=== PATIENT | male | born 1935 | race Caucasian/White ===

== ENCOUNTER 2018-08-26 14:43 | Emergency (ER) | payer MEDICARE, OTHER, SELFPAY ==
[2018-08-26 14:50] VITALS: BP 142/63; PULSE 60; RESP 17; TEMP 36.9; O2SAT 95
--- NOTE | 2018-08-26 15:33 | ED.SKABFB ---
HPI - Skin/Abscess/Foreign Bdy <Rosario Maher PA-C - Last Filed: 08/26/18 22:43> General Chief complaint: Skin/Abscess/Foreign Body Stated complaint: bleeding through bandages Time Seen by Provider: 08/26/18 15:12 Source: patient Mode of arrival: ambulatory Limitations: no limitations History of Present Illness HPI narrative: This 83-year-old male comes in today due to bleeding wound on his heel. He states that he had been debriding a callus with a neutral he got from the pharmacy yesterday and caused a cut. He states that he bandaged this that was fine, but accidentally put some pressure on it when he got up around 1 o'clock this morning and would not stop bleeding. Medics came out and bandaged it for him. It was fine until he tried to walk and shoes cause pressure, bleeding again and difficult to get it to stop so he came in here. He notes that he always bleeds and bruises easily due to being on Plavix. He denies any other complaints or new symptoms today. Related Data Home Medications Medication Instructions Recorded Confirmed gabapentin [Neurontin] 600 mg PO TID #0 03/27/12 08/26/18 clopidogrel [Plavix] 75 mg PO QDAY #0 12/02/16 08/26/18 atorvastatin 80 mg PO HS #0 11/25/17 08/26/18 fluticasone [Flonase Allergy 2 spray INTRANASAL QDAY #0 11/25/17 Relief] lansoprazole [Prevacid] 30 mg PO BIDAC #0 11/25/17 08/26/18 latanoprost 1 drp OPHTHALMIC (EYE) BEDTIME 08/26/18 08/26/18 morphine 1 tab PO 5XD 08/26/18 08/26/18 nortriptyline 25 mg PO BEDTIME 08/26/18 08/26/18 polyethylene glycol 3350 1 dose PO BID 08/26/18 08/26/18 Previous Rx's Medication Instructions Recorded atenolol 25 mg PO QDAY #30 tab 11/26/17 losartan 50 mg PO QDAY #30 tab 11/26/17 Allergies Allergy/AdvReac Type Severity Reaction Status Date / Time cephalexin Allergy Severe RASH Unverified 02/25/18 12:19 ciprofloxacin Allergy Severe RASH Unverified 02/25/18 12:19 Review of Systems <Rosario Maher PA-C - Last Filed: 08/26/18 22:43> Review of Systems All systems reviewed & are unremarkable except as noted in HPI and below Exam <SURYA Hicks Last Filed: 08/26/18 22:43> Narrative Exam Narrative: GENERAL APPEARANCE: Patient sitting comfortably, in no distress. LUNGS: Clear to auscultation bilaterally. HEART: Rate and rhythm regular without murmur, normal S1 and S2, no S3 or S4. DERMATOLOGIC: The on the left lateral heel there is a 1 cm long superficial laceration with no gap, not actively bleeding. Nontender MUSCULOSKELETAL: Full range of motion of the left foot and ankle without tenderness NEUROVASCULAR: Left foot sensation is grossly intact, warm and pink Initial Vital Signs Initial Vital Signs: Vital Signs Temperature 98.5 F 08/26/18 14:50 Pulse Rate 60 08/26/18 14:50 Respiratory Rate 17 08/26/18 14:50 Blood Pressure 142/63 H 08/26/18 14:50 Pulse Oximetry 95 08/26/18 14:50 <Jaxon Sweeney DO - Last Filed: 08/27/18 15:44> Initial Vital Signs Initial Vital Signs: Vital Signs Temperature 98.5 F 08/26/18 14:50 Pulse Rate 60 08/26/18 14:50 Respiratory Rate 17 08/26/18 14:50 Blood Pressure 142/63 H 08/26/18 14:50 Pulse Oximetry 95 08/26/18 14:50 Course <SURYA Hicks Last Filed: 08/26/18 22:43> Vital Signs - 8 hr 08/26/18 14:50 08/26/18 16:32 Temperature 98.5 F 98.2 F Pulse Rate 60 55 L Respiratory Rate 17 16 Blood Pressure 142/63 H 137/50 L Pulse Oximetry 95 98 <Jaxon Sweeney DO - Last Filed: 08/27/18 15:44> Vital Signs - 8 hr 08/26/18 14:50 08/26/18 16:32 Temperature 98.5 F 98.2 F Pulse Rate 60 55 L Respiratory Rate 17 16 Blood Pressure 142/63 H 137/50 L Pulse Oximetry 95 98 Discharge Plan Departure Patient Disposition: Home Clinical Impression: Open wound of left heel Discharge Date/Time: 08/26/18 16:33 Interventions: ED Discharge Assessment Last Done: 08/26/18 16:32 Instructions: DI for Laceration Repair Steri-Strips Activity Restrictions/Additional Instructions: We have put a dressing on this today to help the wound stay closed and keep pressure off of it. Please keep the dressing on, or changes with the supplies we have given you after you shower. Please try to wear no shoes, or shoes that do not put pressure on the wound. Please follow up right away or see your PCP if any worsening or signs of infection. Prescriptions: No Action gabapentin [Neurontin] 600 MG tablet 600 mg PO TID Qty: 0 RF: 0 clopidogrel [Plavix] 75 MG tablet 75 mg PO QDAY Qty: 0 RF: 0 lansoprazole [Prevacid] 30 MG capsule,delayed release(DR/EC) 30 mg PO BIDAC Qty: 0 RF: 0 atorvastatin 80 MG tablet 80 mg PO HS Qty: 0 RF: 0 fluticasone [Flonase Allergy Relief] 9.9 ML spray,suspension 2 spray Intranasal QDAY Qty: 0 RF: 0 losartan 50 MG tablet 50 mg PO QDAY Qty: 30 RF: 0 atenolol 25 MG tablet 25 mg PO QDAY Qty: 30 RF: 0 latanoprost 0.005 % drops 1 drp ophthalmic (eye) BEDTIME RF: 0 nortriptyline 25 mg capsule 25 mg PO BEDTIME RF: 0 morphine 15 mg tablet extended release 1 tab PO 5XD RF: 0 polyethylene glycol 3350 17 gram/dose powder 1 dose PO BID RF: 0 Referrals: Kane Molina MD [Primary Care Provider] - <Jaxon Sweeney DO - Last Filed: 08/27/18 15:44> Cosign ED Attending Mekaature Attestation: I was available for consultation for this patients ED stay.
[2018-08-26 16:32] VITALS: BP 137/50; PULSE 55; RESP 16; TEMP 36.8; O2SAT 98
== END 2018-08-26 16:33 | disposition home or self-care (01) ==
PROVIDERS: Emergency Provider Internal Medicine; Family Provider Internal Medicine; PCP Internal Medicine
DX: S91.302A Unspecified open wound, left foot, initial encounter (principal); W26.8XXA Contact with other sharp object(s), not elsewhere classified, initial encounter
CPT/HCPCS: 99282

== ENCOUNTER 2019-12-24 14:17 | Emergency (ER) | payer MEDICARE, OTHER, SELFPAY ==
[2019-12-24 14:56] VITALS: BP 136/56; PULSE 77; RESP 18; TEMP 36.9; O2SAT 98; BMI 20.2
--- NOTE | 2019-12-24 17:59 | DI.RAD.S_ITS ---
PROCEDURE: XR HIP W PEL IF DONE RT 2V INDICATIONS: R hip pain TECHNIQUE: AP pelvis with lateral view(s) of the right hip(s). COMPARISON: None. FINDINGS: Bones: No fractures or dislocations. Pelvic ring appears intact. No suspicious bony lesions. There is moderate superior joint space narrowing seen of both hips, with associated remodeling changes with subchondral sclerosis and osteophyte formation. Age-appropriate lower lumbar spine degenerative changes are noted. Soft tissues: The visualized bowel gas pattern is normal. No suspicious soft tissue calcifications. 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 Dictated by: Dawson Flores M.D. on 12/24/2019 at 18:34 Approved by: Dawson Flores M.D. on 12/24/2019 at 18:35
--- NOTE | 2019-12-24 18:20 | ED_ITS ---
HPI - Back Pain/Injury <Eneida JaimesPIPPA - Last Filed: 12/24/19 21:24> General Chief Complaint: Back Pain/Injury Stated Complaint: pain management Time Seen by Provider: 12/24/19 16:59 Source: patient History of Present Illness HPI Narrative: 84yo male with a history of chronic pain, presents to the emergency department complaining of worsening right hip pain since Friday. He denies any trauma to the area, fevers, chills, rashes, nausea, vomiting, diarrhea, or other concerns. He states the pain is intermittent and is a burning and sharp stabbing that starts in his hip and radiates down to his knee. She states the pain is usually worse in the morning or when he gets out of bed. Patient states this is common of the pain he has been experiencing in the past but usually has pain medication gets for the pain The pain is worse when he walks on it during an exacerbation. Patient states that he takes morphine tablets approximately 5 times a day for chronic back pain and AK. He states he fears that his pain medication is not working as well. Related Data Home Medications Medication Instructions Recorded Confirmed gabapentin [Neurontin] 600 mg PO TID #0 03/27/12 12/24/19 clopidogrel [Plavix] 75 mg PO DAILY #0 12/02/16 12/24/19 atorvastatin 80 mg PO BEDTIME #0 11/25/17 12/24/19 fluticasone propionate [Flonase 2 spray INTRANASAL DAILY #0 11/25/17 12/24/19 Allergy Relief] lansoprazole [Prevacid] 30 mg PO BIDAC #0 11/25/17 12/24/19 latanoprost 1 drp OPHTHALMIC (EYE) BEDTIME 08/26/18 12/24/19 morphine 1 tab PO 5XD 08/26/18 12/24/19 nortriptyline 25 mg PO BEDTIME 08/26/18 12/24/19 polyethylene glycol 3350 1 dose PO BID 08/26/18 12/24/19 calcium carbonate [Calcium 500] 500 mg DAILY 09/08/19 12/24/19 cranberry 400 mg DAILY 09/08/19 12/24/19 cyanocobalamin (vitamin B-12) 1,000 mcg PO BID 09/08/19 12/24/19 [Vitamin B-12] ferrous sulfate 325 mg PO DAILY 09/08/19 12/24/19 er-vaz-nqmob acid-lutein [Centrum 1 tab PO DAILY 09/08/19 12/24/19 Silver] olopatadine [Pataday] 0.2 % OPHTHALMIC (EYE) DAILY 09/08/19 12/24/19 vit C,D-Ph-pniby-lutein-zeaxan 1 tab DAILY 09/08/19 12/24/19 [PreserVision AREDS-2] amlodipine 10 mg PO DAILY 11/03/19 12/24/19 isosorbide mononitrate 60 mg PO DAILY 11/03/19 12/24/19 metoprolol succinate 25 mg PO DAILY 11/03/19 12/24/19 ICaps AREDS 1 cap PO DAILY 12/24/19 12/24/19 Ventricor 1 dose PO DIRECTED 12/24/19 12/24/19 Vitapulse 1 dose PO DIRECTED 12/24/19 12/24/19 aspirin 81 mg PO DAILY 12/24/19 12/24/19 atenolol 25 mg PO DAILY 12/24/19 12/24/19 kthmwzsxfl-vqabyup-fxtpybmm 2 cap PO Q4H PRN 12/24/19 12/24/19 [Fiorinal] coenzyme Q10 [Co Q-10] 300 mg PO DAILY 12/24/19 12/24/19 flaxseed oil 1 dose PO DIRECTED 12/24/19 12/24/19 furosemide 10 mg PO DAILY 12/24/19 12/24/19 losartan 50 mg PO DAILY 12/24/19 12/24/19 nitroglycerin 0.4 mg SUBLINGUAL PRN PRN 12/24/19 12/24/19 resveratrol 1 cap PO DIRECTED 12/24/19 12/24/19 Allergies Allergy/AdvReac Type Severity Reaction Status Date / Time cephalexin Allergy Severe RASH Verified 05/11/19 18:58 ciprofloxacin Allergy Severe RASH Verified 05/11/19 18:58 Review of Systems <PIPPA Burger - Last Filed: 12/24/19 21:24> Review of Systems Narrative: REVIEW OF SYSTEMS: GENERAL: Denies fever or chills. HENT: No head trauma. EYES: No double vision or vision loss. CARDIOVASCULAR: No chest pain or syncope. RESPIRATORY: No shortness of breath or cough. GASTROINTESTINAL: No nausea, vomiting, diarrhea, or constipation. GENITOURINARY: No flank pain or dysuria. MUSCULOSKELETAL: Complains of right hip pain, see HPI. INTEGUMENTARY: No rash, lesions, or pruritus. NEURO: No numbness, tingling. PSYCH: No behavior or mood changes. Patient History <PIPPA Burger - Last Filed: 12/24/19 21:24> Medical History HTN (hypertension) (Acute) Social History Smoking Status: Never smoker Smoking Status: Never smoker alcohol intake frequency: holidays/special occasions only Substance Use Type: does not use Exam <PIPPA Burger - Last Filed: 12/24/19 21:24> Initial Vital Signs Initial Vital Signs: Vital Signs Temperature 98.4 F 12/24/19 14:56 Pulse Rate 77 12/24/19 14:56 Respiratory Rate 18 12/24/19 14:56 Blood Pressure 136/56 L 12/24/19 14:56 Pulse Oximetry 98 12/24/19 14:56 PHYSICAL EXAMINATION: GENERAL: Skinny appearing but well groomed, alert, and cooperative. Answers questions promptly and appropriately. Vital signs noted. HENT: Normocephalic, atraumatic. EYES: Symmetrical, sclera white, no periorbital swelling. CARDIOVASCULAR: S1 and S2 sounds normal. Regular rate and rhythm, no murmurs, clicks, or bruits. RESPIRATORY: Normal respiratory rate, trachea midline, airway patent. No stridor, nasal flaring or accessory muscle use. Lungs are clear in all wagner. MUSCULOSKELETAL: Slight tenderness to right sciatic region, decreased flexion of hip due to pain. No deformities. Normal gait and coordination. Equal tone and mass bilaterally. Notable spinal deformities but patient states this is normal. EXTREMITIES: CMS intact. Pedal pulses 2+ intact. SKIN: Warm, dry, soft, appropriate color for ethnicity. No lesions, rashes, or wounds. NEURO: Alert and Oriented X 3. No sensory deficits. PSYCH: Appropriate affect and mood. <Francisca Conklin DO - Last Filed: 12/24/19 21:30> Initial Vital Signs Initial Vital Signs: Vital Signs Temperature 98.4 F 12/24/19 14:56 Pulse Rate 77 12/24/19 14:56 Respiratory Rate 18 12/24/19 14:56 Blood Pressure 136/56 L 12/24/19 14:56 Pulse Oximetry 98 12/24/19 14:56 Course <PIPPA Burger - Last Filed: 12/24/19 21:24> Orders Ordered: ED Orders 12/24/19 17:59 XR hip w pel if done RT 2V Stat Discontinued Medications Oxycodone/Acetaminophen (Percocet 5/325) 1 tab PO NOW ONE Stop: 12/24/19 19:51 Last Admin: 12/24/19 19:55 Dose: 1 tab Documented by: MIMI Vital Signs Vital signs: Vital Signs - 8 hr 12/24/19 14:56 12/24/19 20:05 Temperature 98.4 F Pulse Rate 77 57 L Respiratory Rate 18 Blood Pressure 136/56 L 132/60 Pulse Oximetry 98 99 <Francisca Conklin DO - Last Filed: 12/24/19 21:30> Orders Ordered: ED Orders 12/24/19 17:59 XR hip w pel if done RT 2V Stat Discontinued Medications Oxycodone/Acetaminophen (Percocet 5/325) 1 tab PO NOW ONE Stop: 12/24/19 19:51 Last Admin: 12/24/19 19:55 Dose: 1 tab Documented by: MIMI Vital Signs Vital signs: Vital Signs - 8 hr 12/24/19 14:56 12/24/19 20:05 Temperature 98.4 F Pulse Rate 77 57 L Respiratory Rate 18 Blood Pressure 136/56 L 132/60 Pulse Oximetry 98 99 MDM - Back Pain/Injury <PIPPA Burger - Last Filed: 12/24/19 21:24> Medical Records Attestation: I reviewed the patient's medical records. Lab Data Attestation: I reviewed the patient's lab results. Imaging Data Extremity x-ray #1: Radiologist's Impression: [address] [place] [id number] XRay Report Signed Patient: Graeme Forte [facility]#: [id number] : 5Acct:[id number] Age/Sex: 84 / MDate of Service: 12/24/19 Loc: ED Accession Number: [id number] Procedure: XR hip w pel if done RT 2V Ordering Provider: Eneida Jaimes PROCEDURE: XR HIP W PEL IF DONE RT 2V INDICATIONS: R hip pain TECHNIQUE: AP pelvis with lateral view(s) of the right hip(s). COMPARISON: None. FINDINGS: Bones: No fractures or dislocations. Pelvic ring appears intact. No suspicious bony lesions. There is moderate superior joint space narrowing seen of both hips, with associated remodeling changes with subchondral sclerosis and osteophyte formation. Age-appropriate lower lumbar spine degenerative changes are noted. Soft tissues: The visualized bowel gas pattern is normal. No suspicious soft tissue calcifications. 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 ECG Data Interpretation: MDM Narrative Medical decision making narrative: 84-year-old male with a history of AK and arthritis on chronic pain medication, presents emergency department for worsening right hip pain without trauma. Differential inadequate pain control, arthritis, sciatica, and less likely fracture due to negative x-ray. Patient was encouraged to follow up with his primary care provider in 1-2 weeks for further evaluation. He was given strict ED return precautions. Patient agreed with plan of care verbalized understanding. He was able to ambulate without significant difficulty using his cane. No concern for sepsis due to lack of erythema or other this systemic symptoms such as tachycardia or fever. Patient agreed with plan of care verbalized understanding. Discharge Plan Departure Patient Disposition: Home Clinical Impression: Hip pain Qualifiers: Laterality: right Qualified Code(s): M25.551 - Pain in right hip Discharge Date/Time: 12/24/19 20:08 Instructions: DI for Hip Pain Activity Restrictions/Additional Instructions: Thank you for entrusting me with your care today. As discussed, your x-rays negative for fractures. Please follow up with your primary care provider in the next 1-2 weeks for further evaluation if you have continued pain. I suggest taking 1-2 pills of Tylenol every 6 hours with your morphine that you currently take to help with pain. Do not exceed 3 g of Tylenol a day. Return to the emergency department for any new or worsening symptoms such as chest pain, shortness of breath, dizziness, worsening pain, or other concerns. Prescriptions: No Action gabapentin [Neurontin] 600 MG tablet 600 mg PO TID Qty: 0 RF: 0 clopidogrel [Plavix] 75 MG tablet 75 mg PO DAILY Qty: 0 RF: 0 lansoprazole [Prevacid] 30 MG capsule,delayed release(DR/EC) 30 mg PO BIDAC Qty: 0 RF: 0 atorvastatin 80 MG tablet 80 mg PO BEDTIME Qty: 0 RF: 0 fluticasone propionate [Flonase Allergy Relief] 9.9 ML spray,suspension 2 spray Intranasal DAILY Qty: 0 RF: 0 nitroglycerin 0.4 mg tablet, sublingual 0.4 mg sublingual PRN PRN (Reason: Chest Pain) RF: 0 furosemide 20 mg tablet 10 mg PO DAILY RF: 0 losartan 50 MG tablet 50 mg PO DAILY RF: 0 atenolol 25 mg tablet 25 mg PO DAILY RF: 0 aspirin 81 mg Tablet,Delayed Release (Dr/Ec) 81 mg PO DAILY RF: 0 wllvzdipnq-fsgirhg-sykgtcsl [Fiorinal] 50-325-40 mg Capsule 2 cap PO Q4H PRN (Reason: pain) RF: 0 Co Q-10 300 mg Capsule 300 mg PO DAILY RF: 0 ICaps AREDS 1 cap PO DAILY RF: 0 flaxseed oil 1 dose PO DIRECTED RF: 0 Ventricor 1 dose PO DIRECTED RF: 0 resveratrol 1 cap PO DIRECTED RF: 0 Vitapulse 1 dose PO DIRECTED RF: 0 latanoprost 0.005 % drops 1 drp ophthalmic (eye) BEDTIME RF: 0 nortriptyline 25 mg capsule 25 mg PO BEDTIME RF: 0 morphine 15 mg tablet extended release 1 tab PO 5XD RF: 0 polyethylene glycol 3350 17 gram/dose powder 1 dose PO BID RF: 0 cyanocobalamin (vitamin B-12) [Vitamin B-12] 1,000 mcg Tablet Extended Release 1,000 mcg PO BID RF: 0 ferrous sulfate 325 mg (65 mg iron) Tablet 325 mg PO DAILY RF: 0 cranberry 400 mg Capsule 400 mg DAILY RF: 0 olopatadine [Pataday] 0.2 % Drops 0.2 % OPHTHALMIC (EYE) DAILY RF: 0 Centrum Silver 400-250 mcg Tablet,Chewable 1 tab PO DAILY RF: 0 PreserVision AREDS-2 430-510-40-1 wd-klrc-ay-mg Capsule 1 tab DAILY RF: 0 calcium carbonate [Calcium 500] 500 mg calcium (1,250 mg) Tablet 500 mg DAILY RF: 0 isosorbide mononitrate 60 mg Tablet Extended Release 24 Hr 60 mg PO DAILY RF: 0 amlodipine 10 mg Tablet 10 mg PO DAILY RF: 0 metoprolol succinate 25 mg Tablet Extended Release 24 Hr 25 mg PO DAILY RF: 0 Referrals: Kane Molina MD [Primary Care Provider] -
[2019-12-24] MEDS: OXYCODONE/ACETAMINOPHEN 5/325 TABLET 1 TAB PO (19:55)
[2019-12-24 20:05] VITALS: BP 132/60; PULSE 57; O2SAT 99
== END 2019-12-24 20:08 | disposition home or self-care (01) ==
PROVIDERS: Emergency Provider Nurse Practitioner; Family Provider Internal Medicine; PCP Internal Medicine
DX: M25.551 Pain in right hip (principal); I10 Essential (primary) hypertension
CPT/HCPCS: 73502; 99283

== ENCOUNTER → 2020-06-29 15:18 | Outpatient (CLI) | payer MEDICARE, OTHER, SELFPAY ==
--- NOTE | 2020-06-29 15:28 | DI.US.S_ITS ---
PROCEDURE: US RENAL COMPLETE INDICATIONS: INSUFFICIENCY TECHNIQUE: Real-time scanning was performed of the kidneys and bladder, with image documentation. COMPARISON: None. FINDINGS: Kidneys: Kidneys are normal in size. Right kidney measures 9.6 cm long; left kidney measures 10.0 cm long. Right renal cortical thickness is 1.6 cm; left renal cortical thickness is 1.7 cm. Renal cortical echotexture is normal. No hydronephrosis or nephrolithiasis. No suspicious solid mass lesions. Bladder: Pre-void bladder volume is 342 mL. Post-void residual is unable to be assessed as the patient was unable to void. Pre-void images demonstrate no intraluminal masses or stones. On pre-void images, bilateral ureteral jets are noted with color Doppler interrogation. (Of note, ureteral jets may not be detectable in up to 25% of cases due to insufficient differences in specific gravity between ureteral and bladder urine). Bladder wall trabeculations. Miscellaneous: No free pelvic fluid. IMPRESSION: 1. Normal appearance of the kidneys and no hydronephrosis is seen. 2. Patient was unable to void and bladder wall trabeculations are present which could be associated with chronic partial bladder outlet obstruction. Recommend clinical correlation and follow-up. Dictated by: Brock WOO Interpreted: Clau Caruso MD on 06/29/2020 at 16:24 Approved by: Clau Caruso MD, PhD on 06/29/2020 at 17:22
== END ==
PROVIDERS: Family Provider Internal Medicine; PCP Internal Medicine; Referring Provider Student in an Organized Health Care Education/Training Program; Visit Provider Student in an Organized Health Care Education/Training Program
DX: N28.9 Disorder of kidney and ureter, unspecified (principal); N32.89 Other specified disorders of bladder
CPT/HCPCS: 76770

== ENCOUNTER 2020-07-27 02:48 | Emergency (ER) | payer MEDICARE, OTHER, SELFPAY ==
[2020-07-27] VITALS (9 sets, daily range): BP systolic 137–140; BP diastolic 57–63; PULSE 68–112; RESP 12–18; TEMP 37–37.2; O2SAT 87–100
--- NOTE | 2020-07-27 03:06 | ED.FALL ---
HPI - Fall General Chief Complaint: Fall Stated Complaint: GLF Time Seen by Provider: 07/27/20 03:06 History of Present Illness HPI Narrative: 85-year-old gentleman with a history of recently discontinued losartan with a change to doxazosin, chronic pain syndrome, cardiac disease, hypertension, with intermittent vertigo was walking across the kitchen became vertiginous and fell, hitting his head. He does take Plavix. He states that he stumbled forward and hit the top of his head on the edge of the counter as he fell down. He complains of no other new pain -specifically node neck pain hip low back upper extremity or knee pain. He has no abrasions on I any other portion of his body. He did not lose consciousness. He was able to get himself up off the floor but called medics when he realized he was bleeding so profusely from the top of his head. Related Data Home Medications Medication Instructions Recorded Confirmed gabapentin [Neurontin] 600 mg PO TID #0 03/27/12 12/24/19 clopidogrel [Plavix] 75 mg PO DAILY #0 12/02/16 12/24/19 atorvastatin 80 mg PO BEDTIME #0 11/25/17 12/24/19 fluticasone propionate [Flonase 2 spray INTRANASAL DAILY #0 11/25/17 12/24/19 Allergy Relief] lansoprazole [Prevacid] 30 mg PO BIDAC #0 11/25/17 12/24/19 latanoprost 1 drp OPHTHALMIC (EYE) BEDTIME 08/26/18 12/24/19 morphine 1 tab PO 5XD 08/26/18 12/24/19 nortriptyline 25 mg PO BEDTIME 08/26/18 12/24/19 polyethylene glycol 3350 1 dose PO BID 08/26/18 12/24/19 calcium carbonate [Calcium 500] 500 mg DAILY 09/08/19 12/24/19 cranberry 400 mg DAILY 09/08/19 12/24/19 cyanocobalamin (vitamin B-12) 1,000 mcg PO BID 09/08/19 12/24/19 [Vitamin B-12] ferrous sulfate 325 mg PO DAILY 09/08/19 12/24/19 bi-qov-stxtd acid-lutein [Centrum 1 tab PO DAILY 09/08/19 12/24/19 Silver] olopatadine [Pataday] 0.2 % OPHTHALMIC (EYE) DAILY 09/08/19 12/24/19 vit C,L-Qe-mtecg-lutein-zeaxan 1 tab DAILY 09/08/19 12/24/19 [PreserVision AREDS-2] amlodipine 10 mg PO DAILY 11/03/19 12/24/19 isosorbide mononitrate 60 mg PO DAILY 11/03/19 12/24/19 metoprolol succinate 25 mg PO DAILY 11/03/19 12/24/19 ICaps AREDS 1 cap PO DAILY 12/24/19 12/24/19 Ventricor 1 dose PO DIRECTED 12/24/19 12/24/19 Vitapulse 1 dose PO DIRECTED 12/24/19 12/24/19 aspirin 81 mg PO DAILY 12/24/19 12/24/19 atenolol 25 mg PO DAILY 12/24/19 12/24/19 pzlrbnkxnq-xqxilqp-dklfvbpt 2 cap PO Q4H PRN 12/24/19 12/24/19 [Fiorinal] coenzyme Q10 [Co Q-10] 300 mg PO DAILY 12/24/19 12/24/19 flaxseed oil 1 dose PO DIRECTED 12/24/19 12/24/19 furosemide 10 mg PO DAILY 12/24/19 12/24/19 losartan 50 mg PO DAILY 12/24/19 12/24/19 nitroglycerin 0.4 mg SUBLINGUAL PRN PRN 12/24/19 12/24/19 resveratrol 1 cap PO DIRECTED 12/24/19 12/24/19 Allergies Allergy/AdvReac Type Severity Reaction Status Date / Time cephalexin Allergy Severe RASH Verified 05/11/19 18:58 ciprofloxacin Allergy Severe RASH Verified 05/11/19 18:58 Review of Systems Review of Systems Narrative: Pertinent positive and negative findings as per HPI Remainder of review of systems is otherwise unremarkable for Constitutional: Fevers, chills, weakness ENT: No sore throat, neck pain, ear pain CV: Chest pain, palpitations, dyspnea on exertion Respiratory: Cough, wheeze, dyspnea GI: Nausea, vomiting, diarrhea, change in bowel habits, black or bloody stools : Dysuria, hematuria, flank pain Skin: Rashes, nonhealing lesions Patient History Medical History (Updated 07/27/20 @ 04:31 by Luz Maria Nichols MD) Anemia (Acute) Angina pectoris (Acute) HTN (hypertension) (Acute) Hyperlipidemia (Acute) Social History Smoking Status: Never smoker Smoking Status: Never smoker alcohol intake frequency: holidays/special occasions only Substance Use Type: does not use Exam Narrative Exam Narrative: General: Healthy appearing, in no acute distress. Able to give a complete and coherent history. Well-nourished well-developed HEENT: Hard of hearing, Moist mucous membranes, normal sclera with reactive pupils, 4 cm super it official flap like skin tear to the very top of his head. Neck: No point tenderness midline spine nor trapezius muscle spasm Respiratory: Lungs are clear to auscultation, no wheezing no rales no rhonchi. Cardiac: Regular rate and rhythm no murmurs no bruits Abdomen: Soft nontender good bowel tones, no flank pain Skin: Warm and dry, pale, no rashes Spine: Kyphosis and scoliosis Neurologic: Grossly neurologically intact with no obvious asymmetries or abnormalities Extremities: No new trauma, well perfused, Psych: Cooperative, appropriate insight and affect Initial Vital Signs Initial Vital Signs: Vital Signs Pulse Rate 112 H 07/27/20 03:02 Pulse Oximetry 100 07/27/20 03:02 Procedures Laceration Repair Flap laceration to the top of his head: Site: scalp Size (cm): 4 Description: flap Depth: simple, single layer Local Anesthetic: other anesthetic (Topical probably cane/lidocaine) Pre-repair: wound explored Skin layer closed with: steri-strips Scores ABCD2 Citation: Lancet. 2006Dec 13;369(7913):743-92. Validation and refinement of scores to predict very early stroke risk after transient ischaemic attack. [place] SC1, Zeeshan PM, Janay MN, Byron MF, Bobbi JS, Citlaly AL, Richard S. Course Orders Ordered: ED Orders 07/27/20 EKG-12 Lead Stat 07/27/20 03:14 CT head/brain wo con Stat Discontinued Medications Lidocaine/Prilocaine (Lidocaine-Prilocaine Cream) 5 gm TOP NOW ONE Stop: 07/27/20 03:14 Last Admin: 09/10/20 03:19 Dose: 5 gm Documented by: MARI Morphine Sulfate (Morphine Ir) 15 mg PO NOW ONE Stop: 07/27/20 03:47 Last Admin: 07/27/20 04:08 Dose: Not Given Documented by: MARI Morphine Sulfate (Ms Contin) 15 mg PO BID ONE Stop: 07/27/20 03:51 Last Admin: 07/27/20 04:07 Dose: Not Given Documented by: MARI Vital Signs Vital signs: Vital Signs - 8 hr 07/27/20 03:02 07/27/20 03:03 07/27/20 03:33 Temperature 98.6 F Pulse Rate 112 H 101 H 81 Respiratory Rate 18 Blood Pressure 137/57 L Pulse Oximetry 100 100 87 L 07/27/20 04:00 07/27/20 04:07 Temperature Pulse Rate 74 77 Respiratory Rate 16 15 Blood Pressure 140/63 Pulse Oximetry 100 99 MDM - Fall Medical Records Attestation: I reviewed the patient's medical records. Lab Data Attestation: I reviewed the patient's lab results. Imaging Data CT scan - head: Radiologist's Impression: No acute findings Barbara Hawkins MD ECG Data Attestation: I personally reviewed and interpreted this ECG as follows: Interpretation: Sinus arrhythmia at a rate of 97 Left axis deviation and right bundle branch block No acute ischemic changes, no priors for comparison MDM Narrative Medical decision making narrative: 85-year-old gentleman with a description of a intense vertiginous feeling fci across his kitchen, he stumbled fell forward script the top of his head probably along the refrigerator door suffering a flap like laceration. No loss of consciousness. No intracranial hemorrhage. No evidence of infection, stroke or acute coronary syndrome to contribute to his fall. Steri-Strips are used to reapproximate skin edges and patient is safe for home discharge. Discharge Plan Departure Patient Disposition: Home Clinical Impression: Fall Qualifiers: Encounter type: initial encounter Qualified Code(s): W19.XXXA - Unspecified fall, initial encounter Laceration of scalp Qualifiers: Encounter type: initial encounter Qualified Code(s): S01.01XA - Laceration without foreign body of scalp, initial encounter Instructions: DI for Laceration Repair of the Scalp Activity Restrictions/Additional Instructions: Thank you for coming in today You did not do any additional injury with your fall. There is no bleeding on the inside of your brain. I found no evidence of infection or life-threatening cardiac abnormalities that that might have contributed to a fall You do have a flap like laceration to the top of your scalp. We reapproximated the edges using Steri-Strips. Please try to not disturb these tape strips for at least 3-4 days. It is okay to gently pat them if you do get your hair wet but try not to pull them off. The wound should heal nicely. Please take care with falls, they can have very serious consequences. Prescriptions: No Action gabapentin [Neurontin] 600 MG tablet 600 mg PO TID Qty: 0 RF: 0 clopidogrel [Plavix] 75 MG tablet 75 mg PO DAILY Qty: 0 RF: 0 lansoprazole [Prevacid] 30 MG capsule,delayed release(DR/EC) 30 mg PO BIDAC Qty: 0 RF: 0 atorvastatin 80 MG tablet 80 mg PO BEDTIME Qty: 0 RF: 0 fluticasone propionate [Flonase Allergy Relief] 9.9 ML spray,suspension 2 spray Intranasal DAILY Qty: 0 RF: 0 nitroglycerin 0.4 mg tablet, sublingual 0.4 mg sublingual PRN PRN (Reason: Chest Pain) RF: 0 furosemide 20 mg tablet 10 mg PO DAILY RF: 0 losartan 50 MG tablet 50 mg PO DAILY RF: 0 atenolol 25 mg tablet 25 mg PO DAILY RF: 0 aspirin 81 mg Tablet,Delayed Release (Dr/Ec) 81 mg PO DAILY RF: 0 deqkgojqrf-mcjcfcc-ifxlmoey [Fiorinal] 50-325-40 mg Capsule 2 cap PO Q4H PRN (Reason: pain) RF: 0 Co Q-10 300 mg Capsule 300 mg PO DAILY RF: 0 ICaps AREDS 1 cap PO DAILY RF: 0 flaxseed oil 1 dose PO DIRECTED RF: 0 Ventricor 1 dose PO DIRECTED RF: 0 resveratrol 1 cap PO DIRECTED RF: 0 Vitapulse 1 dose PO DIRECTED RF: 0 latanoprost 0.005 % drops 1 drp ophthalmic (eye) BEDTIME RF: 0 nortriptyline 25 mg capsule 25 mg PO BEDTIME RF: 0 morphine 15 mg tablet extended release 1 tab PO 5XD RF: 0 polyethylene glycol 3350 17 gram/dose powder 1 dose PO BID RF: 0 cyanocobalamin (vitamin B-12) [Vitamin B-12] 1,000 mcg Tablet Extended Release 1,000 mcg PO BID RF: 0 ferrous sulfate 325 mg (65 mg iron) Tablet 325 mg PO DAILY RF: 0 cranberry 400 mg Capsule 400 mg DAILY RF: 0 olopatadine [Pataday] 0.2 % Drops 0.2 % OPHTHALMIC (EYE) DAILY RF: 0 Centrum Silver 400-250 mcg Tablet,Chewable 1 tab PO DAILY RF: 0 PreserVision AREDS-2 266-529-36-1 oo-mvvn-jy-mg Capsule 1 tab DAILY RF: 0 calcium carbonate [Calcium 500] 500 mg calcium (1,250 mg) Tablet 500 mg DAILY RF: 0 isosorbide mononitrate 60 mg Tablet Extended Release 24 Hr 60 mg PO DAILY RF: 0 amlodipine 10 mg Tablet 10 mg PO DAILY RF: 0 metoprolol succinate 25 mg Tablet Extended Release 24 Hr 25 mg PO DAILY RF: 0 Referrals: Kane Molina MD [Primary Care Provider] -
--- NOTE | 2020-07-27 03:14 | DI.CT.S_ITS ---
PROCEDURE: CT HEAD/BRAIN WO CON INDICATIONS: fall, on plavix, hit head TECHNIQUE: Noncontrast 4.5 mm thick angled axial sections acquired from the foramen magnum to the vertex, with coronal and sagittal reformats. For radiation dose reduction, the following was used: automated exposure control, adjustment of mA and/or kV according to patient size. COMPARISON: None. FINDINGS: Image quality: Excellent. CSF spaces: Basal cisterns are patent. No extra-axial fluid collections. The ventricles are symmetric in size and shape. Brain: No intracranial bleeds or masses. There is cerebral volume loss for age, with resultant ventricular and sulcal prominence. There are periventricular and deep white matter chronic small vessel ischemic changes. There is intracranial internal carotid artery and vertebral artery atherosclerosis. Skull and face: Calvarium and visualized facial bones appear intact, without suspicious lesions. Small right frontal-parietal scalp contusion. Sinuses: Visualized sinuses and mastoids are clear. IMPRESSION: No acute intracranial disease process. Dictated by: Clau Caruso MD, PhD on 07/27/2020 at 7:27 Approved by: Clau Caruso MD, PhD on 07/27/2020 at 7:29
[2020-07-27] MEDS: LIDOCAINE/PRILOCAINE 5 GM TOP (03:19)
[2020-07-27] MEDS: MORPHINE ER 15 MG TABLET PO (04:04)
--- NOTE | 2020-07-27 04:21 | PC.NURSE ---
Pt given home dose of Morphine for chronic pain.
== END 2020-07-27 04:58 | disposition home or self-care (01) ==
PROVIDERS: Emergency Provider Emergency Medicine; Family Provider Internal Medicine; PCP Internal Medicine
DX: S01.01XA Laceration without foreign body of scalp, initial encounter (principal); W19.XXXA Unspecified fall, initial encounter; I10 Essential (primary) hypertension; R42 Dizziness and giddiness; Z79.01 Long term (current) use of anticoagulants; R07.9 Chest pain, unspecified
CPT/HCPCS: 70450; 93005; 99282; 99284

== ENCOUNTER 2020-08-09 15:55 | Inpatient (IN) | payer MEDICARE, OTHER, SELFPAY ==
[2020-08-09] VITALS (9 sets, daily range): BP systolic 107–135; BP diastolic 55–65; PULSE 71–100; RESP 14–23; TEMP 36.7–37.1; O2SAT 94–99; BMI 20.9
--- NOTE | 2020-08-09 16:20 | ED.RECABL ---
HPI - Recheck/Abnormal Lab/Rx General Chief Complaint: Recheck/Abnormal Lab/Rx Stated Complaint: weakness Time Seen by Provider: 08/09/20 16:20 Source: patient Mode of arrival: Wheelchair History of Present Illness HPI narrative: 85-year-old gentleman with a history of cardiac disease, chronic pain syndrome, hypertension, intermittent vertigo, postnasal drip with chronic cough presents with generalized weakness and states that he received a phone call from his primary care doctor Kane Molina with a report that his blood was at 35% and he needed to have a blood draw. Promptly came to the emergency department. States that he is at his usual state of general malaise and weakness and had he not received phone call he would not have sought medical treatment this evening. Contacting Dr. Molina's office indicates that there was a message left stating that his hematocrit was 21% with worsening renal function and recommended further ER evaluation and workup. He denies any fever, cough, palpitation. He is having no chest pain no abdominal pain. States that his chronic lower extremity edema is unchanged and it repeats that to the doxazosin that he recently started after stopping losartan for high blood pressure. He was seen recently in this emergency department after he stumbled and hit top of his head on a wall. That wound is healing nicely. Reports chronic proximal muscle weakness and pain that is unchanged Related Data Home Medications Medication Instructions Recorded Confirmed gabapentin [Neurontin] 600 mg PO TID #0 03/27/12 12/24/19 clopidogrel [Plavix] 75 mg PO DAILY #0 12/02/16 08/09/20 atorvastatin 80 mg PO BEDTIME #0 11/25/17 12/24/19 fluticasone propionate [Flonase 2 spray INTRANASAL DAILY #0 11/25/17 12/24/19 Allergy Relief] lansoprazole [Prevacid] 30 mg PO BIDAC #0 11/25/17 12/24/19 latanoprost 1 drp OPHTHALMIC (EYE) BEDTIME 08/26/18 12/24/19 morphine 1 tab PO 5XD 08/26/18 12/24/19 nortriptyline 25 mg PO BEDTIME 08/26/18 12/24/19 polyethylene glycol 3350 1 dose PO BID 08/26/18 12/24/19 calcium carbonate [Calcium 500] 500 mg DAILY 09/08/19 12/24/19 cranberry 400 mg DAILY 09/08/19 12/24/19 cyanocobalamin (vitamin B-12) 1,000 mcg PO BID 09/08/19 12/24/19 [Vitamin B-12] ferrous sulfate 325 mg PO DAILY 09/08/19 08/09/20 yu-vya-zzbqi acid-lutein [Centrum 1 tab PO DAILY 09/08/19 12/24/19 Silver] olopatadine [Pataday] 0.2 % OPHTHALMIC (EYE) DAILY 09/08/19 12/24/19 vit C,N-Ub-xqykb-lutein-zeaxan 1 tab DAILY 09/08/19 12/24/19 [PreserVision AREDS-2] amlodipine 10 mg PO DAILY 11/03/19 08/09/20 isosorbide mononitrate 60 mg PO DAILY 11/03/19 08/09/20 metoprolol succinate 25 mg PO DAILY 11/03/19 08/09/20 ICaps AREDS 1 cap PO DAILY 12/24/19 12/24/19 Ventricor 1 dose PO DIRECTED 12/24/19 12/24/19 Vitapulse 1 dose PO DIRECTED 12/24/19 12/24/19 eeyssfwikf-wewneqg-anhklenu 2 cap PO Q4H PRN 12/24/19 12/24/19 [Fiorinal] coenzyme Q10 [Co Q-10] 300 mg PO DAILY 12/24/19 12/24/19 flaxseed oil 1 dose PO DIRECTED 12/24/19 12/24/19 furosemide 10 mg PO DAILY 12/24/19 12/24/19 nitroglycerin 0.4 mg SUBLINGUAL PRN PRN 12/24/19 12/24/19 resveratrol 1 cap PO DIRECTED 12/24/19 12/24/19 doxazosin 1 mg PO DAILY 08/09/20 08/09/20 Allergies Allergy/AdvReac Type Severity Reaction Status Date / Time cephalexin Allergy Severe RASH Verified 08/09/20 16:12 ciprofloxacin Allergy Severe RASH Verified 08/09/20 16:12 Review of Systems Review of Systems Narrative: Remainder of review of systems including constitutional, ENT, cardiovascular, respiratory, GI, , musculoskeletal, skin, neurologic and psychiatric systems reviewed and are unremarkable except as noted in HPI. Patient History Medical History Anemia (Acute) Angina pectoris (Acute) HTN (hypertension) (Acute) Hyperlipidemia (Acute) Social History Smoking Status: Never smoker Smoking Status: Never smoker alcohol intake frequency: holidays/special occasions only Substance Use Type: does not use Exam Narrative Exam Narrative: General: Cachectic and slightly pale but in no acute distress. Able to give a complete and coherent history. HEENT: Moist mucous membranes, normal sclera with reactive pupils, Neck: No JVD, supple Respiratory: Lungs are clear to auscultation, no wheezing no rales no rhonchi. Full and symmetrical air movement Cardiac: irregular rate and rhythm no murmurs no bruits Abdomen: Soft nontender good bowel tones, no flank pain Skin: pale, Warm and dry, no rashes Neurologic: Grossly neurologically intact with no obvious asymmetries or abnormalities, globally weak Extremities: No trauma, well perfused. Scalp wound is healing nicely Psych: Cooperative, appropriate insight and affect : Guiac neg brown stool. stage 1 ulcer over sacrum Initial Vital Signs Initial Vital Signs: Vital Signs Pulse Rate 100 H 08/09/20 16:03 Pulse Oximetry 98 08/09/20 16:03 Course Orders Ordered: ED Orders 08/09/20 16:25 Complete Blood Count AUTO DIFF Stat Comprehensive Metabolic Panel Stat Partial Thromboplastin Time Stat Prothrombin Time INR Stat Type and Screen Stat 08/09/20 16:33 EKG-12 Lead Stat Vital Signs Vital signs: Vital Signs - 8 hr 08/09/20 16:03 08/09/20 16:05 08/09/20 16:10 Temperature 98.7 F Pulse Rate 100 H 98 H 98 H Respiratory Rate 18 20 Blood Pressure 135/65 135/65 Pulse Oximetry 98 98 99 08/09/20 16:30 08/09/20 17:00 08/09/20 17:30 Temperature Pulse Rate 93 H 85 84 Respiratory Rate 23 17 15 Blood Pressure 134/60 112/55 L 120/60 Pulse Oximetry 96 95 95 MDM - Recheck/Abnormal Lab/Rx Medical Records Attestation: I reviewed the patient's medical records. Lab Data Attestation: I reviewed the patient's lab results. Result diagrams: 08/09/20 16:25 08/09/20 16:25 Labs: Lab Results 08/09/20 08/09/20 08/09/20 Range/Units 16:25 16:25 16:25 WBC 10.1 (4.5-11.0) X10^3/uL RBC 2.19 L (4.5-5.9) X10^6/uL Hgb 7.1 L (13.5-17.5) g/dL Hct 20.9 L* (41-53) % MCV 95.7 (80-100) fL MCH 32.3 (26-34) PG MCHC 33.8 (30-36) % RDW 13.4 (11.6-14.8) % Plt Count 330 (150-400) X10^3/uL Neut % (Auto) 88.3 H (50-75) % Lymph % (Auto) 4.2 L (25-40) % [place] % (Auto) 6.4 (3-14) % Eos % (Auto) 0.7 L (2-4) % Baso % (Auto) 0.4 (0-2) % Neut # (Auto) 8900 H (7933-3613) /uL Lymph # (Auto) 400 L (1571-5446) /uL [place] # (Auto) 600 (0-900) /uL Eos # (Auto) 100 (0-450) /uL Baso # (Auto) 0 (0-100) /uL PT 13.3 H (10.1-12.7) SECONDS INR 1.2 (0.9-1.3) APTT 29 (26.4-36.2) SECONDS Sodium 132 L (137-145) mmol/L Potassium 5.5 H (3.4-5.1) mmol/L Chloride 100 (98-107) mmol/L Carbon Dioxide 24 (22-32) mmol/L BUN 58 H (9-20) mg/dL Creatinine 2.68 H (0.66-1.25) mg/dL Estimated GFR 22.8 L (>60) mL/min BUN/Creatinine Ratio 21.6 (6-22) Glucose 193 H (80-110) mg/dL Calcium 8.2 L (8.4-10.2) mg/dL Total Bilirubin 0.7 (0.2-1.3) mg/dL AST 211 H (17-59) IU/L ALT 161 H (<50) IU/L Alkaline Phosphatase 106 (38-126) U/L Total Protein 6.4 (6.3-8.2) g/dL Albumin 3.0 L (3.5-5.0) g/dL Globulin 3.4 (1.7-4.1) g/dL Albumin/Globulin Ratio 0.9 L (1.0-2.8) ECG Data Attestation: I personally reviewed and interpreted this ECG as follows: Interpretation: Sinus rhythm at a rate of 83 PVCs and PACs with a right bundle branch block No ischemic changes MDM Narrative Medical decision making narrative: 85-year-old gentleman with increasing global weakness was sent in by his primary care physician after noting significant anemia with a hematocrit of 21 yesterday with routine blood work. On arrival today is alert appropriate complaining of his chronic pain and weakness the weakness getting worse and an H&H of 7.1 and 20.9 with no obvious source. He is guaiac negative today does not describe any obvious bleeding sites resources. He is currently on Plavix because of his cardiac disease. Will admit him for workup of his acute anemia and transfusion given his severity of weakness as well as known cardiac disease. He has been having increasing lower extremity edema and that may well be secondary to low oncotic pressure overall. Also been noted to have worsening renal failure with a creatinine of 2.68 potassium 5.5. ALT and AST are slightly elevated to 11 and 161. Of note he does have a developing sacral decubitus that is been present for a number of weeks per the patient. Has not had any treatment for this it is not significantly infected at this time. 545pm care is reviewed with Dr. Johansen hospitalist, patient will be admitted for further workup and consideration of transfusion. Discharge Plan Departure Patient Disposition: Admitted As Inpatient Clinical Impression: Weakness, Acute renal insufficiency Anemia Qualifiers: Anemia type: unspecified type Qualified Code(s): D64.9 - Anemia, unspecified Decubitus skin ulcer Qualifiers: Pressure injury location: buttock Pressure injury stage: stage 1 Laterality: unspecified laterality Qualified Code(s): L89.301 - Pressure ulcer of unspecified buttock, stage 1 Referrals: Kane Molina MD [Primary Care Provider] -
[2020-08-09 16:44] LABS: INR 1.2 (0.9-1.3); Prothrombin Time 13.3 SECONDS (10.1-12.7)
[2020-08-09 16:47] LABS: Add Manual Diff / Slide Review NO; Basophils Absolute Auto 0 /uL (0-100); Basophils Percent Auto 0.4 % (0-2); Eosinophils Absolute Auto 100 /uL (0-450); Eosinophils Percent Auto 0.7 % (2-4); Hemoglobin 7.1 g/dL (13.5-17.5); Lymphocytes Absolute Auto 400 /uL (1100-4500); Lymphocytes Percent Auto 4.2 % (25-40); Mean Corpuscular HGB Conc 33.8 % (30-36); Mean Corpuscular Hemoglobin 32.3 PG (26-34); Mean Corpuscular Volume 95.7 fL (80-100); Monocytes Absolute Auto 600 /uL (0-900); Monocytes Percent Auto 6.4 % (3-14); Neutrophils Absolute Auto 8900 /uL (1500-7000); Neutrophils Percent Auto 88.3 % (50-75); PTT Partial Thromboplastin Tim 29 SECONDS (26.4-36.2); Platelet Count 330 X10^3/uL (150-400); Red Blood Cell Count 2.19 X10^6/uL (4.5-5.9); Red Cell Distribution Width 13.4 % (11.6-14.8); White Blood Cell Count 10.1 X10^3/uL (4.5-11.0)
[2020-08-09 16:48] LABS: Hematocrit 20.9 % (41-53)
[2020-08-09 16:52] LABS: Alanine Aminotransferase 161 IU/L (<50); Albumin Globulin Ratio 0.9 (1.0-2.8); Alkaline Phosphatase 106 U/L (38-126); Aspartate Aminotransferase 211 IU/L (17-59); BUN Creatinine Ratio 21.6 (6-22); Bilirubin Total 0.7 mg/dL (0.2-1.3); Blood Urea Nitrogen 58 mg/dL (9-20); Calcium 8.2 mg/dL (8.4-10.2); Carbon Dioxide 24 mmol/L (22-32); Chloride 100 mmol/L (98-107); Estimated Glomerular Filt Rate 22.8 mL/min (>60); Globulin 3.4 g/dL (1.7-4.1); Glucose 193 mg/dL (80-110); HEMOLYSIS < 15 (0-50); Sodium 132 mmol/L (137-145); Total Protein 6.4 g/dL (6.3-8.2)
[2020-08-09 16:55] LABS: Potassium 5.5 mmol/L (3.4-5.1)
--- NOTE | 2020-08-09 18:46 | PC.NURSE ---
Pt does not have a medication list with him
[2020-08-09 18:55] LABS: HEMOLYSIS < 15 (0-50); Iron 47 ug/dL (49-181)
[2020-08-09 18:56] LABS: Lactate Dehydrogenase 1297 U/L (313-618)
[2020-08-09 19:06] LABS: Percent Iron Saturation 26 % (20-50); Total Iron Binding Capacity 181 ug/dL (261-462); Transferrin 116 mg/dL (206-381)
[2020-08-09 19:07] LABS: COVID19 -Nasal RAPID Negative (Negative)
[2020-08-09 19:12] LABS: C-Reactive Protein Quant 17.7 mg/dL (<1.0)
[2020-08-09 19:17] LABS: Erythrocyte Sedimentation Rate > 140 MM/HR (0-15)
[2020-08-09] MEDS: ACETAMINOPHEN 325 MG TABLET 650 MG PO (19:37)
[2020-08-09 20:05] LABS: Folate > 20.0 ng/mL (2.76-20.0); Vitamin B12 > 1000 pg/mL (239-931)
[2020-08-09 20:52] LABS: Appearance Urine UA CLEAR; Bilirubin Urine UA NEGATIVE (NEGATIVE); Color Urine UA YELLOW; Glucose Urine UA NEGATIVE (Negative); Ketones Urine UA NEGATIVE (NEGATIVE); Leukocyte Esterase Urine UA NEGATIVE (NEGATIVE); Nitrite Urine UA NEGATIVE (Negative); Occult Blood Urine UA 3+ (Negative); Protein Urine UA NEGATIVE (Negative); Urobilinogen Urine UA 0.2 E.U./dL (0.2)
[2020-08-09 20:59] LABS: Amorphous Sediment Urine 1+; Bacteria Urine Occasional (0-1); Culture Indicated Urine Cult Not Indicated; Granular Casts Urine 1-5/LPF; RBC Urine 1-5/HPF (0-5/HPF); Squamous Epithelial Cell Urine 0-1 /HPF (0-5/HPF); WBC Urine 1-5/HPF (0-5/HPF)
[2020-08-09 21:10] LABS: Creatinine Urine Random 66.2 mg/dL; Protein (Total) Urine Random 22 mg/dL (0-12); Protein Creatinine Ratio Urine 0.33 GRAM/24H
--- NOTE | 2020-08-09 21:43 | PC.NURSE ---
A&OX4. 93%RA. pt looks pale but denied dizziness. placed border foam on both of his pressure injury. q2turn. SCDs. oriented pt to the room. call light in reach.
[2020-08-09] MEDS: SODIUM CHLORIDE 0.45% 1,000 ML 100 ML IV (22:17)
[2020-08-09] MEDS: GABAPENTIN 600 MG TABLET PO (22:19)
[2020-08-09] MEDS: methylPREDNISolone 1,000 MG in SODIUM CHLORIDE 0.9% 250 ML 258 ML IV (22:40)
[2020-08-09] MEDS: NORTRIPTYLINE 10 MG CAPSULE 20 MG PO (23:01)
[2020-08-10] VITALS (16 sets, daily range): BP systolic 116–131; BP diastolic 56–71; PULSE 64–86; RESP 13–18; TEMP 36.2–36.7; O2SAT 92–100
--- NOTE | 2020-08-10 00:50 | PM.HP.1 ---
History of Present Illness History of Present Illness Date Patient Seen: 08/09/20 Time Patient Seen: 22:15 Chief complaint: weakness Narrative: Graeme Forte is an 85-year-old male with essential hypertension, hyperlipidemia, coronary artery disease, and longstanding anemia presents at the request of his PCP after having labs drawn. Yesterday he had seen his primary care physician marco Molina at [facility] for follow-up on a renal ultrasound. They ran labs on him and repeated labs today and he was referred to the emergency department due to having a hemoglobin of 7. Per the ED provider he had a negative guaiac with no real source of bleeding. The patient does state that he has had migraines about 1-2 per year used to take beta bottle but was discontinued due to his hypertension. He states that he gets short of breath when he goes back to bed this is been going on for 2 weeks he does endorse having stomach cramps and pain but has not seen any blood in the stool a states that is formed or soft and normal colored he also denies any blood in his urine. Patient was seen in the emergency department approximately a month ago where he sustained a fall and hit his head. He was sutured and discharged home. Today he is afebrile is slightly hypotensive at 107/57, heart rate 71, respiratory rate of 18 with an oxygen saturation 96% on room air he weighs 62.5 lb and has a BMI of 20.9. WBC is 10.1, RBC 2.19, hemoglobin 7.1, hematocrit 20.9, does have of mildly elevated neutrophil count of 8900, ESR is greater than 140, haptoglobin is pending, PT is 13.3, INR 1.2, sodium 132, potassium 5.5, chloride 100, bicarb is 24, creatinine 2.68 which is new, BUN 58, GFR is 22.8, glucose was 193, calcium 8.2, iron 47, TIBC 181, transferrin was 116, total bili is 0.7, AST 211, ALT 161, alk-phos 106, lactate dehydrogenase 1297, C-reactive protein 17.7, total protein 6.4, albumin 3.0, vitamin B12 was greater than 1000, folate greater than 20, urine was positive for blood, with a urine random total of 22 which is elevated, urine creatinine was 66.2, protein to creatinine ratio was 0.33, COVID-19 is negative. Patient History Medical History Anemia (Acute) Angina pectoris (Acute) HTN (hypertension) (Acute) Hyperlipidemia (Chronic) Surgical History H/O heart artery stent (Acute) Family & Social History Family History Father Kidney failure Mother Heart disease Social History: household members family Prior Living Arrangements House Safety & Behavioral: Feels Safe in Current Yes Environment Been Physically Hurt or No Threatened By a Person Suicidal Ideation Description None Suicide Plan Description No Plan Tobacco & Substance use: Smoking Status Never smoker alcohol intake current alcohol intake frequency holiday/special occasion Substance Use Type painkillers,prescription drug Meds Home Medications and Allergies Home Medications Medication Instructions Recorded Confirmed Type gabapentin [Neurontin] 600 mg PO TID #0 03/27/12 08/09/20 History clopidogrel [Plavix] 75 mg PO DAILY #0 12/02/16 08/09/20 History atorvastatin 80 mg PO BEDTIME #0 11/25/17 08/09/20 History lansoprazole [Prevacid] 30 mg PO BIDAC #0 11/25/17 08/09/20 History morphine 1 tab PO 5XD 08/26/18 08/09/20 History nortriptyline 25 mg PO BEDTIME 08/26/18 08/09/20 History polyethylene glycol 3350 1 dose PO DAILY 08/26/18 08/09/20 History cranberry 400 mg DAILY 09/08/19 08/09/20 History cyanocobalamin (vitamin B-12) 1,000 mcg PO BID 09/08/19 08/09/20 History [Vitamin B-12] ferrous sulfate 325 mg PO DAILY 09/08/19 08/09/20 History xk-lou-gwaot acid-lutein [Centrum 1 tab PO DAILY 09/08/19 08/09/20 History Silver] amlodipine 10 mg PO DAILY 11/03/19 08/09/20 History isosorbide mononitrate 60 mg PO DAILY 11/03/19 08/09/20 History metoprolol succinate 25 mg PO DAILY 11/03/19 08/09/20 History Ventricor 1 dose PO DIRECTED 12/24/19 08/09/20 History Vitapulse 1 dose PO BID 12/24/19 08/09/20 History coenzyme Q10 [Co Q-10] 300 mg PO DAILY 12/24/19 08/09/20 History flaxseed oil 1 dose PO DIRECTED 12/24/19 08/09/20 History nitroglycerin 0.4 mg SUBLINGUAL PRN PRN 12/24/19 08/09/20 History resveratrol 1 cap PO DIRECTED 12/24/19 12/24/19 History carboxymethylcellulose sodium 1 drp OPHTHALMIC (EYE) TID PRN 08/09/20 08/09/20 History [Artificial Tears (cmc)] doxazosin 1 mg PO DAILY 08/09/20 08/09/20 History Allergies Allergy/AdvReac Type Severity Reaction Status Date / Time cephalexin Allergy Severe RASH Verified 08/09/20 16:12 ciprofloxacin Allergy Severe RASH Verified 08/09/20 16:12 Review of Systems Review of Systems ROS: Yes All systems reviewed with the patient and are negative except as otherwise documented Exam Vital Signs (past 8 hours): - 08/09/20 17:00 08/09/20 17:30 08/09/20 18:00 Temperature Pulse Rate 85 84 87 Respiratory Rate 17 15 19 Blood Pressure 112/55 L 120/60 111/60 Pulse Oximetry 95 95 08/09/20 18:55 08/09/20 23:58 08/10/20 00:00 Temperature 98.0 F 98.6 F Pulse Rate 93 H 71 Respiratory Rate 14 18 Blood Pressure 117/55 L 107/57 L Pulse Oximetry 94 96 96 Oxygen Delivery Method Room Air Oxygen Flow Rate 0 Narrative Exam Narrative: Gen: Alert, oriented, cachectic appearing 85 y.o. male, appears fatigued HEENT: healing laceration on top of head, normocephalic, conjunctiva clear, scleral icteris, oral mucosa pink and moist Neck: supple, full ROM, no JVD, trachea is midline Resp: Lungs CTA, non-labored breathing CV: RRR, no murmur or rubs Abd: soft, non-tender, normoactive BTs Skin: Moderately jaundiced, no lesions or rashes Neuro: Alert and oriented X 4 w/no focal deficits. Speech clear and coherent. Extremities: moves all 4 extremities, is ambulatory, negative Stevie?s sign Psyche: normal mood and affect. Objective Labs Result Diagrams: 08/09/20 16:25 08/09/20 16:25 Labs: Laboratory Results - last 24 hr 08/09/20 08/09/20 08/09/20 16:25 16:25 16:25 WBC 10.1 RBC 2.19 L Hgb 7.1 L Hct 20.9 L* MCV 95.7 MCH 32.3 MCHC 33.8 RDW 13.4 Plt Count 330 Neut % (Auto) 88.3 H Lymph % (Auto) 4.2 L [place] % (Auto) 6.4 Eos % (Auto) 0.7 L Baso % (Auto) 0.4 Neut # (Auto) 8900 H Lymph # (Auto) 400 L [place] # (Auto) 600 Eos # (Auto) 100 Baso # (Auto) 0 ESR PT 13.3 H INR 1.2 APTT 29 Sodium 132 L Potassium 5.5 H Chloride 100 Carbon Dioxide 24 BUN 58 H Creatinine 2.68 H Estimated GFR 22.8 L BUN/Creatinine Ratio 21.6 Glucose 193 H Calcium 8.2 L Iron TIBC % Saturation Transferrin Total Bilirubin 0.7 AST 211 H ALT 161 H Alkaline Phosphatase 106 Lactate Dehydrogenase C-Reactive Protein Total Protein 6.4 Albumin 3.0 L Globulin 3.4 Albumin/Globulin Ratio 0.9 L Vitamin B12 Folate Urine Color Urine Appearance Urine pH Ur Specific [place] Urine Protein Urine Glucose (UA) Urine Ketones Urine Occult Blood Urine Nitrate Urine Bilirubin Urine Urobilinogen Ur Leukocyte Esterase Urine RBC Urine WBC Ur Squamous Epith Cells Amorphous Sediment Urine Bacteria Granular Casts Ur Culture Indicated? U Random Total Protein Urine Creatinine Protein/Creatinin Ratio COVID-19 PCR Blood Type Antibody Screen 08/09/20 08/09/20 08/09/20 16:25 16:25 16:25 WBC RBC Hgb Hct MCV MCH MCHC RDW Plt Count Neut % (Auto) Lymph % (Auto) [place] % (Auto) Eos % (Auto) Baso % (Auto) Neut # (Auto) Lymph # (Auto) [place] # (Auto) Eos # (Auto) Baso # (Auto) ESR > 140 H PT INR APTT Sodium Potassium Chloride Carbon Dioxide BUN Creatinine Estimated GFR BUN/Creatinine Ratio Glucose Calcium Iron TIBC % Saturation Transferrin Total Bilirubin AST ALT Alkaline Phosphatase Lactate Dehydrogenase C-Reactive Protein 17.7 H Total Protein Albumin Globulin Albumin/Globulin Ratio Vitamin B12 Folate Urine Color Urine Appearance Urine pH Ur Specific [place] Urine Protein Urine Glucose (UA) Urine Ketones Urine Occult Blood Urine Nitrate Urine Bilirubin Urine Urobilinogen Ur Leukocyte Esterase Urine RBC Urine WBC Ur Squamous Epith Cells Amorphous Sediment Urine Bacteria Granular Casts Ur Culture Indicated? U Random Total Protein Urine Creatinine Protein/Creatinin Ratio COVID-19 PCR Blood Type A Negative Antibody Screen Negative 08/09/20 08/09/20 08/09/20 16:25 16:25 16:25 WBC RBC Hgb Hct MCV MCH MCHC RDW Plt Count Neut % (Auto) Lymph % (Auto) [place] % (Auto) Eos % (Auto) Baso % (Auto) Neut # (Auto) Lymph # (Auto) [place] # (Auto) Eos # (Auto) Baso # (Auto) ESR PT INR APTT Sodium Potassium Chloride Carbon Dioxide BUN Creatinine Estimated GFR BUN/Creatinine Ratio Glucose Calcium Iron 47 L TIBC 181 L % Saturation 26 Transferrin 116 L Total Bilirubin AST ALT Alkaline Phosphatase Lactate Dehydrogenase 1297 H C-Reactive Protein Total Protein Albumin Globulin Albumin/Globulin Ratio Vitamin B12 > 1000 H Folate > 20.0 H Urine Color Urine Appearance Urine pH Ur Specific [place] Urine Protein Urine Glucose (UA) Urine Ketones Urine Occult Blood Urine Nitrate Urine Bilirubin Urine Urobilinogen Ur Leukocyte Esterase Urine RBC Urine WBC Ur Squamous Epith Cells Amorphous Sediment Urine Bacteria Granular Casts Ur Culture Indicated? U Random Total Protein Urine Creatinine Protein/Creatinin Ratio COVID-19 PCR Blood Type Antibody Screen 08/09/20 08/09/20 08/09/20 18:40 21:43 21:43 WBC RBC Hgb Hct MCV MCH MCHC RDW Plt Count Neut % (Auto) Lymph % (Auto) [place] % (Auto) Eos % (Auto) Baso % (Auto) Neut # (Auto) Lymph # (Auto) [place] # (Auto) Eos # (Auto) Baso # (Auto) ESR PT INR APTT Sodium Potassium Chloride Carbon Dioxide BUN Creatinine Estimated GFR BUN/Creatinine Ratio Glucose Calcium Iron TIBC % Saturation Transferrin Total Bilirubin AST ALT Alkaline Phosphatase Lactate Dehydrogenase C-Reactive Protein Total Protein Albumin Globulin Albumin/Globulin Ratio Vitamin B12 Folate Urine Color Yellow Urine Appearance Clear Urine pH 5.0 Ur Specific [place] 1.010 Urine Protein Negative Urine Glucose (UA) Negative Urine Ketones Negative Urine Occult Blood 3+ H Urine Nitrate Negative Urine Bilirubin Negative Urine Urobilinogen 0.2 Ur Leukocyte Esterase Negative Urine RBC 1-5/hpf Urine WBC 1-5/hpf Ur Squamous Epith Cells 0-1 /hpf Amorphous Sediment 1+ Urine Bacteria Occasional (0-1) Granular Casts 1-5/lpf Ur Culture Indicated? Cult not indicated U Random Total Protein 22 H Urine Creatinine 66.2 Protein/Creatinin Ratio 0.33 COVID-19 PCR Negative Blood Type Antibody Screen Assessment & Plan Assessment & Plan narrative: Graeme Forte is an 85 y.o. male who will be admitted for further workup of what appears to be an acute hemolytic anemia. Suspected acute hemolytic anemia, present on admission -have discussed the case with Dr. Martinez who will see the patient in the morning. He is recommended that the patient receive 1 g of IV methylprednisolone. -peripheral smears and pathologies are pending as well as haptoglobin -he does have blood in his urine which may indicative of this diagnosis Kidney injury, unknown if acute or chronic with a creatinine of 2.68 and an estimated GFR of 22.8 -the patient had a renal ultrasound recently which only indicated a possible obstructive process -the patient has a history of urinary retention Coronary artery disease, chronic -continue home dose of clopidogrel 75 mg p.o. daily -Continue home dose of isosorbide mononitrate 60 mg p.o. daily -Continue home dose of metoprolol succinate 25 mg p.o. daily Hypertension, chronic, present on admission -Continue home dose of amlodipine 10 mg p.o. daily Hyperlipidemia, chronic -Continue home dose of atorvastatin 80 mg p.o. at bedtime Chronic neck pain -continue home dose of gabapentin 600 mg p.o. t.i.d. Insomnia -patient normally takes nortriptyline 25 mg p.o. at bedtime, he will receive 20 mg at bedtime VTE prophylaxis: Wells risk score: 0 Bilateral SCDs Consults: Dr. Martinez, Oncology, consult and involvement is appreciated. Patient is admitted under inpatient status with expected length of stay greater than 2 midnights due to severity of presenting symptoms, risk of adverse event, and complexity of treatment plan. FEN: IV NS at 100 ml/hour, heart healthy diet, CMP and magnesium in the am. Dispo: Unknown at this time Code Status: Full code as discussed with patient Scores Wells' Criteria for PE Clinical signs and symptoms of DVT: No PE is #1 Dx or equally likely: No Heart rate > 100: No Immobilization at least 3 days or surg in previous 4 weeks: No History of PE or DVT: No Hemoptysis: No Malignancy w/Treatment within 6 months or palliative: No Wells' PE Score total: 0 Quality VTE Deep Vein Thrombosis/Pulmonary Embolism Present on Admission: No
[2020-08-10 05:58] LABS: Add Manual Diff / Slide Review NO; Basophils Absolute Auto 0 /uL (0-100); Basophils Percent Auto 0.1 % (0-2); Eosinophils Absolute Auto 0 /uL (0-450); Hematocrit 21.8 % (41-53); Hemoglobin 7.4 g/dL (13.5-17.5); Lymphocytes Absolute Auto 100 /uL (1100-4500); Lymphocytes Percent Auto 1.7 % (25-40); Mean Corpuscular HGB Conc 33.8 % (30-36); Mean Corpuscular Hemoglobin 32.8 PG (26-34); Mean Corpuscular Volume 96.9 fL (80-100); Monocytes Absolute Auto 100 /uL (0-900); Monocytes Percent Auto 0.8 % (3-14); Neutrophils Absolute Auto 6900 /uL (1500-7000); Neutrophils Percent Auto 97.4 % (50-75); Platelet Count 299 X10^3/uL (150-400); Red Blood Cell Count 2.25 X10^6/uL (4.5-5.9); Red Cell Distribution Width 13.3 % (11.6-14.8); White Blood Cell Count 7.1 X10^3/uL (4.5-11.0)
[2020-08-10 06:15] LABS: Alanine Aminotransferase 142 IU/L (<50); Albumin 2.8 g/dL (3.5-5.0); Albumin Globulin Ratio 0.9 (1.0-2.8); Alkaline Phosphatase 93 U/L (38-126); Aspartate Aminotransferase 147 IU/L (17-59); BUN Creatinine Ratio 22.4 (6-22); Bilirubin Total 0.5 mg/dL (0.2-1.3); Bilirubin Unconjugated 0.2 mg/dL (0.0-1.1); Blood Urea Nitrogen 55 mg/dL (9-20); Carbon Dioxide 23 mmol/L (22-32); Chloride 102 mmol/L (98-107); Estimated Glomerular Filt Rate 25.1 mL/min (>60); Glucose 307 mg/dL (80-110); HEMOLYSIS < 15 (0-50); Magnesium 2.4 mg/dL (1.6-2.3); Sodium 133 mmol/L (137-145); Total Protein 5.8 g/dL (6.3-8.2)
[2020-08-10 06:17] LABS: Potassium 5.6 mmol/L (3.4-5.1)
[2020-08-10] MEDS: PANTOPRAZOLE 40 MG TABLET PO (06:54)
[2020-08-10] MEDS: CLOPIDOGREL 75 MG TABLET PO (08:42)
[2020-08-10] MEDS: METOPROLOL ER 25 MG TABLET PO (08:42)
[2020-08-10] MEDS: GABAPENTIN 600 MG TABLET PO ×3 (08:42→21:21)
[2020-08-10] MEDS: FERROUS SULFATE 325 MG TABLET PO (08:42)
[2020-08-10] MEDS: ISOSORBIDE MONONITRATE ER 30 MG TABLET 60 MG PO (08:42)
[2020-08-10] MEDS: AMLODIPINE 5 MG TABLET 10 MG PO (08:42)
[2020-08-10] MEDS: polyethylene glycoL 3350 17 GM POWD.PACK PO (08:43)
[2020-08-10] MEDS: SODIUM CHLORIDE 0.9% 1,000 ML 75 ML IV ×2 (08:46→23:41)
[2020-08-10] MEDS: DOXAZOSIN 2 MG TABLET 1 MG PO ×2 (09:07→21:20)
--- NOTE | 2020-08-10 09:49 | P.PN_ITS ---
Subjective Subjective Date Patient Seen: 08/10/20 Interval history: Graeme Forte is an 85-year-old male with a past medical history significant for CAD status post stent x 2, hypertension, hyperlipidemia, GERD, chronic neck pain with opiate dependence and longstanding anemia who presented to ED at the request of his PCP for labs demonstrated worsening anemia and elevated creatinine with complaint generalized weakness and malaise . The patient is resting in bed comfortably. He continues to feel weak and fatigued. He endorses mild dyspnea of exertion but denies shortness of breath at rest. He states he has long standing history of anemia since he was a child but now concern for hemolytic process or underlying blood cell dyscrasia. He reports it has been difficult to maintain weight and believes he has lost 15lbs over last 6 months unintentionally. He recently fell and has a large repaired laceration on scalp and he believes the fall was precipitated by his vertigo but concerned it may have actually been due to symptomatic anemia. He has no other complaints and denies headache, lightheadedness, dizziness, cough, shortness of breath, chest pain, abdominal pain, nausea, vomiting, fever, chills, dysuria, diarrhea or constipation. He is voiding and eliminating without difficulty. He is up with moderate assistance. Exam Vital Signs (past 8 hours): - 08/10/20 09:07 08/10/20 11:36 08/10/20 14:00 Temperature 97.8 F Pulse Rate 86 Respiratory Rate 18 Blood Pressure 131/66 116/61 Pulse Oximetry 96 96 08/10/20 14:10 08/10/20 15:57 Temperature 98.1 F Pulse Rate 83 Respiratory Rate 16 Blood Pressure 117/66 Pulse Oximetry 100 100 Oxygen Delivery Method Room Air Oxygen Flow Rate 0 Narrative Exam Narrative: General: Elderly thin and frail appearing male lying in bed and in no acute distress, pale, appropriately interactive HEENT: Normocephalic, atraumatic. External ears without defect. Pupils equal, round, and reactive to light . Anicteric sclerae, moist conjunctivae, and no lid lag. Oropharynx free of erythema and cobble stoning with moist mucosa. Full body muscle wasting. Neck: Supple with full range of motion. No jugular venous distension.No lymphadenopathy or thyromegaly. Cardiovascular: Regular rate and rhythm without murmurs, rubs, or gallops appreciated. Pulmonary: Clear to auscultation bilaterally without crackles, wheezes, or rhonchi. Normal respiratory effort with no use of accessory muscles. Abdomen: Soft, scaphoid, bowel sounds present, nontender, nondistended. No hepatosplenomegaly or masses appreciated. Extremities: No clubbing, cyanosis, or edema. Skin: Normal temperature, turgor, and texture; no rash, ulcers, or subcutaneous nodules appreciated. Neurological: Cranial nerves grossly intact. Generalized weakness. Psychiatric: Normal mood and affect. Alert and oriented to person, place, and time. Objective Labs Result Diagrams: 08/13/20 05:15 08/13/20 05:15 Labs: Laboratory Results - last 24 hr 08/09/20 08/09/20 08/09/20 16:25 16:25 16:25 WBC 10.1 RBC 2.19 L Hgb 7.1 L Hct 20.9 L* MCV 95.7 MCH 32.3 MCHC 33.8 RDW 13.4 Plt Count 330 Neut % (Auto) 88.3 H Lymph % (Auto) 4.2 L [place] % (Auto) 6.4 Eos % (Auto) 0.7 L Baso % (Auto) 0.4 Neut # (Auto) 8900 H Lymph # (Auto) 400 L [place] # (Auto) 600 Eos # (Auto) 100 Baso # (Auto) 0 ESR APTT 29 Sodium 132 L Potassium 5.5 H Chloride 100 Carbon Dioxide 24 BUN 58 H Creatinine 2.68 H Estimated GFR 22.8 L BUN/Creatinine Ratio 21.6 Glucose 193 H Hemoglobin A1c Calcium 8.2 L Magnesium Iron TIBC % Saturation Transferrin Total Bilirubin 0.7 Conjugated Bilirubin Unconjugated Bilirubin AST 211 H ALT 161 H Alkaline Phosphatase 106 Lactate Dehydrogenase C-Reactive Protein Total Protein 6.4 Albumin 3.0 L Globulin 3.4 Albumin/Globulin Ratio 0.9 L Vitamin B12 Folate Urine Color Urine Appearance Urine pH Ur Specific [place] Urine Protein Urine Glucose (UA) Urine Ketones Urine Occult Blood Urine Nitrate Urine Bilirubin Urine Urobilinogen Ur Leukocyte Esterase Urine RBC Urine WBC Ur Squamous Epith Cells Amorphous Sediment Urine Bacteria Granular Casts Ur Culture Indicated? U Random Total Protein Urine Creatinine Protein/Creatinin Ratio COVID-19 PCR Blood Type Antibody Screen 08/09/20 08/09/20 08/09/20 16:25 16:25 16:25 WBC RBC Hgb Hct MCV MCH MCHC RDW Plt Count Neut % (Auto) Lymph % (Auto) [place] % (Auto) Eos % (Auto) Baso % (Auto) Neut # (Auto) Lymph # (Auto) [place] # (Auto) Eos # (Auto) Baso # (Auto) ESR > 140 H APTT Sodium Potassium Chloride Carbon Dioxide BUN Creatinine Estimated GFR BUN/Creatinine Ratio Glucose Hemoglobin A1c Calcium Magnesium Iron TIBC % Saturation Transferrin Total Bilirubin Conjugated Bilirubin Unconjugated Bilirubin AST ALT Alkaline Phosphatase Lactate Dehydrogenase C-Reactive Protein 17.7 H Total Protein Albumin Globulin Albumin/Globulin Ratio Vitamin B12 Folate Urine Color Urine Appearance Urine pH Ur Specific [place] Urine Protein Urine Glucose (UA) Urine Ketones Urine Occult Blood Urine Nitrate Urine Bilirubin Urine Urobilinogen Ur Leukocyte Esterase Urine RBC Urine WBC Ur Squamous Epith Cells Amorphous Sediment Urine Bacteria Granular Casts Ur Culture Indicated? U Random Total Protein Urine Creatinine Protein/Creatinin Ratio COVID-19 PCR Blood Type A Negative Antibody Screen Negative 08/09/20 08/09/20 08/09/20 16:25 16:25 16:25 WBC RBC Hgb Hct MCV MCH MCHC RDW Plt Count Neut % (Auto) Lymph % (Auto) [place] % (Auto) Eos % (Auto) Baso % (Auto) Neut # (Auto) Lymph # (Auto) [place] # (Auto) Eos # (Auto) Baso # (Auto) ESR APTT Sodium Potassium Chloride Carbon Dioxide BUN Creatinine Estimated GFR BUN/Creatinine Ratio Glucose Hemoglobin A1c Calcium Magnesium Iron 47 L TIBC 181 L % Saturation 26 Transferrin 116 L Total Bilirubin Conjugated Bilirubin Unconjugated Bilirubin AST ALT Alkaline Phosphatase Lactate Dehydrogenase 1297 H C-Reactive Protein Total Protein Albumin Globulin Albumin/Globulin Ratio Vitamin B12 > 1000 H Folate > 20.0 H Urine Color Urine Appearance Urine pH Ur Specific [place] Urine Protein Urine Glucose (UA) Urine Ketones Urine Occult Blood Urine Nitrate Urine Bilirubin Urine Urobilinogen Ur Leukocyte Esterase Urine RBC Urine WBC Ur Squamous Epith Cells Amorphous Sediment Urine Bacteria Granular Casts Ur Culture Indicated? U Random Total Protein Urine Creatinine Protein/Creatinin Ratio COVID-19 PCR Blood Type Antibody Screen 08/09/20 08/09/20 08/09/20 18:40 21:43 21:43 WBC RBC Hgb Hct MCV MCH MCHC RDW Plt Count Neut % (Auto) Lymph % (Auto) [place] % (Auto) Eos % (Auto) Baso % (Auto) Neut # (Auto) Lymph # (Auto) [place] # (Auto) Eos # (Auto) Baso # (Auto) ESR APTT Sodium Potassium Chloride Carbon Dioxide BUN Creatinine Estimated GFR BUN/Creatinine Ratio Glucose Hemoglobin A1c Calcium Magnesium Iron TIBC % Saturation Transferrin Total Bilirubin Conjugated Bilirubin Unconjugated Bilirubin AST ALT Alkaline Phosphatase Lactate Dehydrogenase C-Reactive Protein Total Protein Albumin Globulin Albumin/Globulin Ratio Vitamin B12 Folate Urine Color Yellow Urine Appearance Clear Urine pH 5.0 Ur Specific [place] 1.010 Urine Protein Negative Urine Glucose (UA) Negative Urine Ketones Negative Urine Occult Blood 3+ H Urine Nitrate Negative Urine Bilirubin Negative Urine Urobilinogen 0.2 Ur Leukocyte Esterase Negative Urine RBC 1-5/hpf Urine WBC 1-5/hpf Ur Squamous Epith Cells 0-1 /hpf Amorphous Sediment 1+ Urine Bacteria Occasional (0-1) Granular Casts 1-5/lpf Ur Culture Indicated? Cult not indicated U Random Total Protein 22 H Urine Creatinine 66.2 Protein/Creatinin Ratio 0.33 COVID-19 PCR Negative Blood Type Antibody Screen 08/10/20 08/10/20 08/10/20 05:34 05:34 05:34 WBC 7.1 RBC 2.25 L Hgb 7.4 L Hct 21.8 L MCV 96.9 MCH 32.8 MCHC 33.8 RDW 13.3 Plt Count 299 Neut % (Auto) 97.4 H Lymph % (Auto) 1.7 L [place] % (Auto) 0.8 L Eos % (Auto) 0.0 L Baso % (Auto) 0.1 Neut # (Auto) 6900 Lymph # (Auto) 100 L [place] # (Auto) 100 Eos # (Auto) 0 Baso # (Auto) 0 ESR APTT Sodium 133 L Potassium 5.6 H Chloride 102 Carbon Dioxide 23 BUN 55 H Creatinine 2.46 H Estimated GFR 25.1 L BUN/Creatinine Ratio 22.4 H Glucose 307 H D Hemoglobin A1c Calcium 8.0 L Magnesium 2.4 H Iron TIBC % Saturation Transferrin Total Bilirubin 0.5 Conjugated Bilirubin 0.0 Unconjugated Bilirubin 0.2 AST 147 H ALT 142 H Alkaline Phosphatase 93 Lactate Dehydrogenase C-Reactive Protein Total Protein 5.8 L Albumin 2.8 L Globulin 3.0 Albumin/Globulin Ratio 0.9 L Vitamin B12 Folate Urine Color Urine Appearance Urine pH Ur Specific [place] Urine Protein Urine Glucose (UA) Urine Ketones Urine Occult Blood Urine Nitrate Urine Bilirubin Urine Urobilinogen Ur Leukocyte Esterase Urine RBC Urine WBC Ur Squamous Epith Cells Amorphous Sediment Urine Bacteria Granular Casts Ur Culture Indicated? U Random Total Protein Urine Creatinine Protein/Creatinin Ratio COVID-19 PCR Blood Type Antibody Screen 08/10/20 08/10/20 05:34 12:25 WBC RBC Hgb Hct MCV MCH MCHC RDW Plt Count Neut % (Auto) Lymph % (Auto) [place] % (Auto) Eos % (Auto) Baso % (Auto) Neut # (Auto) Lymph # (Auto) [place] # (Auto) Eos # (Auto) Baso # (Auto) ESR APTT Sodium 129 L Potassium 5.3 H Chloride 99 Carbon Dioxide 20 L BUN 59 H Creatinine 2.41 H Estimated GFR 25.7 L BUN/Creatinine Ratio 24.5 H Glucose 537 H* D Hemoglobin A1c 5.8 Calcium 7.9 L Magnesium Iron TIBC % Saturation Transferrin Total Bilirubin Conjugated Bilirubin Unconjugated Bilirubin AST ALT Alkaline Phosphatase Lactate Dehydrogenase C-Reactive Protein Total Protein Albumin Globulin Albumin/Globulin Ratio Vitamin B12 Folate Urine Color Urine Appearance Urine pH Ur Specific [place] Urine Protein Urine Glucose (UA) Urine Ketones Urine Occult Blood Urine Nitrate Urine Bilirubin Urine Urobilinogen Ur Leukocyte Esterase Urine RBC Urine WBC Ur Squamous Epith Cells Amorphous Sediment Urine Bacteria Granular Casts Ur Culture Indicated? U Random Total Protein Urine Creatinine Protein/Creatinin Ratio COVID-19 PCR Blood Type Antibody Screen Assessment & Plan Assessment & Plan narrative: Graeme Forte is an 85-year-old male with a past medical history significant for CAD status post stent x 2, hypertension, hyperlipidemia, GERD, chronic neck pain with opiate dependence and longstanding anemia who presented to ED at the request of his PCP for labs demonstrated worsening anemia and elevated creatinine with complaint generalized weakness and malaise . 1. Acute on chronic anemia, unknown nature, present on admission, active -Initial hemoglobin 7.1 on admission. Last hemoglobin 11.4 on 10/13/2019, other cell lines are normal values. -Elevated LDH 1297, bilirubin normal, iron profile normal, B12 > 1000, ESR > 140, CRP 17.7. Haptoglobin and peripheral smear pending. -Patient also has MAURICIO as below. -Patient had previous normal bone marrow biopsy on 10/15/2019 -Case was discussed with Dr. Martinez of hematology who recommended starting high- dose steroids for acute hemolytic anemia. Continue Solu-Medrol 1 g IV daily x2 days then start prednisone 60 mg tomorrow. 2. Acute kidney injury on chronic kidney disease stage 3, present on admission. Active. -BUN 58, creatinine 2.68, EGFR 22.8 on 08/09/2020, last known creatinine 1.10 on 11/25/2017. Renal function improving with IV hydration and creatinine 2.41. -Patient has a history of urinary retention and is on doxazosin 1 mg daily at bedtime. -Avoid nephrotoxic agents. -Continue NS at 75 mL/hr. -Continue to monitor creatinine daily. 3. CAD, chronic, present on admission. Stable. -Continue home atorvastatin 80 mg daily at bedtime, clopidogrel 75 mg daily, isosorbide mononitrate 60 mg daily, and metoprolol succinate 25 mg daily. 4. Hypertension, chronic, present on admission. Stable. -Continue home amlodipine 10 mg daily, isosorbide mononitrate 60 mg daily, and metoprolol succinate 25 mg daily. 5. Hyperlipidemia, chronic, present on admission. Stable. -Continue home atorvastatin 80 mg daily at bedtime. 6. Chronic neck pain with opiate dependence, present on admission. Stable. -Continue home MS Contin 15 mg 5 times daily and gabapentin 600 mg 3 times daily. 7. Insomnia, chronic, present admission. Stable. -Continue home nortriptyline of which he normally takes 25 mg daily at bedtime but will receive 20 mg daily at bedtime due to formulary. 8. GERD, chronic, present on admission. Stable. -Continue equivalent of home lansoprazole 30 mg twice daily. Code status: Full code VTE prophylaxis: Chemical containdicated, Bilateral SCDs Disposition: Patient likely will discharge home with home health in the next 1- 2 days once blood counts have improved/stabilized. Quality VTE Deep Vein Thrombosis/Pulmonary Embolism Present on Admission: No
[2020-08-10 10:04] LABS: Hemoglobin A1C% w Est Avg Glu 5.8 % (4.0-6.0)
--- NOTE | 2020-08-10 11:00 | PT.IIE ---
Current Diagnoses Acquired hemolytic anemia, unspecified (08/09/20) Surgical History (Last Reviewed 08/10/20 @ 01:04 by PIPPA Espinal) H/O heart artery stent (Acute) Medical History (Last Reviewed 08/10/20 @ 01:04 by PIPPA Espinal) Anemia (Acute) Angina pectoris (Acute) HTN (hypertension) (Acute) Hyperlipidemia (Chronic) Physical Therapy Inpatient Evaluation/Re-Eval M1 PT/OT-IP Prior Functional Status Start: 08/10/20 11:42 Freq: NEEDED Status: Active Protocol: Document 08/10/20 11:00 AB (Rec: 08/10/20 12:02 [facility] [email or web address] Medical Review Prior Functional Status Medical History Reviewed Yes Communication able to make needs known Mobility and Gait pt stated that he is modified independent with all mobilities and ambulation using SPC; stated that he has not been feeling well for the last 4 days and his cousin/ housemate has been assisting him Social History Household Members family Living Arrangements House Number of Floors (Floors) One Floor Number of Stairs To Enter/Railing? no steps to enter Home Environment Standard Height Toilet,Walk in Shower Home Equipment Shower Seat without Backrest, Hand Held Shower Employment Status Retired M2 PT-IP Current Condition Start: 08/10/20 11:42 Freq: NEEDED Status: Active Protocol: Document 08/10/20 11:00 AB (Rec: 08/10/20 12:02 [facility] [email or web address] Physical Therapy Current Condition Current Condition Evaluation Date 08/10/20 Treatment Diagnosis anemia; difficulty in walking Onset Date 08/09/20 Precautions Other Precautions falls M3 PT-IP Subjective Start: 08/10/20 11:42 Freq: NEEDED Status: Active Protocol: Document 08/10/20 11:00 AB (Rec: 08/10/20 12:02 [facility] [email or web address] Subjective Physical Therapy Visit Type Type Initial Evaluation Visit Start Time 11:00 Visit Stop Time 11:27 Total Visit Minutes 27 Number of BRAKE OPERATOR Visits 0 Physical Therapy Visit Comments Patient Comments pt is agreeable to do PT M4 PT-IP Mobility and Gait Start: 08/10/20 11:42 Freq: NEEDED Status: Active Protocol: Document 08/10/20 11:00 AB (Rec: 08/10/20 12:02 [facility] [email or web address] PT-Bed Mobility Assessment Supine to Sit Supine to Sit Standby Assistance Scooting Scooting to Edge of Bed Standby Assistance PT-Transfer Assessment Sit to and From Stand Sit to and from Stand Minimal Assistance,Moderate Assistance,1 Person Assistance ,Use of Upper Extremities Equipment Transfer Assistive Device Gait Belt,Front Wheeled Walker Orthotic/Prosthetic Devices or Brace: No Transfers Transfer Destination Chair Transfer Technique Stand Step Pivot Transfer Ability Level of Assist Moderate Assistance,1 Person Assistance,Use of Upper Extremities Comments Mobility Comments pt completed supine to sit SBA . able to sit on EOB SBA. completed sit to stand mod A and took a few steps using FWW mod A and transfer to FWW. pt completed sit to stand from chair min to mod and cues for techniques and safety. pt with increase forward trunk flexion and bilateral knee flexion during standing. stated that he feels more steady standing up with trunk flexed due to c/o dizziness if he stands upright and that he has to look down on the floor when he walks. positioned pt on chair. call light and table placed within reach. Gait Assessment Gait Gait Assistance Required: Moderate Assistance,1 Person Assist Distance (Feet) 2 Able to Maintain Weight Bearing Status Yes During Gait Assistive Devices Assistive Device Gait Belt,Front Wheeled Walker Orthotic/Prosthetic Devices or Brace: No Gait Deviations General Gait Pattern Antalgic,Decreased Stride Length,Decreased Feet Clearance,Lateral Trunk Lean, Step-to Gait Factors Limiting Gait Function Factors Limiting Gait Function Decreased Activity Tolerance, Decreased Strength,Poor Balance,Poor Safety Awareness Comments Gait Comments able to take steps during transfers using FWW mod A and cues PT-Balance Assessment Sitting Balance and Reactions Static Sitting Balance Ability Good Dynamic Sitting Balance Ability Good Standing Balance and Reactions Static Standing Balance Ability Fair Dynamic Standing Balance Ability Poor Device Used FWW M5 PT-IP Objective Assessments Start: 08/10/20 11:42 Freq: NEEDED Status: Active Protocol: Document 08/10/20 11:00 AB (Rec: 08/10/20 12:02 AB [id number]) Orientation Orientation/Cognition Level of Alertness Alert Orientation Name Language Function Ability Hard of Hearing Safety Awareness Decreased Safety Awareness Gross Range of Motion Lower Extremity ROM Assessment Bilaterally Impaired Impairments B ankle DF decrease with R>L Strength Lower Extremity Strength Hip 4-/5 Knee 4-/5 Muscle Tone Muscle Tone WNL Yes M6 PT-IP Treatment Start: 08/10/20 11:42 Freq: NEEDED Status: Active Protocol: Document 08/10/20 11:00 AB (Rec: 08/10/20 12:02 AB [email or web address]) Physical Therapy Treatment Education Education Provided Safety M7 PT-IP Assessment and Plan Start: 08/10/20 11:42 Freq: NEEDED Status: Active Protocol: Document 08/10/20 11:00 AB (Rec: 08/10/20 12:02 AB [email or web address]) PT Summary Assessment and Plan Potential Rehabilitation Potential Good Status of Condition at Evaluation Evolving Summary Impairments Pain,ROM,Strength,Balance, Coordination,Sensation,Tone, Cognition,Bed Mobility, Transfers,Gait,Activity Tolerance Assessment Summary pt requiring mod A with mobility but with decrease activity tolerance. pt has anemia and with decrease Hgb and Hct affecting tolerance and mobility. Pt plans to go home with his cousin to assist him. will continue to assess progress and will conduct caregiver training when appropriate. pt will benefit from homehealth PT if pt goes home but at this time, may require SNF rehab. Goals Bed Mobility Goal Standby Assistance Transfer Goal Standby Assistance,Front Wheeled Walker Gait Goal Standby Assistance,Front Wheel Walker Gait Distance 100 Days to Meet Goals 5 Frequency of Treatment Frequency Of Treatment Once a Day Treatment Plan Physical Therapy Treatment Plan Bed Mobility Training,Transfer Training,Gait Training, Therapeutic Exercise,Balance Retraining,Post Op Education, Discharge Planning,Hot or Cold Pack,Neuromuscular Re-ed, Coordination Retraining,Manual Therapy Recommendations To Nursing Amount of Assist Needed 1 Person Assist Discharge Recommendations PT Discharge Recommendations Home with 09/06 Assist,Home Health,SNF Rehab Equipment Needed for Home Before FWW Discharge Transportation Needs at Discharge Private Vehicle,Wheelchair/ Cabulance
--- NOTE | 2020-08-10 11:28 | OT.IP.EVAL ---
Current Diagnoses Acquired hemolytic anemia, unspecified (08/09/20) Past Medical History (Last Reviewed 08/10/20 @ 01:04 by PIPPA Espinal) Anemia (Acute) Angina pectoris (Acute) HTN (hypertension) (Acute) Hyperlipidemia (Chronic) Surgical History (Last Reviewed 08/10/20 @ 01:04 by PIPPA Espinal) H/O heart artery stent (Acute) Occupational Therapy Inpatient Evaluation/Re-Eval M1 PT/OT-IP Prior Functional Status Start: 08/10/20 13:25 Freq: NEEDED Status: Active Protocol: Document 08/10/20 11:02 [facility] (Rec: 08/10/20 13:37 [id number] Medical Review Prior Functional Status Medical History Reviewed Yes Communication able to make needs known Mobility and Gait pt stated that he is modified independent with all mobilities and ambulation using SPC; stated that he has not been feeling well for the last 4 days and his cousin/ housemate has been assisting him Activities of Daily Living and IADL's Pt states prior to not feeling well able to do all ADl needs , now for the past 4 days his cousin has been having to assist for his socks and shoes . Pt states does his own bills and medication on his own. Social History Household Members other Living Arrangements House Number of Floors (Floors) One Floor Number of Stairs To Enter/Railing? no steps to enter Home Environment Standard Height Toilet,Walk in Shower Home Equipment Shower Seat without Backrest, Hand Held Shower Employment Status Retired M2 OT-IP Current Condition Start: 08/10/20 13:25 Freq: Status: Active Protocol: Document 08/10/20 11:02 [facility] (Rec: 08/10/20 13:37 [facility] [id number]) Occupational Therapy Current Condition Current Condition Evaluation Date 08/10/20 Treatment Diagnosis Anemia, decreased self-care Diagnosis Onset Date 08/09/20 M3 OT- IP Subjective and Pain Start: 08/10/20 13:25 Freq: Status: Active Protocol: Document 08/10/20 11:02 [facility] (Rec: 08/10/20 13:37 [facility] [id number]) OT- Subjective Occupational Therapy Visit Type Type Initial Evaluation Visit Start Time 11:02 Visit Stop Time 11:28 Occupational Therapy Visit Comments Patient Comments Pt willing to get up with OT/ PT for evals. Pt's blood levels low however okay per physician to work with the pt. Patient/Caregiver Goals To go home. M4 OT- IP ADL's Start: 08/10/20 13:25 Freq: Status: Active Protocol: Document 08/10/20 11:02 [facility] (Rec: 08/10/20 13:37 [facility] [id number]) OT [id number]-Ktumrkx Comments OT Self-Feeding Comments NOt at meal time. OT ADL-Grooming Comments OT Grooming Comments Not performed at this time. OT ADL-Dressing General Eval Lower Body Dressing Ability Maximum Assistance Comments OT Dressing Comments Pt needing MAX A to janina his socks and shoes, mainly due to fatigue and not able to reach forwards due to abdominal pain. To go over LB dressing equipment with pt tomorrow. OT ADL-Toileting Comments OT Toileting Comments Pt not having to use at this time. OT ADL-Bathing Comments OT Bathing Comments NOt performed. M5 OT- IP IADL's Start: 08/10/20 13:25 Freq: Status: Active Protocol: Document 08/10/20 11:02 [facility] (Rec: 08/10/20 13:37 [facility] [id number]) OT-Instrumental Activities of Daily Living Home Safety Awareness Awareness of Need for Assistance at Home Good Awareness Medication Management Medication Management Comments Pt states does his own medications. Money Management Money Management Comments Pt states pays his own bills. Bus Cleaner Bus Cleaner Caregiver Provides Assist Driving Driving Caregiver Provides Assist M6 OT- IP Functional Cognition Start: 08/10/20 13:25 Freq: Status: Active Protocol: Document 08/10/20 11:02 [facility] (Rec: 08/10/20 13:37 [facility] [id number]) Cognitive Factors Limiting Selfcare Function Cognitive Ability Level of Alertness Alert Patient Orientation Name,Place,Situation Attention Span Ability Capable of Focused Attention, Capable of Sustained Attention Ability to Follow Commands Able to Follow One Step Commands Safety Awareness Underestimates Need for Assistance Cognitive Comments Cognitive Assessment Comments Pt able to follow one step commands. Pt needing cues for safety for FWW use . Pt tends to pull on the handles on the FWW versus push up from the armrests on the recliner to stand. OT- Vision and Hearing OT- Vision Assessment Vision Assessment Comments Pt states his glasses are at home. Pt hard of hearing. M7 OT- IP Mobility and Balance Start: 08/10/20 13:25 Freq: Status: Active Protocol: Document 08/10/20 11:02 [facility] (Rec: 08/10/20 13:37 [facility] [id number]) OT- Bed Mobility Assessment Rolling Type of Rolling Roll to Right Supine to Sit Supine to Sit Assist Standby Assistance OT-Transfer Assessment Sit to and From Stand Sit to and from Stand Minimal Assistance,1 Person Assistance,2 Person Assistance Transfers Transfer Ability Moderate Assistance,1 Person Assistance Technique Transfer Destination Bed,Chair Devices Transfer Assistive Devices Gait Belt,Front Wheeled Walker Comments Mobility Comments SBA with HOB up as pt sleeps on 3 pillows at home. BRINDA x 2 to stand one person to assist to stand and other to stabilize FWW. Pt did much better after education to push up from surface sitting on. M8 OT- IP Objective Assessments Start: 08/10/20 13:25 Freq: Status: Active Protocol: Document 08/10/20 11:02 [facility] (Rec: 08/10/20 13:37 [facility] [id number]) OT Gross Range of Motion Upper Extremity Range of Motion ROM Impairments Grossly WFL OT Strength Upper Extremity Strength Assessment Within Functional Limits M9 OT- IP Assessment and Plan Start: 08/10/20 13:25 Freq: Status: Active Protocol: Document 08/10/20 11:02 [facility] (Rec: 08/10/20 13:37 [facility] [id number]) OT Summary Assessment and Plan Potential Rehabilitation Potential Good Analytic Complexity at Evaluation Low Summary OT Impairments Balance,Functional Mobility, Grooming,Dressing,Toileting, Bathing,Toilet Transfers, Shower Transfers,Activity Tolerance Progress Towards Goals Slow Progress due to Medical Issues,Slow Progress due to activity tolerance and pain Assessment: Pt low complexity and here due to anemia and now decreased activity tolerance and now needing one person to assist with ADL and mobility needs. Pt now safer to use FWW and would benefitting from getting a FWW prior to going home at this time. Pending caregiver training and progress pt would benefit form short skilled rehab versus home with assist for all waking hours and home health. Frequency Of Treatment Once a Day Treatment Plan OT Treatment Plan ADL Training,Functional Mobility,Patient/Family Education,Discharge Planning Discharge Recommendations OT Discharge Recommendations Home with Assistance,Home Health,SNF Rehab Home Equipment Needs FWW, BSC versus raised toilet seat.
[2020-08-10] MEDS: INSULIN ASPART 100 UNIT/ML INSULN PEN SUBCUT ×3 (12:15→21:21)
[2020-08-10] MEDS: INSULIN REGULAR 100 UNIT/ML 3 ML VIAL 10 UNIT IV (12:34)
--- NOTE | 2020-08-10 12:43 | CM.DANOTE ---
Addendum entered by Nicolette Savage LPN 08/10/20 13:05: Admission status: INPT: confirmed now by UR DEANA Elder Original Note: Discharge Planning/Care Management DCP: assessment: case received, EMR reviewed and met with pt before and then during Team Bedside Rounds. Introduced self and role. Pt is an 85 year old male who admitted last evening to care of hospitalist team after being called by his PCP: Kane Molina: [facility] clinic after clinic noted results from a lab test and then with direction from the clinic to go to ER. Payer: Medicare and [facility] Pt stated he had been in process of switching to a PCP in [place], hoping for Dr. Garcia/ED but then COVID hit so he has continued to seek care at the clinic. He was able to obtain a vp care management at a [facility]. Pt lives with a housemate: Stanley Goddard: a distant and much younger cousin who is now POA for pt. Stanley now does all the driving and sounds like his assist is prn based on need. He reports Stanley has worked in past for another person as a caregiver and when that person he moved in with pt. Dr. Cunha explained to pt that he would be here in hospital for IV steroids and would d/c on a taper that would likely be for months. She has consulted with Dr. Martinez/ oncology clinic and he will see pt as OUTPT in clinic. P: anticipate home when stable for same with Stanley's prn support but will be following as POC unfolds. PT Marilou will be seeing pt today. CM Discharge Assessment Start: 08/10/20 12:41 Freq: Status: Active Protocol: Document 08/10/20 12:41 ITV (Rec: 08/10/20 12:43 ITV [id number]) Discharge Planning Assessment Advance Directives? No History Provided By Patient,Medical Record Has Patient been admitted in last 30 No days? Prior Living Arrangements House Household Members other Comment Distant cousin: Stanley Rupesh: [phone] Type of transporation used prior to Relies on Others admit Is patient alert and oriented? Yes DME Already Rented / Owned Cane Review Status In Process
--- NOTE | 2020-08-10 13:17 | PC.NURSE ---
Pt sitting up in chair for lunch. Blood sugar check via POC with result of >500 x 2 checks. Pt is asymptomatic. He is eating lunch, no nausea, dizziness, diaphoresis. Dr. Cunha notified and 12units of Aspart given for Correction as well as 10 units via IV of Regular insulin. Lab contacted for STAT bmp. Blood glucose rechecked with glucometer with result of >500. Lab results are not yet back.
[2020-08-10 13:50] LABS: BUN Creatinine Ratio 24.5 (6-22); Blood Urea Nitrogen 59 mg/dL (9-20); Calcium 7.9 mg/dL (8.4-10.2); Carbon Dioxide 20 mmol/L (22-32); Chloride 99 mmol/L (98-107); Estimated Glomerular Filt Rate 25.7 mL/min (>60); HEMOLYSIS < 15 (0-50); Potassium 5.3 mmol/L (3.4-5.1); Sodium 129 mmol/L (137-145)
[2020-08-10 13:59] LABS: Glucose 537 mg/dL (80-110)
--- NOTE | 2020-08-10 16:24 | DIET.PN ---
Dietary Progress Note Assessment: 85y M c chronic anemia c chronic pain on morphine admitted from PCP office for hgb 7 referred to nutrition for malnutrition screening. Pt lives at home with house mate with whom he shares chores. Pt reports checking BGs three times per day c FBG 108-130, premeal 75-85, and postprandial always under 170. Pt reports increased weakness over past 2w having GLF secondary to vertigo recently for which he has large healing gash on scalp. Pt reports eating per usual and his body weight is WNL for him the past 2y. Pt reports being very hungry, ate large breakfast and lunch (100% POs). Usual Day: B: toast c coffee L: granola, nuts, banana D: classic dinner of meat, starch, veggie Per PT pt has decreased activity tolerance, decreased strength, poor balance, poor safety awareness Nutrition Focused Physical Exam showing global severe muscle and fat wasting c prominent bony landmarks throughout, two stage 2 pressure ulcers on sacrum, dry scabby skin on lower legs, and striking pallor c BMI 21.0 (severe for age. Pt taking many supplements includinmg calcium, cranberry, 1,000mcg PO B12 bid, 325mg ferrous sulfate, MVI, PreserVision AREDS, Vitapulse, CoQ10, flaxseed oil, and resveratrol. Pts nutrition related lab values are deranged. Pts post-prandial BG after lunch was 537 with BGs elevated during hospital stay (193, 307), pt is currently on steroids which will effect BGs, pts BGs being managed by insulin now and is on carb controlled diet. HT: 172.7cm WT: 62.5kg UBW: 64kg BMI: 21.0 Labs: RBC 2.25 L, hgb 7.4 L, hct 21.8 L (c no reported blood loss), Na 129 L, K+ 5.3 H, BUN 59 H, Cr 2.41 H, eGFR 25.7 L, BG 193-537 H, A1c 5.8, elevated LFTs, CRP 17.7 H, B12 >1000 H, folate >20 H, urine showing random protein of 22 H MNA: 10 @ risk jaymie Cantu: 20 Interventions: 1. Pt eating well in hospital, if POs <50% recc ONS [place] for each meal under this level. Diet Order: CCD EER: 50g PRO, 2g K+, 2g Na (per renal labs) Monitoring/Evaluations: watching pt carefully
[2020-08-10] MEDS: methylPREDNISolone 1,000 MG in SODIUM CHLORIDE 0.9% 250 ML 258 ML IV (21:20)
[2020-08-10] MEDS: NORTRIPTYLINE 10 MG CAPSULE 20 MG PO (21:20)
[2020-08-10] MEDS: ATORVASTATIN 20 MG TABLET 80 MG PO (21:21)
[2020-08-11] VITALS (15 sets, daily range): BP systolic 118–133; BP diastolic 61–86; PULSE 60–83; RESP 15–18; TEMP 36.1–36.7; O2SAT 92–100
--- NOTE | 2020-08-11 01:30 | OT.IP.TRT ---
Current Diagnoses Acquired hemolytic anemia, unspecified (08/09/20) Occupational Therapy Treatment Note M2 OT-IP Current Condition Start: 08/10/20 13:25 Freq: Status: Active Protocol: Document 08/10/20 11:02 [facility]3] (Rec: 08/10/20 13:37 [facility]3] [id number]) Occupational Therapy Current Condition Current Condition Evaluation Date 08/10/20 Treatment Diagnosis Anemia, decreased self-care Diagnosis Onset Date 08/09/20 M3 OT- IP Subjective and Pain Start: 08/10/20 13:25 Freq: Status: Active Protocol: Document 08/11/20 01:30 RM (Rec: 08/11/20 14:28 RM [id number]) OT- Subjective Occupational Therapy Visit Type Type Treatment Note Visit Start Time 01:30 Visit Stop Time 02:00 Total Visit Minutes 30 Notes Hgb 6.9, Hct 20.3 Cleared by MD and RN to participate with therapy. Seated: 134/63, HR 77 Toileting: HR 95, O2 99% on RA Seated post-amb: 145/75, HR 88 , O2 99% on RA Occupational Therapy Visit Comments Patient Comments I want to walk. OT Pain Assessment Pain Present Pain Present Denied Pain M4 OT- IP ADL's Start: 08/10/20 13:25 Freq: Status: Active Protocol: Document 08/11/20 01:30 RM (Rec: 08/11/20 14:28 RM [id number]) OT [id number]-Kdau-[id number] General Evaluation Self-Feeding Ability Independent OT ADL-Dressing General Eval Lower Body Dressing Ability Contact Guard Assistance Areas Needing Assistance Underpants/Brief Comments OT Dressing Comments Patient able to manage brief for toileting with CGA. OT ADL-Toileting General Evaluation Toileting Ability Contact Guard Assistance Areas Needing Assistance Manage Clothing Devices Toileting Assistive Devices Grab Bars Comments OT Toileting Comments Ambulating into the bathroom with CGA with FWW. Occasional cues for safe hand placement with transition to/from toilet . M5 OT- IP IADL's Start: 08/10/20 13:25 Freq: Status: Active Protocol: Document 08/10/20 11:02 [facility]3] (Rec: 08/10/20 13:37 [facility]3] [id number]) OT-Instrumental Activities of Daily Living Home Safety Awareness Awareness of Need for Assistance at Home Good Awareness Medication Management Medication Management Comments Pt states does his own medications. Money Management Money Management Comments Pt states pays his own bills. Boom Boss Boom Boss Caregiver Provides Assist Driving Driving Caregiver Provides Assist M6 OT- IP Functional Cognition Start: 08/10/20 13:25 Freq: Status: Active Protocol: Document 08/10/20 11:02 [facility]3] (Rec: 08/10/20 13:37 [facility]3] [id number]) Cognitive Factors Limiting Selfcare Function Cognitive Ability Level of Alertness Alert Patient Orientation Name,Place,Situation Attention Span Ability Capable of Focused Attention, Capable of Sustained Attention Ability to Follow Commands Able to Follow One Step Commands Safety Awareness Underestimates Need for Assistance Cognitive Comments Cognitive Assessment Comments Pt able to follow one step commands. Pt needing cues for safety for FWW use . Pt tends to pull on the handles on the FWW versus push up from the armrests on the recliner to stand. OT- Vision and Hearing OT- Vision Assessment Vision Assessment Comments Pt states his glasses are at home. Pt hard of hearing. M7 OT- IP Mobility and Balance Start: 08/10/20 13:25 Freq: Status: Active Protocol: Document 08/10/20 11:02 [facility]3] (Rec: 08/10/20 13:37 [facility]3] [id number]) OT- Bed Mobility Assessment Rolling Type of Rolling Roll to Right Supine to Sit Supine to Sit Assist Standby Assistance OT-Transfer Assessment Sit to and From Stand Sit to and from Stand Minimal Assistance,1 Person Assistance,2 Person Assistance Transfers Transfer Ability Moderate Assistance,1 Person Assistance Technique Transfer Destination Bed,Chair Devices Transfer Assistive Devices Gait Belt,Front Wheeled Walker Comments Mobility Comments SBA with HOB up as pt sleeps on 3 pillos at home. BRINDA x 2 to stand one person to assist to stand and other to stabilize FWW. Pt did much better after education to push up from surface sitting on. M8 OT- IP Objective Assessments Start: 08/10/20 13:25 Freq: Status: Active Protocol: Document 08/10/20 11:02 [facility]3] (Rec: 08/10/20 13:37 [facility]3] [id number]) OT Gross Range of Motion Upper Extremity Range of Motion ROM Impairments Grossly WFL OT Strength Upper Extremity Strength Assessment Within Functional Limits M9 OT- IP Assessment and Plan Start: 08/10/20 13:25 Freq: Status: Active Protocol: Document 08/11/20 01:30 RM (Rec: 08/11/20 14:28 RM [id number]) OT Summary Assessment and Plan Potential Rehabilitation Potential Good Summary OT Impairments Activity Tolerance Progress Towards Goals Slow Progress due to Medical Issues Assessment Summary Patient participating well and motivated to participate with activity. Limited activity to basic ADLs in his room Frequency of Treatment Frequency Of Treatment Once a Day Treatment Plan OT Treatment Plan ADL Training Other Treatment Recommendations and Next Recommend next treatment focus Treatment Focus on basic self-care as tolerated. Discharge Recommendations OT Discharge Recommendations Home with Assistance
[2020-08-11 03:36] LABS: Haptoglobin 294 mg/dL (38-329)
[2020-08-11 06:01] LABS: Alanine Aminotransferase 120 IU/L (<50); Albumin 2.6 g/dL (3.5-5.0); Albumin Globulin Ratio 0.9 (1.0-2.8); Alkaline Phosphatase 91 U/L (38-126); Aspartate Aminotransferase 86 IU/L (17-59); BUN Creatinine Ratio 28.9 (6-22); Bilirubin Total 0.4 mg/dL (0.2-1.3); Blood Urea Nitrogen 66 mg/dL (9-20); Calcium 7.8 mg/dL (8.4-10.2); Carbon Dioxide 22 mmol/L (22-32); Chloride 102 mmol/L (98-107); Estimated Glomerular Filt Rate 27.4 mL/min (>60); Glucose 304 mg/dL (80-110); HEMOLYSIS < 15 (0-50); Magnesium 2.4 mg/dL (1.6-2.3); Potassium 5.2 mmol/L (3.4-5.1); Sodium 130 mmol/L (137-145); Total Protein 5.6 g/dL (6.3-8.2)
[2020-08-11] MEDS: PANTOPRAZOLE 40 MG TABLET PO (06:26)
[2020-08-11 06:31] LABS: Red Blood Cell Count 2.04 X10^6/uL (4.5-5.9)
[2020-08-11 06:32] LABS: Add Manual Diff / Slide Review YES; Mean Corpuscular HGB Conc 34.2 % (30-36); Mean Corpuscular Volume 99.4 fL (80-100); Platelet Count 265 X10^3/uL (150-400); Red Cell Distribution Width 13.5 % (11.6-14.8)
[2020-08-11 06:35] LABS: Hemoglobin 6.9 g/dL (13.5-17.5)
[2020-08-11 06:36] LABS: Hematocrit 20.3 % (41-53)
[2020-08-11 06:41] LABS: Procalcitonin 0.17 ng/mL (<0.5)
[2020-08-11 06:57] LABS: Hypochromasia 1+; Neutrophils Absolute Manual 7920 /uL (3000-5900); Total Cells Counted 100
[2020-08-11] MEDS: INSULIN ASPART 100 UNIT/ML INSULN PEN SUBCUT ×4 (08:34→22:09)
[2020-08-11] MEDS: METOPROLOL ER 25 MG TABLET PO (08:38)
[2020-08-11] MEDS: polyethylene glycoL 3350 17 GM POWD.PACK PO (08:38)
[2020-08-11] MEDS: ISOSORBIDE MONONITRATE ER 30 MG TABLET 60 MG PO (08:39)
[2020-08-11] MEDS: GABAPENTIN 600 MG TABLET PO ×3 (08:39→22:04)
[2020-08-11] MEDS: FERROUS SULFATE 325 MG TABLET PO (08:39)
[2020-08-11] MEDS: predniSONE 20 MG TABLET 60 MG PO (08:39)
[2020-08-11] MEDS: CLOPIDOGREL 75 MG TABLET PO (08:40)
[2020-08-11] MEDS: AMLODIPINE 5 MG TABLET 10 MG PO (08:40)
--- NOTE | 2020-08-11 10:50 | P.PN_ITS ---
Subjective Subjective Date Patient Seen: 08/11/20 Interval history: Graeme Forte is an 85-year-old male with a past medical history significant for CAD status post stent x 2, hypertension, hyperlipidemia, GERD, chronic neck pain with opiate dependence and longstanding anemia who presented to ED at the request of his PCP for labs demonstrated worsening anemia and elevated creatinine with complaint generalized weakness and malaise . The patient is resting in bed comfortably. He continues to feel weak and fatigued. He endorses mild dyspnea of exertion but denies shortness of breath at rest. He has no other complaints and denies headache, lightheadedness, dizziness, cough, shortness of breath, chest pain, abdominal pain, nausea, vomiting, fever, chills, dysuria, diarrhea or constipation. He is voiding and eliminating without difficulty. He is up with moderate assistance. Exam Vital Signs (past 8 hours): - 08/11/20 10:00 08/11/20 10:40 08/11/20 11:11 Temperature 97.9 F Pulse Rate 80 83 Respiratory Rate 15 Blood Pressure 129/68 129/68 Pulse Oximetry 98 98 08/11/20 14:00 08/11/20 15:35 Temperature 98.0 F Pulse Rate 73 Respiratory Rate 18 Blood Pressure 127/62 Pulse Oximetry 98 96 Oxygen Delivery Method Room Air Oxygen Flow Rate 0 Narrative Exam Narrative: General: Elderly thin and frail appearing male lying in bed and in no acute d istress, pale, appropriately interactive HEENT: Normocephalic, traumatic. Large rerpaired scalp laceration. External ears without defect. Pupils equal, round, and reactive to light . Anicteric sclerae, moist conjunctivae, and no lid lag. Oropharynx free of erythema and cobble stoning with moist mucosa. Full body muscle wasting. Neck: Supple with full range of motion. No jugular venous distension.No lymphadenopathy or thyromegaly. Cardiovascular: Regular rate and rhythm without murmurs, rubs, or gallops appreciated. Pulmonary: Clear to auscultation bilaterally without crackles, wheezes, or r honchi. Normal respiratory effort with no use of accessory muscles. Abdomen: Soft, scaphoid, bowel sounds present, nontender, nondistended. No hepatosplenomegaly or masses appreciated. Extremities: No clubbing, cyanosis, or edema. Skin: Normal temperature, turgor, and texture; no rash, ulcers, or subcutaneous nodules appreciated. Neurological: Cranial nerves grossly intact. Generalized weakness. Psychiatric: Normal mood and affect. Alert and oriented to person, place, and time. Objective Labs Result Diagrams: 08/13/20 05:15 08/13/20 05:15 Labs: Laboratory Results - last 24 hr 08/09/20 08/09/20 08/11/20 16:25 16:25 05:33 WBC 8.0 RBC 2.04 L Hgb 6.9 L* Hct 20.3 L* MCV 99.4 MCH 34.0 MCHC 34.2 RDW 13.5 Plt Count 265 Neut % (Auto) Not Reportable Lymph % (Auto) Not Reportable Charlton % (Auto) Not Reportable Eos % (Auto) Not Reportable Baso % (Auto) Not Reportable Lymph # (Auto) Not Reportable Charlton # (Auto) Not Reportable Baso # (Auto) Not Reportable Total Counted 100 Seg Neutrophils % 87.0 H Band Neutrophils % 12.0 H Lymphocytes % (Manual) 1.0 L Neutrophils # (Manual) 7920 H RBC Morphology See below Hypochromasia 1+ H Smear Path Review Haptoglobin 294 Sodium Potassium Chloride Carbon Dioxide BUN Creatinine Estimated GFR BUN/Creatinine Ratio Glucose Calcium Magnesium Total Bilirubin AST ALT Alkaline Phosphatase Total Protein Albumin Globulin Albumin/Globulin Ratio Procalcitonin 08/11/20 08/11/20 05:33 05:33 WBC RBC Hgb Hct MCV MCH MCHC RDW Plt Count Neut % (Auto) Lymph % (Auto) Charlton % (Auto) Eos % (Auto) Baso % (Auto) Lymph # (Auto) Charlton # (Auto) Baso # (Auto) Total Counted Seg Neutrophils % Band Neutrophils % Lymphocytes % (Manual) Neutrophils # (Manual) RBC Morphology Hypochromasia Smear Path Review Haptoglobin Sodium 130 L Potassium 5.2 H Chloride 102 Carbon Dioxide 22 BUN 66 H Creatinine 2.28 H Estimated GFR 27.4 L BUN/Creatinine Ratio 28.9 H Glucose 304 H D Calcium 7.8 L Magnesium 2.4 H Total Bilirubin 0.4 AST 86 H ALT 120 H Alkaline Phosphatase 91 Total Protein 5.6 L Albumin 2.6 L Globulin 3.0 Albumin/Globulin Ratio 0.9 L Procalcitonin 0.17 Assessment & Plan Assessment & Plan narrative: Graeme Forte is an 85-year-old male with a past medical history significant for CAD status post stent x 2, hypertension, hyperlipidemia, GERD, chronic neck pain with opiate dependence and longstanding anemia who presented to ED at the request of his PCP for labs demonstrated worsening anemia and elevated creatinine with complaint generalized weakness and malaise . 1. Acute on chronic anemia, unknown nature, present on admission. Active. -Initial hemoglobin 7.1 on admission. Last hemoglobin 11.4 on 10/13/2019, other cell lines are normal values. -Elevated LDH 1297, bilirubin normal, iron profile normal, B12 > 1000, ESR > 140, CRP 17.7. Haptoglobin and peripheral smear pending. -Patient also has MAURICIO as below. -Patient had previous normal bone marrow biopsy on 10/15/2019. -Case was discussed with Dr. Martinez of hematology who recommended starting high- dose steroids for acute hemolytic anemia. Continue Solu-Medrol 1 g IV daily x2 days then start prednisone 60 mg today. 2. Acute kidney injury on chronic kidney disease stage 3, present on admission. Active. -BUN 58, creatinine 2.68, EGFR 22.8 on 08/09/2020, last known creatinine 1.10 on 11/25/2017. Renal function improving with IV hydration and creatinine 2.28.. -Patient has a history of urinary retention and is on doxazosin 1 mg daily at bedtime. -Avoid nephrotoxic agents. -Continue NS at 75 mL/hr. -Continue to monitor creatinine daily. 3. CAD, chronic, present on admission. Stable. -Continue home atorvastatin 80 mg daily at bedtime, clopidogrel 75 mg daily, isosorbide mononitrate 60 mg daily, and metoprolol succinate 25 mg daily. 4. Hypertension, chronic, present on admission. Stable. -Continue home amlodipine 10 mg daily, isosorbide mononitrate 60 mg daily, and metoprolol succinate 25 mg daily. 5. Hyperlipidemia, chronic, present on admission. Stable. -Continue home atorvastatin 80 mg daily at bedtime. 6. Chronic neck pain with opiate dependence, present on admission. Stable. -Continue home MS Contin 15 mg 5 times daily and gabapentin 600 mg 3 times daily. 7. Insomnia, chronic, present admission. Stable. -Continue home nortriptyline of which he normally takes 25 mg daily at bedtime but will receive 20 mg daily at bedtime due to formulary. 8. GERD, chronic, present on admission. Stable. -Continue equivalent of home lansoprazole 30 mg twice daily. Code status: Full code VTE prophylaxis: Chemical containdicated, Bilateral SCDs Disposition: Patient likely will discharge home with home health in the next 1- 2 days once blood counts have improved/stabilized. Quality VTE Deep Vein Thrombosis/Pulmonary Embolism Present on Admission: No
--- NOTE | 2020-08-11 11:15 | PT.IPTN ---
Current Diagnoses Acquired hemolytic anemia, unspecified (08/09/20) Physical Therapy Treatment Note M2 PT-IP Current Condition Start: 08/10/20 11:42 Freq: NEEDED Status: Active Protocol: Document 08/10/20 11:00 AB (Rec: 08/10/20 12:02 AB [id number]) Physical Therapy Current Condition Current Condition Evaluation Date 08/10/20 Treatment Diagnosis anemia; difficulty in walking Onset Date 08/09/20 Precautions Other Precautions falls M3 PT-IP Subjective Start: 08/10/20 11:42 Freq: NEEDED Status: Active Protocol: Document 08/11/20 11:15 AB (Rec: 08/11/20 12:39 AB [email or web address]) Subjective Physical Therapy Visit Type Type Treatment Note Visit Start Time 11:15 Visit Stop Time 11:45 Total Visit Minutes 30 Notes pt with Hgb of 6.9 and Hct 20. 3. informed nurse that PT will hold today's tx due to low blood count and that nurse will be able to at least get pt up to the chair. Nurse Omar acknowledge. after a few minutes, informed PT that Dr. Cunha wants pt up. Dr. Cunha talked to PT and stated that she does not care on who will get the pt up but wants pt up on chair. informed Dr. Cunha regarding concerns due to low Hgb and Hct. Dr. Cunha stated that pt is asymptomatic and will not get transfusion unless pt has severe symptoms as pt has anemia transfusing pt will not do much difference and that pt might have CA. stated that blood count is low since pt has received 1L of IV fluids but it is stable of which PT was not informed prior. Pt seen for PT tx despite of low blood count reading as result is a false reading due to IV fluid received. Pt without complaints throughout tx session. BP monitored. pls refer to mobility section for details. Number of TRAVEL SERVICES PROFESSIONAL Visits 0 Physical Therapy Visit Comments Patient Comments I want to walk M4 PT-IP Mobility and Gait Start: 08/10/20 11:42 Freq: NEEDED Status: Active Protocol: Document 08/11/20 11:15 AB (Rec: 08/11/20 12:39 AB [email or web address]) PT-Bed Mobility Assessment Supine to Sit Supine to Sit Standby Assistance,Head of Bed Elevated Scooting Scooting to Edge of Bed Standby Assistance PT-Transfer Assessment Sit to and From Stand Sit to and from Stand Moderate Assistance,Maximum Assistance,1 Person Assistance ,Use of Upper Extremities Equipment Transfer Assistive Device Gait Belt,Front Wheeled Walker Orthotic/Prosthetic Devices or Brace: No Transfers Transfer Destination Chair Transfer Technique ambulated using FWW Transfer Ability Level of Assist Moderate Assistance,Maximum Assistance,1 Person Assistance ,Use of Upper Extremities Comments Mobility Comments BP monitored: supine: 109/74 with HOB elevated. completed supine to sit SBA with HOB elevated ~ 30 de. pt was able to sit on EOB SBA. pt with increase thoracic kyphonsis during sitting. BP in sitting : 117/61. pt without c/o dizziness/lightheadedness; stated that he feels fine. BP checked again after ~ 2 min: 139/68. pt completed sit to stand mod to max A and cues. BP checked: 115/61. pt required min A to maintain standing balance using FWW for support. BP checked after 2 min: 131/55. pt ambulated in room but educated on safety and reporting symptoms. completed ~ 20 ft of ambulation using FWW mod to max A with increase forward trunk lean towards end of ambulation and increase unsteadiness and bilateral knee bending. pt instructed to sit on EOB required mod A for controlled descent and max cues. pt stated that there is slight chest discomfort but disappeared after resting. Ambulated towards the chair using FWW ~ 12 ft mod to max A and cues. BP checked sitting on chair: 120/67. positioned pt on chair. call light and table placed within reach. Gait Assessment Gait Gait Assistance Required: Moderate Assistance,Maximum Assistance Distance (Feet) 20 Able to Maintain Weight Bearing Status Yes During Gait Assistive Devices Assistive Device Gait Belt,Front Wheeled Walker Gait Deviations General Gait Pattern Antalgic,Ataxic,Decreased Stride Length,Decreased Feet Clearance,Flexed Trunk,Lateral Trunk Lean Factors Limiting Gait Function Factors Limiting Gait Function Decreased Activity Tolerance, Decreased Strength,Limited Range of Motion,Pain,Poor Balance,Poor Safety Awareness, Respiratory Distress Comments Gait Comments pt with increase forward trunk lean during standing and increases with ambulation distance. M5 PT-IP Objective Assessments Start: 08/10/20 11:42 Freq: NEEDED Status: Active Protocol: Document 08/10/20 11:00 AB (Rec: 08/10/20 12:02 AB [email or web address]) Orientation Orientation/Cognition Level of Alertness Alert Orientation Name Language Function Ability Hard of Hearing Safety Awareness Decreased Safety Awareness Gross Range of Motion Lower Extremity ROM Assessment Bilaterally Impaired Impairments B ankle DF decrease with R>L Strength Lower Extremity Strength Hip 4-/5 Knee 4-/5 Muscle Tone Muscle Tone WNL Yes M6 PT-IP Treatment Start: 08/10/20 11:42 Freq: NEEDED Status: Active Protocol: Document 08/11/20 11:15 AB (Rec: 08/11/20 12:40 AB [email or web address]) Physical Therapy Treatment Education Education Provided Safety M7 PT-IP Assessment and Plan Start: 08/10/20 11:42 Freq: NEEDED Status: Active Protocol: Document 08/11/20 11:15 AB (Rec: 08/11/20 12:39 AB [email or web address]) PT Summary Assessment and Plan Potential Rehabilitation Potential Fair Summary Impairments Pain,ROM,Strength,Balance, Coordination,Sensation, Cognition,Bed Mobility, Transfers,Gait,Activity Tolerance Progress Towards Goals Slow Progress due to Medical Issues Assessment Summary pt requiring mod to max A with mobility using FWW. pt will have his cousing to assist him at home. informed pt regarding equipement needs and recommendation of FWW instead of 4WW. Pt agreed and agreed for hospital to dispense him one. also informed the pt that he needs to borrow/rent a w/c due to decrease activity tolerance. will conduct caregiver training when appropriate Goals Bed Mobility Goal Standby Assistance Transfer Goal Standby Assistance,Front Wheeled Walker Gait Goal Standby Assistance,Front Wheel Walker Gait Distance 100 Days to Meet Goals 5 Frequency of Treatment Frequency Of Treatment Once a Day Treatment Plan Physical Therapy Treatment Plan Bed Mobility Training,Transfer Training,Gait Training, Therapeutic Exercise,Balance Retraining,Post Op Education, Discharge Planning,Hot or Cold Pack,Neuromuscular Re-ed, Coordination Retraining Recommendations To Nursing Amount of Assist Needed 1 Person Assist Discharge Recommendations PT Discharge Recommendations Home with 09/06 Assist,Home Health Equipment Needed for Home Before FWW Discharge Transportation Needs at Discharge Private Vehicle,Wheelchair/ Cabulance
--- NOTE | 2020-08-11 11:51 | CM.DPC ---
DCP: continued: met with pt again in Team Bedside Rounds. Dr. Cunha explained that she wanted PT/OT to see pt again today and discussed his medical issues with PT Marilou and OT Barbara. Dr. Cunha told pt that he may be ready for a d/c to home tomorrow and that he would need further workup with oncology Dr. Martinez. Pt said he had seen Dr. Metzger early this year for same thing and he is very agreeable to see Dr. Martinez since Dr. Metzger is . Pt confirms again that Stanley can take care of him at home and was agreeable to this DC exercise planner calling him to discuss same. Have spoken now with Stanley and confirmed his cell: [phone]. Stanley confirms he is able to help pt and has several questions re how much he should be trying to have pt exercise and what exactly is going on medically with him. He says pt as gotten very weak in the last couple weeks, spends most of his time asleep in a recliner and he is very worried about falls. I try to follow him around every time he gets up. He says he knows pt is better at home and will do what he can to make sure he can be there. Did have brief discussion re Hospice type care if pt's medical condition deteriorates as this would allow him to continue to stay comfortably in his own home. Stanley agreed this may be something for the future; it's whatever Graeme wants. Discussed HH and Stanley said he though especially that RN would be very helpful. Discussed adding PT/OT to help improve functional mobility as able and look at home safety eval, DME recommendations etc. Will make sure pt and Stanley have the Senior Resource Booklet/2020 for [facility] as expect pt may at some point need additional caregiving and other resources. Have discussed this now with Dr. Cnuha. She agrees with HH, has completed Face/Face document (still need her progress note corresponding with date of the document.) She also agrees to either call Stanley or see him when he arrives to visit pt at about 1530 today. PT Marilou is also updated and given Stanley's contact numbers so as to help with her ongoing evaluation of pt and his needs. Will check in tomorrow and follow accordingly.
[2020-08-11] MEDS: SODIUM CHLORIDE 0.9% 1,000 ML 75 ML IV (14:31)
--- NOTE | 2020-08-11 14:32 | PC.NURSE ---
Patient BS continue to be in the high 300's to low 400's. Dr. Cunha notified of patient trend. Notify MD if patient goes back into the 500's for BS.
[2020-08-11] MEDS: ATORVASTATIN 20 MG TABLET 80 MG PO (22:04)
[2020-08-11] MEDS: NORTRIPTYLINE 10 MG CAPSULE 20 MG PO (22:06)
[2020-08-11] MEDS: DOXAZOSIN 2 MG TABLET 1 MG PO (22:06)
[2020-08-11] MEDS: INSULIN GLARGINE 100 UNIT/ML 3ML PEN SUBCUT (22:10)
[2020-08-12] VITALS (15 sets, daily range): BP systolic 123–145; BP diastolic 53–71; PULSE 61–70; RESP 16–18; TEMP 36.1–36.9; O2SAT 94–100
[2020-08-12] MEDS: MORPHINE ER 15 MG TABLET PO ×6 (00:30→23:01)
[2020-08-12] MEDS: SODIUM CHLORIDE 0.9% 1,000 ML 75 ML IV (04:10)
[2020-08-12] MEDS: PANTOPRAZOLE 40 MG TABLET PO (06:31)
--- NOTE | 2020-08-12 07:50 | PC.NURSE ---
Patient having AM labs drawn. Spoke with Dr. Burnett, changing (MD order) blood glucose monitoring to ACHS frequency with sliding scale as ordered, continue to monitor.
[2020-08-12 08:04] LABS: Add Manual Diff / Slide Review NO; Basophils Absolute Auto 0 /uL (0-100); Basophils Percent Auto 0.3 % (0-2); Eosinophils Absolute Auto 0 /uL (0-450); Lymphocytes Absolute Auto 300 /uL (1100-4500); Lymphocytes Percent Auto 2.8 % (25-40); Mean Corpuscular HGB Conc 33.3 % (30-36); Mean Corpuscular Volume 96.1 fL (80-100); Monocytes Absolute Auto 400 /uL (0-900); Monocytes Percent Auto 3.8 % (3-14); Neutrophils Absolute Auto 10400 /uL (1500-7000); Neutrophils Percent Auto 93.1 % (50-75); Platelet Count 307 X10^3/uL (150-400); Red Blood Cell Count 2.18 X10^6/uL (4.5-5.9); Red Cell Distribution Width 13.6 % (11.6-14.8); White Blood Cell Count 11.1 X10^3/uL (4.5-11.0)
[2020-08-12] MEDS: polyethylene glycoL 3350 17 GM POWD.PACK PO (08:12)
[2020-08-12] MEDS: ISOSORBIDE MONONITRATE ER 30 MG TABLET 60 MG PO (08:12)
[2020-08-12] MEDS: AMLODIPINE 5 MG TABLET 10 MG PO (08:12)
[2020-08-12] MEDS: METOPROLOL ER 25 MG TABLET PO (08:12)
[2020-08-12] MEDS: predniSONE 20 MG TABLET 60 MG PO (08:12)
[2020-08-12] MEDS: CLOPIDOGREL 75 MG TABLET PO (08:12)
[2020-08-12] MEDS: GABAPENTIN 600 MG TABLET PO ×3 (08:12→20:31)
[2020-08-12] MEDS: FERROUS SULFATE 325 MG TABLET PO (08:12)
[2020-08-12 08:18] LABS: BUN Creatinine Ratio 36.8 (6-22); Blood Urea Nitrogen 74 mg/dL (9-20); Calcium 7.8 mg/dL (8.4-10.2); Carbon Dioxide 21 mmol/L (22-32); Chloride 106 mmol/L (98-107); Estimated Glomerular Filt Rate 31.7 mL/min (>60); Glucose 158 mg/dL (80-110); HEMOLYSIS < 15 (0-50); Potassium 4.7 mmol/L (3.4-5.1); Sodium 133 mmol/L (137-145)
[2020-08-12] MEDS: INSULIN ASPART 100 UNIT/ML INSULN PEN SUBCUT ×4 (08:23→20:33)
--- NOTE | 2020-08-12 10:43 | PC.NURSE ---
Allevyn dressings changed to patient's 2 pressure sores. One on lower spine and one to buttocks, area is pink with skin open, cleansed with saline and then allevyn gentle border applied. Continue with pressure relief measures and continue to monitor.
--- NOTE | 2020-08-12 11:04 | CM.DPC ---
Addendum entered by Nicolette Savage LPN 08/12/20 14:51: HH agency list discussed with pt and outcome of discussion is referral to [facility]. Have spoken with Vivi/Adalberto who accepts the referral. DC likely in next day or [address] Burnett. Initial clinical is sent now to [facility] to include Face sheet plus extra sheet noting pt's physician address ([facility] [facility] and [facility] Angel's contact information.) Face/Face and HH orders plus Dr. Burnett's progress note are faxed. Will provide [facility] brochure to pt (will place in the Resource Guide in pt's room). P: home with Stanley and [facility] when stable for same. Addendum entered by Nicolette Savage LPN 08/12/20 14:24: Stanley was here as planned and discussed POC with pt and Dr. Burnett and was involved in caregiver training and d/c recommendations with both PT and OT. Have left the 2019 Senior Resource Guide for him in the pt's room with specific private caregiver agencies highlighted in case of need. Dr. Burnett will see pt again tomorrow. DC date uncertain at this time but all are now focused on a plan for d/c to home when pt is stable for same. Checked in with pt now. He is up in bedside chair, smiling, blood transfusion is process. New Face/Face document is completed with Dr. Burnett as his progress note for today is finalized and this is needed to complete the process. Requesting RN/OT/PT/OVENS SUPERVISOR. Therapists have given Stanley a list of needed equipment and he is working on this now. Original Note: DCP: continued: EMR reviewed and note that last 2 days of hospitalist progress notes remain in draft. Met again with pt during Team Bedside Rounds with Dr. Burnett now on as hospitalist. Pt was noted to be in bed and appeared to be in pain. He confirmed same and talked with Dr. Burnett regarding his long time morphine medication schedule that he is on at home and has not been on since admitting 08/09. Pharmacist was present during Rounding and she and Dr. Burnett, along with pt's pharmacy Namancherelle Orosco have confirmed these orders and pt is now receiving this. DEANA Velasco, caring for pt today, was also in Rounds and is now proceeding with orders accordingly. Dr. Burnett is now following up with the bessemer converter blower oncologist to see what may be recommended for pt. Have spoken with [facility] Angel who confirms he did come to the hospital yesterday afternoon as planned but never did speak with Dr. Cunha. He will be here at [address] Burnett is now planning to meet around that time with pt and Stanley for further discussion of POC going forward. Dr. Burnett states that at this time full dx seems a bit unclear to him and he will review the case in more depth. PT and OT are also planning on working with pt before or after this meeting and will incorporate Stanley into this process. Pt continues to express strong desire for home. I have projects I need to work on. Will check in with Stanley when he arrives and follow as POC unfolds.
--- NOTE | 2020-08-12 11:17 | PT.IPTN ---
Current Diagnoses Acquired hemolytic anemia, unspecified (08/09/20) Physical Therapy Treatment Note M2 PT-IP Current Condition Start: 08/10/20 11:42 Freq: NEEDED Status: Active Protocol: Document 08/10/20 11:00 AB (Rec: 08/10/20 12:02 AB [email or web address]) Physical Therapy Current Condition Current Condition Evaluation Date 08/10/20 Treatment Diagnosis anemia; difficulty in walking Onset Date 08/09/20 Precautions Other Precautions falls M3 PT-IP Subjective Start: 08/10/20 11:42 Freq: NEEDED Status: Active Protocol: Document 08/12/20 11:17 AB (Rec: 08/12/20 13:20 AB [email or web address]) Subjective Physical Therapy Visit Type Type Treatment Note Visit Start Time 11:17 Visit Stop Time 11:52 Total Visit Minutes 35 Number of HALL MONITOR Visits 0 Physical Therapy Visit Comments Patient Comments pt is agreeable to do PT; pt's cousin in room for caregiver training Therapy Pain Assessment Pain Present Pain Present Denied Pain M4 PT-IP Mobility and Gait Start: 08/10/20 11:42 Freq: NEEDED Status: Active Protocol: Document 08/12/20 11:17 AB (Rec: 08/12/20 13:20 AB [email or web address]) PT-Bed Mobility Assessment Supine to Sit Supine to Sit Standby Assistance PT-Transfer Assessment Sit to and From Stand Sit to and from Stand Minimal Assistance,1 Person Assistance,Use of Upper Extremities Equipment Transfer Assistive Device Gait Belt,Front Wheeled Walker Orthotic/Prosthetic Devices or Brace: No Transfers Transfer Destination Chair Transfer Technique ambulated using FWW Transfer Ability Level of Assist Moderate Assistance,1 Person Assistance,Use of Upper Extremities Comments Mobility Comments caregiver training conducted with pt and pt's cousin Stanley. pt completed bed mobility supine to sit with HOB elevated SBA. pt was able to sit on EOB SBA. educated caregiver on how to use safety belt and how to assist pt. pt completed sit to stand from EOB with caregiver assisting and ambulated in room ~ 10 ft mod A. pt with increasing unsteadiness and c/o SOB and instructed to sit down. Dr. Burnett in room and talked to pt and family. positioned pt on chair. went back to talk to pt and caregiver regarding equipement needs. recommending FWW, w/c , bedside commode. DME list provided to caregiver. Gait Assessment Gait Gait Assistance Required: Moderate Assistance Distance (Feet) 10 Able to Maintain Weight Bearing Status Yes During Gait Assistive Devices Assistive Device Gait Belt,Front Wheeled Walker Orthotic/Prosthetic Devices or Brace: No Gait Deviations General Gait Pattern Antalgic,Decreased Stride Length,Decreased Feet Clearance,Flexed Trunk,Lateral Trunk Lean,Step-to Gait Factors Limiting Gait Function Factors Limiting Gait Function Decreased Activity Tolerance, Decreased Strength,Difficulty Following Directions,Limited Range of Motion,Poor Balance, Poor Safety Awareness M5 PT-IP Objective Assessments Start: 08/10/20 11:42 Freq: NEEDED Status: Active Protocol: Document 08/10/20 11:00 AB (Rec: 08/10/20 12:02 AB [email or web address]) Orientation Orientation/Cognition Level of Alertness Alert Orientation Name Language Function Ability Hard of Hearing Safety Awareness Decreased Safety Awareness Gross Range of Motion Lower Extremity ROM Assessment Bilaterally Impaired Impairments B ankle DF decrease with R>L Strength Lower Extremity Strength Hip 4-/5 Knee 4-/5 Muscle Tone Muscle Tone WNL Yes M6 PT-IP Treatment Start: 08/10/20 11:42 Freq: NEEDED Status: Active Protocol: Document 08/12/20 11:17 AB (Rec: 08/12/20 13:20 AB [email or web address]) Physical Therapy Treatment Education Education Provided Safety M7 PT-IP Assessment and Plan Start: 08/10/20 11:42 Freq: NEEDED Status: Active Protocol: Document 08/12/20 11:17 AB (Rec: 08/12/20 13:20 AB [email or web address]) PT Summary Assessment and Plan Potential Rehabilitation Potential Fair Summary Impairments Pain,ROM,Strength,Balance, Coordination,Sensation,Tone, Cognition,Bed Mobility, Transfers,Gait,Activity Tolerance Progress Towards Goals Slow Progress due to Medical Issues,Slow Progress due to Activity Tolerance Assessment Summary caregiver training conducted and pt's caregiver is able to assist pt but pt's has decrease activity tolerance and was not able to ambulate much. also provided information regarding equipment needs. pt will also benefit from homehealth PT. Goals Bed Mobility Goal Standby Assistance Transfer Goal Standby Assistance,Front Wheeled Walker Gait Goal Standby Assistance,Front Wheel Walker Gait Distance 100 Days to Meet Goals 5 Frequency of Treatment Frequency Of Treatment Once a Day Treatment Plan Physical Therapy Treatment Plan Bed Mobility Training,Transfer Training,Gait Training, Therapeutic Exercise,Balance Retraining,Post Op Education, Discharge Planning,Hot or Cold Pack,Neuromuscular Re-ed, Coordination Retraining Recommendations To Nursing Amount of Assist Needed 1 Person Assist Discharge Recommendations PT Discharge Recommendations Home with 09/06 Assist,Home Health Equipment Needed for Home Before FWW, w/c Discharge Transportation Needs at Discharge Private Vehicle,Wheelchair/ Cabulance
--- NOTE | 2020-08-12 11:57 | P.PN_ITS ---
Subjective Subjective Date Patient Seen: 08/12/20 Interval history: Patient is 85-year-old male with history of hypertension, CAD, chronic anemia admitted due to severe worsening anemia. Per oncology recommendations, he was started on systemic steroids for possible acute hemolytic anemia. Hemoglobin is stable. Patient is generally weak and feels a little short of breath. Exam Vital Signs (past 8 hours): - 08/12/20 04:00 08/12/20 08:00 Temperature 98.1 F Pulse Rate 61 Respiratory Rate 16 Blood Pressure 134/65 Pulse Oximetry 99 97 Oxygen Delivery Method Room Air Oxygen Flow Rate 0 Narrative Exam Narrative: General: Alert very pale appearing male in no acute distress Lungs: Clear to auscultation Heart: Regular rhythm Abdomen: Soft Extremities: Warm, dry, no edema Neurological: Alert, speech fluent, sensorium intact, nonfocal Objective Labs Result Diagrams: 08/12/20 07:50 08/12/20 07:50 Labs: Laboratory Results - last 24 hr 08/09/20 08/12/20 08/12/20 16:25 07:50 07:50 WBC 11.1 H RBC 2.18 L Hgb 7.0 L Hct 21.0 L MCV 96.1 D MCH 32.0 MCHC 33.3 RDW 13.6 Plt Count 307 Neut % (Auto) 93.1 H Lymph % (Auto) 2.8 L [place] % (Auto) 3.8 Eos % (Auto) 0.0 L Baso % (Auto) 0.3 Neut # (Auto) 07419 H Lymph # (Auto) 300 L [place] # (Auto) 400 Eos # (Auto) 0 Baso # (Auto) 0 Sodium 133 L Potassium 4.7 Chloride 106 Carbon Dioxide 21 L BUN 74 H Creatinine 2.01 H Estimated GFR 31.7 L BUN/Creatinine Ratio 36.8 H Glucose 158 H D Calcium 7.8 L Crossmatch See Detail Assessment & Plan Assessment & Plan narrative: Graeme Forte is an 85 y.o. male with history of hypertension, CAD, chronic anemia who is admitted for workup of severe symptomatic anemia. 1. Acute on chronic anemia, unknown nature, present on admission, active -hemoglobin 7.1 on admission, last previous hemoglobin 11.4 on 10/13/2019, other cell lines are normal values -elevated LDH 1297, haptoglobin 294, bilirubin normal, iron profile normal, B12 > 1000, ESR > 140, CRP 17.7 -smear showed normal RBC, WBC and platelet morphology, no schistocytes reported; antibodies were negative -patient also in significant renal failure (see below) -patient had previous normal bone marrow biopsy on 10/15/2019 -case was initially discussed with Dr. Martinez who recommended starting high-dose steroids for acute hemolytic anemia; subsequently haptoglobin came back normal and with normal bilirubin the diagnosis of hemolytic anemia is in question -on 08/[address] Nguyen who recommended to increase prednisone to 100 mg daily, check direct and indirect Mirtha, and reticulocytes (pending) -patient received Solu-Medrol 1 g IV daily x2 days then startedon prednisone 100 mg p.o. daily -ordered 1 unit PRBC and check hemoglobin and hematocrit 1 hour post transfusion after consulting with Dr. Nguyen 2. Kidney injury, unknown if acute or chronic, present on admission, active -BUN 58, creatinine 2.68, EGFR 22.8 on 08/09/2020, last known creatinine 1.10 on 11/25/2017 -renal ultrasound showed bladder wall trabeculations which can be associated with chronic partial bladder outlet obstruction -the patient has a history of urinary retention and is on doxazosin 1 mg HS, reports improvement in urinary urgency since on doxazosin -renal function seems to be improving with IV hydration, last BUN 74 and creatinine 2.01 -continue NS at 50 cc/hour and monitor volume status -recheck renal function labs in a.m. 3. Coronary artery disease, chronic, stable -continue home doses of clopidogrel 75 mg p.o. daily, isosorbide mononitrate 60 mg p.o. daily, metoprolol succinate 25 mg p.o. daily, atorvastatin 80 mg HS 4. Hypertension, chronic, present on admission -Continue amlodipine 10 mg p.o. daily 5. Chronic neck pain with opioid dependency -patient takes MS Contin 15 mg every 4 hours 5 times a day, he was having more pain on b.i.d. dosing and we put him back on his routine home regimen -continue home dose of gabapentin 600 mg p.o. t.i.d. 6. Insomnia -patient normally takes nortriptyline 25 mg p.o. at bedtime, he will receive 20 mg at bedtime 7. Head laceration -patient evaluated in ED on 07/27/2020 for ground level fall sustaining a head laceration -has closing wound on head without evidence of infection 8. Steroid induced hyperglycemia -nonfasting glucose 193, increased to 537 after IV steroids, hemoglobin A1c 5.8% -glucose improving and below 200 -continue medium dose sliding scale insulin (discontinued low-dose Lantus) VTE prophylaxis: Enoxaparin 30 mg subcu q.d. Quality VTE Deep Vein Thrombosis/Pulmonary Embolism Present on Admission: No
[2020-08-12] MEDS: predniSONE 20 MG TABLET 40 MG PO (11:59)
--- NOTE | 2020-08-12 12:56 | OT.IP.TRT ---
Current Diagnoses Acquired hemolytic anemia, unspecified (08/09/20) Occupational Therapy Treatment Note M2 OT-IP Current Condition Start: 08/10/20 13:25 Freq: Status: Active Protocol: Document 08/10/20 11:02 [facility] (Rec: 08/10/20 13:37 [facility] [id number]) Occupational Therapy Current Condition Current Condition Evaluation Date 08/10/20 Treatment Diagnosis Anemia, decreased self-care Diagnosis Onset Date 08/09/20 M3 OT- IP Subjective and Pain Start: 08/10/20 13:25 Freq: Status: Active Protocol: Document 08/12/20 15:40 CGR (Rec: 08/12/20 15:55 CGR [email or web address]) OT- Subjective Occupational Therapy Visit Type Type Progress Note Visit Start Time 12:17 Visit Stop Time 12:56 Total Visit Minutes 39 Notes Significant time spent outside of pt's direct care organizing plan for DME at home. OT Pain Assessment Pain When Pain Assessed At Rest Pain Present Pain Present Pain Reported Location back Scale Used did not rate but facial grimacing. Pain Behaviors Facial Grimacing Management Techniques Distraction,Modification of Treatment,Re-positioning M4 OT- IP ADL's Start: 08/10/20 13:25 Freq: Status: Active Protocol: Document 08/11/20 01:30 RM (Rec: 08/11/20 14:28 RM [id number]) OT PAN-[id number]-Xfltqko General Evaluation Self-Feeding Ability Independent OT ADL-Dressing General Eval Lower Body Dressing Ability Contact Guard Assistance Areas Needing Assistance Underpants/Brief Comments OT Dressing Comments Patient able to manage brief for toileting with CGA. OT ADL-Toileting General Evaluation Toileting Ability Contact Guard Assistance Areas Needing Assistance Manage Clothing Devices Toileting Assistive Devices Grab Bars Comments OT Toileting Comments Ambulating into the bathroom with CGA with FWW. Occassional cues for safe hand placement with transition to/from toilet . M5 OT- IP IADL's Start: 08/10/20 13:25 Freq: Status: Active Protocol: Document 08/10/20 11:02 [facility] (Rec: 08/10/20 13:37 [facility] [id number]) OT-Instrumental Activities of Daily Living Home Safety Awareness Awareness of Need for Assistance at Home Good Awareness Medication Management Medication Management Comments Pt states does his own medications. Money Management Money Management Comments Pt states pays his own bills. Tire Adjuster Tire Adjuster Caregiver Provides Assist Driving Driving Caregiver Provides Assist M6 OT- IP Functional Cognition Start: 08/10/20 13:25 Freq: Status: Active Protocol: Document 08/12/20 15:40 CGR (Rec: 08/12/20 15:55 CGR [email or web address]) Cognitive Factors Limiting Selfcare Function Cognitive Ability Level of Alertness Alert Patient Orientation Name,Year,Day of Week,Place, Situation Attention Span Ability Capable of Focused Attention, Capable of Sustained Attention Ability to Follow Commands Able to Follow One Step Commands with Increased Time, Able to Follow One Step Commands with Repetition Safety Awareness Underestimates Need for Assistance Problem Solving Ability No deficits Noted Cognitive Comments Cognitive Assessment Comments Pt active in discussion of his care and home safety. Pt reiterates parts of the discussion to be sure he has understood correctly. OT- Vision and Hearing OT- Vision Assessment Vision Assessment Comments Pt states his glasses are at home. Pt hard of hearing. M7 OT- IP Mobility and Balance Start: 08/10/20 13:25 Freq: Status: Active Protocol: Document 08/12/20 15:40 CGR (Rec: 08/12/20 15:55 CGR [email or web address]) OT-Transfer Assessment Sit to and From Stand Sit to and from Stand Minimal Assistance Technique Transfer Destination Chair Devices Transfer Assistive Devices Gait Belt,Front Wheeled Walker Comments Mobility Comments Pt stood for repositioning and pillows and waffle cushion placed below him OT- Gait Assessment Comments Gait Ability Comments not performed OT- Balance Assessment Sitting Balance and Reactions Static Sitting Balance Ability Fair Dynamic Sitting Balance Ability Poor M8 OT- IP Objective Assessments Start: 08/10/20 13:25 Freq: Status: Active Protocol: Document 08/10/20 11:02 [facility] (Rec: 08/10/20 13:37 [facility] [id number]) OT Gross Range of Motion Upper Extremity Range of Motion ROM Impairments Grossly WFL OT Strength Upper Extremity Strength Assessment Within Functional Limits M9 OT- IP Assessment and Plan Start: 08/10/20 13:25 Freq: Status: Active Protocol: Document 08/12/20 15:40 CGR (Rec: 08/12/20 15:55 CGR [email or web address]) OT Summary Assessment and Plan Potential Rehabilitation Potential Good Summary OT Impairments Activity Tolerance Progress Towards Goals Slow Progress due to Medical Issues Assessment Summary Pt appears to be fatigues on this date. Minimal activity performed but discussed home situation and plans for safe discharge home. Discussed plan for w/c for termite treater use. Stanley agreeable to getting 2ww and temporary w/c till pt can get fitted for w/c. signed script today for w/c fitting as an outpatient. Pt left sitting up in the chair at the end of the day. Goals Self-Feeding Goal Independent Grooming Goal Independent Dressing Goal Independent Toileting Goal Standby Assistance Bathing Goal Standby Assistance Toilet Transfer Goal Standby Assistance Shower Transfer Goal Standby Assistance Days to Meet Goals 10 Frequency of Treatment Frequency Of Treatment Once a Day Treatment Plan OT Treatment Plan ADL Training,Functional Mobility,Patient/Family Education,Discharge Planning Other Treatment Recommendations and Next Recommend next treatment focus Treatment Focus on basic self-care as tolerated. Discharge Recommendations OT Discharge Recommendations Home with Assistance Home Equipment Needs FWW, BSC, w/c (temporary rental till he can be fitted for one), and shower chair. Transportation Needs at Discharge Private Vehicle
[2020-08-12 18:40] LABS: Hematocrit 26.8 % (41-53); Hemoglobin 9.2 g/dL (13.5-17.5)
[2020-08-12 19:08] LABS: Reticulocyte Count, Percent 1.4 % (0.87-2.60)
[2020-08-12] MEDS: DOCUSATE 100 MG CAPSULE PO (20:31)
[2020-08-12] MEDS: ATORVASTATIN 20 MG TABLET 80 MG PO (20:31)
[2020-08-12] MEDS: DOXAZOSIN 2 MG TABLET 1 MG PO (20:32)
[2020-08-12] MEDS: NORTRIPTYLINE 10 MG CAPSULE 20 MG PO (20:32)
[2020-08-13 03:00] VITALS: BP 136/75; PULSE 67; RESP 16; TEMP 36.4; O2SAT 100
[2020-08-13] MEDS: SODIUM CHLORIDE 0.9% 1,000 ML 50 ML IV (03:02)
[2020-08-13 03:10] VITALS: O2SAT 100
--- NOTE | 2020-08-13 05:05 | PC.NURSE ---
PIPPA [facility] notified with the [facility] of [phone] & [phone] order received to administer 5 units of Novolog now. Awaiting for night pharmacy to verify order.
[2020-08-13] MEDS: INSULIN ASPART 100 UNIT/ML INSULN PEN SUBCUT ×3 (05:17→13:37)
[2020-08-13 05:36] LABS: Add Manual Diff / Slide Review NO; Basophils Absolute Auto 100 /uL (0-100); Basophils Percent Auto 0.5 % (0-2); Eosinophils Absolute Auto 0 /uL (0-450); Hematocrit 25.6 % (41-53); Hemoglobin 8.7 g/dL (13.5-17.5); Lymphocytes Absolute Auto 200 /uL (1100-4500); Lymphocytes Percent Auto 1.5 % (25-40); Mean Corpuscular HGB Conc 34.1 % (30-36); Mean Corpuscular Hemoglobin 34.3 PG (26-34); Mean Corpuscular Volume 100.5 fL (80-100); Monocytes Absolute Auto 600 /uL (0-900); Monocytes Percent Auto 4.5 % (3-14); Neutrophils Absolute Auto 11800 /uL (1500-7000); Neutrophils Percent Auto 93.5 % (50-75); Platelet Count 307 X10^3/uL (150-400); Red Blood Cell Count 2.54 X10^6/uL (4.5-5.9); White Blood Cell Count 12.7 X10^3/uL (4.5-11.0)
[2020-08-13 05:49] LABS: BUN Creatinine Ratio 38.6 (6-22); Blood Urea Nitrogen 71 mg/dL (9-20); Calcium 8.2 mg/dL (8.4-10.2); Carbon Dioxide 23 mmol/L (22-32); Chloride 106 mmol/L (98-107); Estimated Glomerular Filt Rate 35.1 mL/min (>60); Glucose 268 mg/dL (80-110); HEMOLYSIS < 15 (0-50); Potassium 5.6 mmol/L (3.4-5.1); Sodium 135 mmol/L (137-145)
[2020-08-13] MEDS: PANTOPRAZOLE 40 MG TABLET PO (06:17)
[2020-08-13] MEDS: MORPHINE ER 15 MG TABLET PO ×2 (06:38→13:36)
[2020-08-13 07:00] VITALS: BP 142/73; PULSE 69; RESP 14; TEMP 36.1; O2SAT 95
[2020-08-13] MEDS: ENOXAPARIN 30 MG/0.3 ML SYRINGE SUBCUT (08:29)
[2020-08-13] MEDS: predniSONE 20 MG TABLET 100 MG PO (08:30)
[2020-08-13] MEDS: CLOPIDOGREL 75 MG TABLET PO (08:32)
[2020-08-13] MEDS: METOPROLOL ER 25 MG TABLET PO (08:33)
[2020-08-13] MEDS: AMLODIPINE 5 MG TABLET 10 MG PO (08:33)
[2020-08-13] MEDS: ISOSORBIDE MONONITRATE ER 30 MG TABLET 60 MG PO (08:35)
[2020-08-13] MEDS: FERROUS SULFATE 325 MG TABLET PO (08:35)
[2020-08-13] MEDS: GABAPENTIN 600 MG TABLET PO (08:35)
[2020-08-13] MEDS: DOCUSATE 100 MG CAPSULE PO (08:35)
[2020-08-13] MEDS: polyethylene glycoL 3350 17 GM POWD.PACK PO (08:35)
[2020-08-13 11:00] VITALS: BP 136/69; PULSE 78; RESP 15; TEMP 36.6; O2SAT 98
--- NOTE | 2020-08-13 11:00 | P.DS_ITS ---
History of Present Illness History of Present Illness Chief complaint: weakness Narrative: Graeme Forte is an 85-year-old male with essential hypertension, hyperlipidemia, coronary artery disease, and longstanding anemia presents at the request of his PCP after having labs drawn. Yesterday he had seen his primary care physician marco Molina at [facility] for follow-up on a renal ultrasound. They ran labs on him and repeated labs today and he was referred to the emergency department due to having a hemoglobin of 7. Per the ED provider he had a negative guaiac with no real source of bleeding. The patient does state that he has had migraines about 1-2 per year used to take beta bottle but was discontinued due to his hypertension. He states that he gets short of breath when he goes back to bed this is been going on for 2 weeks he does endorse having stomach cramps and pain but has not seen any blood in the stool a states that is formed or soft and normal colored he also denies any blood in his urine. Patient was seen in the emergency department approximately a month ago where he sustained a fall and hit his head. He was sutured and discharged home. Today he is afebrile is slightly hypotensive at 107/57, heart rate 71, respiratory rate of 18 with an oxygen saturation 96% on room air he weighs 62.5 lb and has a BMI of 20.9. WBC is 10.1, RBC 2.19, hemoglobin 7.1, hematocrit 20.9, does have of mildly elevated neutrophil count of 8900, ESR is greater than 140, haptoglobin is pending, PT is 13.3, INR 1.2, sodium 132, potassium 5.5, chloride 100, bicarb is 24, creatinine 2.68 which is new, BUN 58, GFR is 22.8, glucose was 193, calcium 8.2, iron 47, TIBC 181, transferrin was 116, total bili is 0.7, AST 211, ALT 161, alk-phos 106, lactate dehydrogenase 1297, C-reactive protein 17.7, total protein 6.4, albumin 3.0, vitamin B12 was greater than 1000, folate greater than 20, urine was positive for blood, with a urine random total of 22 which is elevated, urine creatinine was 66.2, protein to creatinine ratio was 0.33, COVID-19 is negative. Discharge Providers Provider Date of admission: 08/09/20 17:51 Discharge Date: 08/13/20 Primary care physician: Kane Molina MD Consults: 08/09/20 21:07 Consult to Physician Routine Comment: Consulting Provider: Marquise Martinez Reason for consultation: suspected hemolytic anemia Has provider been notified: Yes 08/10/20 07:37 Consult to Physical Therapy Evaluate & Treat Comment: Physician Instructions: Evaluate and Treat 08/10/20 07:38 Consult to Occupational Therapy Evaluate & Treat Comment: Physician Instructions: Evaluate and treat 08/10/20 11:03 Consult to Dietitian, Adult Routine Comment: Reason For Exam: severe protein calorie malnutrition. 08/12/20 14:37 Consult to Home Health Routine Comment: Reason For Exam: HH RN/OT/PT/INFORMATION DIRECTOR Discharge provider: Navarro Burnett MD Summary Hospital Course Discharge Diagnosis: 1. Acute on chronic anemia 2. Acute kidney injury 3. BPH with bladder obstruction 4. Stable CAD 5. Hypertension 6. Chronic neck pain with opioid dependency 7. Chronic insomnia 8. Recent head laceration secondary to fall 9. Steroid induced acute hyperglycemia without diabetes Hospital Course: Patient was admitted due to severe symptomatic anemia with hemoglobin of 7.1 on admission where as his last previous hemoglobin was 11.4 on 10/13/2019. Other cell lines were normal values. There was initial concern about acute hemolytic anemia and patient was started on high-dose steroids after phone consultation with Dr. Martinez. Other lab values included elevated LDH 1297, normal haptoglobin 11.4, normal bilirubin, normal iron profile, B12 > 1000. His reticulocyte count was only 1.4%. In addition he had markedly elevated ESR > 140 and CRP 17.7. His direct Mirtha test was negative. Indirect Mirtha test was sent and results not back yet. His peripheral smear was fairly unremarkable including absence of schistocytes. The normal haptoglobin and low reticulocyte count are not supportive of hemolytic anemia. Etiology of anemia remains unclear. Patient had a normal bone marrow biopsy in September 2019 and may need to have this repeated. I also wonder about a vasculitic or autoimmune process causing both the anemia and renal failure. FABIANO reflex panel was sent prior to discharge. Patient has developed severe renal failure which may explain some of the anemia. On admission his serum creatinine was 2.68 with EGFR 22.8. Last recorded creatinine in [facility] was 1.10 on 11/25/2017. Renal ultrasound showed bladder wall trabeculations which can be associated with chronic partial bladder outlet obstruction. His creatinine did improve modestly with IV hydration with creatinine 1.84 on discharge. He was recently started on doxazosin for bladder outlet obstruction. Patient may benefit from outpatient nephrology consultation regarding renal failure. During hospitalization, patient was treated with Solu-Medrol 1 g daily x2 days for possible acute hemolytic anemia. Case was reviewed again over the weekend with Dr. Nguyen who recommended prednisone 100 mg daily which patient got 2 doses. As his blood sugars are running well above 200 I have reduced his prednisone to 60 mg daily on discharge. Patient will follow-up with Dr Martinez on steroid tapering. Patient also received 1 unit PRBC on 08/12 as we were not convinced this is hemolytic anemia. His hemoglobin improved from 7.0 to 9.2 post transfusion. His hemoglobin the following morning is 8.7. Patient was evaluated with PT and OT during admission. He is 1 person assist and will use a walker at home. He notes improved strength and activity tolerance since his transfusion. Patient is instructed to follow-up with Dr. Martinez this week for further management of anemia. His renal function will also need close monitoring and possible nephrology referral as well. Total time greater than 30 minutes in discharge day evaluation and management services. Exam Vital Signs (past 8 hours): - 08/13/20 03:10 08/13/20 07:00 Temperature 96.9 F L Pulse Rate 69 Respiratory Rate 14 Blood Pressure 142/73 H Pulse Oximetry 100 95 Oxygen Delivery Method Room Air Oxygen Flow Rate 0 Objective Labs Result Diagrams: 08/13/20 05:15 08/13/20 05:15 Labs: Laboratory Results - last 24 hr 08/09/20 08/12/20 08/12/20 16:25 18:31 18:31 WBC RBC Hgb Hct MCV MCH MCHC RDW Plt Count Neut % (Auto) Lymph % (Auto) [place] % (Auto) Eos % (Auto) Baso % (Auto) Neut # (Auto) Lymph # (Auto) [place] # (Auto) Eos # (Auto) Baso # (Auto) Percent Retic 1.4 Sodium Potassium Chloride Carbon Dioxide BUN Creatinine Estimated GFR BUN/Creatinine Ratio Glucose Calcium Blood Type A Negative Antibody Screen Negative Direct Antiglob Test Negative Crossmatch See Detail 08/12/20 08/13/20 08/13/20 18:31 05:15 05:15 WBC 12.7 H RBC 2.54 L Hgb 9.2 L 8.7 L Hct 26.8 L 25.6 L MCV 100.5 H D MCH 34.3 H MCHC 34.1 RDW 15.0 H Plt Count 307 Neut % (Auto) 93.5 H Lymph % (Auto) 1.5 L [place] % (Auto) 4.5 Eos % (Auto) 0.0 L Baso % (Auto) 0.5 Neut # (Auto) 82130 H Lymph # (Auto) 200 L [place] # (Auto) 600 Eos # (Auto) 0 Baso # (Auto) 100 Percent Retic Sodium 135 L Potassium 5.6 H Chloride 106 Carbon Dioxide 23 BUN 71 H Creatinine 1.84 H Estimated GFR 35.1 L BUN/Creatinine Ratio 38.6 H Glucose 268 H D Calcium 8.2 L Blood Type Antibody Screen Direct Antiglob Test Crossmatch Discharge Plan Discharge Plan Patient Disposition: Home Discharge comment: Please see Dr Martinez this week for hospital follow up of anemia. Discharge orders & Medications Prescriptions: New prednisone 20 mg tablet 60 mg PO DAILY Qty: 30 RF: 0 Continued gabapentin [Neurontin] 600 MG tablet 600 mg PO TID Qty: 0 RF: 0 clopidogrel [Plavix] 75 MG tablet 75 mg PO DAILY Qty: 0 RF: 0 lansoprazole [Prevacid] 30 MG capsule,delayed release(DR/EC) 30 mg PO BIDAC Qty: 0 RF: 0 atorvastatin 80 MG tablet 80 mg PO BEDTIME Qty: 0 RF: 0 nitroglycerin 0.4 mg tablet, sublingual 0.4 mg sublingual PRN PRN (Reason: Chest Pain) RF: 0 Co Q-10 300 mg Capsule 300 mg PO DAILY RF: 0 flaxseed oil 1 dose PO DIRECTED RF: 0 Ventricor 1 dose PO DIRECTED RF: 0 resveratrol 1 cap PO DIRECTED RF: 0 Vitapulse 1 dose PO BID RF: 0 doxazosin 1 mg tablet 1 mg PO DAILY RF: 0 Artificial Tears (cmc) 1 % Drops 1 drp OPHTHALMIC (EYE) TID PRN (Reason: Dry Eye(S)) RF: 0 nortriptyline 25 mg capsule 25 mg PO BEDTIME RF: 0 morphine 15 mg tablet extended release 1 tab PO 5XD RF: 0 polyethylene glycol 3350 17 gram/dose powder 1 dose PO DAILY RF: 0 cyanocobalamin (vitamin B-12) [Vitamin B-12] 1,000 mcg Tablet Extended Release 1,000 mcg PO BID RF: 0 ferrous sulfate 325 mg (65 mg iron) Tablet 325 mg PO DAILY RF: 0 cranberry 400 mg Capsule 400 mg DAILY RF: 0 Centrum Silver 400-250 mcg Tablet,Chewable 1 tab PO DAILY RF: 0 isosorbide mononitrate 60 mg Tablet Extended Release 24 Hr 60 mg PO DAILY RF: 0 amlodipine 10 mg Tablet 10 mg PO DAILY RF: 0 metoprolol succinate 25 mg Tablet Extended Release 24 Hr 25 mg PO DAILY RF: 0 Follow up/Referrals: Kane Molina MD [Primary Care Provider] - Marquise Martinez MD [Physician] - 3-5 Days Diet/Activity/Treatments Diet: Diet as Tolerated Visit Report/Discharge Packet Instructions: Anemia, Prednisone Visit Report Forms: Patient Portal/API, Stroke Signs & Symptoms Discharge Data Primary Care Provider: Kane Molina Quality VTE Deep Vein Thrombosis/Pulmonary Embolism Present on Admission: No
--- NOTE | 2020-08-13 13:49 | CM.DPC ---
DCP continued: EMR Reviewed: CM/Rn talked with Lisa with [facility]- and faxed over his face to face along with clinicals for her to review. Frank/Rn Faxed D/C summary to [facility] as well. Plan . D/C home today with family with [facility]. No other identified D/C planning needs noted at this time. Irlanda Perez RN
--- NOTE | 2020-08-13 13:56 | PT-IP ANOTE ---
Pt refused tx stating he wants to wait to get up due to a full stomach and waiting for Stanley to come help him dress for d/c. Pt encouraged to transfer to chair or take walk and pt continued to refuse tx. Informed DEANA Velasco.
--- NOTE | 2020-08-13 15:15 | PC.NURSE ---
1450 IV removed intact. Discharge instructions and home care handouts reviewed with patient and his caregiver Stanley, they state understanding and have no further questions or concerns at this time. Patient reports he will call Dr. Alfaro's office tomorrow to schedule a follow up appointment to be seen this week. Patient will picking tech prescription on his way home. Patient instructed to call his PCP with questions or concerns, or to seek emergent care if symptoms return or worsen or for a medical emergency. Patient has 2 pressure injuries (present on admission) and is leaving with allevyn dressings in place, education on pressure ulcer prevention and care re-enforced with patient and his caregiver. Patient taking waffle cushion home. Escorted out via wheelchair with all belongings to be discharged to home.
[2020-08-15 19:12] LABS: ANA Screen, IFA Positive (.)
== END 2020-08-13 15:05 | disposition home health service (06) | DRG 809 ==
LOC: ED 17:23 → AC 17:51
PROVIDERS: Internal Medicine; Nurse Practitioner Family; Admitting Provider Internal Medicine; Emergency Provider Emergency Medicine; Family Provider Internal Medicine; PCP Internal Medicine; Referring Provider Emergency Medicine; Visit Provider Internal Medicine
DX: D59.9 Acquired hemolytic anemia, unspecified (principal); F11.20 Opioid dependence, uncomplicated; N17.9 Acute kidney failure, unspecified; R73.9 Hyperglycemia, unspecified; T38.0X5A Adverse effect of glucocorticoids and synthetic analogues, initial encounter; I10 Essential (primary) hypertension; E78.5 Hyperlipidemia, unspecified; I25.10 Atherosclerotic heart disease of native coronary artery without angina pectoris; G47.00 Insomnia, unspecified; G89.29 Other chronic pain; K21.9 Gastro-esophageal reflux disease without esophagitis; S01.91XD Laceration without foreign body of unspecified part of head, subsequent encounter
CPT/HCPCS: 36415; 36430; 36592; 80048; 80053; 80076; 81001; 82570; 82607; 82746; 82962; 83010; 83036; 83540; 83550; 83615; 83735; 84145; 84156; 85014; 85018; 85025; 85045; 85610; 85651; 85730; 86038; 86140; 86850; 86880; 86900; 86901; 87635; 93005; 93010; 97116; 97162; 97165; 97530; 97535; 99284; P9016; J1650; J2930; J7050

== ENCOUNTER 2020-08-24 09:29 | Inpatient (IN) | payer MEDICARE, OTHER, SELFPAY ==
[2020-08-09 18:22] VITALS: BMI 20.9
[2020-08-24] VITALS (15 sets, daily range): BP systolic 120–184; BP diastolic 56–95; PULSE 58–92; RESP 10–42; TEMP 36.1–36.3; O2SAT 70–100; BMI 25.8
--- NOTE | 2020-08-24 09:35 | DI.RAD.S_ITS ---
PROCEDURE: XR CHEST 1V INDICATIONS: Short of breath TECHNIQUE: One view of the chest was acquired. COMPARISON: [facility], , CHEST 1 VIEW, 11/25/2017, 5:47. FINDINGS: Surgical changes and devices: None. Lungs and pleura: There is suggestion of small amount of right pleural effusion and right basilar platelike atelectasis. Small underlying infiltrate cannot be excluded. No pneumothorax. Left lung is clear. Mediastinum: Mediastinal contours appear normal. Heart size is normal. Bones and chest wall: No suspicious bony lesions. Overlying soft tissues appear unremarkable. IMPRESSION: Trace right pleural effusion and suggestion of right basilar infiltrate/atelectasis. Left lung is clear. No pneumothorax. Dictated by: Bora Davison M.D. on 08/24/2020 at 10:08 Approved by: Bora Davison M.D. on 08/24/2020 at 10:08
[2020-08-24 09:44] LABS: Add Manual Diff / Slide Review NO; Basophils Absolute Auto 100 /uL (0-100); Basophils Percent Auto 0.4 % (0-2); Eosinophils Absolute Auto 0 /uL (0-450); Eosinophils Percent Auto 0.1 % (2-4); Hematocrit 27.4 % (41-53); Hemoglobin 9.1 g/dL (13.5-17.5); Lymphocytes Absolute Auto 1100 /uL (1100-4500); Lymphocytes Percent Auto 5.6 % (25-40); Mean Corpuscular HGB Conc 33.2 % (30-36); Mean Corpuscular Hemoglobin 31.4 PG (26-34); Mean Corpuscular Volume 94.5 fL (80-100); Monocytes Absolute Auto 600 /uL (0-900); Neutrophils Absolute Auto 18000 /uL (1500-7000); Neutrophils Percent Auto 90.9 % (50-75); Platelet Count 196 X10^3/uL (150-400); Red Cell Distribution Width 15.5 % (11.6-14.8); White Blood Cell Count 19.8 X10^3/uL (4.5-11.0)
--- NOTE | 2020-08-24 09:48 | ED.GENADULT ---
HPI - General Adult General Chief complaint: Shortness of Breath/Dyspnea Stated complaint: SOB and edema Time Seen by Provider: 08/24/20 09:31 Source: patient and EMS Mode of arrival: EMS Limitations: no limitations History of Present Illness HPI narrative: Patient is an 85-year-old male brought in by EMS after they were called by his son who lives with the individual has the patient has been complaining of right-sided chest pain with deep breathing. It appears the symptoms started within the past 24 hours. Patient is also having right lower extremity swelling and weeping of fluid. The swelling is not necessarily new however the patient does think that it is somewhat worse and is now draining. He denies any fevers. The right-sided chest discomfort is not with palpation in his when he takes a deep breath. He was recently admitted to the hospital for symptomatic anemia where he received a blood transfusion. Patient is denying any chest pain. Does have shortness of breath secondary to the right-sided pain. He did complete a course of prednisone yesterday that was given to him during his last admission to the hospital. Related Data Home Medications Medication Instructions Recorded Confirmed gabapentin [Neurontin] 600 mg PO TID #0 03/27/12 08/24/20 clopidogrel [Plavix] 75 mg PO DAILY #0 12/02/16 08/24/20 atorvastatin 80 mg PO BEDTIME #0 11/25/17 08/24/20 lansoprazole [Prevacid] 30 mg PO BIDAC #0 11/25/17 08/24/20 morphine 1 tab PO 5XD 08/26/18 08/24/20 nortriptyline 25 mg PO BEDTIME 08/26/18 08/24/20 polyethylene glycol 3350 1 dose PO DAILY 08/26/18 08/24/20 Centrum Silver 1 tab PO DAILY 09/08/19 08/24/20 cranberry 400 mg DAILY 09/08/19 08/24/20 cyanocobalamin (vitamin B-12) 1,000 mcg PO BID 09/08/19 08/24/20 [Vitamin B-12] ferrous sulfate 325 mg PO DAILY 09/08/19 08/24/20 amlodipine 10 mg PO DAILY 11/03/19 08/24/20 isosorbide mononitrate 60 mg PO DAILY 11/03/19 08/24/20 metoprolol succinate 25 mg PO DAILY 11/03/19 08/24/20 Co Q-10 300 mg PO DAILY 12/24/19 08/24/20 Ventricor 1 dose PO DIRECTED 12/24/19 08/24/20 Vitapulse 1 dose PO BID 12/24/19 08/24/20 flaxseed oil 1 dose PO DIRECTED 12/24/19 08/24/20 nitroglycerin 0.4 mg SUBLINGUAL PRN PRN 12/24/19 08/24/20 resveratrol 1 cap PO DIRECTED 12/24/19 08/24/20 Artificial Tears (cmc) 1 drp OPHTHALMIC (EYE) TID PRN 08/09/20 08/24/20 doxazosin 1 mg PO DAILY 08/09/20 08/24/20 Previous Rx's Medication Instructions Recorded prednisone 60 mg PO DAILY #30 tab 08/13/20 Allergies Allergy/AdvReac Type Severity Reaction Status Date / Time cephalexin Allergy Severe RASH Verified 08/24/20 09:45 ciprofloxacin Allergy Severe RASH Verified 08/24/20 09:45 Fish Containing Products Allergy Severe Difficulty Verified 08/24/20 09:45 Breathing shellfish derived Allergy Severe Difficulty Verified 08/24/20 09:45 Breathing avocado AdvReac Intermediate Vomiting Verified 08/24/20 09:45 cucumber AdvReac Intermediate Vomiting Verified 08/24/20 09:45 Review of Systems Constitutional Constitutional: Denies chills, Denies fever(s) and Denies headache(s) Eyes Eyes: Denies blurry vision ENT Ears, Nose, Mouth, and Throat: Denies headache(s) Cardiovascular Cardiovascular: Reports chest pain (Right-sided chest pain), Denies rapid heart rate and Denies dyspnea on exertion Respiratory Respiratory: Denies excessive phlegm production, Reports pain on inspiration and Denies dyspnea on exertion Gastrointestinal Gastrointestinal: Denies abdominal pain, Denies nausea and Denies vomiting Genitourinary Genitourinary: Denies dysuria Genitourinary: Denies dysuria Musculoskeletal Musculoskeletal: Denies arthralgias and Denies myalgias Integumentary/Breasts Skin/Breast: Denies rash Neurologic Neurologic: Denies behavioral changes and Denies headache(s) Psychiatric Psychiatric: Denies behavioral changes Hematologic/Lymphatic Hematologic/Lymphatic: Denies easy bleeding and Denies easy bruising Allergic/Immunologic Allergic/Immunologic: Denies urticaria Patient History Medical History Anemia (Acute) Angina pectoris (Acute) HTN (hypertension) (Acute) Hyperlipidemia (Chronic) Surgical History H/O heart artery stent (Acute) Family History Father Kidney failure Mother Heart disease Social History household members: other Smoking Status: Former smoker alcohol intake: current Smoking Status: Former smoker alcohol intake frequency: holidays/special occasions only Substance Use Type: does not use Exam Initial Vital Signs Initial Vital Signs: Vital Signs Temperature 97.4 F L 08/24/20 09:40 Pulse Rate 83 08/24/20 09:40 Respiratory Rate 22 08/24/20 09:40 Blood Pressure 178/81 H 08/24/20 09:40 Pulse Oximetry 99 08/24/20 09:40 Const General: cooperative and frail appearing [facility] Head: normal to inspection and normocephalic Chest Chest: No crepitus and No tenderness Resp Effort & Inspection: normal respiratory effort Auscultation: clear to auscultation bilaterally Cardio Rate: regular rate Rhythm: regular rhythm GI Inspection: non-distended Palpation: soft Skin Lesions: no lesions Rashes: no rashes Neuro General: patient alert and patient awake Cognition: normal cognition Speech: speech normal Extrem General: normal to inspection and edema Psych Appearance: grossly normal Scores GCS Olga Lidia coma scale eye opening: Spontaneous [place] coma scale verbal response: Orientated Olga Lidia coma scale motor response: Obey commands Olga Lidia coma scale total score: 15 Course Orders Ordered: ED Orders 08/24/20 09:35 XR chest 1V Stat Complete Blood Count AUTO DIFF Stat Comprehensive Metabolic Panel Stat Lipase Stat NT-proBNP (BNP-Adult 18+) Stat Partial Thromboplastin Time Stat Procalcitonin Stat Prothrombin Time INR Stat Troponin & CK Cardiac Panel Stat EKG-12 Lead Stat 08/24/20 10:44 CT angio chest PE protocol Stat Sodium Chloride (Normal Saline 0.9%) 1,000 mls @ 125 mls/hr IV CONT STEVE Last Admin: 08/24/20 10:54 Dose: 125 mls/hr Documented by: MIMI Discontinued Medications Furosemide (Lasix) 40 mg IV NOW ONE Stop: 08/24/20 10:38 Last Admin: 08/24/20 10:44 Dose: 40 mg Documented by: MIMI Azithromycin 500 mg/ Dextrose 250 mls @ 250 mls/hr IV NOW ONE Stop: 08/24/20 11:49 Vital Signs Vital signs: Vital Signs - 8 hr 08/24/20 09:40 Temperature 97.4 F L Pulse Rate 83 Respiratory Rate 22 Blood Pressure 178/81 H Pulse Oximetry 99 Medical Decision Making Medical Records Medical records reviewed: Yes I reviewed the patient's medical records. Lab Data Lab results reviewed: Yes I reviewed the patient's lab results. Result diagrams: 08/24/20 09:35 08/24/20 09:35 Labs: Lab Results 08/24/20 08/24/20 08/24/20 Range/Units 09:35 09:35 09:35 WBC 19.8 H (4.5-11.0) X10^3/uL RBC 2.90 L (4.5-5.9) X10^6/uL Hgb 9.1 L (13.5-17.5) g/dL Hct 27.4 L (41-53) % MCV 94.5 (80-100) fL MCH 31.4 (26-34) PG MCHC 33.2 (30-36) % RDW 15.5 H (11.6-14.8) % Plt Count 196 (150-400) X10^3/uL Neut % (Auto) 90.9 H (50-75) % Lymph % (Auto) 5.6 L (25-40) % [place] % (Auto) 3.0 (3-14) % Eos % (Auto) 0.1 L (2-4) % Baso % (Auto) 0.4 (0-2) % Neut # (Auto) 38447 H (2947-7289) /uL Lymph # (Auto) 1100 (5509-6259) /uL [place] # (Auto) 600 (0-900) /uL Eos # (Auto) 0 (0-450) /uL Baso # (Auto) 100 (0-100) /uL PT (10.1-12.7) SECONDS INR (0.9-1.3) APTT (26.4-36.2) SECONDS Sodium 134 L (137-145) mmol/L Potassium 5.2 H (3.4-5.1) mmol/L Chloride 103 (98-107) mmol/L Carbon Dioxide 25 (22-32) mmol/L BUN 72 H (9-20) mg/dL Creatinine 2.10 H (0.66-1.25) mg/dL Estimated GFR 30.2 L (>60) mL/min BUN/Creatinine Ratio 34.3 H (6-22) Glucose 307 H (80-110) mg/dL Calcium 8.6 (8.4-10.2) mg/dL Total Bilirubin 1.0 (0.2-1.3) mg/dL AST 185 H (17-59) IU/L ALT 346 H (<50) IU/L Alkaline Phosphatase 82 (38-126) U/L Total Creatine Kinase (55-170) U/L CK-MB (CK-2) (<2.37) ng/mL CK-MB (CK-2) Rel Index (1.5-5.0) % Troponin I (0.01-0.034) ng/mL NT-Pro-B Natriuret Pep 9110 H (<450) pg/mL Total Protein 6.5 (6.3-8.2) g/dL Albumin 3.3 L (3.5-5.0) g/dL Globulin 3.2 (1.7-4.1) g/dL Albumin/Globulin Ratio 1.0 (1.0-2.8) Lipase 65 (23-300) U/L Procalcitonin 0.34 (<0.5) ng/mL 08/24/20 08/24/20 Range/Units 09:35 09:35 WBC (4.5-11.0) X10^3/uL RBC (4.5-5.9) X10^6/uL Hgb (13.5-17.5) g/dL Hct (41-53) % MCV (80-100) fL MCH (26-34) PG MCHC (30-36) % RDW (11.6-14.8) % Plt Count (150-400) X10^3/uL Neut % (Auto) (50-75) % Lymph % (Auto) (25-40) % [place] % (Auto) (3-14) % Eos % (Auto) (2-4) % Baso % (Auto) (0-2) % Neut # (Auto) (1625-3242) /uL Lymph # (Auto) (8529-8059) /uL [place] # (Auto) (0-900) /uL Eos # (Auto) (0-450) /uL Baso # (Auto) (0-100) /uL PT 11.5 (10.1-12.7) SECONDS INR 1.0 (0.9-1.3) APTT 24 L D (26.4-36.2) SECONDS Sodium (137-145) mmol/L Potassium (3.4-5.1) mmol/L Chloride (98-107) mmol/L Carbon Dioxide (22-32) mmol/L BUN (9-20) mg/dL Creatinine (0.66-1.25) mg/dL Estimated GFR (>60) mL/min BUN/Creatinine Ratio (6-22) Glucose (80-110) mg/dL Calcium (8.4-10.2) mg/dL Total Bilirubin (0.2-1.3) mg/dL AST (17-59) IU/L ALT (<50) IU/L Alkaline Phosphatase (38-126) U/L Total Creatine Kinase 976 H (55-170) U/L CK-MB (CK-2) 50.60 H (<2.37) ng/mL CK-MB (CK-2) Rel Index 5.2 H (1.5-5.0) % Troponin I 0.040 H (0.01-0.034) ng/mL NT-Pro-B Natriuret Pep (<450) pg/mL Total Protein (6.3-8.2) g/dL Albumin (3.5-5.0) g/dL Globulin (1.7-4.1) g/dL Albumin/Globulin Ratio (1.0-2.8) Lipase (23-300) U/L Procalcitonin (<0.5) ng/mL Imaging Data Chest x-ray: Radiologist's Impression: [address] [address] XRay Report Signed Patient: Graeme Forte JR [facility]#: [id number] : 5Acct:[id number] Age/Sex: 85 / MDate of Service: 08/24/20 Loc: ED Accession Number: [id number] Procedure: XR chest 1V Ordering Provider: Jaxon Sweeney D.O. PROCEDURE: XR CHEST 1V INDICATIONS: Short of breath TECHNIQUE: One view of the chest was acquired. COMPARISON: [facility], , CHEST 1 VIEW, 11/25/2017, 5:47. FINDINGS: Surgical changes and devices: None. Lungs and pleura: There is suggestion of small amount of right pleural effusion and right basilar platelike atelectasis. Small underlying infiltrate cannot be excluded. No pneumothorax. Left lung is clear. Mediastinum: Mediastinal contours appear normal. Heart size is normal. Bones and chest wall: No suspicious bony lesions. Overlying soft tissues appear unremarkable. IMPRESSION: Trace right pleural effusion and suggestion of right basilar infiltrate/atelectasis. Left lung is clear. No pneumothorax. Dictated by: Bora Davison M.D. on 08/24/2020 at 10:08 Approved by: Bora Davison M.D. on 08/24/2020 at 10:08 CT scan - chest: Radiologist's Impression: [place] [address] CT Scan Report Signed Patient: Graeme Forte JR [facility]#: [id number] : 5Acct:[id number] Age/Sex: 85 / MDate of Service: 08/24/20 Loc: ED Accession Number: [id number] Procedure: CT angio chest PE protocol Ordering Provider: Jaxon Sweeney D.O. PROCEDURE: CT ANGIO CHEST PE PROTOCOL INDICATIONS: Right-sided pleuritic chest pain eval for PE TECHNIQUE: After the administration of intravenous contrast, 2 mm thick sections acquired from the pulmonary apices to the posterior costophrenic angles. 3-dimensional maximum intensity projection (MIP) coronal and sagittal reformats were then acquired through the thorax. For radiation dose reduction, the following was used: automated exposure control, adjustment of mA and/or kV according to patient size. COMPARISON: None. FINDINGS: Image quality: Excellent. Pulmonary arteries: Pulmonary arteries are normal in size, and demonstrate no intraluminal filling defects to suggest central pulmonary embolism. Lungs and pleura: Small right pleural effusion and trace left pleural effusion are seen with adjacent compressive atelectasis in bilateral lower lobes. Hazy ground-glass opacity are noted in bilateral lung wagner suggestive of mild pulmonary edema. Moderate size airspace opacities are noted in central right middle lobe extending to right hilar region . Extensive airspace opacity throughout right lower lobe is also seen extending to right hilar region. No pneumothorax. Chronic reticular nodular thickening in periphery of bilateral lung wagner are seen. Central and peripheral airways are patent. Mediastinum: Enlarged left atrium and left ventricle is seen, without pericardial effusion. Enlarged mediastinal and hilar lymph nodes are seen measures up to 1.6 cm in subcarinal space. Thoracic aorta is normal in caliber and enhancement. Esophagus is normal in caliber, without hiatal hernia. Bones and chest wall: No suspicious bony lesions. Ribs and thoracic spine appear intact throughout. Thyroid gland is within normal limits. Generalized anasarca is seen. No axillary or supraclavicular adenopathy. Abdomen: Visualized upper abdominal solid organs appear normal in the early arterial phase of enhancement. IMPRESSION: 1. No evidence of pulmonary emboli. No thoracic aortic aneurysm or gross dissection. 2. Extensive airspace consolidations in right middle lobe and right lower lobe as above suggestive of right-sided pulmonary infiltrates. 3. Reticular nodular thickening in periphery of bilateral lung wagner suggestive of chronic interstitial lung disease. Small right pleural effusion and trace left pleural effusion with bibasilar atelectasis. No pneumothorax. Airway is patent. 4. Enlarged mediastinal and hilar lymph nodes suggestive of reactive inflammatory lymphadenopathy. 5. Cardiomegaly , no pericardial effusion. 6. Generalized anasarca. Dictated by: Bora Davison M.D. on 08/24/2020 at 11:35 Approved by: Bora Davison M.D. on 08/24/2020 at 11:40 ECG Data Attestation: I personally reviewed and interpreted this ECG as follows: Prior ECG tracings: not available for review Interpretation: Sinus rhythm Ventricular rate 82 Occasional PAC Normal QRS Normal QTC Right bundle-branch block Nonspecific ST T wave changes MDM Narrative Medical decision making narrative: Patient has no left-sided chest pain. Nonspecific changes on his EKG. Does have a slight elevation in his troponin however this could be secondary to what I think is a component of heart failure and also his chronic kidney disease. His kidney function is baseline since his last admission to the hospital. He does have an elevated BNP and given his lower extremity swelling and weeping I feel that CHF is a possibility. He was given Lasix for this. He has not been hypoxic. He does have a leukocytosis which given his chest x-ray and his CTA findings is somewhat concerning for right-sided pneumonia however he has also been on steroids up until yesterday. He he does have a slight bump in his procalcitonin however it is not technically positive. I feel he has multiple issues to include anemia, CHF, possible pneumonia and given his age another issues that admission to the hospital in his needed. Did discuss the case with Dr. Johansen who will admit the patient. Patient started on azithromycin. Given his other allergies further antibiotic management will be maintained by the inpatient team. I did discuss the findings admission with the patient. He expressed understanding and agreement. Discharge Plan Departure Patient Disposition: Admitted As Inpatient Clinical Impression: Breath shortness, Chest pain, pleuritic Pneumonia Qualifiers: Pneumonia type: due to unspecified organism Laterality: right Lung location: unspecified part of lung Qualified Code(s): J18.9 - Pneumonia, unspecified organism Referrals: Kane Molina MD [Primary Care Provider] - Admit Date/Time: 08/24/20 11:50 Admit Provider: Venkatesh Johansen
[2020-08-24 09:59] LABS: Alanine Aminotransferase 346 IU/L (<50); Albumin 3.3 g/dL (3.5-5.0); Alkaline Phosphatase 82 U/L (38-126); Aspartate Aminotransferase 185 IU/L (17-59); BUN Creatinine Ratio 34.3 (6-22); Blood Urea Nitrogen 72 mg/dL (9-20); Calcium 8.6 mg/dL (8.4-10.2); Carbon Dioxide 25 mmol/L (22-32); Chloride 103 mmol/L (98-107); Estimated Glomerular Filt Rate 30.2 mL/min (>60); Globulin 3.2 g/dL (1.7-4.1); Glucose 307 mg/dL (80-110); HEMOLYSIS 86 (0-50); Lipase 65 U/L (23-300); Prothrombin Time 11.5 SECONDS (10.1-12.7); Sodium 134 mmol/L (137-145); Total Protein 6.5 g/dL (6.3-8.2)
[2020-08-24 10:00] LABS: Potassium 5.2 mmol/L (3.4-5.1)
[2020-08-24 10:02] LABS: PTT Partial Thromboplastin Tim 24 SECONDS (26.4-36.2)
[2020-08-24 10:03] LABS: Creatine Kinase 976 U/L (55-170)
[2020-08-24 10:08] LABS: NT-proBNP (BNP-Adult 18+) 9110 pg/mL (<450)
[2020-08-24 10:23] LABS: Procalcitonin 0.34 ng/mL (<0.5)
[2020-08-24 10:26] LABS: CKMB % Relative Index 5.2 % (1.5-5.0)
[2020-08-24] MEDS: FUROSEMIDE 40 MG/4 ML VIAL IV ×2 (10:44→16:34)
--- NOTE | 2020-08-24 10:44 | DI.CT.S_ITS ---
PROCEDURE: CT ANGIO CHEST PE PROTOCOL INDICATIONS: Right-sided pleuritic chest pain eval for PE TECHNIQUE: After the administration of intravenous contrast, 2 mm thick sections acquired from the pulmonary apices to the posterior costophrenic angles. 3-dimensional maximum intensity projection (MIP) coronal and sagittal reformats were then acquired through the thorax. For radiation dose reduction, the following was used: automated exposure control, adjustment of mA and/or kV according to patient size. COMPARISON: None. FINDINGS: Image quality: Excellent. Pulmonary arteries: Pulmonary arteries are normal in size, and demonstrate no intraluminal filling defects to suggest central pulmonary embolism. Lungs and pleura: Small right pleural effusion and trace left pleural effusion are seen with adjacent compressive atelectasis in bilateral lower lobes. Hazy ground-glass opacity are noted in bilateral lung wagner suggestive of mild pulmonary edema. Moderate size airspace opacities are noted in central right middle lobe extending to right hilar region . Extensive airspace opacity throughout right lower lobe is also seen extending to right hilar region. No pneumothorax. Chronic reticular nodular thickening in periphery of bilateral lung wagner are seen. Central and peripheral airways are patent. Mediastinum: Enlarged left atrium and left ventricle is seen, without pericardial effusion. Enlarged mediastinal and hilar lymph nodes are seen measures up to 1.6 cm in subcarinal space. Thoracic aorta is normal in caliber and enhancement. Esophagus is normal in caliber, without hiatal hernia. Bones and chest wall: No suspicious bony lesions. Ribs and thoracic spine appear intact throughout. Thyroid gland is within normal limits. Generalized anasarca is seen. No axillary or supraclavicular adenopathy. Abdomen: Visualized upper abdominal solid organs appear normal in the early arterial phase of enhancement. IMPRESSION: 1. No evidence of pulmonary emboli. No thoracic aortic aneurysm or gross dissection. 2. Extensive airspace consolidations in right middle lobe and right lower lobe as above suggestive of right-sided pulmonary infiltrates. 3. Reticular nodular thickening in periphery of bilateral lung wagner suggestive of chronic interstitial lung disease. Small right pleural effusion and trace left pleural effusion with bibasilar atelectasis. No pneumothorax. Airway is patent. 4. Enlarged mediastinal and hilar lymph nodes suggestive of reactive inflammatory lymphadenopathy. 5. Cardiomegaly , no pericardial effusion. 6. Generalized anasarca. Dictated by: Bora Davison M.D. on 08/24/2020 at 11:35 Approved by: Bora Davison M.D. on 08/24/2020 at 11:40
[2020-08-24] MEDS: SODIUM CHLORIDE 0.9% 1,000 ML 125 ML IV (10:54)
[2020-08-24] MEDS: AZITHROMYCIN 500 MG in DEXTROSE 5% IN WATER 250 ML IV (12:01)
[2020-08-24 12:31] LABS: COVID19 -Nasal RAPID Negative (Negative)
--- NOTE | 2020-08-24 14:20 | PM.HP.1 ---
History of Present Illness History of Present Illness Date Patient Seen: 08/24/20 Time Patient Seen: 14:20 Chief complaint: SOB and edema Narrative: Graeme Forte Jr (Stewart) is an 85-year-old male with a past medical history of hypertension, hyperlipidemia, CAD, chronic anemia, chronic neck pain with opiate dependence who presented to the emergency room with complaints of right-sided pleuritic chest pain. Patient states that he had pleurisy in college and felt very similar pain starting this morning. He has right-sided chest pain that is sharp upon inspiration. He further feels a little short of breath at rest. He denies any appetite changes or weight changes recently, fever, chills, left-sided chest pain or chest pressure, orthopnea. He denies any significant cough but did relate some chest congestion a few days ago but denies any sputum. He has been on a steroid taper after a recent admission for possible hemolytic anemia. He endorses some scrotal edema as well as lower extremity edema which are new over the past couple of days. His pain improves with shallow breaths. In the emergency room, patient's blood pressure was mildly elevated, and initially he was saturating well on room air but it does look like he desaturated at 1 point in to the 70s but improved on minimal supplemental oxygen. He is currently saturating at 98% on 2 L. laboratory evaluation revealed a leukocytosis of 19.8, with 91% neutrophils. Hemoglobin is 9.1 which is similar to his discharge level when he was admitted. Sodium was mildly low at 134, potassium of 5.2, creatinine of 2.1 which is fairly stable from his baseline. His glucose was 307. ALT was elevated at 346, AST elevated at 185. His CK was 976. Troponin was 0.040. ProBNP was elevated at 9110. Procalcitonin was indeterminate at 0.34. COVID-19 testing was negative. Chest x-ray showed a possible trace right pleural effusion with right basilar infiltrate or atelectasis. Given the pleuritic nature of his chest pain I asked for a CT angiogram which did not show evidence of pulmonary embolism, but showed extensive airspace consolidations in the right middle and lower lobe as well as reticular nodular thickening in the periphery of his bilateral lung wagner. There is a small right pleural effusion and a trace left pleural effusion. He also has some mediastinal and hilar lymphadenopathy as well as cardiomegaly without effusion. Patient History Medical History Anemia (Acute) Angina pectoris (Acute) HTN (hypertension) (Acute) Hyperlipidemia (Chronic) Surgical History H/O heart artery stent (Acute) Family & Social History Family History Father Kidney failure Mother Heart disease Social History: household members caregiver,other Prior Living Arrangements House Safety & Behavioral: Feels Safe in Current Yes Environment Suicidal Ideation Description None Suicide Plan Description No Plan Tobacco & Substance use: Smoking Status Former smoker alcohol intake current alcohol intake frequency holiday/special occasion Substance Use Type does not use Meds Home Medications and Allergies Home Medications Medication Instructions Recorded Confirmed Type gabapentin [Neurontin] 600 mg PO TID #0 03/27/12 08/24/20 History clopidogrel [Plavix] 75 mg PO DAILY #0 12/02/16 08/24/20 History atorvastatin 80 mg PO BEDTIME #0 11/25/17 08/24/20 History lansoprazole [Prevacid] 30 mg PO BIDAC #0 11/25/17 08/24/20 History morphine 1 tab PO 5XD 08/26/18 08/24/20 History nortriptyline 25 mg PO BEDTIME 08/26/18 08/24/20 History polyethylene glycol 3350 1 dose PO DAILY 08/26/18 08/24/20 History Centrum Silver 1 tab PO DAILY 09/08/19 08/24/20 History cranberry 400 mg DAILY 09/08/19 08/24/20 History cyanocobalamin (vitamin B-12) 1,000 mcg PO BID 09/08/19 08/24/20 History [Vitamin B-12] ferrous sulfate 325 mg PO DAILY 09/08/19 08/24/20 History amlodipine 10 mg PO DAILY 11/03/19 08/24/20 History isosorbide mononitrate 60 mg PO DAILY 11/03/19 08/24/20 History metoprolol succinate 25 mg PO DAILY 11/03/19 08/24/20 History Co Q-10 300 mg PO DAILY 12/24/19 08/24/20 History Ventricor 1 dose PO DIRECTED 12/24/19 08/24/20 History Vitapulse 1 dose PO BID 12/24/19 08/24/20 History flaxseed oil 1 dose PO DIRECTED 12/24/19 08/24/20 History nitroglycerin 0.4 mg SUBLINGUAL PRN PRN 12/24/19 08/24/20 History resveratrol 1 cap PO DIRECTED 12/24/19 08/24/20 History Artificial Tears (cmc) 1 drp OPHTHALMIC (EYE) TID PRN 08/09/20 08/24/20 History doxazosin 1 mg PO DAILY 08/09/20 08/24/20 History prednisone 60 mg PO DAILY #30 tab 08/13/20 08/24/20 Rx Allergies Allergy/AdvReac Type Severity Reaction Status Date / Time cephalexin Allergy Severe RASH Verified 08/24/20 09:45 ciprofloxacin Allergy Severe RASH Verified 08/24/20 09:45 Fish Containing Products Allergy Severe Difficulty Verified 08/24/20 09:45 Breathing shellfish derived Allergy Severe Difficulty Verified 08/24/20 09:45 Breathing avocado AdvReac Intermediate Vomiting Verified 08/24/20 09:45 cucumber AdvReac Intermediate Vomiting Verified 08/24/20 09:45 Review of Systems Review of Systems Narrative: All other systems reviewed with the patient and are negative unless otherwise stated. Exam Vital Signs (past 8 hours): - 08/24/20 09:35 08/24/20 09:36 08/24/20 09:40 Temperature 97.4 F L Pulse Rate 82 83 Respiratory Rate 14 22 Blood Pressure 178/81 H 178/81 H Pulse Oximetry 97 99 08/24/20 10:00 08/24/20 10:01 08/24/20 10:30 Temperature Pulse Rate 90 92 H 68 Respiratory Rate 20 42 H 13 Blood Pressure 147/65 H 139/65 Pulse Oximetry 98 99 100 08/24/20 11:04 08/24/20 11:30 08/24/20 12:00 Temperature Pulse Rate 72 64 89 Respiratory Rate 10 L 20 Blood Pressure 150/69 H 126/62 184/81 H Pulse Oximetry 70 L 97 100 08/24/20 12:50 Temperature 97.3 F L Pulse Rate 72 Respiratory Rate 20 Blood Pressure 126/95 H Pulse Oximetry 98 Oxygen Delivery Method Room Air Oxygen Flow Rate 2 Narrative Exam Narrative: GENERAL APPEARANCE: Mildly chronically ill-appearing elderly male, slightly pale, in no acute distress. SKIN: Inspection of the skin reveals no rashes, ulcerations or petechiae. He does have some skin weeping from the edema in his lower extremities. HEENT: Normocephalic atraumatic, extraocular muscles are intact, oropharynx is clear and mucous membranes are moist, neck is supple without adenopathy NECK: Supple and symmetric. There was no thyroid enlargement, and no tenderness, or masses were felt. CHEST: Normal AP diameter and normal contour without any kyphoscoliosis. LUNGS: Auscultation of the lungs revealed bibasilar crackles without wheezing. CARDIOVASCULAR: There was a regular rate and rhythm without any murmurs, gallops, rubs. Peripheral pulses were 2+ and symmetric. ABDOMEN: Soft and nontender with normal bowel sounds. No ascites was noted. There is some significant scrotal edema. MUSCULOSKELETAL: There was no tenderness or effusions noted. Muscle strength and tone were normal. EXTREMITIES: No cyanosis, clubbing. There is 2+ pitting edema to the knees bilaterally NEUROLOGIC: Alert and oriented x 3. Normal affect. Strength is +5/5 in the Upper Extremities and Lower Extremities Bilaterally. Sensation to touch was normal. Objective ECG Impression: Sinus rhythm with T-wave inversions of a lead 1 and aVL. Imaging Chest x-ray: My impression: Trace right pleural effusion with possible right lower lobe infiltrate versus atelectasis. CT scan - chest: Radiologist's impression: 1. No evidence of pulmonary emboli. No thoracic aortic aneurysm or gross dissection. 2. Extensive airspace consolidations in right middle lobe and right lower lobe as above suggestive of right-sided pulmonary infiltrates. 3. Reticular nodular thickening in periphery of bilateral lung wagner suggestive of chronic interstitial lung disease. Small right pleural effusion and trace left pleural effusion with bibasilar atelectasis. No pneumothorax. Airway is patent. 4. Enlarged mediastinal and hilar lymph nodes suggestive of reactive inflammatory lymphadenopathy. 5. Cardiomegaly , no pericardial effusion. 6. Generalized anasarca. Labs Result Diagrams: 08/24/20 09:35 08/24/20 09:35 Labs: Laboratory Results - last 24 hr 08/24/20 08/24/20 08/24/20 09:35 09:35 09:35 WBC 19.8 H RBC 2.90 L Hgb 9.1 L Hct 27.4 L MCV 94.5 MCH 31.4 MCHC 33.2 RDW 15.5 H Plt Count 196 Neut % (Auto) 90.9 H Lymph % (Auto) 5.6 L [place] % (Auto) 3.0 Eos % (Auto) 0.1 L Baso % (Auto) 0.4 Neut # (Auto) 71741 H Lymph # (Auto) 1100 [place] # (Auto) 600 Eos # (Auto) 0 Baso # (Auto) 100 PT INR APTT Sodium 134 L Potassium 5.2 H Chloride 103 Carbon Dioxide 25 BUN 72 H Creatinine 2.10 H Estimated GFR 30.2 L BUN/Creatinine Ratio 34.3 H Glucose 307 H Calcium 8.6 Total Bilirubin 1.0 AST 185 H ALT 346 H Alkaline Phosphatase 82 Total Creatine Kinase CK-MB (CK-2) CK-MB (CK-2) Rel Index Troponin I NT-Pro-B Natriuret Pep 9110 H Total Protein 6.5 Albumin 3.3 L Globulin 3.2 Albumin/Globulin Ratio 1.0 Lipase 65 Procalcitonin 0.34 COVID-19 PCR 08/24/20 08/24/20 08/24/20 09:35 09:35 12:06 WBC RBC Hgb Hct MCV MCH MCHC RDW Plt Count Neut % (Auto) Lymph % (Auto) [place] % (Auto) Eos % (Auto) Baso % (Auto) Neut # (Auto) Lymph # (Auto) [place] # (Auto) Eos # (Auto) Baso # (Auto) PT 11.5 INR 1.0 APTT 24 L D Sodium Potassium Chloride Carbon Dioxide BUN Creatinine Estimated GFR BUN/Creatinine Ratio Glucose Calcium Total Bilirubin AST ALT Alkaline Phosphatase Total Creatine Kinase 976 H CK-MB (CK-2) 50.60 H CK-MB (CK-2) Rel Index 5.2 H Troponin I 0.040 H NT-Pro-B Natriuret Pep Total Protein Albumin Globulin Albumin/Globulin Ratio Lipase Procalcitonin COVID-19 PCR Negative Assessment & Plan Assessment & Plan narrative: Graeme GutierrezClara Forte Jr is an 85-year-old male with a past medical history of hypertension, hyperlipidemia, CAD, chronic anemia, chronic neck pain with opiate dependence who presented to the emergency room with complaints of right-sided pleuritic chest pain. He is admitted with acute hypoxic respiratory failure likely secondary to volume overload and decompensated heart failure or possibly a community-acquired pneumonia. 1. Acute hypoxemic respiratory failure, present on admission -patient had an episode of desaturation into the mid 70s. He responded well to minimal supplemental oxygen. This is likely in the setting decompensated heart failure or pneumonia or a combination of both. CTA of his chest was negative for pulmonary embolism but did show possible bilateral pulmonary infiltrates likely in the setting of superimposed volume overload. He also has a small right and trace left pleural effusion which are likely due to volume overload, and neither of these appears large enough for thoracentesis. -patient with a cephalosporin allergy, he states he is okay with penicillins. Will give Zosyn x5 days. Low threshold to discontinue. -will diurese with Lasix 40 mg IV b.i.d., continue strict intake and output and daily weights. -will check respiratory panel and sputum culture if he has any sputum. COVID 19 testing negative. -RT Eval and treat 2. Acute Decompensated heart failure, unknown type, present on admission -patient presents with lower extremity edema, bilateral pleural effusions, scrotal edema in the setting of recent steroid use and likely congestive hepatopathy. ProBNP is further elevated at 9110. -will obtain an echocardiogram. 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 -continue diuresis as noted above, Lasix 40 mg IV b.i.d. and continue to adjust as needed. 3. Elevated liver enzymes likely due to congestive hepatopathy, acute, present on admission -admission ALT of 346, AST of 185 likely secondary to volume overload from heart failure. -will continue diuresis and continue to follow. 4. Elevated troponin, acute, present on admission. -patient with the troponin of 0.04 on admission, no active chest pain. EKG does show ST depressions in his lateral leads which were present to a lesser extent on a prior EKG. Will continue to follow troponins until downtrending. Patient has a history of CAD and is currently on antiplatelet and statin therapy. -likely elevated in the setting of decompensated heart failure and chronic kidney disease. 5. Hypertension, chronic -continue home medications 6. Hyperlipidemia, chronic -continue home medications 7. CAD, chronic -patient with a history of CABG, will continue home medications. 8. Anemia of uncertain etiology, chronic -patient with a is stable hemoglobin compared to prior admission. Will continue home iron supplements. 9. Chronic neck pain with opiate dependence -will continue home regimen of 15 mg of morphine 5 times daily as well as gabapentin. 10. Chronic kidney disease stage 3, present on admission -creatinine of 2.10 which is consistent with the patient's recent baseline. 11. Type 2 diabetes -patient has a known history of type 2 diabetes but his recent A1cs have been controlled without medications. Elevated glucose of 307 on admission, likely secondary to recent steroid use which the patient has apparently completed. Will continue to check fingersticks and have added a in insulin sliding scale this time. Dispo: Admitted under inpatient status as his stay is expected to exceed 2 midnights Code: Full, as discussed with the patient. 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 DVT: Heparin subq COVID-19 COVID-19 status: Negative
--- NOTE | 2020-08-24 14:25 | DI.ECHO.S_ITS ---
[facility] +---------+ [facility] +---------+ : : [address] : : : : [id number] : : : : Phone: [phone]+ Echocardiogram Report + + :Name: RAHEEM CURRAN JR Study Date: 08/26/2020 Height: 68 in : :[facility] Exam Location: IS Weight: 156 lb : : Gender: Male BSA: 1.8 m2 : :: 1935 Age: 85 yrs BP: 126/95 mmHg: :Reason For Study: LE edema/ SOB : :Ordering Physician: Jesus Alberto : :Hospitalist Performed By: Sandra Page : :Referring: IOANA TORO : + + Interpretation Summary Left ventricular systolic function is normal with an estimated ejection fraction of 60 to 65% with a mild dyssynchronous contraction pattern but no obvious focal wall motion abnormality. There is probable mild diastolic dysfunction with a relaxation abnormality but probable normal filling pressures. There has been no significant change since the previous study. The right ventricle appears normal and unchanged from the previous study. Right ventricular systolic pressure is estimated at 35 mmHg with a CVP of 3 mmHg, and is likely unchanged compared to the previous study although CVP is slightly lower. There is severe left atrial enlargement and borderline right atrial enlargement but both are grossly unchanged since the previous study. There is no significant valvular abnormality. Procedure: A two-dimensional transthoracic echocardiogram with color flow and Doppler was performed. The study quality was technically adequate. Comparison is made with the echocardiogram of 10/17/2019. The patient had frequent PACs during the exam. The heart rate ranged between 67-82 bpm during the study. Left Ventricle: The left ventricle is normal in size and wall thickness. The ejection fraction is estimated to be 60-65%. There is a mild dyssynchronous contraction pattern, consistent with a conduction abnormality. There are no focal wall motion abnormalities. Diastolic parameters suggest a relaxation abnormality of the left ventricle, consistent with probable normal filling pressures. There has been no significant change since the previous study. Right Ventricle: The right ventricle is normal in size and function. This is unchanged compared to the previous study. Atria: The left atrium is severely dilated. The right atrium is borderline dilated. There has been no significant change since the previous study. There is no Doppler evidence for an interatrial shunt. Mitral Valve: There is mild mitral annular calcification. The mitral valve leaflets appear mildly thickened, but open well. There is a flat closure plane of the the mitral valve leaflets. There is prolapse of the posterior mitral valve leaflet(s). There is trace mitral regurgitation. This is unchanged compared to the previous study. Aortic Valve: The aortic valve is trileaflet. The aortic valve opens well. No aortic regurgitation is present. Tricuspid Valve: The tricuspid valve is normal. There is trace tricuspid regurgitation. The right ventricular systolic pressure is estimated to be at least 35 mmHg based on an estimated right atrial pressure of 3 mm Hg. This is unchanged compared to the previous study. Pulmonic Valve: The pulmonic valve is not well seen, but is grossly normal. There is a trace or physiologic amount of pulmonic regurgitation. There is no significant valvular heart disease. Great Vessels: The aortic root is normal size. The ascending aorta is normal in size. The pulmonary artery is not well visualized, but is probably normal size. The IVC is of normal diameter and collapses greater than 50% with a sniff. This suggests a low right atrial pressure of 3 mm Hg. Pericardium/ Pleura There is no pericardial effusion. There is no pleural effusion. MMode/2D Measurements & Calculations LVIDd: 5.4 cm LVOT diam: 2.0 cm LVIDs: 3.5 cm Ao root diam: 3.5 cm FS: 35.1 % asc Aorta Diam: 2.9 cm EPSS: 0.57 cm IVSd: 0.64 cm LVPWd: 0.61 cm LV riggs. diameter/BSA (cm/m^2): 2.9 LV sys. diameter/BSA (cm/m^2): 1.9 LA A2 area: 23.3 cm2 RA long axis: 6.1 cm LA A4 area: 26.7 cm2 RA area: 19.8 cm2 LA length (vol): 5.7 cm RA vol: 54.6 ml LA vol: 92.4 ml RA : 29.7 ml/m2 LA vol index: 50.2 ml/m2 IVC diam: 2.1 cm TAPSE: 2.4 cm Doppler Measurements & Calculations Ao V2 max: 135.5 cm/sec LVOT Max Jeromy: 105.2 cm/sec Ao V2 mean: 93.5 cm/sec LV V1 max P.4 mmHg Ao max P.3 mmHg LV V1 VTI: 22.1 cm Ao mean P.9 mmHg NERY(I,D): 2.4 cm2 Ao V2 VTI: 29.0 cm NERY(V,D): 2.4 cm2 sev ratio: 0.76 NERY indexed to BSA (cm^2/m^2): 1.3 MV E max jeromy: 115.6 cm/sec TR max jeromy: 280.4 cm/sec MV A max jeromy: 157.0 cm/sec TR max P.5 mmHg MV E/A: 0.74 PA V2 max: 97.1 cm/sec Med Peak E' Jeromy: 6.7 cm/sec PA V2 mean: 71.6 cm/sec E/E' med: 17.2 PA mean P.2 mmHg Lat Peak E' Jeromy: 10.8 cm/sec PA Accel Time: 0.12 sec E/E' lat: 10.7 E/e' average: 13.9 MV P1/2t: 55.5 msec MVA(VTI): 1.5 cm2 MV V2 mean: 78.6 cm/sec MV P1/2t max jeromy: 116.4 cm/sec MV mean P.0 mmHg MVA(P1/2t): 4.0 cm2 MV V2 VTI: 47.1 cm SV(LVOT): 68.4 ml Reading Physician:03:14 PM
[2020-08-24] MEDS: PIPERACILLIN-TAZO 3.375 GM/50 ML FROZ.PIGGY IV (14:55)
[2020-08-24] MEDS: GABAPENTIN 600 MG TABLET PO ×2 (14:55→21:08)
[2020-08-24] MEDS: INSULIN ASPART 100 UNIT/ML INSULN PEN SUBCUT ×2 (16:43→21:10)
[2020-08-24] MEDS: PANTOPRAZOLE 20 MG TABLET PO (16:45)
[2020-08-24 16:47] LABS: Troponin I 0.035 ng/mL (0.01-0.034)
[2020-08-24] MEDS: MORPHINE ER 15 MG TABLET PO ×2 (17:28→21:08)
[2020-08-24] MEDS: ATORVASTATIN 20 MG TABLET 80 MG PO (21:07)
[2020-08-24] MEDS: HEPARIN 5,000 UNIT/ML VIAL 5000 UNIT SUBCUT (21:08)
[2020-08-24] MEDS: NORTRIPTYLINE HCL 25 MG CAPSULE PO (21:08)
[2020-08-24] MEDS: PIPERACILLIN/TAZO 2.25 GM in SODIUM CHLORIDE 0.9% 100 ML 200 ML IV (21:39)
[2020-08-25] VITALS (13 sets, daily range): BP systolic 103–136; BP diastolic 48–65; PULSE 71–88; RESP 16–20; TEMP 36.1–37; O2SAT 93–100
[2020-08-25] MEDS: PIPERACILLIN/TAZO 2.25 GM in SODIUM CHLORIDE 0.9% 100 ML 200 ML IV ×3 (03:01→15:30)
--- NOTE | 2020-08-25 03:34 | PC.NURSE ---
Drainage noted on lumbar dressing. Dry,intact. Outlined for reference. Denies pain, but looks uncomfortable. Repositioned, on waffle cushion. Patient staes he is on scheduled pain meds, and needs nothing at this time. Asked him to ring if he changed his mind, or any increase in pain.
[2020-08-25 05:48] LABS: Add Manual Diff / Slide Review NO; Basophils Absolute Auto 0 /uL (0-100); Basophils Percent Auto 0.1 % (0-2); Eosinophils Absolute Auto 0 /uL (0-450); Eosinophils Percent Auto 0.4 % (2-4); Hematocrit 23.2 % (41-53); Hemoglobin 8.1 g/dL (13.5-17.5); Lymphocytes Absolute Auto 500 /uL (1100-4500); Mean Corpuscular HGB Conc 34.8 % (30-36); Mean Corpuscular Hemoglobin 34.9 PG (26-34); Mean Corpuscular Volume 100.4 fL (80-100); Monocytes Absolute Auto 400 /uL (0-900); Monocytes Percent Auto 3.8 % (3-14); Neutrophils Absolute Auto 8800 /uL (1500-7000); Neutrophils Percent Auto 90.7 % (50-75); Platelet Count 158 X10^3/uL (150-400); Red Blood Cell Count 2.31 X10^6/uL (4.5-5.9); White Blood Cell Count 9.7 X10^3/uL (4.5-11.0)
[2020-08-25 05:59] LABS: Alanine Aminotransferase 269 IU/L (<50); Albumin 2.6 g/dL (3.5-5.0); Albumin Globulin Ratio 0.9 (1.0-2.8); Alkaline Phosphatase 71 U/L (38-126); Aspartate Aminotransferase 109 IU/L (17-59); BUN Creatinine Ratio 28.1 (6-22); Bilirubin Total 0.7 mg/dL (0.2-1.3); Bilirubin Unconjugated 0.4 mg/dL (0.0-1.1); Blood Urea Nitrogen 61 mg/dL (9-20); Calcium 8.2 mg/dL (8.4-10.2); Carbon Dioxide 30 mmol/L (22-32); Chloride 104 mmol/L (98-107); Globulin 2.8 g/dL (1.7-4.1); Glucose 65 mg/dL (80-110); HEMOLYSIS < 15 (0-50); Potassium 3.7 mmol/L (3.4-5.1); Sodium 136 mmol/L (137-145); Total Protein 5.4 g/dL (6.3-8.2)
[2020-08-25 06:27] LABS: TSH w/ Reflex to FT4 2.45 uIU/mL (0.47-4.68)
[2020-08-25] MEDS: MORPHINE ER 15 MG TABLET PO ×5 (06:56→22:11)
[2020-08-25] MEDS: SODIUM CHLORIDE 0.9% FLUSH 10 ML IV ×3 (09:55→21:11)
[2020-08-25] MEDS: FUROSEMIDE 40 MG/4 ML VIAL IV ×2 (09:55→16:14)
[2020-08-25] MEDS: HEPARIN 5,000 UNIT/ML VIAL 5000 UNIT SUBCUT ×2 (09:55→21:09)
[2020-08-25] MEDS: AMLODIPINE 5 MG TABLET 10 MG PO (10:01)
[2020-08-25] MEDS: CLOPIDOGREL 75 MG TABLET PO (10:01)
[2020-08-25] MEDS: polyethylene glycoL 3350 17 GM POWD.PACK PO (10:01)
[2020-08-25] MEDS: FERROUS SULFATE 325 MG TABLET PO ×2 (10:01→16:41)
[2020-08-25] MEDS: METOPROLOL ER 25 MG TABLET PO (10:01)
[2020-08-25] MEDS: ISOSORBIDE MONONITRATE ER 30 MG TABLET 60 MG PO (10:03)
[2020-08-25] MEDS: GABAPENTIN 600 MG TABLET PO ×3 (10:04→21:11)
[2020-08-25] MEDS: DOXAZOSIN 2 MG TABLET 1 MG PO ×2 (10:04→21:09)
--- NOTE | 2020-08-25 10:52 | PC.NURSE ---
Day SHift- Pt slept most or morning, arousable, falls asleep with contact. More alert at 1000 when repositioned and started breakfast. Waffle cushion under buttocks and lower back. BLE elevated on 2 pillows. Calf SCD's on. BLE edema 2-3+ pitting from foot to mid lower leg, taut. RLE > LLE, denies calf pain, no calf redness noted. LLE edema has wrinkled skin. Pt states is tired, using urinal with SBA while in bed as he states it takes a lot of effort to sit on the side of the bed. P 98% O2 on 2L NC. Very diminished AE throughout lung wagner with slight fine crackles to bases bilaterally. High fall risk precautions in place, bed alarm on, call light within reach.
[2020-08-25] MEDS: PANTOPRAZOLE 20 MG TABLET PO ×2 (11:33→16:41)
[2020-08-25] MEDS: INSULIN ASPART 100 UNIT/ML INSULN PEN SUBCUT ×3 (12:33→21:01)
[2020-08-25] MEDS: predniSONE 20 MG TABLET 40 MG PO (12:41)
--- NOTE | 2020-08-25 13:54 | P.PN_ITS ---
Subjective Subjective Date Patient Seen: 08/25/20 Time Patient Seen: 14:34 Interval history: Graeme Forte Jr (Stewart) is an 85-year-old male with a past medical history of hypertension, hyperlipidemia, CAD, chronic anemia, chronic neck pain with opiate dependence who presented to the emergency room with complaints of right-sided pleuritic chest pain. The patient is still short of breath and has continued right-sided pleuritic chest pain. He was net negative 1.5 L over the 1st 24 hours and is diuresing well. He denies fever, chills, nausea, vomiting, abdominal pain. He has chronic back pain and continues on his morphine. Exam Vital Signs (past 8 hours): - 08/25/20 07:22 08/25/20 07:30 08/25/20 09:16 Temperature 97.4 F L Pulse Rate 75 Respiratory Rate 16 Blood Pressure 127/58 L Pulse Oximetry 95 98 98 08/25/20 10:01 08/25/20 12:00 Temperature 97.5 F L Pulse Rate 72 85 Respiratory Rate 16 Blood Pressure 136/65 126/61 Pulse Oximetry 97 Oxygen Delivery Method Nasal Cannula Oxygen Flow Rate 2 Narrative Exam Narrative: GENERAL APPEARANCE: Mildly chronically ill-appearing elderly male, slightly pale, in no acute distress. SKIN: Inspection of the skin reveals no rashes, ulcerations or petechiae. He does have some skin weeping from the edema in his lower extremities. HEENT: Normocephalic atraumatic, extraocular muscles are intact, oropharynx is clear and mucous membranes are moist, neck is supple without adenopathy NECK: Supple and symmetric. There was no thyroid enlargement, and no tenderness, or masses were felt. CHEST: Normal AP diameter and normal contour without any kyphoscoliosis. LUNGS: Auscultation of the lungs revealed bibasilar crackles without wheezing. CARDIOVASCULAR: There was a regular rate and rhythm without any murmurs, gallops, rubs. Peripheral pulses were 2+ and symmetric. ABDOMEN: Soft and nontender with normal bowel sounds. No ascites was noted. There is some significant scrotal edema. MUSCULOSKELETAL: There was no tenderness or effusions noted. Muscle strength and tone were normal. EXTREMITIES: No cyanosis, clubbing. There is 2+ pitting edema to the knees bilaterally NEUROLOGIC: Alert and oriented x 3. Normal affect. Strength is +5/5 in the Upper Extremities and Lower Extremities Bilaterally. Sensation to touch was normal. Objective Labs Result Diagrams: 08/25/20 05:14 08/25/20 05:14 Labs: Laboratory Results - last 24 hr 08/24/20 08/25/20 08/25/20 16:15 05:14 05:14 WBC 9.7 D RBC 2.31 L Hgb 8.1 L Hct 23.2 L MCV 100.4 H D MCH 34.9 H MCHC 34.8 RDW 15.0 H Plt Count 158 Neut % (Auto) 90.7 H Lymph % (Auto) 5.0 L [place] % (Auto) 3.8 Eos % (Auto) 0.4 L Baso % (Auto) 0.1 Neut # (Auto) 8800 H Lymph # (Auto) 500 L [place] # (Auto) 400 Eos # (Auto) 0 Baso # (Auto) 0 Sodium 136 L Potassium 3.7 D Chloride 104 Carbon Dioxide 30 BUN 61 H Creatinine 2.17 H Estimated GFR 29.0 L BUN/Creatinine Ratio 28.1 H Glucose 65 L D Calcium 8.2 L Magnesium 2.0 Total Bilirubin 0.7 Conjugated Bilirubin 0.0 Unconjugated Bilirubin 0.4 AST 109 H ALT 269 H Alkaline Phosphatase 71 Troponin I 0.035 H Total Protein 5.4 L Albumin 2.6 L Globulin 2.8 Albumin/Globulin Ratio 0.9 L TSH 08/25/20 05:14 WBC RBC Hgb Hct MCV MCH MCHC RDW Plt Count Neut % (Auto) Lymph % (Auto) [place] % (Auto) Eos % (Auto) Baso % (Auto) Neut # (Auto) Lymph # (Auto) [place] # (Auto) Eos # (Auto) Baso # (Auto) Sodium Potassium Chloride Carbon Dioxide BUN Creatinine Estimated GFR BUN/Creatinine Ratio Glucose Calcium Magnesium Total Bilirubin Conjugated Bilirubin Unconjugated Bilirubin AST ALT Alkaline Phosphatase Troponin I Total Protein Albumin Globulin Albumin/Globulin Ratio TSH 2.45 Assessment & Plan Assessment & Plan narrative: Graeme Forte Jr (Stewart) is an 85-year-old male with a past medical history of hypertension, hyperlipidemia, CAD, chronic anemia, chronic neck pain with opiate dependence who presented to the emergency room with complaints of right-sided pleuritic chest pain. He is admitted with acute hypoxic respiratory failure likely secondary to volume overload and decompensated heart failure or possibly a community-acquired pneumonia. 1. Acute hypoxemic respiratory failure, present on admission -patient had an episode of desaturation into the mid 70s. He responded well to minimal supplemental oxygen and currently remains on 2L. This is likely in the setting decompensated heart failure or pneumonia or a combination of both. CTA of his chest was negative for pulmonary embolism but did show possible bilateral pulmonary infiltrates likely in the setting of superimposed volume overload. He also has a small right and trace left pleural effusion which are likely due to volume overload, and neither of these appears large enough for thoracentesis. -patient with a cephalosporin allergy, he states he is okay with penicillins. Will give Zosyn x5 days. Low threshold to discontinue. -will diurese with Lasix 40 mg IV b.i.d., continue strict intake and output and daily weights. Net negative 1.5 L so far. -will check respiratory panel and sputum culture if he has any sputum. COVID 19 testing negative. -RT Eval and treat 2. Acute Decompensated heart failure, unknown type, present on admission -patient presents with lower extremity edema, bilateral pleural effusions, scrotal edema in the setting of recent steroid use and likely congestive hepatopathy. ProBNP elevated at 9110. -have ordered an echocardiogram, unable to be performed thus far due to lack of availability, but anticipate this will be done tomorrow. 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 -continue diuresis as noted above, Lasix 40 mg IV b.i.d. and continue to adjust as needed. 3. Elevated liver enzymes likely due to congestive hepatopathy, acute, present on admission -admission ALT of 346, AST of 185 likely secondary to volume overload from heart failure. Improved today. -will continue diuresis and continue to follow. 4. Elevated troponin, acute, present on admission. -patient with the troponin of 0.04 on admission, no active chest pain. Repeat downtrended. EKG does show ST depressions in his lateral leads which were present to a lesser extent on a prior EKG. Patient has a history of CAD and is currently on antiplatelet and statin therapy. -likely elevated in the setting of decompensated heart failure and chronic kidney disease. 5. Hypertension, chronic -continue home medications 6. Hyperlipidemia, chronic -continue home medications 7. CAD, chronic -patient with a history of CABG, will continue home medications. 8. Anemia of uncertain etiology, chronic -patient with a is stable hemoglobin compared to prior admission. Will continue home iron supplements. Patient was to continue a steroid taper as per Dr. Martinez but patient never followed up, will continue steroid taper as his last dose of 60 mg was yesterday. Will continue 40 mg daily for now perhaps x5 days then 30 mg x5 days, 20 mg x5 days, 10 mg x5days. 9. Chronic neck pain with opiate dependence -will continue home regimen of 15 mg of morphine 5 times daily as well as gabapentin. 10. Chronic kidney disease stage 3, present on admission -creatinine of 2.10 which is consistent with the patient's recent baseline. 11. Type 2 diabetes -patient has a known history of type 2 diabetes but his recent A1cs have been controlled without medications. Elevated glucose of 307 on admission, likely secondary to recent steroid use which the patient has apparently completed. Will continue to check fingersticks and have added a in insulin sliding scale this time. Dispo: Admitted under inpatient status as his stay is expected to exceed 2 midnights Code: Full, as discussed with the patient. 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 DVT: Heparin subq
--- NOTE | 2020-08-25 15:29 | DIET.PN ---
Dietary Progress Note 85y M known to RD from last admit readmitted for SOB and edema c hx of chronic anemia c chronic pain on morphine referred to nutrition for malnutrition screening. Pt reports weighing himself every night before bed and for past 1.5y has ranged 137-142# regardless of how much or little he eats. Akila romeo weighed himself and scale said 154# showing at least 12# weight gain in 24h. Pt reports noticing wetness on his pants near the ankle which turned out to be weeping from his 2+ pitting edema. Pt lives at home with house mate with whom he shares chores. Pt reports checking BGs three times per day c FBG 108-130, premeal 75-85, and postprandial always under 170. Pt has good appetite which hasn't changed recently. Pt tends to eat 100% meals here at hospital. Usual Day: B: toast c coffee L: granola, nuts, banana D: classic dinner of meat, starch, veggie Nutrition Focused Physical Exam shows global moderate muscle and fat wasting c prominent bony landmarks throughout, scabby healing pressure sores on sacrum, dry scabby skin on arms and lower legs, striking pallor, and 2+ pitting edema in legs c weeping. Pt denies recent hair loss. Pt taking many supplements includinmg calcium, cranberry, 1,000mcg PO B12 bid, 325mg ferrous sulfate, MVI, PreserVision AREDS, Vitapulse, CoQ10, flaxseed oil, and resveratrol. Pts BG were high after starting prednisone last visit c readings of 193-537 to which he was given Carb Controlled diet and sliding scale insulin. HT: 172.7cm WT: 69.2kg UBW: 64kg BMI: 23.2 (pt has 2+ pitting edema) Labs: RBC 2.31 L, hgb 8.1 L, hct 34.9 L (c no reported blood loss), Na 136 L, K+ 3.7, BUN 61 H, Cr 2.17 H, eGFR 29 L, A1c 5.8, elevated LFTs, Last admit labs included: CRP 17.7 H, B12 >1000 H, folate >20 H MNA: 9 @ risk jaymie Cantu: 20 Interventions: 1. Recc daily ONS Nepro renal friendly to support protein and micronutrient needs during hospital stay. Diet Order: CCD EER: 50g PRO, 2g K+, 2g Na (per renal labs)
--- NOTE | 2020-08-25 16:00 | CM.DANOTE ---
DCP: assessment: case received, EMR reviewed and met now with pt and his POA/caregiver/distant cousin: Stanley Goddard: cell: [phone]. Re-introduced self and role: am familiar with both from last admission to 08/09-08/13...Time constraints limit repeating all that was discussed in terms of d/c and future planning but would recommend DCP team review those notes so as not to duplicate work already started. Pt is an 85 year old male with multiple medical comorbidities who admitted yesterday to care of hospitalist team. PCP: Kane Molina [facility] tent worker and oncologist Payer: Medicare and [facility] POC is newly in process. Dr. Johansen is alerted to Stanley's arrival. DCP team to follow: see also DCP template for more information. Discharge Planning/Care Management CM Discharge Assessment Start: 08/25/20 15:58 Freq: Status: Active Protocol: Document 08/25/20 15:58 ITV (Rec: 08/25/20 16:00 ITV [id number]) Discharge Planning Assessment Advance Directives? No History Provided By Patient,Family Member,Medical Record Has Patient been admitted in last 30 Yes days? Comment 08/09 - 08/13 with a d/c home: [facility] and pt's sliver lapper/POA: Stanley Goddard Prior Living Arrangements House Household Members caregiver Comment Cousin/caregiver/POA Stanley Type of transportation used prior to Relies on Others admit Independent with ADL's No Is patient alert and oriented? Yes Review Status In Process
[2020-08-25] MEDS: PIPERACILLIN-TAZO 2.25 GM/50 ML FROZ.PIGGY IV ×2 (16:31→22:11)
[2020-08-25] MEDS: NORTRIPTYLINE HCL 25 MG CAPSULE PO (21:09)
[2020-08-25] MEDS: ATORVASTATIN 20 MG TABLET 80 MG PO (21:11)
--- NOTE | 2020-08-25 21:52 | PC.NURSE ---
Pt is A and O x 4, VSS, last BP= 103/48, HR 71 and irr irr, NSR on tele. Able to eat and drink, voiding qs, + BTs. 95-97% on 2L. LS diminished and fine crackles in bases.
[2020-08-26] VITALS (19 sets, daily range): BP systolic 105–153; BP diastolic 51–88; PULSE 61–92; RESP 15–20; TEMP 36.3–37.1; O2SAT 94–100
--- NOTE | 2020-08-26 01:11 | PC.NURSE ---
Checked pt. @ 4671 100% with 1 liter of . Turned 02 off & rechecked him again @ 0015 & sat. in RA 97-98%. Continuous Pulse oximeter in placed. Will monitor.
[2020-08-26] MEDS: PIPERACILLIN-TAZO 2.25 GM/50 ML FROZ.PIGGY IV ×4 (04:30→22:09)
[2020-08-26] MEDS: INSULIN ASPART 100 UNIT/ML INSULN PEN SUBCUT ×8 (04:48→21:26)
--- NOTE | 2020-08-26 04:59 | PC.NURSE ---
PIPPA Beltran notified with the CBG of 381 & 404. Ordered to administered 5 units of Insulin Aspart order implemented. Will monitor.
[2020-08-26] MEDS: MORPHINE ER 15 MG TABLET PO ×5 (05:32→22:09)
[2020-08-26 05:34] LABS: Alanine Aminotransferase 207 IU/L (<50); Albumin 2.4 g/dL (3.5-5.0); Albumin Globulin Ratio 0.9 (1.0-2.8); Alkaline Phosphatase 72 U/L (38-126); Aspartate Aminotransferase 73 IU/L (17-59); BUN Creatinine Ratio 33.3 (6-22); Bilirubin Total 0.6 mg/dL (0.2-1.3); Bilirubin Unconjugated 0.3 mg/dL (0.0-1.1); Blood Urea Nitrogen 73 mg/dL (9-20); Calcium 7.8 mg/dL (8.4-10.2); Carbon Dioxide 30 mmol/L (22-32); Chloride 99 mmol/L (98-107); Estimated Glomerular Filt Rate 28.7 mL/min (>60); Globulin 2.6 g/dL (1.7-4.1); Glucose 359 mg/dL (80-110); HEMOLYSIS < 15 (0-50); Potassium 3.7 mmol/L (3.4-5.1); Sodium 133 mmol/L (137-145)
[2020-08-26 06:29] LABS: Add Manual Diff / Slide Review NO; Basophils Absolute Auto 0 /uL (0-100); Basophils Percent Auto 0.1 % (0-2); Eosinophils Absolute Auto 0 /uL (0-450); Lymphocytes Absolute Auto 600 /uL (1100-4500); Lymphocytes Percent Auto 7.1 % (25-40); Mean Corpuscular Hemoglobin 31.6 PG (26-34); Monocytes Absolute Auto 300 /uL (0-900); Monocytes Percent Auto 3.8 % (3-14); Neutrophils Absolute Auto 7000 /uL (1500-7000); Platelet Count 132 X10^3/uL (150-400); Red Cell Distribution Width 15.5 % (11.6-14.8); White Blood Cell Count 7.9 X10^3/uL (4.5-11.0)
[2020-08-26 06:36] LABS: Hematocrit 20.4 % (41-53)
[2020-08-26 06:38] LABS: Mean Corpuscular Volume 92.8 fL (80-100)
[2020-08-26] MEDS: polyethylene glycoL 3350 17 GM POWD.PACK PO (08:55)
[2020-08-26] MEDS: PANTOPRAZOLE 20 MG TABLET PO ×3 (08:55→16:44)
[2020-08-26] MEDS: METOPROLOL ER 25 MG TABLET PO (09:07)
[2020-08-26] MEDS: ISOSORBIDE MONONITRATE ER 30 MG TABLET 60 MG PO (09:07)
[2020-08-26] MEDS: CLOPIDOGREL 75 MG TABLET PO (09:07)
[2020-08-26] MEDS: GABAPENTIN 600 MG TABLET PO ×3 (09:07→21:29)
[2020-08-26] MEDS: predniSONE 20 MG TABLET 40 MG PO (09:07)
[2020-08-26] MEDS: HEPARIN 5,000 UNIT/ML VIAL 5000 UNIT SUBCUT ×2 (09:08→21:28)
[2020-08-26] MEDS: SODIUM CHLORIDE 0.9% FLUSH 10 ML IV (09:08)
[2020-08-26] MEDS: AMLODIPINE 5 MG TABLET 10 MG PO (09:08)
--- NOTE | 2020-08-26 09:48 | PC.NURSE ---
Clarified with Dr. Milligan regarding 2 units of blood ordered. She anticipates only needing to transfuse one unit and requests me to hold until she is able to review. Also to hold AM lasix dose to give along with timing of transfusion. Will continue to follow.
--- NOTE | 2020-08-26 11:57 | CM.DPC ---
Addendum entered by Patricia Khan R.N. 08/27/20 11:12: Patient has discharge orders for today. Had him sign IMM. Asked him again if he was interested in home health, and he stated, I don't think I need it, I'm well set up at home. He will be following up with oncologist as well. Original Note: DCP Cont: Met with patient during team rounds. He was sitting up in bed, alert and oriented. Pleasant. Patient was hoping to go home today. Stated, I have lots of work to do at home, and finances to take care of. Patient resides here in [place] with his son, Stanley, who also is his POA. Dr. Milligan mentioned that patient will be getting blood transfusion today, so he will be here another day. Was explained to patient in room. She mentioned that his HGB was continuing to fall, and may need to follow up with oncology regarding getting another bone marrow biopsy. Called Vivi at [facility] to inquire what disciplines that patient was currently getting. Stated, they attempted to see patient, but son did not feel that they needed. Vivi stated that she still has the order, and face to face, so she would not need a new one. Stated that it would not be a resumption, since patient did not officially start with home health. Will plan on addressing with patient and son before discharge. Mentioned P.T. to Dr. Milligan, but will not be able to work with them until his labs are more stable. She will consider ordering P.T. tomorrow if he has improved. Will fax Vivi over H&P for her information. If he does go home on home health, will fax discharge summary, no face to face needed. P: DCP to continue to follow. Will check in tomorrow, and see if patient/son would like [facility]. Patricia Khan RN/Heliotherapist
[2020-08-26] MEDS: FUROSEMIDE 40 MG/4 ML VIAL IV ×2 (13:26→16:43)
--- NOTE | 2020-08-26 13:47 | PM.PN.1 ---
Subjective Subjective Date Patient Seen: 08/26/20 Interval history: Patient reports no shortness of breath and improved pleuritic chest pain. He continues to have some lower extremity edema He is anxious to go home but understands the need for additional treatment. Exam Vital Signs (past 8 hours): - 08/26/20 08:00 08/26/20 08:02 08/26/20 09:07 Temperature 98.2 F Pulse Rate 68 61 66 Respiratory Rate 15 16 Blood Pressure 122/52 L Pulse Oximetry 100 99 08/26/20 12:00 Temperature 97.3 F L Pulse Rate 92 H Respiratory Rate 15 Blood Pressure 139/80 Pulse Oximetry 98 Oxygen Delivery Method Room Air Oxygen Flow Rate 0 Narrative Exam Narrative: Pale male in no acute distress Lungs: Clear to auscultation CV: RRR nl Sl S2 3/6 CRISTIN ABd; soft/ non tender Ext: 1+ edema bilaterally Objective Labs Result Diagrams: 08/26/20 05:00 08/26/20 05:00 Labs: Laboratory Results - last 24 hr 08/26/20 08/26/20 08/26/20 05:00 05:00 06:58 WBC 7.9 RBC 2.20 L Hgb 7.0 L Hct 20.4 L* MCV 92.8 D MCH 31.6 MCHC 34.0 RDW 15.5 H Plt Count 132 L Neut % (Auto) 89.0 H Lymph % (Auto) 7.1 L [place] % (Auto) 3.8 Eos % (Auto) 0.0 L Baso % (Auto) 0.1 Neut # (Auto) 7000 Lymph # (Auto) 600 L [place] # (Auto) 300 Eos # (Auto) 0 Baso # (Auto) 0 Sodium 133 L Potassium 3.7 Chloride 99 Carbon Dioxide 30 BUN 73 H Creatinine 2.19 H Estimated GFR 28.7 L BUN/Creatinine Ratio 33.3 H Glucose 359 H D Calcium 7.8 L Magnesium 2.0 Total Bilirubin 0.6 Conjugated Bilirubin 0.0 Unconjugated Bilirubin 0.3 AST 73 H ALT 207 H Alkaline Phosphatase 72 Total Protein 5.0 L Albumin 2.4 L Globulin 2.6 Albumin/Globulin Ratio 0.9 L Blood Type A Negative Antibody Screen Negative Crossmatch See Detail Assessment & Plan Assessment & Plan narrative: Assessment & Plan narrative: Graeme Forte (Stewart) is an 85-year-old male with a past medical history of hypertension, hyperlipidemia, CAD, chronic anemia, chronic neck pain with opiate dependence who presented to the emergency room with complaints of right-sided pleuritic chest pain. He is admitted with acute hypoxic respiratory failure likely secondary to volume overload and decompensated heart failure or possibly a community-acquired pneumonia. 1. Acute hypoxemic respiratory failure, present on admission -patient had an episode of desaturation into the mid 70s. He responded well to minimal supplemental oxygen and currently remains on 2L. This is likely in the setting decompensated heart failure or pneumonia or a combination of both. CTA of his chest was negative for pulmonary embolism but did show possible bilateral pulmonary infiltrates likely in the setting of superimposed volume overload. He also has a small right and trace left pleural effusion which are likely due to volume overload, and neither of these appears large enough for thoracentesis. -patient with a cephalosporin allergy, he states he is okay with penicillins. Will give Zosyn x5 days. Low threshold to discontinue. -will diurese with Lasix 40 mg IV b.i.d., continue strict intake and output and daily weights. Net negative 1.5 L so far. -will check respiratory panel and sputum culture if he has any sputum. COVID 19 testing negative. -RT Eval and treat -continue diuresis today, will likely need to continue low dose lasix as an outpatient 2. Acute Decompensated heart failure, unknown type, present on admission -patient presents with lower extremity edema, bilateral pleural effusions, scrotal edema in the setting of recent steroid use and likely congestive hepatopathy. ProBNP elevated at 9110. -have ordered an echocardiogram, unable to be performed thus far due to lack of availability, but anticipate this will be done tomorrow. 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 -continue diuresis as noted above, Lasix 40 mg IV b.i.d. today given need for transfusion, expect to decrease lasix tomorrow 3. Elevated liver enzymes likely due to congestive hepatopathy, acute, present on admission -admission ALT of 346, AST of 185 likely secondary to volume overload from heart failure. Improved today. -will continue diuresis and continue to follow. 4. Elevated troponin, acute, present on admission. -patient with the troponin of 0.04 on admission, no active chest pain. Repeat downtrended. EKG does show ST depressions in his lateral leads which were present to a lesser extent on a prior EKG. Patient has a history of CAD and is currently on antiplatelet and statin therapy. -likely elevated in the setting of decompensated heart failure and chronic kidney disease. 5. Hypertension, chronic -continue home medications 6. Hyperlipidemia, chronic -continue home medications 7. CAD, chronic -patient with a history of CABG, will continue home medications. 8. Anemia of uncertain etiology, chronic -patient with a is stable hemoglobin compared to prior admission. Will continue home iron supplements. Patient was to continue a steroid taper as per Dr. Martinez but patient never followed up, will continue steroid taper as his last dose of 60 mg was yesterday. Will continue 40 mg daily for now perhaps x5 days then 30 mg x5 days, 20 mg x5 days, 10 mg x5days. will check Iron studies and consider IV iron as an outpatient. may need repeat bone marrow biopsy. 9. Chronic neck pain with opiate dependence -will continue home regimen of 15 mg of morphine 5 times daily as well as gabapentin. 10. Chronic kidney disease stage 3, present on admission -creatinine of 2.10 which is consistent with the patient's recent baseline. 11. Type 2 diabetes -patient has a known history of type 2 diabetes but his recent A1cs have been controlled without medications. Elevated glucose of 307 on admission, likely secondary to recent steroid use which the patient has apparently completed. Will continue to check fingersticks and have added a in insulin sliding scale this time.
--- NOTE | 2020-08-26 14:29 | PC.NURSE ---
confirmed with Dr. Milligan, that patient is to receive 2 units total PRBC today. 1st unit of blood now infusing with IV lasix given. Dr. Milligan states 2nd dose of lasix can be given as scheduled this evening. Patient tolerating infusion well. Sitting comfortably in bed, denies pain, denies shortness of breath. States I think so far today has been a success. Call light and urinal within reach, bed alarm on for safety.
[2020-08-26] MEDS: CALCIUM CARBONATE 500 MG TAB PO (21:06)
[2020-08-26] MEDS: DOXAZOSIN 2 MG TABLET 1 MG PO (21:29)
[2020-08-26] MEDS: ATORVASTATIN 20 MG TABLET 80 MG PO (21:29)
[2020-08-26] MEDS: NORTRIPTYLINE HCL 25 MG CAPSULE PO (21:30)
[2020-08-27] VITALS (7 sets, daily range): BP systolic 114–130; BP diastolic 58–88; PULSE 56–62; RESP 14–17; TEMP 36.6–36.8; O2SAT 98–100
[2020-08-27] MEDS: INSULIN ASPART 100 UNIT/ML INSULN PEN SUBCUT ×5 (04:13→11:58)
[2020-08-27] MEDS: PIPERACILLIN-TAZO 2.25 GM/50 ML FROZ.PIGGY IV ×2 (04:22→10:43)
[2020-08-27 05:52] LABS: Add Manual Diff / Slide Review NO; Basophils Absolute Auto 100 /uL (0-100); Basophils Percent Auto 1.3 % (0-2); Eosinophils Absolute Auto 0 /uL (0-450); Eosinophils Percent Auto 0.1 % (2-4); Hemoglobin 9.6 g/dL (13.5-17.5); Lymphocytes Absolute Auto 800 /uL (1100-4500); Lymphocytes Percent Auto 10.5 % (25-40); Mean Corpuscular HGB Conc 34.7 % (30-36); Mean Corpuscular Volume 92.1 fL (80-100); Monocytes Absolute Auto 300 /uL (0-900); Monocytes Percent Auto 4.4 % (3-14); Neutrophils Absolute Auto 6300 /uL (1500-7000); Neutrophils Percent Auto 83.7 % (50-75); Platelet Count 137 X10^3/uL (150-400); Red Blood Cell Count 3.01 X10^6/uL (4.5-5.9); Red Cell Distribution Width 15.6 % (11.6-14.8); White Blood Cell Count 7.6 X10^3/uL (4.5-11.0)
[2020-08-27 05:54] LABS: Hematocrit 27.7 % (41-53)
[2020-08-27 06:07] LABS: Alanine Aminotransferase 222 IU/L (<50); Albumin 2.8 g/dL (3.5-5.0); Alkaline Phosphatase 67 U/L (38-126); Aspartate Aminotransferase 88 IU/L (17-59); BUN Creatinine Ratio 35.8 (6-22); Bilirubin Total 0.6 mg/dL (0.2-1.3); Bilirubin Unconjugated 0.3 mg/dL (0.0-1.1); Blood Urea Nitrogen 82 mg/dL (9-20); Calcium 8.1 mg/dL (8.4-10.2); Carbon Dioxide 31 mmol/L (22-32); Chloride 95 mmol/L (98-107); Estimated Glomerular Filt Rate 27.3 mL/min (>60); Globulin 2.7 g/dL (1.7-4.1); Glucose 263 mg/dL (80-110); HEMOLYSIS < 15 (0-50); Potassium 3.1 mmol/L (3.4-5.1); Sodium 132 mmol/L (137-145); Total Protein 5.5 g/dL (6.3-8.2)
[2020-08-27] MEDS: MORPHINE ER 15 MG TABLET PO ×2 (06:08→10:43)
[2020-08-27 06:15] LABS: NT-proBNP (BNP-Adult 18+) 8280 pg/mL (<450)
[2020-08-27] MEDS: CLOPIDOGREL 75 MG TABLET PO (08:59)
[2020-08-27] MEDS: GABAPENTIN 600 MG TABLET PO (08:59)
[2020-08-27] MEDS: AMLODIPINE 5 MG TABLET 10 MG PO (08:59)
[2020-08-27] MEDS: PANTOPRAZOLE 20 MG TABLET PO ×2 (08:59→11:50)
[2020-08-27] MEDS: FUROSEMIDE 40 MG/4 ML VIAL IV (08:59)
[2020-08-27] MEDS: SODIUM CHLORIDE 0.9% FLUSH 10 ML IV (09:00)
[2020-08-27] MEDS: HEPARIN 5,000 UNIT/ML VIAL 5000 UNIT SUBCUT (09:00)
[2020-08-27] MEDS: ISOSORBIDE MONONITRATE ER 30 MG TABLET 60 MG PO (09:00)
[2020-08-27] MEDS: predniSONE 20 MG TABLET 40 MG PO (09:00)
[2020-08-27] MEDS: METOPROLOL ER 25 MG TABLET PO (09:00)
[2020-08-27] MEDS: polyethylene glycoL 3350 17 GM POWD.PACK PO (09:00)
--- NOTE | 2020-08-27 14:20 | PC.NURSE ---
Discharge instructions reviewed with patient, he states understanding and has no further questions or concerns at this time. IV dc'd intact. Patient's caregiver states patient has follow up appointment already scheduled with oncologist, and will also call his manager recovery and PCP to schedule follow ups. Patient escorted out via wheelchair by RIGHT OF WAY CUTTER with all belongings to home with his caregiver. Patient instructed to call MD with questions or concerns, or to seek care if symptoms return or worsen
--- NOTE | 2020-08-27 14:53 | P.DS_ITS ---
History of Present Illness History of Present Illness Date Patient Seen: 08/27/20 Chief complaint: SOB and edema Narrative: Graeme Forte Jr (Stewart) is an 85-year-old male with a past medical history of hypertension, hyperlipidemia, CAD, chronic anemia, chronic neck pain with opiate dependence who presented to the emergency room with complaints of right-sided pleuritic chest pain. Patient states that he had pleurisy in college and felt very similar pain starting this morning. He has right-sided chest pain that is sharp upon inspiration. He further feels a little short of breath at rest. He denies any appetite changes or weight changes recently, fever, chills, left-sided chest pain or chest pressure, orthopnea. He denies any significant cough but did relate some chest congestion a few days ago but denies any sputum. He has been on a steroid taper after a recent admission for possible hemolytic anemia. He endorses some scrotal edema as well as lower extremity edema which are new over the past couple of days. His pain improves with shallow breaths. In the emergency room, patient's blood pressure was mildly elevated, and initially he was saturating well on room air but it does look like he desaturated at 1 point in to the 70s but improved on minimal supplemental ox ygen. He is currently saturating at 98% on 2 L. laboratory evaluation revealed a leukocytosis of 19.8, with 91% neutrophils. Hemoglobin is 9.1 which is similar to his discharge level when he was admitted. Sodium was mildly low at 134, potassium of 5.2, creatinine of 2.1 which is fairly stable from his baseline. His glucose was 307. ALT was elevated at 346, AST elevated at 185. His CK was 976. Troponin was 0.040. ProBNP was elevated at 9110. Procalcitonin was indeterminate at 0.34. COVID-19 testing was negative. Chest x-ray showed a possible trace right pleural effusion with right basilar infiltrate or atelectasis. Given the pleuritic nature of his chest pain I asked for a CT angiogram which did not show evidence of pulmonary embolism, but showed extensive airspace consolidations in the right middle and lower lobe as well as reticular nodular thickening in the periphery of his bilateral lung wagner. There is a small right pleural effusion and a trace left pleural effusion. He also has some mediastinal and hilar lymphadenopathy as well as cardiomegaly without effusion. Discharge Providers Provider Date of admission: 08/24/20 11:50 Discharge Date: 08/27/20 Primary care physician: Kane Molina MD Consults: 08/24/20 13:59 Consult to Dietitian, Adult Routine Comment: Reason For Exam: nutri exam on admission protocol 08/24/20 15:09 Consult to Respiratory Therapy Evaluate & Treat Comment: Physician Instructions: Evaluate and treat Discharge provider: Rebeca Milligan MD Summary Hospital Course Discharge Diagnosis: 1. 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 Community-acquired pneumonia 3. Congestive heart 4. Hyper 2 5. Hyperlipidemia 6. Coronary disease 7. Neck pain 8. Stage 3 chronic kidney disease 9. Hyponatremia 10. Hypokalemia 11. Hyperglycemia, related to steroid Hospital Course: Patient was admitted to the hospital for treatment of pleuritic chest pain. CT chest confirmed diffuse pulmonary infiltrates. The patient was treated with IV antibiotics with improvement of his symptoms. In addition he was found to be in congestive heart failure and treated for this as well. The patient became markedly anemic with a drop of his hemoglobin to 7. He received 2 units of packed RBCs in addition to Lasix. He had improvement in his breathing, improvement of his pleuritic chest pain, improvement of his anemia. He was able to ambulate with PT. He was deemed appropriate for discharge and arrangements were made for him to be discharged home. The patient has a follow-up appointmen t with Dr. Stevens in oncology. He will follow-up as an outpatient for further workup of his anemia. Exam Vital Signs (past 8 hours): - 08/27/20 07:50 08/27/20 08:00 08/27/20 11:58 Temperature 98.2 F 97.8 F Pulse Rate 57 L 56 L 62 Respiratory Rate 16 14 17 Blood Pressure 114/59 L 122/58 L Pulse Oximetry 100 100 98 Oxygen Delivery Method Room Air Oxygen Flow Rate 0 Narrative Exam Narrative: Pleasant elderly male in no obvious distress Lungs: Clear to auscultation Cardiac exam: Irregularly irregular, normal S1-S2, 2/6 systolic ejection murmur Abdomen: Soft nontender nondistended Extremities: 1+ edema bilateral Objective Labs Result Diagrams: 08/27/20 05:40 08/27/20 05:40 Labs: Laboratory Results - last 24 hr 08/26/20 08/27/20 08/27/20 06:58 05:40 05:40 WBC 7.6 RBC 3.01 L Hgb 9.6 L Hct 27.7 L MCV 92.1 MCH 32.0 MCHC 34.7 RDW 15.6 H Plt Count 137 L Neut % (Auto) 83.7 H Lymph % (Auto) 10.5 L [place] % (Auto) 4.4 Eos % (Auto) 0.1 L Baso % (Auto) 1.3 Neut # (Auto) 6300 Lymph # (Auto) 800 L [place] # (Auto) 300 Eos # (Auto) 0 Baso # (Auto) 100 Sodium 132 L Potassium 3.1 L Chloride 95 L Carbon Dioxide 31 BUN 82 H Creatinine 2.29 H Estimated GFR 27.3 L BUN/Creatinine Ratio 35.8 H Glucose 263 H Calcium 8.1 L Magnesium 2.0 Total Bilirubin 0.6 Conjugated Bilirubin 0.0 Unconjugated Bilirubin 0.3 AST 88 H ALT 222 H Alkaline Phosphatase 67 NT-Pro-B Natriuret Pep Total Protein 5.5 L Albumin 2.8 L Globulin 2.7 Albumin/Globulin Ratio 1.0 Blood Type A Negative Antibody Screen Negative Crossmatch See Detail 08/27/20 05:40 WBC RBC Hgb Hct MCV MCH MCHC RDW Plt Count Neut % (Auto) Lymph % (Auto) [place] % (Auto) Eos % (Auto) Baso % (Auto) Neut # (Auto) Lymph # (Auto) [place] # (Auto) Eos # (Auto) Baso # (Auto) Sodium Potassium Chloride Carbon Dioxide BUN Creatinine Estimated GFR BUN/Creatinine Ratio Glucose Calcium Magnesium Total Bilirubin Conjugated Bilirubin Unconjugated Bilirubin AST ALT Alkaline Phosphatase NT-Pro-B Natriuret Pep 8280 H Total Protein Albumin Globulin Albumin/Globulin Ratio Blood Type Antibody Screen Crossmatch Discharge Assessment & Plan Assessment and Plan Assessment: 1. Acute diastolic heart failure -ejection fraction 60 65%, probable diastolic dysfunction, severe left atrial enlarged 2. Autoimmune anemia, status post 2 units of packed RBCs 3. Hypertension 4. Chronic kidney disease stage III 5. Coronary disease Plan of Treatment: Discharge home Follow-up with oncology as scheduled Discharge Plan Discharge Plan Patient Disposition: Home Discharge orders & Medications Prescriptions: New prednisone 20 mg Tablet 40 mg PO DAILY Qty: 7 RF: 0 amoxicillin-pot clavulanate [Augmentin] 875-125 mg tablet 1 tab PO BID Qty: 10 RF: 0 Continued gabapentin [Neurontin] 600 MG tablet 600 mg PO TID Qty: 0 RF: 0 clopidogrel [Plavix] 75 MG tablet 75 mg PO DAILY Qty: 0 RF: 0 lansoprazole [Prevacid] 30 MG capsule,delayed release(DR/EC) 30 mg PO BIDAC Qty: 0 RF: 0 atorvastatin 80 MG tablet 80 mg PO BEDTIME Qty: 0 RF: 0 nitroglycerin 0.4 mg tablet, sublingual 0.4 mg sublingual PRN PRN (Reason: Chest Pain) RF: 0 Co Q-10 300 mg Capsule 300 mg PO DAILY RF: 0 flaxseed oil 1 dose PO DIRECTED RF: 0 Ventricor 1 dose PO DIRECTED RF: 0 resveratrol 1 cap PO DIRECTED RF: 0 Vitapulse 1 dose PO BID RF: 0 doxazosin 1 mg tablet 1 mg PO DAILY RF: 0 Artificial Tears (cmc) 1 % Drops 1 drp OPHTHALMIC (EYE) TID PRN (Reason: Dry Eye(S)) RF: 0 prednisone 20 mg tablet 60 mg PO DAILY Qty: 30 RF: 0 nortriptyline 25 mg capsule 25 mg PO BEDTIME RF: 0 morphine 15 mg tablet extended release 1 tab PO 5XD RF: 0 polyethylene glycol 3350 17 gram/dose powder 1 dose PO DAILY RF: 0 cyanocobalamin (vitamin B-12) [Vitamin B-12] 1,000 mcg Tablet Extended Release 1,000 mcg PO BID RF: 0 ferrous sulfate 325 mg (65 mg iron) Tablet 325 mg PO DAILY RF: 0 cranberry 400 mg Capsule 400 mg DAILY RF: 0 Centrum Silver 400-250 mcg Tablet,Chewable 1 tab PO DAILY RF: 0 isosorbide mononitrate 60 mg Tablet Extended Release 24 Hr 60 mg PO DAILY RF: 0 amlodipine 10 mg Tablet 10 mg PO DAILY RF: 0 metoprolol succinate 25 mg Tablet Extended Release 24 Hr 25 mg PO DAILY RF: 0 Follow up/Referrals: Kane Molina MD [Primary Care Provider] - Discharge Health Status Multidrug resistant organism: No MDRO Diet/Activity/Treatments Diet: Low-fat and Low-sodium Visit Report/Discharge Packet Instructions: DI for Heart Failure, DI for Blood Transfusion, Low-Sodium Diet Visit Report Forms: Patient Portal/API, Stroke Signs & Symptoms Discharge Data Primary Care Provider: Kane Molina Discharges patient from system. Discharge Date/Time: 08/27/20 14:00
[2020-08-29 09:04] LABS: Albumin 2.1 g/dL (2.9-4.4); Alpha-1-Globulin 0.4 g/dL (0.0-0.4); Alpha-2-Globulin 0.9 g/dL (0.4-1.0); Gamma Globulin 0.7 g/dL (0.4-1.8); Globulin Total 2.5 g/dL (2.2-3.9); Protein, Total 4.6 g/dL (6.0-8.5)
[2020-08-30 11:10] LABS: M-Spike % Comment: % (Not Observed); Total Urine Protein 4.5 mg/dL (Not Estab.)
[2020-08-30 13:35] LABS: PDF SEE EMR REFERENCE
== END 2020-08-27 14:00 | disposition home or self-care (01) | DRG 291 ==
LOC: ED 10:18 → AC 11:51
PROVIDERS: Internal Medicine; Admitting Provider Internal Medicine; Emergency Provider Emergency Medicine; Family Provider Internal Medicine; PCP Internal Medicine; Referring Provider Emergency Medicine; Visit Provider Internal Medicine
DX: I13.0 Hypertensive heart and chronic kidney disease with heart failure and stage 1 through stage 4 chronic kidney disease, or unspecified chronic kidney disease (principal); J96.01 Acute respiratory failure with hypoxia; I50.31 Acute diastolic (congestive) heart failure; J18.9 Pneumonia, unspecified organism; D59.10 Autoimmune hemolytic anemia, unspecified; N18.30 Chronic kidney disease, stage 3 unspecified; E78.5 Hyperlipidemia, unspecified; I25.10 Atherosclerotic heart disease of native coronary artery without angina pectoris; R73.9 Hyperglycemia, unspecified; T38.0X5A Adverse effect of glucocorticoids and synthetic analogues, initial encounter; R94.5 Abnormal results of liver function studies; G89.29 Other chronic pain; Z79.891 Long term (current) use of opiate analgesic; Z87.891 Personal history of nicotine dependence; Z11.59 Encounter for screening for other viral diseases
CPT/HCPCS: 36415; 36430; 36592; 71045; 71275; 80048; 80053; 80076; 82550; 82553; 82962; 83690; 83735; 83880; 84145; 84155; 84156; 84165; 84166; 84443; 84484; 85025; 85610; 85730; 86850; 86900; 86901; 87635; 93005; 93306; 94760; 94762; 96361; 96374; 96375; 99284; P9016; J1644; J1940; J2543; Q9967

== ENCOUNTER → 2020-09-05 16:22 | Outpatient (CLI) | payer MEDICARE, OTHER, SELFPAY ==
[2020-08-24 13:49] VITALS: BMI 25.8
[2020-09-05] MEDS: DARBEPOETIN 200 MCG/0.4 ML SYRINGE SUBCUT (16:33)
== END ==
PROVIDERS: Family Provider Internal Medicine; PCP Internal Medicine; Referring Provider Internal Medicine; Visit Provider Internal Medicine
DX: E11.22 Type 2 diabetes mellitus with diabetic chronic kidney disease (principal); I12.9 Hypertensive chronic kidney disease with stage 1 through stage 4 chronic kidney disease, or unspecified chronic kidney disease; N18.9 Chronic kidney disease, unspecified; D63.1 Anemia in chronic kidney disease; E78.5 Hyperlipidemia, unspecified; I25.10 Atherosclerotic heart disease of native coronary artery without angina pectoris; Z95.5 Presence of coronary angioplasty implant and graft
CPT/HCPCS: 36415; 85025; 96372; 99213; J0881

== ENCOUNTER 2020-09-07 20:26 | Observation (INO) | payer MEDICARE, OTHER, SELFPAY ==
[2020-08-24 13:49] VITALS: BMI 25.8
[2020-09-07 20:46] VITALS: BP 140/63; PULSE 71; RESP 17; TEMP 36.6; O2SAT 100; BMI 20.9
[2020-09-07 20:49] LABS: Add Manual Diff / Slide Review NO; Basophils Absolute Auto 0 /uL (0-100); Basophils Percent Auto 0.1 % (0-2); Eosinophils Absolute Auto 0 /uL (0-450); Eosinophils Percent Auto 0.1 % (2-4); Hematocrit 22.2 % (41-53); Hemoglobin 7.4 g/dL (13.5-17.5); Lymphocytes Absolute Auto 1100 /uL (1100-4500); Lymphocytes Percent Auto 16.4 % (25-40); Mean Corpuscular HGB Conc 33.4 % (30-36); Mean Corpuscular Hemoglobin 32.9 PG (26-34); Mean Corpuscular Volume 98.5 fL (80-100); Monocytes Absolute Auto 300 /uL (0-900); Neutrophils Absolute Auto 5100 /uL (1500-7000); Neutrophils Percent Auto 79.4 % (50-75); Platelet Count 188 X10^3/uL (150-400); Red Blood Cell Count 2.25 X10^6/uL (4.5-5.9); Red Cell Distribution Width 16.3 % (11.6-14.8); White Blood Cell Count 6.4 X10^3/uL (4.5-11.0)
[2020-09-07 20:50] LABS: Prothrombin Time 11.7 SECONDS (10.1-12.7)
[2020-09-07 20:53] LABS: PTT Partial Thromboplastin Tim 28 SECONDS (26.4-36.2)
[2020-09-07 20:55] LABS: Alanine Aminotransferase 112 IU/L (<50); Albumin 2.9 g/dL (3.5-5.0); Albumin Globulin Ratio 1.1 (1.0-2.8); Alkaline Phosphatase 91 U/L (38-126); Aspartate Aminotransferase 47 IU/L (17-59); BUN Creatinine Ratio 30.6 (6-22); Bilirubin Total 0.6 mg/dL (0.2-1.3); Blood Urea Nitrogen 75 mg/dL (9-20); Calcium 7.9 mg/dL (8.4-10.2); Carbon Dioxide 28 mmol/L (22-32); Chloride 101 mmol/L (98-107); Creatine Kinase 159 U/L (55-170); Estimated Glomerular Filt Rate 25.3 mL/min (>60); Globulin 2.6 g/dL (1.7-4.1); HEMOLYSIS < 15 (0-50); Lipase 145 U/L (23-300); Magnesium 2.6 mg/dL (1.6-2.3); Potassium 5.8 mmol/L (3.4-5.1); Sodium 132 mmol/L (137-145); Total Protein 5.5 g/dL (6.3-8.2)
[2020-09-07 21:01] LABS: Lactate (Lactic Acid) 1.9 mmol/L (0.7-2.1)
[2020-09-07 21:06] LABS: NT-proBNP (BNP-Adult 18+) 4570 pg/mL (<450); Troponin I 0.022 ng/mL (0.01-0.034)
[2020-09-07 21:07] LABS: Glucose 524 mg/dL (80-110)
--- NOTE | 2020-09-07 21:12 | DI.RAD.S_ITS ---
PROCEDURE: XR CHEST 1V INDICATIONS: weakness TECHNIQUE: One view of the chest was acquired. COMPARISON: [facility], CT, CT ANGIO CHEST PE PROTOCOL, 08/24/2020, 10:46. [facility], CR, XR CHEST 1V, 08/24/2020, 9:37. FINDINGS: Surgical changes and devices: None. Lungs and pleura: There is improved aeration of the right lung when compared to the prior radiographs from 08/24/2020. An opacity is seen in the medial right mid lung zone. Chronic interstitial reticular markings are seen in the lung bases bilaterally. No significant pleural effusion is seen. There is no pneumothorax. Mediastinum: Mediastinal contours appear normal. Heart size is normal. Atherosclerotic calcifications are seen in the aorta. Bones and chest wall: No suspicious bony lesions. Overlying soft tissues appear unremarkable. IMPRESSION: Improved aeration when compared to the radiographs from 08/24/2020. However, a persistent medial right middle lobe consolidation is present. Recommend continued follow-up to resolution. Dictated by: Nirav Sepulveda M.D. on 09/07/2020 at 21:33 Approved by: Nirav Sepulveda M.D. on 09/07/2020 at 21:38
--- NOTE | 2020-09-07 21:14 | ED.WEAKNESS ---
HPI - Weakness General Chief complaint: Weakness Stated complaint: Increased weakness and confusion Time Seen by Provider: 09/07/20 20:30 Source: EMS Mode of arrival: EMS Limitations: no limitations History of Present Illness HPI Narrative: 85M former smoker with extensive chronic medical history including chronic kidney disease, anemia, cardiac disease, and HTN present by EMS after his caregiver called for help when he found Mr. Forte in a very weak and debilitated state any even suggest that he was unresponsive for a period of time. The patient states that he has been gradually worsening over the past week or so and now is having increased difficulty getting around with his walker. He has had no headache or blurred vision. He denies any runny nose, sore throat or cough. He denies chest pain but states that he is increasingly short of breath with minimal exertion and at times when he lays flat. He denies any abdominal pain or trouble with urinating. He admits that he has been having increased swelling in his lower extremities which has happened on occasion. Patient has been seen relatively recently by oncology who was evaluating his anemia but suggests it is likely a combination of chronic kidney disease and probable microscopic GI losses. The patient has planned to see general surgery for endoscopy to further evaluate this. MD Complaint: generalized weakness Onset (ago): day(s) Duration: constant Location: generalized Severity: moderate Relieving factors: rest Exacerbating factors: exertion Related Data Home Medications Medication Instructions Recorded Confirmed gabapentin [Neurontin] 600 mg PO TID #0 03/27/12 09/05/20 clopidogrel [Plavix] 75 mg PO DAILY #0 12/02/16 09/05/20 atorvastatin 80 mg PO BEDTIME #0 11/25/17 09/05/20 lansoprazole [Prevacid] 30 mg PO BIDAC #0 11/25/17 09/05/20 morphine 1 tab PO 5XD 08/26/18 09/05/20 nortriptyline 25 mg PO BEDTIME 08/26/18 09/05/20 polyethylene glycol 3350 1 dose PO DAILY 08/26/18 09/05/20 Centrum Silver 1 tab PO DAILY 09/08/19 09/05/20 cranberry 400 mg DAILY 09/08/19 09/05/20 cyanocobalamin (vitamin B-12) 1,000 mcg PO BID 09/08/19 09/05/20 [Vitamin B-12] ferrous sulfate 325 mg PO DAILY 09/08/19 09/05/20 amlodipine 10 mg PO DAILY 11/03/19 09/05/20 isosorbide mononitrate 60 mg PO DAILY 11/03/19 09/05/20 metoprolol succinate 25 mg PO DAILY 11/03/19 09/05/20 Co Q-10 300 mg PO DAILY 12/24/19 09/05/20 Ventricor 1 dose PO DIRECTED 12/24/19 09/05/20 Vitapulse 1 dose PO BID 12/24/19 09/05/20 flaxseed oil 1 dose PO DIRECTED 12/24/19 09/05/20 nitroglycerin 0.4 mg SUBLINGUAL PRN PRN 12/24/19 09/05/20 resveratrol 1 cap PO DIRECTED 12/24/19 09/05/20 Artificial Tears (cmc) 1 drp OPHTHALMIC (EYE) TID PRN 08/09/20 09/05/20 doxazosin 1 mg PO DAILY 08/09/20 09/05/20 Previous Rx's Medication Instructions Recorded prednisone 60 mg PO DAILY #30 tab 08/13/20 amoxicillin-pot clavulanate 1 tab PO BID #10 tab 08/27/20 [Augmentin] prednisone 40 mg PO DAILY #7 tab 08/27/20 prednisone 10 mg PO DAILY #40 tab 08/29/20 Allergies Allergy/AdvReac Type Severity Reaction Status Date / Time cephalexin Allergy Severe RASH Verified 08/24/20 09:45 ciprofloxacin Allergy Severe RASH Verified 08/24/20 09:45 Fish Containing Products Allergy Severe Difficulty Verified 08/24/20 09:45 Breathing shellfish derived Allergy Severe Difficulty Verified 08/24/20 09:45 Breathing avocado AdvReac Intermediate Vomiting Verified 08/24/20 09:45 cucumber AdvReac Intermediate Vomiting Verified 08/24/20 09:45 Review of Systems Constitutional Constitutional: Denies chills, Denies fatigue, Denies fever(s), Denies frequent falls, Denies lethargy and Reports weakness Eyes Eyes: Denies change in vision, Denies eye discharge, Denies irritation and Denies loss of vision ENT Ears, Nose, Mouth, and Throat: Denies change in voice, Denies dizziness, Denies neck pain, Denies sore throat and Denies throat swelling Cardiovascular Cardiovascular: Denies chest pain, Denies irregular heart rhythm, Reports leg edema, Reports lightheadedness, Denies palpitations, Reports dyspnea, Denies dyspnea on exertion and Denies orthopnea Respiratory Respiratory: Denies cough, Reports dyspnea, Denies dyspnea on exertion and Denies wheezing Gastrointestinal Gastrointestinal: Denies abdominal pain, Denies change in bowel habits, Denies diarrhea, Denies nausea and Denies vomiting Musculoskeletal Musculoskeletal: Denies neck pain and Denies numbness Integumentary/Breasts Skin/Breast: Denies pruritus, Denies erythema, Denies rash and Denies wounds Neurologic Neurologic: Denies behavioral changes, Denies confusion, Denies dizziness, Denies frequent falls, Denies loss of vision, Denies numbness and Reports weakness Psychiatric Psychiatric: Denies anxiety, Denies behavioral changes, Denies confusion, Denies depression, Denies homicidal ideation and Denies suicidal ideation Endocrine Endocrine: Denies fatigue, Denies flushing and Denies palpitations Hematologic/Lymphatic Hematologic/Lymphatic: Denies easy bruising Allergic/Immunologic Allergic/Immunologic: Denies urticaria, Denies throat swelling and Denies wheezing Patient History Medical History Anemia (Acute) Angina pectoris (Acute) HTN (hypertension) (Acute) Hyperlipidemia (Chronic) Surgical History H/O heart artery stent (Acute) Family History Father Kidney failure Mother Heart disease Social History household members: caregiver Smoking Status: Former smoker alcohol intake: current Smoking Status: Former smoker alcohol intake frequency: holidays/special occasions only Substance Use Type: does not use Exam Narrative Exam Narrative: GENERAL: [85] year old patient appears stated age. Appears ill, both acutely and chronically. Very hard of hearing, weak and fatigued. HEAD: Atraumatic. Normocephalic. EYES: Pale conjunctiva Pupils equal round and reactive. Extraocular motions intact. No scleral icterus. No injection or drainage. ENT: Dry mucous membranes. Nose without bleeding, purulent drainage. Throat without erythema, tonsillar hypertrophy or exudate. Airway patent. NECK: Trachea midline. Non tender CARDIOVASCULAR: Regular rate and rhythm without murmurs, gallops, or rubs. RESPIRATORY: Clear to auscultation. Breath sounds equal bilaterally. No wheezes, rales, or rhonchi. GASTROINTESTINAL: Abdomen soft, non-tender, nondistended. RECTAL: No pain, Heme NEG EXTREMITIES: No edema or joint tenderness. BACK: Nontender without deformity or crepitance. No flank tenderness. NEURO: AOx3. SKIN: Obvious pallor, pale, poor skin turgor No rash or erythema of visible areas Initial Vital Signs Initial Vital Signs: Vital Signs Temperature 97.9 F 09/07/20 20:46 Pulse Rate 71 09/07/20 20:46 Respiratory Rate 17 09/07/20 20:46 Blood Pressure 140/63 09/07/20 20:46 Pulse Oximetry 100 09/07/20 20:46 Course Course Course Narrative: chronically ill patient with weakness, anemia, hyperkalemia, and hyperglycemia will require hospitalization for further evaluation and stabilization of his condition. Hyperglycemia could very well be due to use of prednisone, given fluids and insulin. Hyperkalemia and relative fluid overload treated with lasix. Anemia treated with transfusion of packed cells. Hospitalist happy to accept. Orders Ordered: ED Orders 09/07/20 20:14 Complete Blood Count AUTO DIFF Stat Comprehensive Metabolic Panel Stat Lactate (Lactic Acid) Stat Lipase Stat Magnesium Stat NT-proBNP (BNP-Adult 18+) Stat Partial Thromboplastin Time Stat Procalcitonin Stat Prothrombin Time INR Stat Troponin & CK Cardiac Panel Stat 09/07/20 21:12 XR chest 1V Stat 09/07/20 22:03 Type and Screen Stat 09/07/20 22:25 Basic Metabolic Panel Stat COVID19 -ED/INPAT/OR/L&D Stat Acetaminophen (Tylenol) 650 mg PO Q6HR PRN PRN Reason: Fever/Mild Pain (1-3) Al Hydrox/Mg Hydrox/Simethicone (Maalox Plus) 30 ml PO Q6HR PRN PRN Reason: Dyspepsia Bisacodyl (Dulcolax) 10 mg NV DAILY PRN PRN Reason: Constipation Dextrose (D50w) 25 gm IV PRN PRN; Protocol PRN Reason: Hypoglycemia Docusate Sodium (Colace) 100 mg PO BID [facility] Heparin Sodium (Porcine) (Heparin) 5,000 unit SUBCUT BID STEVE Insulin Aspart (Novolog Flexpen) 0 unit SUBCUT ACHS STEVE; Protocol Morphine Sulfate (Morphine) 2 mg IV Q4HR PRN PRN Reason: Pain, Moderate (4-6) Naloxone HCl (Narcan) 0.2 mg IV Q2MIN PRN PRN Reason: Opiate Reversal Ondansetron HCl (Zofran) 4 mg IV Q8HR PRN PRN Reason: Nausea And Vomiting Discontinued Medications Calcium Carbonate (Tums) 1,000 mg PO NOW ONE Stop: 09/07/20 23:35 Furosemide (Lasix) 40 mg IV NOW ONE Stop: 09/07/20 21:27 Last Admin: 09/07/20 21:49 Dose: 40 mg Documented by: SMITA Sodium Chloride (Normal Saline 0.9%) 1,000 mls @ 125 mls/hr IV CONT STEVE Stop: 09/07/20 23:30 Last Admin: 09/07/20 21:49 Dose: 125 mls/hr Documented by: SMITA Insulin Human Regular (Humulin R) 4 unit SUBCUT NOW ONE Stop: 09/07/20 22:33 Last Admin: 09/07/20 22:38 Dose: 4 unit Documented by: SMITA Cosigned by: AMISH Vital Signs Vital signs: Vital Signs - 8 hr 09/07/20 20:46 Temperature 97.9 F Pulse Rate 71 Respiratory Rate 17 Blood Pressure 140/63 Pulse Oximetry 100 MDM - Weakness Lab Data Result diagrams: 09/07/20 20:14 09/07/20 22:25 Labs: Lab Results 09/07/20 09/07/20 09/07/20 Range/Units 20:14 20:14 20:14 WBC 6.4 (4.5-11.0) X10^3/uL RBC 2.25 L (4.5-5.9) X10^6/uL Hgb 7.4 L (13.5-17.5) g/dL Hct 22.2 L (41-53) % MCV 98.5 (80-100) fL MCH 32.9 (26-34) PG MCHC 33.4 (30-36) % RDW 16.3 H (11.6-14.8) % Plt Count 188 (150-400) X10^3/uL Neut % (Auto) 79.4 H (50-75) % Lymph % (Auto) 16.4 L (25-40) % [place] % (Auto) 4.0 (3-14) % Eos % (Auto) 0.1 L (2-4) % Baso % (Auto) 0.1 (0-2) % Neut # (Auto) 5100 (1402-4843) /uL Lymph # (Auto) 1100 (9555-5632) /uL [place] # (Auto) 300 (0-900) /uL Eos # (Auto) 0 (0-450) /uL Baso # (Auto) 0 (0-100) /uL PT 11.7 (10.1-12.7) SECONDS INR 1.0 (0.9-1.3) APTT 28 D (26.4-36.2) SECONDS Sodium 132 L (137-145) mmol/L Potassium 5.8 H (3.4-5.1) mmol/L Chloride 101 (98-107) mmol/L Carbon Dioxide 28 (22-32) mmol/L BUN 75 H (9-20) mg/dL Creatinine 2.45 H (0.66-1.25) mg/dL Estimated GFR 25.3 L (>60) mL/min BUN/Creatinine Ratio 30.6 H (6-22) Glucose 524 H* (80-110) mg/dL Lactate (0.7-2.1) mmol/L Calcium 7.9 L (8.4-10.2) mg/dL Magnesium 2.6 H (1.6-2.3) mg/dL Total Bilirubin 0.6 (0.2-1.3) mg/dL AST 47 (17-59) IU/L ALT 112 H (<50) IU/L Alkaline Phosphatase 91 (38-126) U/L Total Creatine Kinase 159 (55-170) U/L CK-MB (CK-2) 12.90 H (<2.37) ng/mL CK-MB (CK-2) Rel Index 8.1 H* (1.5-5.0) % Troponin I 0.022 (0.01-0.034) ng/mL NT-Pro-B Natriuret Pep 4570 H (<450) pg/mL Total Protein 5.5 L (6.3-8.2) g/dL Albumin 2.9 L (3.5-5.0) g/dL Globulin 2.6 (1.7-4.1) g/dL Albumin/Globulin Ratio 1.1 (1.0-2.8) Lipase 145 (23-300) U/L Procalcitonin (<0.5) ng/mL COVID-19 PCR (Negative) Blood Type Antibody Screen Crossmatch 09/07/20 09/07/20 09/07/20 Range/Units 20:14 20:14 22:03 WBC (4.5-11.0) X10^3/uL RBC (4.5-5.9) X10^6/uL Hgb (13.5-17.5) g/dL Hct (41-53) % MCV (80-100) fL MCH (26-34) PG MCHC (30-36) % RDW (11.6-14.8) % Plt Count (150-400) X10^3/uL Neut % (Auto) (50-75) % Lymph % (Auto) (25-40) % [place] % (Auto) (3-14) % Eos % (Auto) (2-4) % Baso % (Auto) (0-2) % Neut # (Auto) (2541-5237) /uL Lymph # (Auto) (7138-0013) /uL [place] # (Auto) (0-900) /uL Eos # (Auto) (0-450) /uL Baso # (Auto) (0-100) /uL PT (10.1-12.7) SECONDS INR (0.9-1.3) APTT (26.4-36.2) SECONDS Sodium (137-145) mmol/L Potassium (3.4-5.1) mmol/L Chloride (98-107) mmol/L Carbon Dioxide (22-32) mmol/L BUN (9-20) mg/dL Creatinine (0.66-1.25) mg/dL Estimated GFR (>60) mL/min BUN/Creatinine Ratio (6-22) Glucose (80-110) mg/dL Lactate 1.9 (0.7-2.1) mmol/L Calcium (8.4-10.2) mg/dL Magnesium (1.6-2.3) mg/dL Total Bilirubin (0.2-1.3) mg/dL AST (17-59) IU/L ALT (<50) IU/L Alkaline Phosphatase (38-126) U/L Total Creatine Kinase (55-170) U/L CK-MB (CK-2) (<2.37) ng/mL CK-MB (CK-2) Rel Index (1.5-5.0) % Troponin I (0.01-0.034) ng/mL NT-Pro-B Natriuret Pep (<450) pg/mL Total Protein (6.3-8.2) g/dL Albumin (3.5-5.0) g/dL Globulin (1.7-4.1) g/dL Albumin/Globulin Ratio (1.0-2.8) Lipase (23-300) U/L Procalcitonin 0.24 (<0.5) ng/mL COVID-19 PCR (Negative) Blood Type A Negative Antibody Screen Negative Crossmatch See Detail 09/07/20 09/07/20 Range/Units 22:25 22:25 WBC (4.5-11.0) X10^3/uL RBC (4.5-5.9) X10^6/uL Hgb (13.5-17.5) g/dL Hct (41-53) % MCV (80-100) fL MCH (26-34) PG MCHC (30-36) % RDW (11.6-14.8) % Plt Count (150-400) X10^3/uL Neut % (Auto) (50-75) % Lymph % (Auto) (25-40) % [place] % (Auto) (3-14) % Eos % (Auto) (2-4) % Baso % (Auto) (0-2) % Neut # (Auto) (0757-9649) /uL Lymph # (Auto) (2408-5314) /uL [place] # (Auto) (0-900) /uL Eos # (Auto) (0-450) /uL Baso # (Auto) (0-100) /uL PT (10.1-12.7) SECONDS INR (0.9-1.3) APTT (26.4-36.2) SECONDS Sodium 135 L (137-145) mmol/L Potassium 5.4 H (3.4-5.1) mmol/L Chloride 103 (98-107) mmol/L Carbon Dioxide 29 (22-32) mmol/L BUN 70 H (9-20) mg/dL Creatinine 2.57 H (0.66-1.25) mg/dL Estimated GFR 23.9 L (>60) mL/min BUN/Creatinine Ratio 27.2 H (6-22) Glucose 435 H (80-110) mg/dL Lactate (0.7-2.1) mmol/L Calcium 7.7 L (8.4-10.2) mg/dL Magnesium (1.6-2.3) mg/dL Total Bilirubin (0.2-1.3) mg/dL AST (17-59) IU/L ALT (<50) IU/L Alkaline Phosphatase (38-126) U/L Total Creatine Kinase (55-170) U/L CK-MB (CK-2) (<2.37) ng/mL CK-MB (CK-2) Rel Index (1.5-5.0) % Troponin I (0.01-0.034) ng/mL NT-Pro-B Natriuret Pep (<450) pg/mL Total Protein (6.3-8.2) g/dL Albumin (3.5-5.0) g/dL Globulin (1.7-4.1) g/dL Albumin/Globulin Ratio (1.0-2.8) Lipase (23-300) U/L Procalcitonin (<0.5) ng/mL COVID-19 PCR Negative (Negative) Blood Type Antibody Screen Crossmatch Urine Dip Bedside Urine Glucose 1000 mg/dl Bedside Urine Bilirubin - Negative Bedside Urine Ketone - Negative Urine Specific [place] 1.015 Bedside Urine Occult Blood +/- Bedside Urine pH 6.0 Bedside Urine Protein - Negative Bedside Urine Urobilinogen - Negative Bedside Urine Nitrite - Negative Bedside Urine Leukocytes - Negative Esterase Discharge Plan Departure Patient Disposition: Admitted As Inpatient Clinical Impression: Acute hyperglycemia, Anemia, Acute hyperkalemia Discharge Date/Time: 09/08/20 00:15 Admit Date/Time: 09/07/20 22:46 Admit Provider: Venkatesh Beltran
[2020-09-07 21:37] LABS: Procalcitonin 0.24 ng/mL (<0.5)
[2020-09-07 21:41] LABS: CKMB % Relative Index 8.1 % (1.5-5.0)
[2020-09-07] MEDS: FUROSEMIDE 40 MG/4 ML VIAL IV (21:49)
[2020-09-07] MEDS: SODIUM CHLORIDE 0.9% 1,000 ML 125 ML IV (21:49)
[2020-09-07] MEDS: INSULIN REGULAR 100 UNIT/ML 3 ML VIAL SUBCUT (22:38)
[2020-09-07 22:43] LABS: BUN Creatinine Ratio 27.2 (6-22); Blood Urea Nitrogen 70 mg/dL (9-20); Calcium 7.7 mg/dL (8.4-10.2); Carbon Dioxide 29 mmol/L (22-32); Chloride 103 mmol/L (98-107); Estimated Glomerular Filt Rate 23.9 mL/min (>60); Glucose 435 mg/dL (80-110); HEMOLYSIS < 15 (0-50); Sodium 135 mmol/L (137-145)
[2020-09-07 22:44] LABS: Potassium 5.4 mmol/L (3.4-5.1)
[2020-09-07 22:54] LABS: COVID19 -Nasal RAPID Negative (Negative)
[2020-09-08] VITALS (12 sets, daily range): BP systolic 117–169; BP diastolic 58–75; PULSE 56–69; RESP 16–20; TEMP 36.2–36.9; O2SAT 98–100; BMI 22.1
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
[2020-09-08] MEDS: CALCIUM CARBONATE 500 MG TAB 1000 MG PO (01:00)
[2020-09-08] MEDS: INSULIN ASPART 100 UNIT/ML INSULN PEN SUBCUT ×2 (01:01→11:52)
[2020-09-08] MEDS: FUROSEMIDE 40 MG/4 ML VIAL IV (04:42)
--- NOTE | 2020-09-08 04:44 | PC.NURSE ---
Assumed care of Pt @ 0300, first transfusion slowly infusing with no complaints. Remains forgetful, calling out instead of using call light. Lasix given after 1st unit of PRBC completed. Turning q2 llllllllllllllllllllllllllllllllllllllllllllllllllllllllllllllllllllllllllllllllllllllllllllllllllllllllllllllllllllllllllllllllllllllllllllllllllllllllllllllllllllllllllllllllllllllllllllllllllllllllllllllllllllllllllllllllllllllllllllllllllllllllll llllllllllllllllllllllllllllllllllllllllllllllllllllllllllllllllllllllllllllllllllllllllllllllllllllllllllllllllllllllllllllllllllll
[2020-09-08 08:45] LABS: Add Manual Diff / Slide Review NO; Basophils Absolute Auto 0 /uL (0-100); Basophils Percent Auto 0.5 % (0-2); Eosinophils Absolute Auto 0 /uL (0-450); Eosinophils Percent Auto 0.6 % (2-4); Hematocrit 31.7 % (41-53); Hemoglobin 10.7 g/dL (13.5-17.5); Lymphocytes Absolute Auto 1300 /uL (1100-4500); Mean Corpuscular HGB Conc 33.9 % (30-36); Mean Corpuscular Hemoglobin 30.8 PG (26-34); Mean Corpuscular Volume 90.7 fL (80-100); Monocytes Absolute Auto 500 /uL (0-900); Monocytes Percent Auto 7.6 % (3-14); Neutrophils Absolute Auto 4400 /uL (1500-7000); Neutrophils Percent Auto 70.3 % (50-75); Platelet Count 193 X10^3/uL (150-400); Red Blood Cell Count 3.49 X10^6/uL (4.5-5.9); White Blood Cell Count 6.3 X10^3/uL (4.5-11.0)
[2020-09-08 09:00] LABS: Creatine Kinase 103 U/L (55-170)
[2020-09-08 09:02] LABS: Alanine Aminotransferase 121 IU/L (<50); Albumin 3.1 g/dL (3.5-5.0); Alkaline Phosphatase 85 U/L (38-126); Aspartate Aminotransferase 47 IU/L (17-59); Bilirubin Total 1.2 mg/dL (0.2-1.3); Blood Urea Nitrogen 71 mg/dL (9-20); Calcium 8.5 mg/dL (8.4-10.2); Carbon Dioxide 32 mmol/L (22-32); Chloride 102 mmol/L (98-107); Estimated Glomerular Filt Rate 27.3 mL/min (>60); Globulin 3.1 g/dL (1.7-4.1); Glucose 121 mg/dL (80-110); HEMOLYSIS < 15 (0-50); Magnesium 2.5 mg/dL (1.6-2.3); Phosphorous 3.7 mg/dL (2.3-3.7); Potassium 4.5 mmol/L (3.4-5.1); Sodium 137 mmol/L (137-145); Total Protein 6.2 g/dL (6.3-8.2)
[2020-09-08 09:10] LABS: NT-proBNP (BNP-Adult 18+) 6000 pg/mL (<450)
[2020-09-08 09:13] LABS: Troponin I 0.016 ng/mL (0.01-0.034)
[2020-09-08] MEDS: MORPHINE ER 15 MG TABLET PO ×2 (09:34→13:09)
[2020-09-08] MEDS: DOCUSATE 100 MG CAPSULE PO (09:35)
[2020-09-08] MEDS: AMLODIPINE 5 MG TABLET 10 MG PO (09:35)
[2020-09-08] MEDS: GABAPENTIN 600 MG TABLET 200 MG PO (09:35)
[2020-09-08] MEDS: PANTOPRAZOLE 40 MG VIAL IV (09:36)
[2020-09-08] MEDS: polyethylene glycoL 3350 17 GM POWD.PACK PO (09:36)
[2020-09-08] MEDS: HEPARIN 5,000 UNIT/ML VIAL 5000 UNIT SUBCUT (09:36)
[2020-09-08] MEDS: CLOPIDOGREL 75 MG TABLET PO (09:36)
[2020-09-08] MEDS: ISOSORBIDE MONONITRATE ER 30 MG TABLET 60 MG PO (09:36)
[2020-09-08] MEDS: predniSONE 20 MG TABLET 40 MG PO (09:36)
[2020-09-08] MEDS: METOPROLOL ER 25 MG TABLET PO (09:36)
[2020-09-08] MEDS: DOXAZOSIN 2 MG TABLET 1 MG PO (09:37)
[2020-09-08 10:04] LABS: CKMB % Relative Index 11.8 % (1.5-5.0)
--- NOTE | 2020-09-08 10:05 | PC.NURSE ---
rec'd critical from lab at 1004 CK-MB was 12.2 and CK-MB relative index percent is 11.8. reported to primary RN Sarah at 1005.
--- NOTE | 2020-09-08 10:27 | PC.NURSE ---
Day shift: Dr Johansen informed of critical lab value CK-MB 12.20 at approx 1020.
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
[2020-09-08] MEDS: INSULIN GLARGINE 100 UNIT/ML 3ML PEN SUBCUT (11:39)
--- NOTE | 2020-09-08 11:44 | PT.IIE ---
Surgical History (Last Updated 09/08/20 @ 01:15 by PIPPA Hernandez) H/O heart artery stent (Acute) History of esophagogastroduodenoscopy (EGD) (Acute) Medical History (Last Updated 09/08/20 @ 01:15 by PIPPA Hernandez) (HFpEF) heart failure with preserved ejection fraction (Acute) Anemia (Acute) Angina pectoris (Acute) Donald's esophagus (Acute) Chronic kidney disease, stage 4 (severe) (Acute) Chronic neck pain (Acute) Constipation (Inactive) Coronary artery disease (Acute) Decubitus skin ulcer (Inactive) Diabetes mellitus type 2, diet-controlled (Acute) HTN (hypertension) (Acute) Hyperlipidemia (Chronic) Opiate dependence (Acute) Physical Therapy Inpatient Evaluation/Re-Eval M1 PT/OT-IP Prior Functional Status Start: 09/08/20 13:23 Freq: NEEDED Status: Active Protocol: Document 09/08/20 13:24 [facility] (Rec: 09/08/20 13:35 [facility] [id number]) Medical Review Prior Functional Status Medical History Reviewed Yes Communication [place] Mobility and Gait Pt reports he amb with his standard walker Activities of Daily Living and IADL's Pt reports friend Stanley helps as needed with bathing & dressing Social History Household Members caregiver Living Arrangements House Number of Floors (Floors) One Floor Number of Stairs To Enter/Railing? no THELMA Home Environment Standard Height Toilet,Walk in Shower Home Equipment Raised Toilet Seat w/Armrests, Shower Seat with Backrest,Grab Bars In Shower M2 PT-IP Current Condition Start: 09/08/20 13:23 Freq: NEEDED Status: Active Protocol: Document 09/08/20 13:24 [facility] (Rec: 09/08/20 13:35 [facility] [id number]) Physical Therapy Current Condition Current Condition Evaluation Date 09/08/20 Treatment Diagnosis anemia, hyperglycemia, weakness M3 PT-IP Subjective Start: 09/08/20 13:23 Freq: NEEDED Status: Active Protocol: Document 09/08/20 13:24 [facility] (Rec: 09/08/20 13:35 [facility] [id number]) Subjective Physical Therapy Visit Type Type Initial Evaluation Visit Start Time 11:15 Visit Stop Time 11:44 Total Visit Minutes 29 Number of MINE DEVELOPMENT ENGINEER Visits 0 Physical Therapy Visit Comments Patient Comments Pt agreeable to get up Therapy Pain Assessment Pain When Pain Assessed During Mobility Pain Present Pain Present Pain Reported Location back Pain Management Techniques Re-positioning,Timing of Activity with Medications M4 PT-IP Mobility and Gait Start: 09/08/20 13:23 Freq: NEEDED Status: Active Protocol: Document 09/08/20 13:24 [facility] (Rec: 09/08/20 13:35 [facility] [id number]) PT-Bed Mobility Assessment Supine to Sit Supine to Sit Minimal Assistance,1 Person Assistance,Head of Bed Elevated Scooting Scooting to Edge of Bed Contact Guard Assistance PT-Transfer Assessment Sit to and From Stand Sit to and from Stand Contact Guard Assistance,Use of Upper Extremities Equipment Transfer Assistive Device Gait Belt,Front Wheeled Walker Orthotic/Prosthetic Devices or Brace: No Transfers Transfer Destination Chair Transfer Technique Stand Step Pivot Transfer Ability Level of Assist Contact Guard Assistance Comments Mobility Comments Pt was able to satnd from bed then amb around room and out of rom 250ft with significant flex of trunk d/t back issues. Pt then sat in chair and was left with call light inr each. Gait Assessment Gait Gait Assistance Required: Contact Guard Assist Distance (Feet) 250 Assistive Devices Assistive Device Gait Belt,Front Wheeled Walker Orthotic/Prosthetic Devices or Brace: No Gait Deviations General Gait Pattern Antalgic,Decreased Stride Length,Flexed Trunk Factors Limiting Gait Function Factors Limiting Gait Function Decreased Activity Tolerance, Decreased Strength,Pain,Poor Balance Comments Gait Comments see above PT-Balance Assessment Sitting Balance and Reactions Static Sitting Balance Ability Good Dynamic Sitting Balance Ability Good Standing Balance and Reactions Static Standing Balance Ability Good Dynamic Standing Balance Ability Fair Device Used FWW M5 PT-IP Objective Assessments Start: 09/08/20 13:23 Freq: NEEDED Status: Active Protocol: Document 09/08/20 13:24 [facility] (Rec: 09/08/20 13:35 [facility] [id number]) Orientation Orientation/Cognition Level of Alertness Alert Safety Awareness Understands Safety Issues Memory Description No Deficits Noted M6 PT-IP Treatment Start: 09/08/20 13:23 Freq: NEEDED Status: Active Protocol: Document 09/08/20 13:24 [facility] (Rec: 09/08/20 13:35 [facility] [id number]) Physical Therapy Treatment Education Education Provided Safety M7 PT-IP Assessment and Plan Start: 09/08/20 13:23 Freq: NEEDED Status: Active Protocol: Document 09/08/20 13:24 [facility] (Rec: 09/08/20 13:35 [facility] [id number]) PT Summary Assessment and Plan Potential Rehabilitation Potential Good Status of Condition at Evaluation Stable Summary Impairments Pain,Strength,Balance,Bed Mobility,Transfers,Gait Assessment Summary Pt preseents to hospital with diagnosis of anemai and hyperglycemia and overall weakness with fall history. He has mult recent hospitalizations d/t sickness. He does have a friend that helps to CG for him. He would benefit from PT to work on strength, balance, mobility and safety. He did require CGA for safety during all mboility. Goals Bed Mobility Goal Standby Assistance Transfer Goal Standby Assistance Gait Goal Standby Assistance Gait Distance 250ft Frequency of Treatment Frequency Of Treatment Once a Day Treatment Plan Physical Therapy Treatment Plan Bed Mobility Training,Transfer Training,Gait Training, Therapeutic Exercise,Balance Retraining,Discharge Planning Other Recommendations and Next Treatment gait & balance, CG training Focus Recommendations To Nursing Amount of Assist Needed 1 Person Assist Discharge Recommendations PT Discharge Recommendations Home with 09/06 Assist,Home Health
--- NOTE | 2020-09-08 14:03 | PC.NURSE ---
Day shift: Pt's outdoor emergency care technician Stanley will be here to take Pt home at approx 1430 today. Pt taken off tele at 1405. Pt stated I do want to go home today. Will do teaching of Lantus administration w/ Pt and Stanley prior to d/c.
--- NOTE | 2020-09-08 14:12 | PC.NURSE ---
Day shift: Pt and Stanley informed that Gabapentin dose is changed from 3 times a day to 2 times a day. Made note on discharge paperwork as well.
--- NOTE | 2020-09-08 14:57 | PC.NURSE ---
Addendum entered by Henok Oconnor R.N. 09/08/20 16:00: patient d/c and escorted down by aid. Pt left in stable condition with belongings in care takers hand. Original Note: Day shift: Paperwork signed and all questions answered. Went over paperwork with Stanley as well. Stanley is Pt's structural metal fabricator apprentice. Pt has all personal belongings. Pt to be taken out to car by next shift.
--- NOTE | 2020-09-08 15:03 | PC.ADMIT ---
Late Entry: Admission Note: The patient,Graeme Forte Jr,85 y/o, was given written information regarding hospital policies, unit procedures and contact persons. Patient's smoking status: Former smoker. Pt arrived to Room 206 via stretcher from Ed at approx 0010. A/O. VSS. RA, Able to slide to bed with minimal assist. Legs elevated on pillows. Heels floated. Stockingette applied on BLE's under SCD's to protect weeping edematous BLE. Skin check complete. Photos taken of skin injuries. BG remains elevated. Notified provider and coverage given per sliding scale. Oriented to room and call system. Bed alarm placed on. Door open for close monitoring. Vital Signs - 8 hr 09/08/20 07:56 09/08/20 08:02 09/08/20 10:29 Temperature 98.4 F 98.4 F Pulse Rate 56 L 56 L 56 L Respiratory Rate 20 20 Blood Pressure 135/63 135/63 Pulse Oximetry 98 09/08/20 11:47 Temperature 98.0 F Pulse Rate 69 Respiratory Rate 20 Blood Pressure 131/74 Pulse Oximetry 99
--- NOTE | 2020-09-08 15:38 | CM.IDA ---
Initial DCP Assessment Note Patient is an 85 yo male, resident of [place]. Patient presents w/increased weakness, confusion and increasing SOB. PCP: Kane Molina Payer: RAYMOND/Justine reviewed chart, met w/patient to introduce role. Patient here .-08.13.20 and back 08.25.20; had DC home w/his cousin Stanley, HH offered at the time and patient denied need. assessment information from ENEIDA Fuller and Nicolette Savage remains the same, see notes. Stanley Goddard: cell: [phone]. According to patient, he is managing well at home w/assist from Stanley and will not need HH services upon DC today. Patient plans to have Stanley transport him home. Patient does have a DC order by Dr Johansen today. Patient mentions he hopes to get Dr Garcia as his PCP very soon, current PCP is in [place]. Patient denies need for assist w/this today, states his current PCP and Dr Johansen are working on this (?) P: DC home w/family, PT recommends home w/HH, patient refuses HH today JW
--- NOTE | 2020-10-07 10:56 | PC.NURSE ---
patient's IV saline was stopped at 0015
== END 2020-09-08 15:30 | disposition home health service (06) ==
LOC: ED 22:37 → AC 09-08 08:12
PROVIDERS: Admitting Provider Nurse Practitioner Adult Health; Emergency Provider Emergency Medicine; Family Provider Internal Medicine; PCP Internal Medicine; Referring Provider Emergency Medicine; Visit Provider Nurse Practitioner Adult Health
DX: N18.4 Chronic kidney disease, stage 4 (severe) (principal); D63.1 Anemia in chronic kidney disease; E11.22 Type 2 diabetes mellitus with diabetic chronic kidney disease; E78.5 Hyperlipidemia, unspecified; I25.10 Atherosclerotic heart disease of native coronary artery without angina pectoris; Z95.1 Presence of aortocoronary bypass graft; I13.0 Hypertensive heart and chronic kidney disease with heart failure and stage 1 through stage 4 chronic kidney disease, or unspecified chronic kidney disease; I50.32 Chronic diastolic (congestive) heart failure; Z79.891 Long term (current) use of opiate analgesic; G89.29 Other chronic pain; Z87.891 Personal history of nicotine dependence; T38.0X5A Adverse effect of glucocorticoids and synthetic analogues, initial encounter; E11.65 Type 2 diabetes mellitus with hyperglycemia; E87.5 Hyperkalemia; Z11.59 Encounter for screening for other viral diseases
CPT/HCPCS: 36415; 36430; 71045; 80048; 80053; 81003; 82550; 82553; 82962; 83605; 83690; 83735; 83880; 84100; 84145; 84484; 85025; 85610; 85730; 86850; 86900; 86901; 87635; 93005; 93010; 96361; 96372; 96374; 96375; 96376; 97116; 97530; 99213; 99284; G0378; P9016; C9113; J0881; J1644; J1940

== ENCOUNTER 2020-09-10 00:22 | Emergency (ER) | payer MEDICARE, OTHER, SELFPAY ==
[2020-09-08 02:05] VITALS: BMI 22.1
[2020-09-10 00:37] VITALS: BP 177/81; PULSE 83; RESP 15; TEMP 36.9; O2SAT 100; BMI 20.9
--- NOTE | 2020-09-10 00:42 | DI.CT.S_ITS ---
PROCEDURE: CT CERVICAL SPINE WO CON INDICATIONS: Fall/injury TECHNIQUE: Noncontrast 3 mm thick sections acquired from the skull base to the T4 level. Sagittal and coronal reformats were then constructed. For radiation dose reduction, the following was used: automated exposure control, adjustment of mA and/or kV according to patient size. COMPARISON: None. FINDINGS: Image quality: Excellent. Bones: No fractures or dislocations. Severe degenerative changes are present within the cervical spine most severe at C6-7 where there is marked intervertebral disc space narrowing and sclerosis. Visualized superior ribs are intact. Soft tissues: Prevertebral soft tissues are normal in thickness. No paravertebral hematomas. No apical pneumothoraces. IMPRESSION: Severe degenerative change. No acute cervical spine injury. These findings are concordant with the overnight interpretation. Dictated by: Maria Guadalupe Nieto M.D. on 09/10/2020 at 7:45 Approved by: Maria Guadalupe Nieto M.D. on 09/10/2020 at 7:47
--- NOTE | 2020-09-10 00:42 | DI.CT.S_ITS ---
PROCEDURE: CT HEAD/BRAIN WO CON INDICATIONS: Fall/injury TECHNIQUE: Noncontrast 4.5 mm thick angled axial sections acquired from the foramen magnum to the vertex, with coronal and sagittal reformats. For radiation dose reduction, the following was used: automated exposure control, adjustment of mA and/or kV according to patient size. COMPARISON: [facility], CT, CT HEAD/BRAIN WO CON, 07/27/2020, 3:20. FINDINGS: Image quality: Motion artifact somewhat limits evaluation of the skull base. CSF spaces: Basal cisterns are patent. No extra-axial fluid collections. The ventricles are symmetric in size and shape. Brain: No intracranial bleeds or masses. There is cerebral volume loss for age, with resultant ventricular and sulcal prominence. There are periventricular and deep white matter chronic small vessel ischemic changes. There is intracranial internal carotid artery atherosclerosis. Skull and face: Calvarium and visualized facial bones appear intact, without suspicious lesions. Sinuses: Visualized sinuses and mastoids are clear. IMPRESSION: 1. No acute intracranial findings. 2. Mild findings likely associated with chronic microvascular ischemic change. Dictated by: Maria Guadalupe Nieto M.D. on 09/10/2020 at 7:42 Approved by: Maria Guadalupe Nieto M.D. on 09/10/2020 at 7:44
--- NOTE | 2020-09-10 00:43 | ED_ITS ---
HPI - Fall General Chief Complaint: Fall Stated Complaint: GLF, hit head Time Seen by Provider: 09/10/20 00:31 Source: patient and EMS Mode of arrival: EMS Limitations: no limitations History of Present Illness HPI Narrative: Patient brought in by ambulance from home. Patient was trying to get from the toilet with the commode rise, lost his balance and fell to the right striking the right side of his head against the wash basin. Denies any loss of consciousness. Denies any chest pain dizziness headache abdomen pain back pain or any pre event complaints before slipping. He states that the heel blister has been a problem for him and makes it difficult to walk. In place weight on it. Just discharged 2 days ago for the same complaint of the heel blister. Patient is on Plavix. The patient recalls the entire event. Denies any other injuries. Tetanus is up-to-date Related Data Home Medications Medication Instructions Recorded Confirmed clopidogrel [Plavix] 75 mg PO DAILY #0 12/02/16 09/05/20 atorvastatin 80 mg PO BEDTIME #0 11/25/17 09/05/20 lansoprazole [Prevacid] 30 mg PO BIDAC #0 11/25/17 09/05/20 morphine 1 tab PO 5XD 08/26/18 09/05/20 nortriptyline 25 mg PO BEDTIME 08/26/18 09/05/20 polyethylene glycol 3350 1 dose PO DAILY 08/26/18 09/05/20 Centrum Silver 1 tab PO DAILY 09/08/19 09/05/20 cranberry 400 mg DAILY 09/08/19 09/05/20 cyanocobalamin (vitamin B-12) 1,000 mcg PO BID 09/08/19 09/05/20 [Vitamin B-12] ferrous sulfate 325 mg PO DAILY 09/08/19 09/05/20 amlodipine 10 mg PO DAILY 11/03/19 09/05/20 isosorbide mononitrate 60 mg PO DAILY 11/03/19 09/05/20 metoprolol succinate 25 mg PO DAILY 11/03/19 09/05/20 Co Q-10 300 mg PO DAILY 12/24/19 09/05/20 Ventricor 1 dose PO DIRECTED 12/24/19 09/05/20 Vitapulse 1 dose PO BID 12/24/19 09/05/20 flaxseed oil 1 dose PO DIRECTED 12/24/19 09/05/20 nitroglycerin 0.4 mg SUBLINGUAL PRN PRN 12/24/19 09/05/20 resveratrol 1 cap PO DIRECTED 12/24/19 09/05/20 Artificial Tears (cmc) 1 drp OPHTHALMIC (EYE) TID PRN 08/09/20 09/05/20 doxazosin 1 mg PO DAILY 08/09/20 09/05/20 Previous Rx's Medication Instructions Recorded prednisone 60 mg PO DAILY #30 tab 08/13/20 amoxicillin-pot clavulanate 1 tab PO BID #10 tab 08/27/20 [Augmentin] prednisone 40 mg PO DAILY #7 tab 08/27/20 prednisone 10 mg PO DAILY #40 tab 08/29/20 gabapentin [Neurontin] 600 mg PO BID #0 tab 09/08/20 insulin glargine [Lantus Solostar 5 unit SUBCUT DAILY 30 Days #3 ml 09/08/20 U-100 Insulin] pen needle, diabetic [Pen Needle] #30 each 09/08/20 Allergies Allergy/AdvReac Type Severity Reaction Status Date / Time cephalexin Allergy Severe RASH Verified 08/24/20 09:45 ciprofloxacin Allergy Severe RASH Verified 08/24/20 09:45 Fish Containing Products Allergy Severe Difficulty Verified 08/24/20 09:45 Breathing shellfish derived Allergy Severe Difficulty Verified 08/24/20 09:45 Breathing avocado AdvReac Intermediate Vomiting Verified 08/24/20 09:45 cucumber AdvReac Intermediate Vomiting Verified 08/24/20 09:45 Review of Systems Review of Systems Narrative: GENERAL: Denies chills, fatigue, malaise, fever, sweats. HEENT: Denies sinus pain, ear pain, sore throat, difficulty swallowing RESPIRATORY: Denies dyspnea, cough CARDIOVASCULAR: Denies chest pain, palpitations, edema, GASTROINTESTINAL: Denies nausea, vomiting, abdominal pain, diarrhea, c onstipation, melena. : Denies dysuria, frequency, hematuria MUSCULOSKELETAL: denies muscle or bony pain SKIN: Denies rash, skin lesions, complains laceration to the right forehead NEUROLOGIC: Denies weakness, headache, numbness, change in speech, confusion PSYCHIATRIC: No SI or HI or hallucinations ROS Unobtainable: All systems reviewed & are unremarkable except as noted in HPI and below Patient History Medical History (HFpEF) heart failure with preserved ejection fraction (Acute) Anemia (Acute) Angina pectoris (Acute) Donald's esophagus (Acute) Chronic kidney disease, stage 4 (severe) (Acute) Chronic neck pain (Acute) Constipation (Inactive) Coronary artery disease (Acute) Decubitus skin ulcer (Inactive) Diabetes mellitus type 2, diet-controlled (Acute) HTN (hypertension) (Acute) Hyperlipidemia (Chronic) Opiate dependence (Acute) Surgical History H/O heart artery stent (Acute) History of esophagogastroduodenoscopy (EGD) (Acute) Family History Father Kidney failure Mother Heart disease Social History household members: caregiver Smoking Status: Former smoker alcohol intake: current Smoking Status: Former smoker alcohol intake frequency: holidays/special occasions only Substance Use Type: does not use Exam Narrative Exam Narrative: GENERAL: patient appears stated age. Well-nourished, well- developed patient, in no distress, not toxic not dyspneic HEAD: Normocephalic. Mild tenderness to the right upper forehead at the hairline. There is a 1.5 cm superficial laceration. Bloodless field. Based visualized. No bone or muscle injury seen. No crepitus or step-off EYES: Pupils equal round and reactive. No scleral icterus. No injection no discharge ENT: Mucous membranes moist. No drooling no tongue elevation no trismus no malocclusion NECK: Trachea midline. Non tender, no midline tenderness or step-off. CARDIOVASCULAR: Regular rate and rhythm without murmurs, gallops, or rubs. RESPIRATORY: Clear to auscultation. Breath sounds equal bilaterally. No wheezes, rales, or rhonchi. GASTROINTESTINAL: Abdomen soft, non-tender, nondistended. EXTREMITIES: No gross deformities. Nontender bilateral shoulders elbows wrists pelvis hips knees and ankles. Socks removed, blister/wound on left heel without any bleeding, blister skin lays flat BACK: Nontender without deformity or crepitance. No flank tenderness. Healing bedsores midline at the lower thoracic spine at the sacrum NEURO: AOx4. SKIN: Warm and dry PSYCH: Not anxious, is cooperative Initial Vital Signs Initial Vital Signs: Vital Signs Temperature 98.5 F 09/10/20 00:37 Pulse Rate 83 09/10/20 00:37 Respiratory Rate 15 09/10/20 00:37 Blood Pressure 177/81 H 09/10/20 00:37 Pulse Oximetry 100 09/10/20 00:37 Procedures Laceration Repair Laceration 1: Site: scalp Side (If applicable): right Size (cm): 1.5 Description: linear Depth: simple, single layer Local Anesthetic: lidocaine 1% and with epi Amount of anesthesia used (mL): 2 Pre-repair: wound explored and irrigated extensively Skin layer closed with: nylon Size (cm): 5-0 Number of sutures: 3 Technique: simple, interrupted Course Orders Ordered: Discontinued Medications Bacitracin (Bacitracin) 1 applic TOP NOW ONE Stop: 09/10/20 01:53 Last Admin: 09/10/20 02:07 Dose: 1 applic Documented by: JULIO CESAR Vital Signs Vital signs: Vital Signs - 8 hr 09/10/20 00:37 Temperature 98.5 F Pulse Rate 83 Respiratory Rate 15 Blood Pressure 177/81 H Pulse Oximetry 100 MDM - Fall Differential Diagnosis Differential diagnosis: Likely other (Fall/scalp laceration) Lab Data Labs: Point of Care Testing Glucose POC [address] scan - head: Radiologist's Impression: No acute process CT - cervical spine: Radiologist's Impression: No acute process MDM Narrative Medical decision making narrative: Appropriate for discharge home. Reviewed with patient events and clinically mechanical fall. No pre fall complaints of chest pain headache dizziness numbness tingling or weakness back pain or abdominal pain or dyspnea Discharge Plan Departure Patient Disposition: Home Clinical Impression: Laceration of scalp Qualifiers: Encounter type: initial encounter Qualified Code(s): S01.01XA - Laceration without foreign body of scalp, initial encounter Discharge Date/Time: 09/10/20 02:55 Instructions: DI for Laceration Repair, How to Prevent Falls Activity Restrictions/Additional Instructions: Return if worse or if any questions concerns. Clean scalp twice a day with warm soap and water and then apply thin layer topical antibiotic. See family physician for removal of 3 stitches in 9 days. May shower but no submersion of the head under water Prescriptions: No Action clopidogrel [Plavix] 75 MG tablet 75 mg PO DAILY Qty: 0 RF: 0 lansoprazole [Prevacid] 30 MG capsule,delayed release(DR/EC) 30 mg PO BIDAC Qty: 0 RF: 0 atorvastatin 80 MG tablet 80 mg PO BEDTIME Qty: 0 RF: 0 nitroglycerin 0.4 mg tablet, sublingual 0.4 mg sublingual PRN PRN (Reason: Chest Pain) RF: 0 Co Q-10 300 mg Capsule 300 mg PO DAILY RF: 0 flaxseed oil 1 dose PO DIRECTED RF: 0 Ventricor 1 dose PO DIRECTED RF: 0 resveratrol 1 cap PO DIRECTED RF: 0 Vitapulse 1 dose PO BID RF: 0 doxazosin 1 mg tablet 1 mg PO DAILY RF: 0 Artificial Tears (cmc) 1 % Drops 1 drp OPHTHALMIC (EYE) TID PRN (Reason: Dry Eye(S)) RF: 0 prednisone 20 mg tablet 60 mg PO DAILY Qty: 30 RF: 0 prednisone 20 mg Tablet 40 mg PO DAILY Qty: 7 RF: 0 amoxicillin-pot clavulanate [Augmentin] 875-125 mg tablet 1 tab PO BID Qty: 10 RF: 0 nortriptyline 25 mg capsule 25 mg PO BEDTIME RF: 0 morphine 15 mg tablet extended release 1 tab PO 5XD RF: 0 polyethylene glycol 3350 17 gram/dose powder 1 dose PO DAILY RF: 0 cyanocobalamin (vitamin B-12) [Vitamin B-12] 1,000 mcg Tablet Extended Release 1,000 mcg PO BID RF: 0 ferrous sulfate 325 mg (65 mg iron) Tablet 325 mg PO DAILY RF: 0 cranberry 400 mg Capsule 400 mg DAILY RF: 0 Centrum Silver 400-250 mcg Tablet,Chewable 1 tab PO DAILY RF: 0 isosorbide mononitrate 60 mg Tablet Extended Release 24 Hr 60 mg PO DAILY RF: 0 amlodipine 10 mg Tablet 10 mg PO DAILY RF: 0 metoprolol succinate 25 mg Tablet Extended Release 24 Hr 25 mg PO DAILY RF: 0 prednisone 5 mg Tablet,Delayed Release (Dr/Ec) 10 mg PO DAILY Qty: 40 RF: 0 Lantus Solostar U-100 Insulin 100 unit/mL (3 mL) insulin pen 5 unit SUBCUT DAILY 30 Days Qty: 3 RF: 0 (DME) pen needle, diabetic [Pen Needle] 32 gauge x 5/32 needle See Rx Instructions .ROUTE .MEDSUPPLY Qty: 30 RF: 0 gabapentin [Neurontin] 600 MG tablet 600 mg PO BID Qty: 0 RF: 0 Referrals: Kane Molina MD [Primary Care Provider] -
[2020-09-10] MEDS: LIDOCAINE 1% W/EPI 30 ML (01:03)
[2020-09-10] MEDS: BACITRACIN OINT 0.9 GM PCKT 1 APPLIC TOP (02:07)
[2020-09-10 02:21] VITALS: BP 161/67; PULSE 63; RESP 15; O2SAT 98
--- NOTE | 2020-09-10 02:23 | PC.NURSE ---
Wound to forehead cleansed and dressed with bacitracin, non-adherent pad, and secured with gauze turban. Wound to left heel cleansed with saline, non-adherent pad applied and secured with gauze wrap. Pt tolerated well.
== END 2020-09-10 02:55 | disposition home or self-care (01) ==
PROVIDERS: Emergency Provider Emergency Medicine; Family Provider Internal Medicine; PCP Internal Medicine
DX: S01.01XA Laceration without foreign body of scalp, initial encounter (principal); W19.XXXA Unspecified fall, initial encounter
CPT/HCPCS: 12001; 70450; 72125; 82962; 99284

== ENCOUNTER 2020-09-12 04:52 | Inpatient (IN) | payer MEDICARE, OTHER, SELFPAY ==
[2020-09-08 02:05] VITALS: BMI 22.1
[2020-09-12] VITALS (12 sets, daily range): BP systolic 116–191; BP diastolic 65–84; PULSE 57–84; RESP 13–18; TEMP 36.1–36.7; O2SAT 94–100; BMI 22.1
--- NOTE | 2020-09-12 05:14 | DI.RAD.S_ITS ---
PROCEDURE: XR FOOT LT MIN 3V INDICATIONS: cellulitis, left calcaneus TECHNIQUE: 3 views of the foot were acquired. COMPARISON: None. FINDINGS: Bones: No fractures or dislocations. No suspicious bony lesions. Mild degenerative change at the tibiotalar joint, and at the interphalangeal joints, but no acute trauma found. Soft tissues: No tibiotalar joint effusion. Achilles tendon appears normal. There is dorsal soft tissue swelling seen on the lateral view over the midfoot. IMPRESSION: Soft tissue swelling over the midfoot, no acute trauma found. No foreign body, gas in the soft tissues or osteomyelitis is identified. Several small vessel calcifications are noted, possibly indicating presence of longstanding diabetes. Dictated by: Devin Bee M.D. on 09/12/2020 at 8:18 Approved by: Devin Bee M.D. on 09/12/2020 at 8:20
--- NOTE | 2020-09-12 05:16 | ED.AMS ---
HPI - Altered Mental Status General Chief Complaint: Altered Mental Status Stated Complaint: Altered LOC Time Seen by Provider: 09/12/20 05:05 Source: EMS Mode of arrival: EMS Limitations: altered mental status History of Present Illness HPI narrative: The patient presents by EMS this morning apparently with concerns for confusion and aggressiveness. He arrives by himself. His living situation is unclear, he has either a partner or caregiver. He has had multiple, recent visits to this facility. With those recent visits he is repeatedly been a poor historian. Within last few weeks he has had 2 falls, head CTs have been done. There has been no significant injury. A left heel ulcer was diagnosis last week, , the etiology is unclear. He has recently confusion. Was recently admitted with hyperglycemia. His complex medical history includes chronic kidney disease, anemia requiring transfusion, type 2 diabetes, hypertension, hyperlipidemia, CAD status post CABG. Had a stent placed in 2014. He has diastolic heart failure. Pulmonary effusions were noted on recent admission, he has CHF. With this ER visit the patient notes that he is in the ER. He knows he was sent here, he has no specific complaints. Asking my is here, his response is he is stuff he needs to work out.Complaints are no more specific. There is no obvious, new injury. Related Data Home Medications Medication Instructions Recorded Confirmed clopidogrel [Plavix] 75 mg PO DAILY #0 12/02/16 09/05/20 atorvastatin 80 mg PO BEDTIME #0 11/25/17 09/05/20 lansoprazole [Prevacid] 30 mg PO BIDAC #0 11/25/17 09/05/20 morphine 1 tab PO 5XD 08/26/18 09/05/20 nortriptyline 25 mg PO BEDTIME 08/26/18 09/05/20 polyethylene glycol 3350 1 dose PO DAILY 08/26/18 09/05/20 Centrum Silver 1 tab PO DAILY 09/08/19 09/05/20 cranberry 400 mg DAILY 09/08/19 09/05/20 cyanocobalamin (vitamin B-12) 1,000 mcg PO BID 09/08/19 09/05/20 [Vitamin B-12] ferrous sulfate 325 mg PO DAILY 09/08/19 09/05/20 amlodipine 10 mg PO DAILY 11/03/19 09/05/20 isosorbide mononitrate 60 mg PO DAILY 11/03/19 09/05/20 metoprolol succinate 25 mg PO DAILY 11/03/19 09/05/20 Co Q-10 300 mg PO DAILY 12/24/19 09/05/20 Ventricor 1 dose PO DIRECTED 12/24/19 09/05/20 Vitapulse 1 dose PO BID 12/24/19 09/05/20 flaxseed oil 1 dose PO DIRECTED 12/24/19 09/05/20 nitroglycerin 0.4 mg SUBLINGUAL PRN PRN 12/24/19 09/05/20 resveratrol 1 cap PO DIRECTED 12/24/19 09/05/20 Artificial Tears (cmc) 1 drp OPHTHALMIC (EYE) TID PRN 08/09/20 09/05/20 doxazosin 1 mg PO DAILY 08/09/20 09/05/20 Previous Rx's Medication Instructions Recorded prednisone 60 mg PO DAILY #30 tab 08/13/20 amoxicillin-pot clavulanate 1 tab PO BID #10 tab 08/27/20 [Augmentin] prednisone 40 mg PO DAILY #7 tab 08/27/20 prednisone 10 mg PO DAILY #40 tab 08/29/20 gabapentin [Neurontin] 600 mg PO BID #0 tab 09/08/20 insulin glargine [Lantus Solostar 5 unit SUBCUT DAILY 30 Days #3 ml 09/08/20 U-100 Insulin] pen needle, diabetic [Pen Needle] #30 each 09/08/20 Allergies Allergy/AdvReac Type Severity Reaction Status Date / Time cephalexin Allergy Severe RASH Verified 08/24/20 09:45 ciprofloxacin Allergy Severe RASH Verified 08/24/20 09:45 Fish Containing Products Allergy Severe Difficulty Verified 08/24/20 09:45 Breathing shellfish derived Allergy Severe Difficulty Verified 08/24/20 09:45 Breathing avocado AdvReac Intermediate Vomiting Verified 08/24/20 09:45 cucumber AdvReac Intermediate Vomiting Verified 08/24/20 09:45 Review of Systems Review of Systems ROS Unobtainable: Unobtainable due to medical condition Patient History Medical History (HFpEF) heart failure with preserved ejection fraction (Acute) Anemia (Acute) Angina pectoris (Acute) Donald's esophagus (Acute) Chronic kidney disease, stage 4 (severe) (Acute) Chronic neck pain (Acute) Constipation (Inactive) Coronary artery disease (Acute) Decubitus skin ulcer (Inactive) Diabetes mellitus type 2, diet-controlled (Acute) HTN (hypertension) (Acute) Hyperlipidemia (Chronic) Opiate dependence (Acute) Surgical History H/O heart artery stent (Acute) History of esophagogastroduodenoscopy (EGD) (Acute) Family History Father Kidney failure Mother Heart disease Social History household members: caregiver Smoking Status: Former smoker alcohol intake: current Smoking Status: Former smoker alcohol intake frequency: holidays/special occasions only Substance Use Type: does not use Exam Initial Vital Signs Initial Vital Signs: Vital Signs Temperature 97.8 F 09/12/20 05:14 Pulse Rate 84 09/12/20 05:14 Respiratory Rate 15 09/12/20 05:14 Blood Pressure 175/71 H 09/12/20 05:14 Pulse Oximetry 98 09/12/20 05:14 Const General: cooperative and No in distress Limitations: altered mental status (Poor historian) Other: He is sleepy, he quickly goes HENMI Head: other (Abrasions on his scalp from recent fall. No acute injuries.) Ears: TM's normal bilaterally Mouth: oral mucosae normal and tongue normal Throat: posterior oropharynx normal Eyes General: appearance normal, both eyes and all related structures Eyelids: eyelids normal Conjunctivae: conjunctivae normal Sclera: sclerae normal Pupils: PERRL EOM: EOM intact bilaterally Neck Neck: full ROM and No JVD Chest Other: No evidence of injury Resp Effort & Inspection: normal respiratory effort, able to speak in complete sentences, no respiratory distress and no use of accessory muscles Auscultation: clear to auscultation bilaterally, no rales, no rhonchi and no wheezes Cardio Rate: regular rate Rhythm: regular rhythm Heart Sounds: S1 normal, S2 normal, no click, no gallops, no murmurs and no rubs Pulses: normal peripheral pulses GI Inspection: non-distended Palpation: soft, no hepatosplenomegaly, No guarding, No pulsatile mass and No tender Auscultation: normal bowel sounds Back/Spine/Pelvis Other: Grade 1 Decubitus ulcer of the lower lumbar spine. Skin Other: Grade 2 decubitus ulcer on the sacrum Neuro General: patient alert, patient awake and oriented (Person place) Speech: speech normal Motor: other (Generalized weakness) Extrem General: full ROM, no clubbing, cyanosis or edema, no pedal edema and no calf tenderness Other: Thin, frail extremities. Blister on the left heel, cellulitis throughout the left dorsal foot and proximal tibia. The left dorsalis pedis pulses normal. Psych Appearance: well kempt and disheveled Speech and Movement: other (For memory. Limited verbal responses.) Attitude: cooperative Course Course Course Narrative: The patient has cellulitis to left foot and ankle. He has been started on vancomycin. Blood and wound cultures have been obtained. Regarding this visit, and reviewing his last several visits, the patient is displaying a grave disability for self-care. His labs were reassuring, but the patient with seemed to have minimal ability for self-care. The left foot x-ray is normal. A chest x-ray was done due to his recent history of CHF and effusion. The chest x-ray reveals a RLL mass. The case was discussed with the hospitalist, Yohannes DAS. The patient be admitted. Orders Ordered: ED Orders 09/12/20 EKG-12 Lead Routine 09/12/20 05:14 XR foot LT min 3V Stat Wound Culture and Gram Stain Stat 09/12/20 05:15 Blood Culture Stat Complete Blood Count AUTO DIFF Stat Comprehensive Metabolic Panel Stat Lactate (Lactic Acid) Stat 09/12/20 06:16 XR chest 1V Stat 09/12/20 06:43 Education, smoking cessation ONGOING Acetaminophen (Tylenol) 650 mg PO Q6HR PRN PRN Reason: Fever/Mild Pain (1-3) Bisacodyl (Dulcolax) 10 mg PO DAILY PRN PRN Reason: Constipation Dextrose (D50w) 25 gm IV PRN PRN; Protocol PRN Reason: Hypoglycemia Docusate Sodium (Colace) 100 mg PO BID PRN PRN Reason: Constipation Heparin Sodium (Porcine) (Heparin) 5,000 unit SUBCUT BID [facility] Vancomycin HCl (Vancomycin) 1,250 mg in 250 mls @ 250 mls/hr IV Q24H [facility] Insulin Aspart (Novolog Flexpen) 0 unit SUBCUT ACHS STEVE; Protocol Naloxone HCl (Narcan) 0.2 mg IV Q2MIN PRN PRN Reason: Opiate Reversal Ondansetron HCl (Zofran) 4 mg IV Q8HR PRN PRN Reason: Nausea And Vomiting Sodium Chloride (Normal Saline 0.9% Flush) 10 ml IV PRN PRN PRN Reason: Flush Sodium Chloride (Normal Saline 0.9% Flush) 10 ml IV BID STEVE Discontinued Medications Vancomycin HCl (Vancomycin) 1,250 mg in 250 mls @ 250 mls/hr IV NOW ONE Stop: 09/12/20 07:08 Vancomycin HCl (Vancomycin Per Pharmacy) 1 request MISC NOW ONE Stop: 09/12/20 07:01 Vital Signs Vital signs: Vital Signs - 8 hr 09/12/20 05:14 Temperature 97.8 F Pulse Rate 84 Respiratory Rate 15 Blood Pressure 175/71 H Pulse Oximetry 98 MDM - Altered Mental Status Lab Data Result diagrams: 09/12/20 05:15 09/12/20 05:15 Labs: Lab Results 09/12/20 09/12/20 09/12/20 Range/Units 05:15 05:15 05:15 WBC 5.2 (4.5-11.0) X10^3/uL RBC 3.47 L (4.5-5.9) X10^6/uL Hgb 10.4 L (13.5-17.5) g/dL Hct 32.1 L (41-53) % MCV 92.5 (80-100) fL MCH 30.1 (26-34) PG MCHC 32.5 (30-36) % RDW 18.4 H (11.6-14.8) % Plt Count 192 (150-400) X10^3/uL Neut % (Auto) 67.0 (50-75) % Lymph % (Auto) 24.3 L (25-40) % Tift % (Auto) 6.6 (3-14) % Eos % (Auto) 1.0 L (2-4) % Baso % (Auto) 1.1 (0-2) % Neut # (Auto) 3500 (5157-5124) /uL Lymph # (Auto) 1300 (6476-6856) /uL Tift # (Auto) 300 (0-900) /uL Eos # (Auto) 100 (0-450) /uL Baso # (Auto) 100 (0-100) /uL Sodium 137 (137-145) mmol/L Potassium 4.9 (3.4-5.1) mmol/L Chloride 101 (98-107) mmol/L Carbon Dioxide 29 (22-32) mmol/L BUN 70 H (9-20) mg/dL Creatinine 2.20 H (0.66-1.25) mg/dL Estimated GFR 28.6 L (>60) mL/min BUN/Creatinine Ratio 31.8 H (6-22) Glucose 197 H (80-110) mg/dL Lactate 1.4 (0.7-2.1) mmol/L Calcium 8.9 (8.4-10.2) mg/dL Total Bilirubin 0.9 (0.2-1.3) mg/dL AST 38 (17-59) IU/L ALT 84 H (<50) IU/L Alkaline Phosphatase 94 (38-126) U/L Total Protein 6.9 (6.3-8.2) g/dL Albumin 3.4 L (3.5-5.0) g/dL Globulin 3.5 (1.7-4.1) g/dL Albumin/Globulin Ratio 1.0 (1.0-2.8) Imaging Data Chest x-ray: My Impression: RLL mass, suspect additional lesions in the apices. Right foot x-ray: My Impression: No acute findings ECG Data Attestation: I personally reviewed and interpreted this ECG as follows: (Normal sinus rhythm rate 61 beats per minute. LAD. RBBB. Left axis deviation. No acute ST changes. No ectopy.) Critical Care Time Critical Care Time Critical Care Time: Yes Total Critical Care Time: 35 Attestation: Critical care included evaluation of patient, review of lab, radiology and EKG data. Care included review of multiple medical records. The case was discussed with the hospitalist prior to admission. Discharge Plan Departure Patient Disposition: Admitted as Observation Clinical Impression: Cellulitis of left leg, Blister (nonthermal), left foot, subsequent encounter, Decubitus ulcer of sacral region, stage 2, Acute alteration in mental status, Mass of right lung Decubitus ulcer of back Qualifiers: Pressure injury stage: stage 1 Qualified Code(s): L89.101 - Pressure ulcer of unspecified part of back, stage 1 Discharge Date/Time: 09/12/20 06:48 Referrals: Kane Molina MD [Primary Care Provider] - Admit Date/Time: 09/12/20 06:47 Admit Provider: Venkatesh Beltran
[2020-09-12 05:41] LABS: Add Manual Diff / Slide Review NO; Basophils Absolute Auto 100 /uL (0-100); Basophils Percent Auto 1.1 % (0-2); Eosinophils Absolute Auto 100 /uL (0-450); Hematocrit 32.1 % (41-53); Hemoglobin 10.4 g/dL (13.5-17.5); Lymphocytes Absolute Auto 1300 /uL (1100-4500); Lymphocytes Percent Auto 24.3 % (25-40); Mean Corpuscular HGB Conc 32.5 % (30-36); Mean Corpuscular Hemoglobin 30.1 PG (26-34); Mean Corpuscular Volume 92.5 fL (80-100); Monocytes Absolute Auto 300 /uL (0-900); Monocytes Percent Auto 6.6 % (3-14); Neutrophils Absolute Auto 3500 /uL (1500-7000); Platelet Count 192 X10^3/uL (150-400); Red Blood Cell Count 3.47 X10^6/uL (4.5-5.9); Red Cell Distribution Width 18.4 % (11.6-14.8); White Blood Cell Count 5.2 X10^3/uL (4.5-11.0)
[2020-09-12 05:44] LABS: Lactate (Lactic Acid) 1.4 mmol/L (0.7-2.1)
[2020-09-12 05:45] LABS: Alanine Aminotransferase 84 IU/L (<50); Albumin 3.4 g/dL (3.5-5.0); Alkaline Phosphatase 94 U/L (38-126); Aspartate Aminotransferase 38 IU/L (17-59); BUN Creatinine Ratio 31.8 (6-22); Bilirubin Total 0.9 mg/dL (0.2-1.3); Blood Urea Nitrogen 70 mg/dL (9-20); Calcium 8.9 mg/dL (8.4-10.2); Carbon Dioxide 29 mmol/L (22-32); Chloride 101 mmol/L (98-107); Estimated Glomerular Filt Rate 28.6 mL/min (>60); Globulin 3.5 g/dL (1.7-4.1); Glucose 197 mg/dL (80-110); HEMOLYSIS 15 (0-50); Potassium 4.9 mmol/L (3.4-5.1); Sodium 137 mmol/L (137-145); Total Protein 6.9 g/dL (6.3-8.2)
--- NOTE | 2020-09-12 06:16 | DI.RAD.S_ITS ---
PROCEDURE: XR CHEST 1V INDICATIONS: weakness TECHNIQUE: One view of the chest was acquired. COMPARISON: [facility], CT, CT ANGIO CHEST PE PROTOCOL, 08/24/2020, 10:46. [facility], CR, XR CHEST 1V, 09/07/2020, 21:20. [facility], CR, XR CHEST 1V, 08/24/2020, 9:37. FINDINGS: Surgical changes and devices: None. Lungs and pleura: Lungs are abnormal with a rounded masslike structure at the right lower lung area, but a solid appearing mass in this area on CT scanning 08/24/20 was not present. Therefore this may represent a round pneumonia or fluid within a fissure. No pleural effusions or pneumothorax. Inspiratory volume on the right is reduced when compared to that on the left. Mediastinum: Mediastinal contours appear normal. Heart size is normal. Bones and chest wall: No suspicious bony lesions. Overlying soft tissues appear unremarkable. IMPRESSION: Reduced inspiratory volume on the right, normal volume of the left hemithorax. Rounded mass-like structure was not present on recent CT scanning at the right lower lobe, and therefore this likely represents round pneumonia or fluid trapped within a fissure of the right lower lung in that region. Repeat CT scanning is scheduled. Dictated by: Devin Bee M.D. on 09/12/2020 at 8:20 Approved by: Devin Bee M.D. on 09/12/2020 at 8:45
--- NOTE | 2020-09-12 07:17 | PC.NURSE ---
Pt with multiple wounds to lower back, sacrum, left heel, and forehead. Weeping edema to bilat lower extremities. Mobility limited at baseline due to chronic back pain and kyphosis. Repositioning pt frequently. Skin precautions in place.
[2020-09-12] MEDS: VANCOMYCIN 1,250 MG/250 ML PIGGYBACK 250 MG IV (07:27)
[2020-09-12 07:45] LABS: Appearance Urine UA CLEAR; Bilirubin Urine UA NEGATIVE (NEGATIVE); Color Urine UA YELLOW; Glucose Urine UA 1+ g/dL (Negative); Ketones Urine UA NEGATIVE (NEGATIVE); Leukocyte Esterase Urine UA NEGATIVE (NEGATIVE); Nitrite Urine UA NEGATIVE (Negative); Occult Blood Urine UA TRACE-INTACT (Negative); Protein Urine UA TRACE (Negative); Specific Gravity Urine UA 1.015 (1.000-1.035); Urobilinogen Urine UA 0.2 E.U./dL (0.2)
[2020-09-12 07:48] LABS: RBC Urine 0-1/HPF (0-5/HPF); Squamous Epithelial Cell Urine 0-1 /HPF (0-5/HPF); WBC Urine 0-1/HPF (0-5/HPF)
[2020-09-12 07:49] LABS: Amorphous Sediment Urine 2+; Bacteria Urine Occasional (0-1); Culture Indicated Urine Cult Not Indicated
--- NOTE | 2020-09-12 08:20 | DI.CT.S_ITS ---
PROCEDURE: CT CHEST WO CON INDICATIONS: Right lung mass versus consolidation TECHNIQUE: Noncontrast 5 mm thick sections acquired from the pulmonary apices to the posterior costophrenic angles. 1 mm lung window, 5 mm thick coronal and sagittal and 7 mm axial MIP reformats were then acquired. For radiation dose reduction, the following was used: automated exposure control, adjustment of mA and/or kV according to patient size. COMPARISON: [facility], CR, CHEST 1 VIEW, 03/28/2015, 14:19. [facility], CR, CHEST 1 VIEW, 11/25/2017, 5:47. [facility], CR, ABDOMEN 2 VIEW, 01/17/2018, 23:08. [facility], CR, XR CHEST 1 VIEW, 10/17/2019, 2:22. [facility], CR, XR CHEST 1V, 08/24/2020, 9:37. [facility], CT, CT ANGIO CHEST PE PROTOCOL, 08/24/2020, 10:46. [facility], CR, XR CHEST 1V, 09/07/2020, 21:20. [facility], CR, XR CHEST 1V, 09/12/2020, 6:18. FINDINGS: Image quality: Excellent. Lungs and pleura: No acute air space opacities and there is a pattern of improving pneumonia at the right mid and lower lung. However, within the junction of the medial and lateral segments of the right middle lobe again noted is a rounded relatively sharply demarcated masslike structure which measures up to 4.3 cm in diameter, and which abuts the anterior pleural surface. A slight degree of alveolar consolidation is present between the pericardium and the left posterolateral border of this structure, and also within the lung parenchyma of the right lower lobe perihilar region. Mild pulmonary fibrotic changes noted more superiorly bilaterally. The appearance raises concern for prior smoking history.. No pleural effusions or pneumothorax. Central and peripheral airways are patent and normal in caliber. Mediastinum: Heart size is normal. No pericardial effusion. No mediastinal adenopathy by size criteria. Thoracic aorta and central pulmonary arteries are normal in size. Esophagus is normal in caliber. No hiatal hernia. Bones and chest wall: No suspicious bony lesions. No vertebral body compression fractures. No axillary or supraclavicular adenopathy by size criteria. Thyroid gland is not well seen. Abdomen: Visualized upper abdominal solid organs and bowel loops appear normal in the absence of contrast. IMPRESSION: A 4.3 cm masslike structure abuts the anterior pleural surface and has its epicenter within the right middle lobe, which on review of the comparison CT pulmonary angiogram 08/24/20 earlier same month likely was present intermixed with pneumonia present elsewhere within the right middle lobe and right lower lobe. This therefore raises concern for malignancy as the underlying cause. The likelihood of round pneumonia given significant resolution of the remaining pneumonia within the right mid and lower lung is considered low. A nuclear medicine PET-CT scan could be utilized to accurately assess for underlying malignancy in this area. Alternatively, conservative therapy and delayed plain film follow-up or delayed CT follow-up could be utilized to assess whether proceeding to PET-CT scanning is warranted. The likelihood of malignancy being present in my opinion is relatively high. Dictated by: Devin Bee M.D. on 09/12/2020 at 11:08 Approved by: Devin Bee M.D. on 09/12/2020 at 11:18
[2020-09-12 08:33] LABS: COVID19 -Nasal RAPID Negative (Negative)
[2020-09-12] MEDS: HEPARIN 5,000 UNIT/ML VIAL 5000 UNIT SUBCUT ×2 (10:03→21:12)
[2020-09-12] MEDS: MORPHINE ER 15 MG TABLET PO ×3 (10:03→21:12)
[2020-09-12] MEDS: INSULIN ASPART 100 UNIT/ML INSULN PEN SUBCUT ×4 (10:04→21:14)
--- NOTE | 2020-09-12 10:33 | PC.ADMIT ---
[email or web address] Admission Note: The patient,Graeme Forte Jr,85 y/o, was given written information regarding hospital policies, unit procedures and contact persons. Patient's smoking status: Former smoker. Vital Signs - 8 hr 09/12/20 05:14 09/12/20 05:44 09/12/20 05:45 Temperature 97.8 F Pulse Rate 84 65 66 Respiratory Rate 15 Blood Pressure 175/71 H 174/76 H Pulse Oximetry 98 97 100 09/12/20 06:00 09/12/20 07:45 Temperature 96.9 F L Pulse Rate 57 L 69 Respiratory Rate 17 Blood Pressure 156/66 H 191/84 H Pulse Oximetry 100 100 Rec'd pt from ED via gerber at 0755. Pt is AO, somewhat paranoid but cooperative. Able to complete admission assessment and med list with pt. He has multiple skin issues but is requesting pain medication prior to moving. Oriented to room, routine, fall risk, use of call light. Instructed pt to wait for assistance before getting OOB. He verbalizes understanding but may need repeat instruction. Bed alarm on. Call light in easy reach.
--- NOTE | 2020-09-12 10:54 | PT.IIE ---
Surgical History (Last Reviewed 09/12/20 @ 12:06 by Lissy Cunha DO) H/O heart artery stent (Acute) History of esophagogastroduodenoscopy (EGD) (Acute) Medical History (Last Reviewed 09/12/20 @ 12:06 by Lissy Cunha DO) (HFpEF) heart failure with preserved ejection fraction (Acute) Anemia (Acute) Angina pectoris (Acute) Donald's esophagus (Acute) Chronic kidney disease, stage 4 (severe) (Acute) Chronic neck pain (Acute) Constipation (Inactive) Coronary artery disease (Acute) Decubitus skin ulcer (Inactive) Diabetes mellitus type 2, diet-controlled (Acute) HTN (hypertension) (Acute) Hyperlipidemia (Chronic) Opiate dependence (Acute) Physical Therapy Inpatient Evaluation/Re-Eval M1 PT/OT-IP Prior Functional Status Start: 09/12/20 12:19 Freq: NEEDED Status: Active Protocol: Document 09/12/20 10:54 AB (Rec: 09/12/20 12:37 AB [email or web address]) Medical Review Prior Functional Status Medical History Reviewed Yes Communication able to make needs known Mobility and Gait pt stated that his cousin Stanley usually provides SBA with mobility but also able to provide more assist if needed and is with him 09/06. stated that he uses a standard walker for ambulation and prefers this over a FWW. has used a 4WW for outdoor mobility but stated that he does not usually go outside Social History Household Members family Living Arrangements House Number of Floors (Floors) One Floor Number of Stairs To Enter/Railing? no steps to enter Home Environment Standard Height Toilet,Walk in Shower Home Equipment Four Wheel Walker,Raised Toilet Seat Without Armrests, Shower Seat without Backrest, Hand Held Shower,Grab Bars In Shower Additional Social History Comment has a standard walker M2 PT-IP Current Condition Start: 09/12/20 12:19 Freq: NEEDED Status: Active Protocol: Document 09/12/20 10:54 AB (Rec: 09/12/20 12:37 AB [email or web address]) Physical Therapy Current Condition Current Condition Evaluation Date 09/12/20 Treatment Diagnosis AMS; anemia; R lung mass; difficulty in walking Onset Date 09/12/20 Precautions Other Precautions L heel ulcer M3 PT-IP Subjective Start: 09/12/20 12:19 Freq: NEEDED Status: Active Protocol: Document 09/12/20 10:54 AB (Rec: 09/12/20 12:37 AB [email or web address]) Subjective Physical Therapy Visit Type Type Initial Evaluation Visit Start Time 10:54 Visit Stop Time 12:01 Total Visit Minutes 41 Notes pt seen for split visits: 1054 am to 1119 and 1145 to 1201. Number of HISTORICAL INTERPRETER Visits 0 Physical Therapy Visit Comments Patient Comments pt is agreeable to do PT Therapy Pain Assessment Pain When Pain Assessed At Rest Pain Present Pain Present Pain Reported Location left foot Scale Used pain scale not stated Pain Management Techniques Distraction,Elevation, Modification of Treatment,Re- positioning M4 PT-IP Mobility and Gait Start: 09/12/20 12:19 Freq: NEEDED Status: Active Protocol: Document 09/12/20 10:54 AB (Rec: 09/12/20 12:37 AB [email or web address]) PT-Bed Mobility Assessment Supine to Sit Supine to Sit Contact Guard Assistance,Head of Bed Elevated,Bedrails PT-Transfer Assessment Sit to and From Stand Sit to and from Stand Moderate Assistance,Maximum Assistance,1 Person Assistance ,Use of Upper Extremities Equipment Transfer Assistive Device Gait Belt,Front Wheeled Walker Orthotic/Prosthetic Devices or Brace: No Transfers Transfer Destination Chair Transfer Technique Stand Step Pivot Transfer Ability Level of Assist Moderate Assistance,Maximum Assistance,1 Person Assistance ,Use of Upper Extremities Comments Mobility Comments completed supine to sit with HOB elevated and pt used bed rail to assist requiring CGA. pt required increase time to complete task and requires increase rest breaks in between activities. pt was able to sit on EOB CGA. completed sit to stand mod to max A and max cues. able to stand using FWW mod to max A and max cues and completed step transfer using FWW to chair mod to max A and cues. pt presents with increase forwards trunk flexion in standing and has increase L knee flexion as pt does not put weight on L heel due to ulcer and c/o pain. positioned pt on chair. call ight and table placed within reach. Gait Assessment Comments Gait Comments able to take steps during transfers using FWW. pt tends to do NWB on L heel due to c/ o pain on ulcer. PT-Balance Assessment Sitting Balance and Reactions Static Sitting Balance Ability Good Dynamic Sitting Balance Ability Fair Standing Balance and Reactions Static Standing Balance Ability Fair Dynamic Standing Balance Ability Poor Device Used FWW M5 PT-IP Objective Assessments Start: 09/12/20 12:19 Freq: NEEDED Status: Active Protocol: Document 09/12/20 10:54 AB (Rec: 09/12/20 12:37 AB [email or web address]) Orientation Orientation/Cognition Level of Alertness Alert Orientation Name,Place,Situation Language Function Ability Hard of Hearing Safety Awareness Decreased Safety Awareness Memory Description Short Term Impaired Gross Range of Motion Lower Extremity ROM Assessment Within Functional Limits Strength Lower Extremity Strength Assessment Bilaterally Impaired Hip 4-/5 Knee 4-/5 Muscle Tone Muscle Tone WNL Yes M6 PT-IP Treatment Start: 09/12/20 12:19 Freq: NEEDED Status: Active Protocol: Document 09/12/20 10:54 AB (Rec: 09/12/20 12:37 AB [email or web address]) Physical Therapy Treatment Exercises Exercises Ankle Pumps Education Education Provided Safety M7 PT-IP Assessment and Plan Start: 09/12/20 12:19 Freq: NEEDED Status: Active Protocol: Document 09/12/20 10:54 AB (Rec: 09/12/20 12:37 AB [email or web address]) PT Summary Assessment and Plan Potential Rehabilitation Potential Good Status of Condition at Evaluation Evolving Summary Impairments Pain,ROM,Strength,Balance, Coordination,Sensation,Tone, Cognition,Bed Mobility, Transfers,Gait,Activity Tolerance Assessment Summary pt is requiring mod to max A with mobility and unable to tolerate much activity. pt stated that he is just tired. pt has his cousin Stanley to assist him at home but has been in and out of the hospital these passed few months and may need SNF rehab to improve overall strength and mobility. Goals Bed Mobility Goal Independent Transfer Goal Standby Assistance,Front Wheeled Walker Gait Goal Standby Assistance,Front Wheel Walker Gait Distance 75 Other Goals improve ambulation SBA using standard walker/4WW 100 ft Days to Meet Goals 10 Frequency of Treatment Frequency Of Treatment Once a Day Treatment Plan Physical Therapy Treatment Plan Bed Mobility Training,Transfer Training,Gait Training, Therapeutic Exercise,Balance Retraining,Post Op Education, Discharge Planning,Hot or Cold Pack,Neuromuscular Re-ed, Coordination Retraining,Manual Therapy Other Recommendations and Next Treatment ambulation Focus Recommendations To Nursing Amount of Assist Needed 1 Person Assist Discharge Recommendations PT Discharge Recommendations SNF Rehab Transportation Needs at Discharge Wheelchair/Cabulance
--- NOTE | 2020-09-12 12:06 | P.HP_ITS ---
History of Present Illness History of Present Illness Date Patient Seen: 09/12/20 Chief complaint: Altered LOC Narrative: Graeme Forte is an 85-year-old male with a past medical history significant for CAD status post stent x 2, hypertension, hyperlipidemia, GERD, chronic back pain with opiate dependence and anemia of chronic disease who was sent to the ED via EMS by his caregiver for generalized weakness and instability. The patient reports that his caregiver and live-in roommate Stanley Rupesh decided to call EMS due to generalized weakness with instability. There was some report that he was also aggressive and confused when he arrived to ED. The patient is alert oriented x3 and does not appear confused. He is however irritable and at one point demanded to be transferred to another hospital due to poor quality of hospital food and care. The patient has lower extremity cellulitis and is admitted as an inpatient to receive IV antibiotics for cellulitis and physical and occupational therapy for generalized weakness. He was also found to have a large right lung mass. Discussed case with on-call oncologist, Dr. Stevens, who recommended CT-guided lung biopsy and consideration of a MRI brain without contrast if patient can tolerate lying flat due to chronic back pain. The patient currently denies headache, chest pain, shortness of breath, abdominal pain, nausea, vomiting, fever, chills, dysuria, diarrhea or constipation. He does have chronic back pain and right-sided chest pain that he you believes is related to his heart. He reports good appetite and eats too large meals a day. Despite adequate nutrition the patient continues to have full body muscle and fat wasting with severe protein calorie malnutrition and several decubitus ulcers on sacrum and thoracic spine. Patient History Medical History (HFpEF) heart failure with preserved ejection fraction (Acute) Anemia (Acute) Angina pectoris (Acute) Donald's esophagus (Acute) Chronic kidney disease, stage 4 (severe) (Acute) Chronic neck pain (Acute) Constipation (Inactive) Coronary artery disease (Acute) Decubitus skin ulcer (Inactive) Diabetes mellitus type 2, diet-controlled (Acute) HTN (hypertension) (Acute) Hyperlipidemia (Chronic) Opiate dependence (Acute) Surgical History H/O heart artery stent (Acute) History of esophagogastroduodenoscopy (EGD) (Acute) Family & Social History Family History (Updated 09/12/20 @ 12:07 by Lissy Cunha DO) Father Kidney failure TIA (transient ischemic attack) Mother Heart disease Arrhythmia TIA (transient ischemic attack) Social History: household members caregiver Safety & Behavioral: Feels Safe in Current Yes Environment Suicidal Ideation Description None Tobacco & Substance use: Smoking Status Former smoker alcohol intake current alcohol intake frequency holiday/special occasion Substance Use Type does not use Meds Home Medications and Allergies Home Medications Medication Instructions Recorded Confirmed Type clopidogrel [Plavix] 75 mg PO DAILY #0 12/02/16 09/12/20 History atorvastatin 80 mg PO BEDTIME #0 11/25/17 09/12/20 History lansoprazole [Prevacid] 30 mg PO BIDAC #0 11/25/17 09/12/20 History morphine 1 tab PO 5XD 08/26/18 09/12/20 History nortriptyline 25 mg PO BEDTIME 08/26/18 09/12/20 History polyethylene glycol 3350 1 dose PO DAILY 08/26/18 09/12/20 History Centrum Silver 1 tab PO DAILY 09/08/19 09/12/20 History cranberry 400 mg DAILY 09/08/19 09/12/20 History cyanocobalamin (vitamin B-12) 1,000 mcg PO BID 09/08/19 09/12/20 History [Vitamin B-12] ferrous sulfate 325 mg PO QPM 09/08/19 09/12/20 History amlodipine 10 mg PO DAILY 11/03/19 09/12/20 History isosorbide mononitrate 60 mg PO DAILY 11/03/19 09/12/20 History metoprolol succinate 25 mg PO DAILY 11/03/19 09/12/20 History Co Q-10 300 mg PO DAILY 12/24/19 09/12/20 History Ventricor 1 dose PO DIRECTED 12/24/19 09/12/20 History Vitapulse 1 dose PO QID 12/24/19 09/12/20 History flaxseed oil 1 dose PO DIRECTED 12/24/19 09/12/20 History nitroglycerin 0.4 mg SUBLINGUAL PRN PRN 12/24/19 09/12/20 History resveratrol 1 cap PO DIRECTED 12/24/19 09/12/20 History Artificial Tears (cmc) 1 drp OPHTHALMIC (EYE) TID PRN 08/09/20 09/12/20 History doxazosin 1 mg PO BEDTIME 08/09/20 09/12/20 History pen needle, diabetic [Pen Needle] #30 each 09/08/20 09/12/20 Rx gabapentin [Neurontin] 600 mg PO TID 09/12/20 09/12/20 History prednisone 1 mg PO Q OTHER DAY 09/12/20 09/12/20 History Allergies Allergy/AdvReac Type Severity Reaction Status Date / Time cephalexin Allergy Severe RASH Verified 08/24/20 09:45 ciprofloxacin Allergy Severe RASH Verified 08/24/20 09:45 Fish Containing Products Allergy Severe Difficulty Verified 08/24/20 09:45 Breathing shellfish derived Allergy Severe Difficulty Verified 08/24/20 09:45 Breathing avocado AdvReac Intermediate Vomiting Verified 08/24/20 09:45 cucumber AdvReac Intermediate Vomiting Verified 08/24/20 09:45 Review of Systems Review of Systems Narrative: A 10 system comprehensive review of systems was conducted with the patient and found to be negative except as above in the History of Present Illness. Exam Vital Signs (past 8 hours): - 09/12/20 05:14 09/12/20 05:44 09/12/20 05:45 Temperature 97.8 F Pulse Rate 84 65 66 Respiratory Rate 15 Blood Pressure 175/71 H 174/76 H Pulse Oximetry 98 97 100 09/12/20 06:00 09/12/20 07:45 Temperature 96.9 F L Pulse Rate 57 L 69 Respiratory Rate 17 Blood Pressure 156/66 H 191/84 H Pulse Oximetry 100 100 Oxygen Delivery Method Room Air Oxygen Flow Rate 0 Narrative Exam Narrative: General: Elderly thin and frail appearing male lying in bed and in no acute distress, pale, appropriately interactive. HEENT: Normocephalic, traumatic. Scalp abrasion on right side with dried heme. External ears without defect. Pupils equal, round, and reactive to light. Anicteric sclerae, moist conjunctivae, and no lid lag. Oropharynx free of erythema and cobble stoning with moist mucosa. Full body muscle wasting. Neck: Supple with full range of motion. No jugular venous distension. No lymphadenopathy or thyromegaly. Cardiovascular: Regular rate and rhythm without murmurs, rubs, or gallops appreciated. Pulmonary: Clear to auscultation bilaterally without crackles, wheezes, or rhonchi. Normal respiratory effort with no use of accessory muscles. Abdomen: Soft, scaphoid, bowel sounds present, nontender, nondistended. No hep atosplenomegaly or masses appreciated. Genitourinary: Extremities: No clubbing or cyanosis. Bilateral lower extremity erythema and mild edema L > R. Large bulla on back of left heel. Skin: Normal temperature, turgor, and texture; no rash or subcutaneous nodules appreciated. Stage II sacral decubitus ulcer 2 x 2 cm and thoracic decubitus ulcers 1x1 cm and 2 x 2 cm on bony prominance. Several other scattered abrasions over upper extremities. Neurological: Cranial nerves grossly intact. Generalized weakness. Psychiatric: Irritable mood and affect. Alert and oriented to person, place, and time. No confusion. Objective Labs Result Diagrams: 09/12/20 05:15 09/12/20 05:15 Labs: Laboratory Results - last 24 hr 09/12/20 09/12/20 09/12/20 05:15 05:15 05:15 WBC 5.2 RBC 3.47 L Hgb 10.4 L Hct 32.1 L MCV 92.5 MCH 30.1 MCHC 32.5 RDW 18.4 H Plt Count 192 Neut % (Auto) 67.0 Lymph % (Auto) 24.3 L [place] % (Auto) 6.6 Eos % (Auto) 1.0 L Baso % (Auto) 1.1 Neut # (Auto) 3500 Lymph # (Auto) 1300 [place] # (Auto) 300 Eos # (Auto) 100 Baso # (Auto) 100 Sodium 137 Potassium 4.9 Chloride 101 Carbon Dioxide 29 BUN 70 H Creatinine 2.20 H Estimated GFR 28.6 L BUN/Creatinine Ratio 31.8 H Glucose 197 H Lactate 1.4 Calcium 8.9 Total Bilirubin 0.9 AST 38 ALT 84 H Alkaline Phosphatase 94 Total Protein 6.9 Albumin 3.4 L Globulin 3.5 Albumin/Globulin Ratio 1.0 Procalcitonin Urine Color Urine Appearance Urine pH Ur Specific [place] Urine Protein Urine Glucose (UA) Urine Ketones Urine Occult Blood Urine Nitrate Urine Bilirubin Urine Urobilinogen Ur Leukocyte Esterase Urine RBC Urine WBC Ur Squamous Epith Cells Amorphous Sediment Urine Bacteria Ur Culture Indicated? Nasal Screen MRSA (PCR) COVID-19 PCR 09/12/20 09/12/20 09/12/20 05:15 06:20 08:00 WBC RBC Hgb Hct MCV MCH MCHC RDW Plt Count Neut % (Auto) Lymph % (Auto) [place] % (Auto) Eos % (Auto) Baso % (Auto) Neut # (Auto) Lymph # (Auto) [place] # (Auto) Eos # (Auto) Baso # (Auto) Sodium Potassium Chloride Carbon Dioxide BUN Creatinine Estimated GFR BUN/Creatinine Ratio Glucose Lactate Calcium Total Bilirubin AST ALT Alkaline Phosphatase Total Protein Albumin Globulin Albumin/Globulin Ratio Procalcitonin 0.30 Urine Color Yellow Urine Appearance Clear Urine pH 5.0 Ur Specific [place] 1.015 Urine Protein Trace H Urine Glucose (UA) 1+ H Urine Ketones Negative Urine Occult Blood Trace-intact Urine Nitrate Negative Urine Bilirubin Negative Urine Urobilinogen 0.2 Ur Leukocyte Esterase Negative Urine RBC 0-1/hpf Urine WBC 0-1/hpf Ur Squamous Epith Cells 0-1 /hpf Amorphous Sediment 2+ Urine Bacteria Occasional (0-1) Ur Culture Indicated? Cult not indicated Nasal Screen MRSA (PCR) Negative for mrsa COVID-19 PCR 09/12/20 08:00 WBC RBC Hgb Hct MCV MCH MCHC RDW Plt Count Neut % (Auto) Lymph % (Auto) [place] % (Auto) Eos % (Auto) Baso % (Auto) Neut # (Auto) Lymph # (Auto) [place] # (Auto) Eos # (Auto) Baso # (Auto) Sodium Potassium Chloride Carbon Dioxide BUN Creatinine Estimated GFR BUN/Creatinine Ratio Glucose Lactate Calcium Total Bilirubin AST ALT Alkaline Phosphatase Total Protein Albumin Globulin Albumin/Globulin Ratio Procalcitonin Urine Color Urine Appearance Urine pH Ur Specific [place] Urine Protein Urine Glucose (UA) Urine Ketones Urine Occult Blood Urine Nitrate Urine Bilirubin Urine Urobilinogen Ur Leukocyte Esterase Urine RBC Urine WBC Ur Squamous Epith Cells Amorphous Sediment Urine Bacteria Ur Culture Indicated? Nasal Screen MRSA (PCR) COVID-19 PCR Negative Assessment & Plan Assessment & Plan narrative: Graeme Forte is an 85-year-old male with a past medical history significant for CAD status post stent x 2, hypertension, hyperlipidemia, GERD, chronic back pain with opiate dependence and anemia of chronic disease who was sent to the ED via EMS by his caregiver for generalized weakness and instability. 1. Acute bilateral lower extremity cellulitis, present on admission. Active. -Patient presented with recurrent falls, left heel bullae, and erythema and and mild edema of bilateral lower extremities. -Initial WBC 5.2 and procalcitonin 0.30. Continue to monitor WBC and procalcitonin daily. -Blood cultures x2 pending. Wound culture of left lower extremity pending. -Received vancomycin in ED. Continue vancomycin with dosing per pharmacist. 2. Right lung mass, chronic, present on admission. Active. -Chest x-ray demonstrated rounded mass-like structure at the right lower lobe. -CT chest without contrast demonstrated a 4.3 cm masslike structure abuts the anterior pleural surface and has its epicenter within the right middle lobe, which on review of the comparison CT pulmonary angiogram 08/24/20 earlier same month likely was present intermixed with pneumonia present elsewhere within the right middle lobe and right lower lobe. This therefore raises concern for malignancy as the underlying cause. The likelihood of round pneumonia given significant resolution of the remaining pneumonia within the right mid and lower lung is considered low. -Discussed case with on-call oncologist Dr. Stevens who recommended CT-guided lung biopsy and MRI brain without contrast to assess for brain mets if the patient can tolerate it. 3. Failure to thrive with acute on chronic severe protein calorie malnutrition, generalized weakness, and stage II sacral and thoracic decubitus ulcers, present on admission. Active. -BMI 22. Patient has full body muscle and subcutaneous fat wasting. -Consulted dietitian and we appreciate her time and recommendations. -Ordered physical and occupational therapy evaluation and treatment. 4. Anemia of chronic disease, unknown nature, present on admission. Active. -Initial hemoglobin 10.4. Baseline hemoglobin variable between 7-10. Patient likely has longstanding anemia of chronic kidney disease and possibly worsening anemia due to hemolytic process versus malignancy from right lung mass. -Patient was previously treated for hemolytic anemia and is completing a slow steroid taper with prednisone 1 mg every other day. -Continue B12 and iron supplementation. -Continue to monitor H&H daily. 5. Chronic kidney disease stage 4, present on admission. Active. -Initial creatinine 2.20 with calculated creatinine clearance of 23.4. Baseline creatinine variable but appears to be between 2-2.5. -Patient has a history of urinary retention and is on doxazosin 1 mg daily at bedtime. -Avoid nephrotoxic agents and renally dose medications. Decreased home gabapentin from 600 mg to 200 mg 3 times daily due to creatinine clearance. -Continue to monitor creatinine daily. 6. CAD, chronic, present on admission. Stable. -Continue home atorvastatin 80 mg daily at bedtime, clopidogrel 75 mg daily, isosorbide mononitrate 60 mg daily, and metoprolol succinate 25 mg daily. 7. Hypertension, chronic, present on admission. Stable. -Continue home amlodipine 10 mg daily, isosorbide mononitrate 60 mg daily, and metoprolol succinate 25 mg daily. 8. Hyperlipidemia, chronic, present on admission. Stable. -Continue home atorvastatin 80 mg daily at bedtime. 9. Chronic back pain with opiate dependence, present on admission. Stable. -Continue home MS Contin 15 mg 5 times daily and gabapentin decreased from 600 mg to 200 mg 3 times daily based on creatinine clearance. 10. Insomnia, chronic, present admission. Stable. -Continue home nortriptyline of which he normally takes 25 mg daily at bedtime but will receive 20 mg daily at bedtime due to formulary. 11. GERD, chronic, present on admission. Stable. -Continue equivalent of home lansoprazole 30 mg twice daily. Code status: Full code, surrogate decision maker is designated as patient's caregiver Stanley Goddard VTE prophylaxis: Heparin Patient is admitted under inpatient status with expected length of stay greater than 2 midnights due to severity of presenting symptoms, risk of adverse event, and complexity of treatment plan.
[2020-09-12] MEDS: AMLODIPINE 5 MG TABLET 10 MG PO (12:54)
[2020-09-12] MEDS: CLOPIDOGREL 75 MG TABLET PO (12:55)
[2020-09-12] MEDS: ISOSORBIDE MONONITRATE ER 30 MG TABLET 60 MG PO (12:55)
[2020-09-12] MEDS: METOPROLOL ER 25 MG TABLET PO (12:55)
[2020-09-12] MEDS: SODIUM CHLORIDE 0.9% FLUSH 10 ML IV ×2 (12:56→21:15)
[2020-09-12 13:41] LABS: INR 1.1 (0.9-1.3); Prothrombin Time 12.4 SECONDS (10.1-12.7)
[2020-09-12 13:43] LABS: Ethanol (ETOH) < 10 mg/dL
[2020-09-12 13:44] LABS: UR Morphine/Opiate cutoff 300 Positive (Negative); Ur Creatinine Normal (Normal); Ur Specific Gravity Normal (Normal); Urine Amphetamines Negative (Negative); Urine Barbiturates Negative (Negative); Urine Benzodiazepines Negative (Negative); Urine Cocaine Negative (Negative); Urine MDMA Negative (Negative); Urine Methadone Negative (Negative); Urine Methamphetamines Negative (Negative); Urine Oxycodone Negative (Negative); Urine Phencyclidine Negative (Negative); Urine Tetrahydrocannabinol Negative (Negative); Urine Tricyclic Antidepressant Negative (Negative); Urine pH Normal (Normal)
--- NOTE | 2020-09-12 14:43 | OT.IPNOTE ---
Attempted to see pt for Ot eval, per nursing wanting OT to wait and try later when pt will be more appropriate.
--- NOTE | 2020-09-12 14:47 | PC.NURSE ---
After hospitalist rounded pt reports needing to leave. He states that he's been here too many times and doesn't feel he is getting the care he needs. He would like to be transferred to a different hospital. His behavior and thought process is paranoid although he is answering orientation questions appropriately with clear speech. He has asked me not to provide any information to his caregiver Stanley. He allowed pictures of his pressure ulcers posteriorly but declines any further pictures or in depth wound assessment/documentation. CENTER ADMINISTRATOR spoke with pt who gave her permission to speak with his caregiver.
[2020-09-12 16:06] LABS: Magnesium 2.4 mg/dL (1.6-2.3)
--- NOTE | 2020-09-12 16:15 | CM.DANOTE ---
Addendum entered by Gillian Perez 09/17/20 11:35: Patient's sister resides out of state her name is Wendy phone# [phone]. KJS Original Note: DCP/Assessment: Received SUPERVISOR INSTRUMENT [employer]CHAN[employer] consult from provider re: frequent admits and patient's inability to do self care. SUPERVISOR [employer]UMENT [employer]CH[employer] reviewed previous CM notes. Patient with multiple admits and has refused services in the past. Met with patient explained CM/SW role. Patient alert and oriented with paranoia at time of visit. Patient reports that he does not trust [facility] staff. Patient reports that he has been treated poorly by staff because of his refusal. Patient provided SUPER[employer] with permission to call his friend/Stanley whom patient states is his DPOA. Stanley came to .. and SUPERVISOR INSTRUMENT [employer]CHANICS, provider, and Stanley discussed next steps with care. Patient agreeable to continue treatment which includes lung biopsy tomorrow and palliative consult. [place] and friend/Stanley notified. SUPERVISOR INSTRUMENT MECHAN[employer] asked Stanley to bring DPOA and advanced directive paperwork to [facility]. Stanley reports he could not find but during visit patient instructed him where they could be found. If SNF needed [facility] if first choice. Will notify Rachel tomorrow 09-13-20. Stanley clearly reports that he is unable to care for patient at home with patient's current cellulitis on legs, confusion, and malnutrition. Patient either agreeable to short SNF stay or home with hospice pending lung bx results. P: Pending. SUPER[employer] following closely. JOHNY Hoyos Discharge Planning/Care Management CM Discharge Assessment Start: 09/12/20 16:06 Freq: Status: Active Protocol: Document 09/12/20 16:06 DEVIN (Rec: 09/12/20 16:06 DEVIN [id number]) Discharge Planning Assessment Assigned Head Of Stock JOHNY Hoyos DPOA/Assigned Designee Name SUPER[employer] requested that Stanley bring in DPOA and Advanced Directives for patient Contact Information Stanley Goddard (close friend) # [phone] Advance Directives? No History Provided By Patient,Friend,Medical Record Has Patient been admitted in last 30 Yes days? Comment Multipled admissions and ED visits in the last 30dys. Prior Living Arrangements House Household Members family Type of transporation used prior to Relies on Others admit Comment Patient reports that his friend Stanley is his caregiver, roommate, and DPOA. Independent with ADL's No Is patient alert and oriented? Yes: Provider reports Alert and oriented x3. Needs Assistance With Bathing,Eating,Grooming,Meal Prep,Toileting,Managing Medications,Home Chores / Shopping Comment Needs assistance with all ADL' s. Stanley reports huge decline over the last month. Patient stubborn and has not allowed services in the residence and caregiver has struggled to provide adequate care. Caregiver for Another No Comment Patient refused HH services last admit 09-08-20. Patient/Family Preference Senior Care Facility Comment [facility] is first choice if SNF needed. Comment Palliative consult ordered for 09-13-20 with [facility]. Friend/Stanley and patient aware and agreeable. Barriers to Discharge No Discharge Plan Senior Care Facility Transportation Arrangement Pending Additional Comment Palliative consult pending. Will request [facility] evaluate for admit on 09-13-20 . Inpatient Status as of 09/12/20 Medicare Choice List Provided Yes SNF/HH Preference [facility] Contact Name/Phone April Whiteboard Updated in Patient Room with Yes name and ext. # of Head Of Stock Review Status In Process Next Review Type Continued Stay Review
[2020-09-12] MEDS: PANTOPRAZOLE 40 MG TABLET PO (17:21)
[2020-09-12] MEDS: GABAPENTIN 100 MG CAPSULE 200 MG PO ×2 (17:24→21:11)
[2020-09-12] MEDS: FERROUS SULFATE 325 MG TABLET PO (17:24)
[2020-09-12 17:42] LABS: Alanine Aminotransferase 83 IU/L (<50)
[2020-09-12 18:19] LABS: Hepatitis B Surface Antigen NEGATIVE s/c (NEGATIVE)
[2020-09-12 19:29] LABS: HIV 1 & 2 Ab/Ag 4th Gen Combo NEGATIVE (NEGATIVE); Hep C Virus Ab w/Reflex Quant NEGATIVE s/c (NEGATIVE)
[2020-09-12] MEDS: CYANOCOBALAMIN (VITAMIN B-12) 500 MCG TABLET 1000 MCG PO (21:11)
[2020-09-12] MEDS: ATORVASTATIN 20 MG TABLET 80 MG PO (21:12)
[2020-09-12] MEDS: QUETIAPINE 25 MG TABLET PO (21:12)
[2020-09-12] MEDS: NORTRIPTYLINE HCL 25 MG CAPSULE PO (21:13)
[2020-09-12] MEDS: DOXAZOSIN 2 MG TABLET 1 MG PO (21:15)
--- NOTE | 2020-09-12 23:58 | PC.NURSE ---
Evening note: At shift change, caregiver Stanley approached nurses' station, telling me that Tang had moved the binder with the POA paperwork and I can't find it. He told me he is Tang's (aka Vincent's) POA. Dr Cunha & casework specialist present, they talked with Stanley, then went into room to talk to patient about care plan. Patient agreed to sign consent for lung biopsy, I witnessed this and placed signed consent in his chart. Tang also told me that he wants Stanley to have access to his healthcare information. I clarified Stanley's phone numbers at that time, Stanley told Nursing to call anytime if you need help, or if he starts going crazy or gives you a hard time. He then left for the night, saying he would be back in the morning to meet with Blood Bank Booking Clerk, MD and palliative care. Patient mostly nonverbal with this nurse, sitting in recliner for the 1st half of the night, refusing to transfer or reposition in chair. Opens eyes but closes them again. Sometimes won't open eyes and appears sleeping. Appears listless & sedated. Respirations alarming on monitor to 8 per minute at times, when this nurse asks him to deep breathe his respirations increase to 12-14/minute. Due to his somnolence I did not wake him for his Morphine or Gabapentin. Around 193 patient then transferred back to bed with 2 person assist for safety. Patient very weak, not allowing this nurse to change bandaids to RFA. LE's weepy, clean chux placed underneath legs. VS are stable, tele remains SR with BBB. Fall precautions in place, patient is high fall risk, alarm active for safety.
[2020-09-13] VITALS (8 sets, daily range): BP systolic 133–148; BP diastolic 61–67; PULSE 64–80; RESP 12–22; TEMP 36.3–37.3; O2SAT 96–99
[2020-09-13] MEDS: PANTOPRAZOLE 40 MG TABLET PO ×2 (05:22→18:10)
[2020-09-13] MEDS: MORPHINE ER 15 MG TABLET PO ×5 (05:22→21:27)
--- NOTE | 2020-09-13 05:44 | PC.NURSE ---
pipe crew foreman note: Patient calm and cooperative upon initial aged or disabled carer assessment. Later on, patient woke disoriented, and confused trying to get out of bed without assistance. Attempted to reorient patient, but unsuccessful. PIPPA Guzmán notified. 0400 assessment, patient more alert, oriented and able to express concerns. Patient administered scheduled morphine dose with patient rating pain 6/10 in his back. Q2 hour turns implemented. Patient with multiple wounds over body including BLE leg cellulitis - open to air. New Allevyn dressings applied to coccyx and spin due to moderate amount of drainage on dressings. Patient voided using urinal with good urine output. VSS, on RA. Lungs clear, but diminshed. 0535 Patient with run of SVT with heart rate reaching 146 bpm. Strip printed, PIPPA Guzmán notified and also informed of more frequent PVCs occurring. Patient currently resting in bed. When this RN asked patient if he was feeling okay patient stated fine. No distress noted. Call light in reach. Will continue to monitor.
[2020-09-13 06:29] LABS: Add Manual Diff / Slide Review NO; Basophils Absolute Auto 0 /uL (0-100); Basophils Percent Auto 0.3 % (0-2); Eosinophils Absolute Auto 0 /uL (0-450); Hematocrit 28.2 % (41-53); Hemoglobin 9.4 g/dL (13.5-17.5); Lymphocytes Absolute Auto 1100 /uL (1100-4500); Lymphocytes Percent Auto 27.4 % (25-40); Mean Corpuscular HGB Conc 33.4 % (30-36); Mean Corpuscular Hemoglobin 30.7 PG (26-34); Mean Corpuscular Volume 91.9 fL (80-100); Monocytes Absolute Auto 400 /uL (0-900); Monocytes Percent Auto 10.3 % (3-14); Neutrophils Absolute Auto 2500 /uL (1500-7000); Platelet Count 161 X10^3/uL (150-400); Red Blood Cell Count 3.06 X10^6/uL (4.5-5.9); Red Cell Distribution Width 18.9 % (11.6-14.8); White Blood Cell Count 4.1 X10^3/uL (4.5-11.0)
[2020-09-13 06:30] LABS: BUN Creatinine Ratio 30.8 (6-22); Blood Urea Nitrogen 62 mg/dL (9-20); Calcium 8.1 mg/dL (8.4-10.2); Carbon Dioxide 29 mmol/L (22-32); Chloride 105 mmol/L (98-107); Estimated Glomerular Filt Rate 31.7 mL/min (>60); Glucose 133 mg/dL (80-110); HEMOLYSIS < 15 (0-50); Magnesium 2.1 mg/dL (1.6-2.3); Potassium 4.2 mmol/L (3.4-5.1); Sodium 137 mmol/L (137-145)
[2020-09-13 06:40] LABS: Procalcitonin 0.19 ng/mL (<0.5)
[2020-09-13 06:44] LABS: Hemoglobin A1C% w Est Avg Glu 7.7 % (4.0-6.0)
[2020-09-13 07:04] LABS: TSH w/ Reflex to FT4 4.86 uIU/mL (0.47-4.68)
[2020-09-13 07:47] LABS: Free T4, Direct Thyroxine 1.18 ng/dL (0.78-2.19)
--- NOTE | 2020-09-13 08:25 | DIET.PN ---
Dietary Progress Note 85y M known to RD from prior hospitalizations, admitted for altered LOC c paranoia presenting c bruises in several stages of healing, several stage 2 pressure sores on sacrum and thoracic region, 2+ pitting edema c hx of chronic anemia c chronic pain on morphine referred to nutrition for malnutrition screening. Per previous admissions, pt spends his time in recliner, minimal transferring secondary to weakness (pt 2p assist). Chest CT found large mass in R lung awaiting biopsy today. According to nursing staff, pt refusing POs at this time secondary to paranoia on hospital food quality and care of staff. Usual Day: B: toast c coffee L: granola, nuts, banana D: classic dinner of meat, starch, veggie Nutrition Focused Physical Exam shows global moderate muscle and fat wasting c prominent bony landmarks throughout, three stage 2 pressure sores on back and sacrum,, dry scabby skin on arms and lower legs, striking pallor, and 2+ pitting edema in legs c weeping. Pt denies recent hair loss. Pt taking many supplements includinmg calcium, cranberry, 1,000mcg PO B12 bid, 325mg ferrous sulfate, MVI, PreserVision AREDS, Vitapulse, CoQ10, flaxseed oil, and resveratrol. Pts Severe Acute on Chronic Protein Calorie Malnutrition is masked by recent course of prednisone (currently on taper) as well as 2+ pitting edema c gentle diuresis because of renal disease. Pt has high PRO needs for healing of skin as well as constant weeping of plasma from LEs. 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 Interventions: 1. Recc daily ONS Nepro renal friendly to support protein and micronutrient needs during hospital stay. Diet Order: CCD EER: 50g PRO, 2g Na (per renal labs)
--- NOTE | 2020-09-13 09:44 | DI.CT.S_ITS ---
PROCEDURE: CT BIOPSY LUNG RT Sedation analgesia for 15 minutes. INDICATIONS: Right lung mass TECHNIQUE: The indications, alternatives, benefits, risks, and possible complications of the procedure were communicated to the patient. Informed written consent from the patient was obtained and placed in the chart. Continuous EKG and hemodynamic monitoring was started by trained personnel. The patient was brought to the CT suite and heel painter spiral CT imaging was performed with localization grid. The appropriate site for percutaneous access to the biopsy target was marked, was prepped and draped sterilely, and was infused with local anaesthesia. Under CT guidance, a core biopsy trocar and needle set was advanced to the biopsy target, and specimen(s) were obtained. The trocar and needle were then removed, and the patient was sent for post-procedure monitoring. COMPARISON: , CT, CT CHEST WO CON, 09/12/2020, 9:35. FINDINGS: Biopsy site: Right middle lobe Needle: 20 gauge biopsy needle with introducer trocar. Number of passes: 3 Medications: 1% lidocaine for local anaesthesia. IV Fentanyl and Versed for conscious sedation for 15 minutes (see nursing record). Complications: None. IMPRESSION: Successful CT-guided biopsy of right middle lobe lung mass. Dictated by: Anna Mosley M.D. on 09/14/2020 at 11:08 Approved by: Anna Mosley M.D. on 09/14/2020 at 11:17
[2020-09-13] MEDS: AMLODIPINE 5 MG TABLET 10 MG PO (10:20)
[2020-09-13] MEDS: HEPARIN 5,000 UNIT/ML VIAL 5000 UNIT SUBCUT ×2 (10:20→21:24)
[2020-09-13] MEDS: METOPROLOL ER 25 MG TABLET PO (10:21)
[2020-09-13] MEDS: CYANOCOBALAMIN (VITAMIN B-12) 500 MCG TABLET 1000 MCG PO ×2 (10:21→21:23)
[2020-09-13] MEDS: ISOSORBIDE MONONITRATE ER 30 MG TABLET 60 MG PO (10:22)
[2020-09-13] MEDS: VANCOMYCIN 750 MG/150 ML FROZ.PIGGY 150 MG IV (10:23)
[2020-09-13] MEDS: SODIUM CHLORIDE 0.9% FLUSH 10 ML IV ×2 (10:23→21:25)
[2020-09-13] MEDS: predniSONE 1 MG TABLET PO (10:23)
--- NOTE | 2020-09-13 10:40 | PT.IPTN ---
Physical Therapy Treatment Note M2 PT-IP Current Condition Start: 09/12/20 12:19 Freq: NEEDED Status: Active Protocol: Document 09/12/20 10:54 AB (Rec: 09/12/20 12:37 AB [email or web address]) Physical Therapy Current Condition Current Condition Evaluation Date 09/12/20 Treatment Diagnosis AMS; anemia; R lung mass; difficulty in walking Onset Date 09/12/20 Precautions Other Precautions L heel ulcer M3 PT-IP Subjective Start: 09/12/20 12:19 Freq: NEEDED Status: Active Protocol: Document 09/13/20 10:40 AB (Rec: 09/13/20 12:16 AB [email or web address]) Subjective Physical Therapy Visit Type Type Treatment Note Visit Start Time 10:40 Visit Stop Time 11:11 Total Visit Minutes 31 Number of APPEALS AND GENERALIST CLERK Visits 0 Physical Therapy Visit Comments Patient Comments pt agreed to do PT Therapy Pain Assessment Pain When Pain Assessed During Mobility Location left foot Scale Used pain scale not stated Pain Management Techniques Distraction,Modification of Treatment,Re-positioning, Timing of Activity with Medications M4 PT-IP Mobility and Gait Start: 09/12/20 12:19 Freq: NEEDED Status: Active Protocol: Document 09/13/20 10:40 AB (Rec: 09/13/20 12:16 AB [email or web address]) PT-Bed Mobility Assessment Supine to Sit Supine to Sit Maximum Assistance,Head of Bed Elevated,Bedrails Sit to Supine Sit to Supine Moderate Assistance,Maximum Assistance,1 Person Assistance ,Head of Bed Elevated,Bedrails PT-Transfer Assessment Sit to and From Stand Sit to and from Stand Minimal Assistance,Moderate Assistance,1 Person Assistance ,Use of Upper Extremities Equipment Transfer Assistive Device Gait Belt,Front Wheeled Walker Orthotic/Prosthetic Devices or Brace: No Comments Mobility Comments pt agreed to do PT. nurse wants pt back to bed after PT session because pt is awaiting to have a procedure done. pt completed supine to sit max A and cues. completed sit to stand min to mod A with initial posterior trunk lean LOB requiring mod A for stability. pt ambulated in room ~ 12 ft using FWW min to mod A and stated that, that is all he can do. completed sit to supine mod to max A with LE elevation. positioned pt in bed. call light and table placed within reach. Gait Assessment Gait Gait Assistance Required: Minimum Assistance,Moderate Assistance Distance (Feet) 12 Able to Maintain Weight Bearing Status Yes During Gait Assistive Devices Assistive Device Gait Belt,Front Wheeled Walker Orthotic/Prosthetic Devices or Brace: No Gait Deviations General Gait Pattern Antalgic,Decreased Stride Length,Decreased Feet Clearance,Lateral Trunk Lean, Step-to Gait Factors Limiting Gait Function Factors Limiting Gait Function Decreased Activity Tolerance, Decreased Strength,Difficulty Following Directions,Limited Range of Motion,Pain,Poor Balance,Poor Safety Awareness Comments Gait Comments pt continues to have a forward trunk posture and does not weight bearing on L heel due to c/o pain. M5 PT-IP Objective Assessments Start: 09/12/20 12:19 Freq: NEEDED Status: Active Protocol: Document 09/12/20 10:54 AB (Rec: 09/12/20 12:37 AB [email or web address]) Orientation Orientation/Cognition Level of Alertness Alert Orientation Name,Place,Situation Language Function Ability Hard of Hearing Safety Awareness Decreased Safety Awareness Memory Description Short Term Impaired Gross Range of Motion Lower Extremity ROM Assessment Within Functional Limits Strength Lower Extremity Strength Assessment Bilaterally Impaired Hip 4-/5 Knee 4-/5 Muscle Tone Muscle Tone WNL Yes M6 PT-IP Treatment Start: 09/12/20 12:19 Freq: NEEDED Status: Active Protocol: Document 09/13/20 10:40 AB (Rec: 09/13/20 12:16 AB [email or web address]) Physical Therapy Treatment Education Education Provided Safety M7 PT-IP Assessment and Plan Start: 09/12/20 12:19 Freq: NEEDED Status: Active Protocol: Document 09/13/20 10:40 AB (Rec: 09/13/20 12:16 AB [email or web address]) PT Summary Assessment and Plan Potential Rehabilitation Potential Fair Summary Impairments Pain,ROM,Strength,Balance, Coordination,Sensation,Tone, Cognition,Bed Mobility, Transfers,Gait,Activity Tolerance Progress Towards Goals Slow Progress due to Pain,Slow Progress due to Medical Issues Assessment Summary pt requiring mod to max A with mobility and presents with decrease activity tolerance affecting mobility independence. pt will require SNF rehab to improve strength and mobility. Goals Bed Mobility Goal Independent Transfer Goal Standby Assistance,Front Wheeled Walker Gait Goal Standby Assistance,Front Wheel Walker Gait Distance 75 Other Goals improve ambulation SBA using standard walker/4WW 100 ft Days to Meet Goals 10 Frequency of Treatment Frequency Of Treatment Once a Day Treatment Plan Physical Therapy Treatment Plan Bed Mobility Training,Transfer Training,Gait Training, Therapeutic Exercise,Balance Retraining,Post Op Education, Discharge Planning,Hot or Cold Pack,Neuromuscular Re-ed, Coordination Retraining,Manual Therapy Other Recommendations and Next Treatment ambulation Focus Recommendations To Nursing Amount of Assist Needed 1 Person Assist Discharge Recommendations PT Discharge Recommendations SNF Rehab Transportation Needs at Discharge Wheelchair/Cabulance
--- NOTE | 2020-09-13 11:33 | PM.PN.1 ---
Subjective Subjective Date Patient Seen: 09/13/20 Interval history: Graeme Forte is an 85-year-old male with a past medical history significant for CAD status post stent x 2, hypertension, hyperlipidemia, GERD, chronic back pain with opiate dependence and anemia of chronic disease who was sent to the ED via EMS by his caregiver for generalized weakness and instability. The patient is resting in bed comfortably. He received seroquel at bedtime last night to help treat intermittent agitation which has seemed to help his mood and compliance today. He has no complaints and denies headache, shortness of breath, chest pain, back pain, abdominal pain, lower extremity pain, nausea, vomiting, fever, chills, dysuria, diarrhea or constipation. He is voiding and eliminating without difficulty. He is up ambulating minimally approximately 20 ft with 1 person maximum assistance. Continue PT and OT. Exam Vital Signs (past 8 hours): - 09/13/20 07:00 Temperature 98.4 F Pulse Rate 72 Respiratory Rate 12 Blood Pressure 139/61 Pulse Oximetry 98 Oxygen Delivery Method Room Air Oxygen Flow Rate 0 Narrative Exam Narrative: General: Elderly thin and frail appearing male lying in bed and in no acute distress, pale, appropriately interactive. HEENT: Normocephalic, traumatic. Scalp abrasion on right side with dried heme. External ears without defect. Pupils equal, round, and reactive to light. Anicteric sclerae, moist conjunctivae, and no lid lag. Oropharynx free of erythema and cobble stoning with moist mucosa. Full body muscle wasting. Neck: Supple with full range of motion. No jugular venous distension. No lymphadenopathy or thyromegaly. Cardiovascular: Regular rate and rhythm without murmurs, rubs, or gallops appreciated. Pulmonary: Clear to auscultation bilaterally without crackles, wheezes, or rhonchi. Normal respiratory effort with no use of accessory muscles. Abdomen: Soft, scaphoid, bowel sounds present, nontender, nondistended. No hepatosplenomegaly or masses appreciated. Genitourinary: Extremities: No clubbing or cyanosis. Bilateral lower extremity erythema, mild edema, and slight warmth that is improved. Large bulla on back of left heel with off-loading booties in place. Skin: Normal temperature, turgor, and texture; no rash or subcutaneous nodules appreciated. Stage II sacral decubitus ulcer 2 x 2 cm and thoracic decubitus ulcers 1x1 cm and 2 x 2 cm on bony prominance. Several other scattered abrasions over upper extremities. Neurological: Cranial nerves grossly intact. Generalized weakness with little endurance. Psychiatric: Normal mood and affect. Alert and oriented to person, place, and time. No confusion. Objective Labs Result Diagrams: 09/13/20 06:09 09/13/20 06:09 Labs: Laboratory Results - last 24 hr 09/12/20 09/12/20 09/12/20 05:15 05:15 05:15 WBC RBC Hgb Hct MCV MCH MCHC RDW Plt Count Neut % (Auto) Lymph % (Auto) Alexander % (Auto) Eos % (Auto) Baso % (Auto) Neut # (Auto) Lymph # (Auto) Alexander # (Auto) Eos # (Auto) Baso # (Auto) PT 12.4 INR 1.1 Sodium Potassium Chloride Carbon Dioxide BUN Creatinine Estimated GFR BUN/Creatinine Ratio Glucose Hemoglobin A1c Calcium Magnesium ALT Procalcitonin TSH Free T4 U Opiates 300ng/mL cut Positive H Ur Oxycodone Screen Negative Urine Methadone Screen Negative Ur Barbiturates Screen Negative U Tricyclic Antidepress Negative Ur Phencyclidine Scrn Negative Ur Amphetamines Screen Negative U Methamphetamines Scrn Negative Ur MDMA Scrn (Ecstasy) Negative U Benzodiazepines Scrn Negative Urine Cocaine Screen Negative U Marijuana (THC) Screen Negative Ethyl Alcohol < 10 Hep Bs Antigen Hepatitis C Antibody HIV 1&2 Ab/P24 Ag 4thGn 09/12/20 09/12/20 09/12/20 05:15 05:15 05:15 WBC RBC Hgb Hct MCV MCH MCHC RDW Plt Count Neut % (Auto) Lymph % (Auto) Alexander % (Auto) Eos % (Auto) Baso % (Auto) Neut # (Auto) Lymph # (Auto) Alexander # (Auto) Eos # (Auto) Baso # (Auto) PT INR Sodium Potassium Chloride Carbon Dioxide BUN Creatinine Estimated GFR BUN/Creatinine Ratio Glucose Hemoglobin A1c Calcium Magnesium 2.4 H ALT 83 H Procalcitonin TSH Free T4 U Opiates 300ng/mL cut Ur Oxycodone Screen Urine Methadone Screen Ur Barbiturates Screen U Tricyclic Antidepress Ur Phencyclidine Scrn Ur Amphetamines Screen U Methamphetamines Scrn Ur MDMA Scrn (Ecstasy) U Benzodiazepines Scrn Urine Cocaine Screen U Marijuana (THC) Screen Ethyl Alcohol Hep Bs Antigen Negative Hepatitis C Antibody Negative HIV 1&2 Ab/P24 Ag 4thGn Negative 09/13/20 09/13/20 09/13/20 06:09 06:09 06:09 WBC RBC Hgb Hct MCV MCH MCHC RDW Plt Count Neut % (Auto) Lymph % (Auto) Alexander % (Auto) Eos % (Auto) Baso % (Auto) Neut # (Auto) Lymph # (Auto) Alexander # (Auto) Eos # (Auto) Baso # (Auto) PT INR Sodium Potassium Chloride Carbon Dioxide BUN Creatinine Estimated GFR BUN/Creatinine Ratio Glucose Hemoglobin A1c 7.7 H Calcium Magnesium ALT Procalcitonin 0.19 TSH 4.86 H D Free T4 1.18 U Opiates 300ng/mL cut Ur Oxycodone Screen Urine Methadone Screen Ur Barbiturates Screen U Tricyclic Antidepress Ur Phencyclidine Scrn Ur Amphetamines Screen U Methamphetamines Scrn Ur MDMA Scrn (Ecstasy) U Benzodiazepines Scrn Urine Cocaine Screen U Marijuana (THC) Screen Ethyl Alcohol Hep Bs Antigen Hepatitis C Antibody HIV 1&2 Ab/P24 Ag 4thGn 09/13/20 09/13/20 06:09 06:09 WBC 4.1 L RBC 3.06 L Hgb 9.4 L Hct 28.2 L MCV 91.9 MCH 30.7 MCHC 33.4 RDW 18.9 H Plt Count 161 Neut % (Auto) 61.0 Lymph % (Auto) 27.4 Alexander % (Auto) 10.3 Eos % (Auto) 1.0 L Baso % (Auto) 0.3 Neut # (Auto) 2500 Lymph # (Auto) 1100 Alexander # (Auto) 400 Eos # (Auto) 0 Baso # (Auto) 0 PT INR Sodium 137 Potassium 4.2 Chloride 105 Carbon Dioxide 29 BUN 62 H Creatinine 2.01 H Estimated GFR 31.7 L BUN/Creatinine Ratio 30.8 H Glucose 133 H Hemoglobin A1c Calcium 8.1 L Magnesium 2.1 ALT Procalcitonin TSH Free T4 U Opiates 300ng/mL cut Ur Oxycodone Screen Urine Methadone Screen Ur Barbiturates Screen U Tricyclic Antidepress Ur Phencyclidine Scrn Ur Amphetamines Screen U Methamphetamines Scrn Ur MDMA Scrn (Ecstasy) U Benzodiazepines Scrn Urine Cocaine Screen U Marijuana (THC) Screen Ethyl Alcohol Hep Bs Antigen Hepatitis C Antibody HIV 1&2 Ab/P24 Ag 4thGn Assessment & Plan Assessment & Plan narrative: Graeme Forte is an 85-year-old male with a past medical history significant for CAD status post stent x 2, hypertension, hyperlipidemia, GERD, chronic back pain with opiate dependence and anemia of chronic disease who was sent to the ED via EMS by his caregiver for generalized weakness and instability. 1. Acute bilateral lower extremity cellulitis, present on admission. Improving. -Patient presented with recurrent falls, left heel bullae, and erythema and and mild edema of bilateral lower extremities. -Initial WBC 5.2 and procalcitonin 0.30. Continue to monitor WBC and procalcitonin daily. -Blood cultures x2 pending. Wound culture of left lower extremity pending. -Received vancomycin in ED. Switched vancomycin with dosing per pharmacist to doxycycline 100 mg twice daily for treatment of Gram-positive and Gram-negative bacteria (vancomycin does not treat Gram-negative bacteria). 2. Right lung mass, chronic, present on admission. Active. -Chest x-ray demonstrated rounded mass-like structure at the right lower lobe. -CT chest without contrast demonstrated a 4.3 cm masslike structure that abuts the anterior pleural surface and has its epicenter within the right middle lobe, which on review of the comparison CT pulmonary angiogram 08/24/20 earlier same month likely was present intermixed with pneumonia present elsewhere within the right middle lobe and right lower lobe. This therefore raises concern for malignancy as the underlying cause. The likelihood of round pneumonia given significant resolution of the remaining pneumonia within the right mid and lower lung is considered low. -Discussed case with on-call oncologist Dr. Stevens who recommended CT-guided lung biopsy and MRI brain without contrast to assess for brain mets if the patient can tolerate it. -Ordered CT-guided lung biopsy which will likely be performed tomorrow. NPO midnight except for medications. Held Plavix. 3. Failure to thrive with acute on chronic severe protein calorie malnutrition, generalized weakness, and stage II sacral and thoracic decubitus ulcers, present on admission. Active. -BMI 22. Patient has full body muscle and subcutaneous fat wasting. -Consulted dietitian and we appreciate her time and recommendations. -Continue physical and occupational therapy evaluation and treatment. -Ordered palliative care consultation to discuss goals of care and code status but currently unavailable. 4. 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 Stable. -Patient has intermittent confusion likely related to high doses of narcotic use. Also could consider potential brain mets but unable to assess with MRI due to patient's inability to tolerate lying flat. -Continue home MS Contin 15 mg 5 times daily and gabapentin decreased from 600 mg to 200 mg 3 times daily based on creatinine clearance. 5. Anemia of chronic disease, unknown nature, present on admission. Stable. -Initial hemoglobin 10.4. Baseline hemoglobin variable between 7-10. Patient likely has longstanding anemia of chronic kidney disease and possibly worsening anemia due to hemolytic process versus malignancy from right lung mass. -Patient was previously treated for hemolytic anemia and is completing a slow steroid taper with prednisone 1 mg every other day. -Continue B12 and iron supplementation. -Continue to monitor H&H daily. 6. Chronic kidney disease stage 4, present on admission. Active. -Initial creatinine 2.20 with calculated creatinine clearance of 23.4. Baseline creatinine variable but appears to be between 2-2.5. -Patient has a history of urinary retention and is on doxazosin 1 mg daily at bedtime. -Avoid nephrotoxic agents and renally dose medications. Decreased home gabapentin from 600 mg to 200 mg 3 times daily due to creatinine clearance. -Continue to monitor creatinine daily. 7. CAD, chronic, present on admission. Stable. -Continue home atorvastatin 80 mg daily at bedtime, clopidogrel 75 mg daily, isosorbide mononitrate 60 mg daily, and metoprolol succinate 25 mg daily. 8. Hypertension, chronic, present on admission. Stable. -Continue home amlodipine 10 mg daily, isosorbide mononitrate 60 mg daily, and metoprolol succinate 25 mg daily. 9. Hyperlipidemia, chronic, present on admission. Stable. -Continue home atorvastatin 80 mg daily at bedtime. 10. Insomnia, chronic, present admission. Stable. -Continue home nortriptyline of which he normally takes 25 mg daily at bedtime but will receive 20 mg daily at bedtime due to formulary. 11. GERD, chronic, present on admission. Stable. -Continue equivalent of home lansoprazole 30 mg twice daily. Code status: Full code, surrogate decision maker is designated as patient's caregiver Stanley Goddard VTE prophylaxis: Heparin Disposition: Patient likely to discharge in several days to longterm for rehabilitation.
[2020-09-13] MEDS: INSULIN ASPART 100 UNIT/ML INSULN PEN SUBCUT ×2 (12:41→21:25)
[2020-09-13] MEDS: GABAPENTIN 100 MG CAPSULE 200 MG PO ×3 (12:42→21:24)
[2020-09-13] MEDS: POLYVINYL ALCOHOL DROPS 1 DROPS EYE-BOTH (12:42)
[2020-09-13] MEDS: DOXYCYCLINE HYCLATE 100 MG TABLET PO ×2 (12:42→21:23)
--- NOTE | 2020-09-13 14:28 | OT.IP.EVAL ---
Current Diagnoses Cellulitis of left lower limb (09/12/20) Past Medical History (Last Reviewed 09/12/20 @ 12:06 by Lissy Cunha DO) (HFpEF) heart failure with preserved ejection fraction (Acute) Anemia (Acute) Angina pectoris (Acute) Donald's esophagus (Acute) Chronic kidney disease, stage 4 (severe) (Acute) Chronic neck pain (Acute) Constipation (Inactive) Coronary artery disease (Acute) Decubitus skin ulcer (Inactive) Diabetes mellitus type 2, diet-controlled (Acute) HTN (hypertension) (Acute) Hyperlipidemia (Chronic) Opiate dependence (Acute) Surgical History (Last Reviewed 09/12/20 @ 12:06 by Lissy Cunha DO) H/O heart artery stent (Acute) History of esophagogastroduodenoscopy (EGD) (Acute) Occupational Therapy Inpatient Evaluation/Re-Eval M1 PT/OT-IP Prior Functional Status Start: 09/12/20 12:19 Freq: NEEDED Status: Active Protocol: Document 09/15/20 11:31 CGR (Rec: 09/13/20 16:59 CGR [email or web address]) Medical Review Prior Functional Status Medical History Reviewed Yes Communication able to make needs known Mobility and Gait pt stated that his cousin Stanley usually provides SBA with mobility but also able to provide more assist if needed and is with him 09/06. stated that he uses a standard walker for ambulation and prefers this over a FWW. has used a 4WW for outdoor mobility but stated that he does not usually go outside Activities of Daily Living and IADL's Stanley assists with dressing, bathing, and mobility as needed. Pt states Stanley has been helping more lately. Stanley provides cooking and brings meds. Social History Household Members family Living Arrangements House Number of Floors (Floors) One Floor Number of Stairs To Enter/Railing? No stairs Home Environment Standard Height Toilet,Walk in Shower Home Equipment Front Wheel Walker,Four Wheel Walker,Raised Toilet Seat w/ Armrests,Shower Seat with Backrest,Hand Held Shower,Grab Bars In Shower Employment Status Retired Additional Social History Comment Pt lives with his cousin Stanley who provides care. M2 OT-IP Current Condition Start: 09/13/20 16:40 Freq: Status: Active Protocol: Document 09/15/20 11:31 CGR (Rec: 09/13/20 16:59 CGR [email or web address]) Occupational Therapy Current Condition Current Condition Evaluation Date 09/13/20 Treatment Diagnosis BLE cellulitis, ams, anemia with R lung mass Diagnosis Onset Date 09/12/20 M3 OT- IP Subjective and Pain Start: 09/13/20 16:40 Freq: Status: Active Protocol: Document 09/15/20 11:31 CGR (Rec: 09/13/20 16:59 CGR [email or web address]) OT- Subjective Occupational Therapy Visit Type Type Initial Evaluation Visit Start Time 13:55 Visit Stop Time 14:28 Total Visit Minutes 33 OT Pain Assessment Pain When Pain Assessed During Mobility Pain Present Pain Present Pain Reported Location left foot Scale Used did not rate but reports pain. Management Techniques Modification of Treatment,Re- positioning M4 OT- IP ADL's Start: 09/13/20 16:40 Freq: Status: Active Protocol: Document 09/15/20 11:31 CGR (Rec: 09/13/20 16:59 CGR [email or web address]) OT [id number] Comments OT Self-Feeding Comments not meal time OT ADL-Grooming Comments OT Grooming Comments Pt declined to perform OT ADL-Oral Care Comments Oral Care Comments Pt declined to perform OT ADL-Dressing General Eval Upper Body Dressing Ability Total Assistance Lower Body Dressing Ability Total Assistance Areas Needing Assistance Underpants/Brief,Socks OT ADL-Toileting General Evaluation Toileting Ability Maximum Assistance,Total Assistance Areas Needing Assistance Manage Clothing,Perform Perineal Hygiene Comments OT Toileting Comments [place] [facility] [place] [facility] and needed assist with brief and back pericare. OT ADL-Bathing Comments OT Bathing Comments Not performed M5 OT- IP IADL's Start: 09/13/20 16:40 Freq: Status: Active Protocol: Document 09/15/20 11:31 CGR (Rec: 09/13/20 16:59 CGR [email or web address]) OT-Instrumental Activities of Daily Living Deficits IADL Deficits Identified Deficits Home Safety Awareness Awareness of Need for Assistance at Home Decreased Awareness Ability to Problem Solve Emergency Able to Problem Solve Situations Medication Management Medication Management Caregiver Administers Money Management Money Management Caregiver Provides Assistance Meal Preparation Meal Preparation Caregiver Provides Assist Time Cycle Operator Time Cycle Operator Caregiver Provides Assist Driving Driving Comments 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 M6 OT- IP Functional Cognition Start: 09/13/20 16:40 Freq: Status: Active Protocol: Document 09/15/20 11:31 CGR (Rec: 09/13/20 16:59 CGR [email or web address]) Cognitive Factors Limiting Selfcare Function Cognitive Ability Level of Alertness Alert,Confusional State Patient Orientation Name,Month,Date,Year,Day of Week,Place,Situation Attention Span Ability Capable of Focused Attention, Unable to Sustain Attention Ability to Follow Commands Able to Follow One Step Commands with Increased Time, Able to Follow One Step Commands with Repetition Safety Awareness Underestimates Need for Assistance Cognitive Comments Cognitive Assessment Comments Pt appears sharp answering all orientation questions but also stating I need the pumps for irrigation. This signwriter was unable to figure out what the pt was stating. Pt appears to have fluctuating cognition abilities at this time. OT- Vision and Hearing OT- Hearing Assessment OT- Hearing Assessment WFL OT- Vision Assessment Visual Acuity Glasses All The Time Vision Assessment Comments Unable to assess vision at this time. Pt kept eye closed throughout session and needed VC to open eyes. M7 OT- IP Mobility and Balance Start: 09/13/20 16:40 Freq: Status: Active Protocol: Document 09/15/20 11:31 CGR (Rec: 09/13/20 16:59 CGR [email or web address]) OT- Bed Mobility Assessment Supine to Sit Supine to Sit Assist Maximum Assistance Sit to Supine Sit to Supine Assist Maximum Assistance Scooting Scooting to Edge of Bed Maximum Assistance OT-Transfer Assessment Sit to and From Stand Sit to and from Stand Moderate Assistance,Maximum Assistance Transfers Transfer Ability Moderate Assistance,Maximum Assistance Technique Transfer Destination Bed,Bedside Commode Transfer Technique Stand Step Pivot Devices Transfer Assistive Devices Gait Belt,Front Wheeled Walker Comments Mobility Comments Pt needs VC for straightening out his knees upon standing and lots of extra time for bed mobility. OT- Balance Assessment Sitting Balance and Reactions Static Sitting Balance Ability Fair Dynamic Sitting Balance Ability Poor M8 OT- IP Objective Assessments Start: 09/13/20 16:40 Freq: Status: Active Protocol: Document 09/15/20 11:31 CGR (Rec: 09/13/20 16:59 CGR [email or web address]) OT Gross Range of Motion Upper Extremity Range of Motion Assessment Within Functional Limits OT Strength Comments Strength Comments not assessed on this date but noted greater than 3+ OT- Coordination Assessment Comments Coordination Comments not tested on this date. OT-Muscle Tone Assessment Muscle Tone WNL Yes OT Sensation Assessment Edema Edema Absent M9 OT- IP Assessment and Plan Start: 09/13/20 16:40 Freq: Status: Active Protocol: Document 09/15/20 11:31 CGR (Rec: 09/13/20 16:59 CGR [email or web address]) OT Summary Assessment and Plan Potential Rehabilitation Potential Fair Analytic Complexity at Evaluation Moderate Summary OT Impairments Pain,Strength,Balance, Functional Cognition, Functional Mobility,Grooming, Dressing,Toileting,Bathing, Toilet Transfers,Shower Transfers,Activity Tolerance Progress Towards Goals Slow Progress due to Medical Issues Assessment Summary Pt presents as a moderate complexity evaluation s/p admit for AMS and BLE cellulitis. Pt's largest barrier is endurance at this time. Given pt's likely prognosis, pt would benefit from returning home with 24/7 support vs SNF. OT will continue to see to address deficits and support in d/c planning. Goals Self-Feeding Goal Independent Grooming Goal Independent Dressing Goal Minimal Assistance Toileting Goal Standby Assistance Bathing Goal Minimal Assistance Toilet Transfer Goal Standby Assistance Shower Transfer Goal Standby Assistance Days to Meet Goals 30 Frequency of Treatment Frequency Of Treatment Once a Day Treatment Plan OT Treatment Plan ADL Training,Functional Cognition Training,Functional Mobility,Patient/Family Education,Discharge Planning Other Treatment Recommendations and Next Activity as tolerated. Treatment Focus Discharge Recommendations OT Discharge Recommendations Home with 24/7 Assist,SNF Rehab Other Discharge Recommendations Pt would likely benefit most from home with 24/7 assist vs SNF. Home Equipment Needs TBD Transportation Needs at Discharge Wheelchair/Cabulance
[2020-09-13] MEDS: FERROUS SULFATE 325 MG TABLET PO (18:10)
[2020-09-13] MEDS: DOXAZOSIN 2 MG TABLET 1 MG PO (21:21)
[2020-09-13] MEDS: ATORVASTATIN 20 MG TABLET 80 MG PO (21:21)
[2020-09-13] MEDS: NORTRIPTYLINE HCL 25 MG CAPSULE PO (21:23)
[2020-09-13] MEDS: QUETIAPINE 25 MG TABLET 12.5 MG PO (21:23)
[2020-09-14] VITALS (12 sets, daily range): BP systolic 109–176; BP diastolic 52–77; PULSE 60–86; RESP 10–18; TEMP 36.1–36.8; O2SAT 95–100
--- NOTE | 2020-09-14 | PATH_ITS ---
[facility] Accession Number: [id number] . 01 Material submitted: . lung - LUNG . 02 Diagnosis: Lung, Core Needle Biopsies: Very scant fragments of inflammatory debris and fibroconnective tissue. Please see comment. MRV 09/18/2020 1514 Local . 02 Comment: No neoplasm is identified in the sections examined. There is scant inflammatory debris and fibroconnective tissue, which could be compatible with abscess contents, in the appropriate clinical and radiologic setting. If clinical suspicion remains high for neoplasm, re-biopsy could be considered at an appropriate clinical interval. . As part of routine quality assurance nurse, Dr. Conde and Dr. Donald also reviewed this case and agree with the interpretation. . 02 Electronically signed: . Jessica Ball MD, Pathologist NPI- [id number] . 01 Gross description: . LUNG: Received in formalin are 2 fragment(s) of willough[place], soft tissue measuring 0.2 x 0.1 x 0.1 cm to 0.3 x 0.1 x 0.1 cm submitted entirely in 1 cassette(s) /ZI 09/14/2020 2358 Local . 02 Microscopic: . Immunohistochemical stains were performed to evaluate possible cells of interest with the following results: . Chromogranin: Negative. ROSEMARIE: Highlights pneumocytes. GMS: Negative for fungal organisms. . INTERPRETATION: ROSEMARIE stain highlights pneumocytes, but does not highlight any abnormal cell population. There is no immunophenotypic evidence of a neuroendocrine lesion. No fungal organsms are highlighted in the inflammatory debris. . The control stains showed appropriate reactivity. . * This test was developed and its performance characteristics determined by [facility]. It has not been cleared or approved by the U.S. Food and Drug Administration. The FDA has determined that such clearance or approval is not necessary. This test is used for clinical purposes. It should not be regarded as investigational or for research. . 02 Pathologist provided ICD-10: R91.8 . 02 CPT . 581569, A77876, I51544, 590090 Performed at: 01 [facility] [address] [id number] MD Brady Card MD Phone: [phone] Performed at: 02 [facility] [address] [place] [id number] MD Jessica Ball MD Phone: [phone]
[2020-09-14 06:08] LABS: Hepatitis B Surf Ab Qualitativ Reactive (.)
--- NOTE | 2020-09-14 06:22 | PC.NURSE ---
system administration manager note: Patient has been very drowsy throughout shift. Upon initial assessment, patient appears to be alert, oriented - answering all questions appropriately but nods back off to sleep easily. Patient has been turned and repositioned every 2 hours for comfort and to protect skin from further breakdown. Patient has been NPO since midnight pending lung biopsy this morning. 0600 dose of Morphine held, patient denied pain then drifted off back to sleep. Patient extremely drowsy already. Patient remains on RA, VSS. 1 occurance of incontinent episode of void in brief for shift. Currently, patient sleeping. No distress noted. Will continue to monitor patient.
[2020-09-14 08:44] LABS: Add Manual Diff / Slide Review NO; Basophils Absolute Auto 0 /uL (0-100); Basophils Percent Auto 0.6 % (0-2); Eosinophils Absolute Auto 100 /uL (0-450); Eosinophils Percent Auto 1.9 % (2-4); Hematocrit 30.7 % (41-53); Hemoglobin 10.3 g/dL (13.5-17.5); Lymphocytes Absolute Auto 1200 /uL (1100-4500); Lymphocytes Percent Auto 35.7 % (25-40); Mean Corpuscular HGB Conc 33.4 % (30-36); Mean Corpuscular Hemoglobin 30.6 PG (26-34); Mean Corpuscular Volume 91.6 fL (80-100); Monocytes Absolute Auto 300 /uL (0-900); Monocytes Percent Auto 10.1 % (3-14); Neutrophils Absolute Auto 1700 /uL (1500-7000); Neutrophils Percent Auto 51.7 % (50-75); Platelet Count 157 X10^3/uL (150-400); Red Blood Cell Count 3.35 X10^6/uL (4.5-5.9); Red Cell Distribution Width 18.5 % (11.6-14.8); White Blood Cell Count 3.4 X10^3/uL (4.5-11.0)
[2020-09-14 08:52] LABS: PTT Partial Thromboplastin Tim 29 SECONDS (26.4-36.2)
[2020-09-14 08:54] LABS: Alanine Aminotransferase 51 IU/L (<50); Albumin 2.7 g/dL (3.5-5.0); Albumin Globulin Ratio 0.9 (1.0-2.8); Alkaline Phosphatase 69 U/L (38-126); Aspartate Aminotransferase 30 IU/L (17-59); BUN Creatinine Ratio 27.8 (6-22); Bilirubin Total 0.9 mg/dL (0.2-1.3); Blood Urea Nitrogen 57 mg/dL (9-20); Calcium 8.2 mg/dL (8.4-10.2); Carbon Dioxide 31 mmol/L (22-32); Chloride 106 mmol/L (98-107); Glucose 99 mg/dL (80-110); HEMOLYSIS < 15 (0-50); Potassium 4.1 mmol/L (3.4-5.1); Sodium 138 mmol/L (137-145); Total Protein 5.7 g/dL (6.3-8.2)
[2020-09-14 09:11] LABS: Procalcitonin 0.12 ng/mL (<0.5)
[2020-09-14] MEDS: HEPARIN 5,000 UNIT/ML VIAL 5000 UNIT SUBCUT ×2 (10:46→21:46)
[2020-09-14] MEDS: METOPROLOL ER 25 MG TABLET PO (10:48)
[2020-09-14] MEDS: AMLODIPINE 5 MG TABLET 10 MG PO (10:49)
[2020-09-14] MEDS: ISOSORBIDE MONONITRATE ER 30 MG TABLET 60 MG PO (10:49)
[2020-09-14] MEDS: CYANOCOBALAMIN (VITAMIN B-12) 500 MCG TABLET 1000 MCG PO ×2 (10:49→21:47)
[2020-09-14] MEDS: PANTOPRAZOLE 40 MG TABLET PO ×2 (10:49→16:20)
[2020-09-14] MEDS: DOXYCYCLINE HYCLATE 100 MG TABLET PO (10:50)
[2020-09-14] MEDS: SODIUM CHLORIDE 0.9% FLUSH 10 ML IV ×2 (10:50→21:48)
--- NOTE | 2020-09-14 11:17 | CM.IDA ---
[facility] Note This [facility] [employer] [facility] requested for consult to complete EL assess and offer resources as needed before patient's DC Patient w/PMH significant for CAD status post stent x 2, hypertension, hyperlipidemia, GERD, chronic back pain with opiate dependence and anemia of chronic disease who was sent to the ED via EMS by his caregiver for generalized weakness and instability PCP: J Luis Celestin Payer: Mary Grace ANDRADE Reviewed chart, patient discussed in multidisciplinary rounds, patient is expected to be medically cleared for DC today. Met w/patient and her (x20 years). Patient states she has been sober since Nov 2019 and before that time had been sober x 16 years. Patient has h/o 2 inpatient stays at [facility] in [facility] 20 years ago it was beautiful patient states these treatment stays were very helpful to her. Patient also has one treatment stay at [facility] in [place] 20 years ago, for addiction (not psychiatric), patient w/ h/o counseling through behavioral health. Patient denies the need for EL treatment/recovery resources, denies the need for counseling resources, states she has remained sober with [employer]. Patient/spouse hope to return home today, awaiting their visit w/Dr Cunha currently P: DC likely home today w/close outpt f/u, patient denies need for EL and counseling resources JOHNY Poole
--- NOTE | 2020-09-14 11:26 | PT-IP ANOTE ---
checked on pt and initially refusing PT but then agreed. set up chair and equipment for pt and when it is time to mobilize pt refusing PT again. will check back later in the afternoon.
--- NOTE | 2020-09-14 13:50 | PT.IPTN ---
Current Diagnoses Cellulitis of left lower limb (09/12/20) Physical Therapy Treatment Note M2 PT-IP Current Condition Start: 09/12/20 12:19 Freq: NEEDED Status: Active Protocol: Document 09/12/20 10:54 AB (Rec: 09/12/20 12:37 AB [email or web address]) Physical Therapy Current Condition Current Condition Evaluation Date 09/12/20 Treatment Diagnosis AMS; anemia; R lung mass; difficulty in walking Onset Date 09/12/20 Precautions Other Precautions L heel ulcer M3 PT-IP Subjective Start: 09/12/20 12:19 Freq: NEEDED Status: Active Protocol: Document 09/14/20 13:50 AB (Rec: 09/14/20 15:01 AB [email or web address]) Subjective Physical Therapy Visit Type Type Treatment Note Visit Start Time 13:50 Visit Stop Time 14:26 Total Visit Minutes 22 Notes pt seen for split visits: 1350 to 1359 and 1413 to 1426 Number of WELT SEWER Visits 0 Physical Therapy Visit Comments Patient Comments pt is agreeable to do PT M4 PT-IP Mobility and Gait Start: 09/12/20 12:19 Freq: NEEDED Status: Active Protocol: Document 09/14/20 13:50 AB (Rec: 09/14/20 15:01 AB [email or web address]) PT-Bed Mobility Assessment Supine to Sit Supine to Sit Standby Assistance,Head of Bed Elevated,Bedrails PT-Transfer Assessment Sit to and From Stand Sit to and from Stand Minimal Assistance,Moderate Assistance,1 Person Assistance ,Use of Upper Extremities Equipment Transfer Assistive Device Gait Belt,Front Wheeled Walker Orthotic/Prosthetic Devices or Brace: No Transfers Transfer Destination Chair Transfer Technique ambulated using FWW Transfer Ability Level of Assist Minimal Assistance,Moderate Assistance,1 Person Assistance ,Use of Upper Extremities Comments Mobility Comments pt completed supine to sit with HOB elevated and pt used bed rail to assist requiring SBA. pt required increase time to complete task. pt completed sit to stand from EOB min to mod A and ambulated in room ~ 20 ft. pt agreed to sit on chair. positioned on chair. call light and table placed within reach. Gait Assessment Gait Gait Assistance Required: Minimum Assistance,Moderate Assistance,1 Person Assist Distance (Feet) 20 Able to Maintain Weight Bearing Status Yes During Gait Assistive Devices Assistive Device Gait Belt,Front Wheeled Walker Orthotic/Prosthetic Devices or Brace: No Gait Deviations General Gait Pattern Antalgic,Decreased Stride Length,Decreased Feet Clearance,Step-to Gait Factors Limiting Gait Function Factors Limiting Gait Function Decreased Activity Tolerance, Decreased Strength,Difficulty Following Directions,Limited Range of Motion,Pain,Poor Balance,Poor Safety Awareness Comments Gait Comments pls refer to mobility section for details. M5 PT-IP Objective Assessments Start: 09/12/20 12:19 Freq: NEEDED Status: Active Protocol: Document 09/12/20 10:54 AB (Rec: 09/12/20 12:37 AB [email or web address]) Orientation Orientation/Cognition Level of Alertness Alert Orientation Name,Place,Situation Language Function Ability Hard of Hearing Safety Awareness Decreased Safety Awareness Memory Description Short Term Impaired Gross Range of Motion Lower Extremity ROM Assessment Within Functional Limits Strength Lower Extremity Strength Assessment Bilaterally Impaired Hip 4-/5 Knee 4-/5 Muscle Tone Muscle Tone WNL Yes M6 PT-IP Treatment Start: 09/12/20 12:19 Freq: NEEDED Status: Active Protocol: Document 09/14/20 13:50 AB (Rec: 09/14/20 15:[address] [facility] Physical Therapy Treatment Education Education Provided Safety M7 PT-IP Assessment and Plan Start: 09/12/20 12:19 Freq: NEEDED Status: Active Protocol: Document 09/14/20 13:50 AB (Rec: 09/14/20 15:01 AB [email or web address]) PT Summary Assessment and Plan Potential Rehabilitation Potential Fair Summary Impairments Pain,ROM,Strength,Balance, Coordination,Sensation,Tone, Cognition,Bed Mobility, Transfers,Gait,Activity Tolerance Progress Towards Goals Slow Progress due to Pain,Slow Progress due to Medical Issues,Slow Progress due to Activity Tolerance Assessment Summary pt improving slowly with mobility. pt seems steadier with ambulation today and less antalgic gait but continues to have decrease activity tolerance. pt will require SNF rehab to improve strength and mobility . Goals Bed Mobility Goal Independent Transfer Goal Standby Assistance,Front Wheeled Walker Gait Goal Standby Assistance,Front Wheel Walker Gait Distance 75 Other Goals improve ambulation SBA using standard walker/4WW 100 ft Days to Meet Goals 10 Frequency of Treatment Frequency Of Treatment Once a Day Treatment Plan Physical Therapy Treatment Plan Bed Mobility Training,Transfer Training,Gait Training, Therapeutic Exercise,Balance Retraining,Discharge Planning, Hot or Cold Pack,Neuromuscular Re-ed,Coordination Retraining Other Recommendations and Next Treatment ambulation Focus Recommendations To Nursing Amount of Assist Needed 1 Person Assist Discharge Recommendations PT Discharge Recommendations SNF Rehab Transportation Needs at Discharge Wheelchair/Cabulance
--- NOTE | 2020-09-14 14:00 | DI.RAD.S_ITS ---
PROCEDURE: XR CHEST 1V INDICATIONS: Post CT guided lung biopsy TECHNIQUE: One view of the chest was acquired. COMPARISON: [facility], CT, CT BIOPSY LUNG RT, 09/14/2020, 9:00. [facility], CT, CT CHEST WO CON, 09/12/2020, 9:35. [facility], CR, XR CHEST 1V, 09/12/2020, 6:18. FINDINGS: Surgical changes and devices: None. Lungs and pleura: No pneumothorax. There is a 3 cm mass in the right middle lobe. No pleural effusions. Mediastinum: Mediastinal contours appear normal. Heart size is normal. Bones and chest wall: No suspicious bony lesions. Overlying soft tissues appear unremarkable. IMPRESSION: No pneumothorax. Dictated by: Anna Mosley M.D. on 09/14/2020 at 14:10 Approved by: Anna Mosley M.D. on 09/14/2020 at 14:12
--- NOTE | 2020-09-14 14:51 | PC.NURSE ---
Day Shift Note Pt very somnolent this shift, responds with grunts or one word answers. Largely non-interactive but cooperative with care this morning. Turning every 2 hours. Refused bathing/oral care this shift, did take pills one at a time with water before falling back asleep, no issues with swallowing noted. Morphine held this shift due to drowsiness and RR 10-12 bpm and MD notified. SpO2 100% RA. Lung biopsy done this morning without issue, band-aid from biopsy site C/D/I. Currently sitting up in chair, call light within reach. Dressings to pressure injuries x2 C/D/I.
--- NOTE | 2020-09-14 15:02 | OT.IP.TRT ---
Current Diagnoses Cellulitis of left lower limb (09/12/20) Occupational Therapy Treatment Note M2 OT-IP Current Condition Start: 09/13/20 16:40 Freq: Status: Active Protocol: Document 09/13/20 16:40 CGR (Rec: 09/13/20 16:59 CGR [id number]) Occupational Therapy Current Condition Current Condition Evaluation Date 09/13/20 Treatment Diagnosis BLE cellulitis, ams, anemia with R lung mass Diagnosis Onset Date 09/12/20 M3 OT- IP Subjective and Pain Start: 09/13/20 16:40 Freq: Status: Active Protocol: Document 09/14/20 15:02 [facility] (Rec: 09/14/20 16:06 [facility] [id number]) OT- Subjective Occupational Therapy Visit Type Type Treatment Note Visit Start Time 14:48 Visit Stop Time 15:02 Total Visit Minutes 14 Occupational Therapy Visit Comments Patient Comments Pt asleep initially and but willing to wake up to do his grooming needs. Patient/Caregiver Goals TO go home. OT Pain Assessment Pain When Pain Assessed At Rest Pain Present Pain Present Denied Pain M4 OT- IP ADL's Start: 09/13/20 16:40 Freq: Status: Active Protocol: Document 09/14/20 15:02 [facility] (Rec: 09/14/20 16:06 [facility] [id number]) OT ADL-Oral Care General Eval Oral Care Ability Standby Assistance Areas of Assistance Retrieving/Set-Up of Items Comments Oral Care Comments Set-up assist for all needs. Pt needing cues and physical assist to help get the his arm out of the blankets and then pt able to initiate to started with grooming needs. M5 OT- IP IADL's Start: 09/13/20 16:40 Freq: Status: Active Protocol: Document 09/13/20 16:40 CGR (Rec: 09/13/20 16:59 CGR [email or web address]) OT-Instrumental Activities of Daily Living Deficits IADL Deficits Identified Deficits Home Safety Awareness Awareness of Need for Assistance at Home Decreased Awareness Ability to Problem Solve Emergency Able to Problem Solve Situations Medication Management Medication Management Caregiver Administers Money Management Money Management Caregiver Provides Assistance Meal Preparation Meal Preparation Caregiver Provides Assist Supervisor Publications Production Supervisor Publications Production Caregiver Provides Assist Driving Driving Comments 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 M6 OT- IP Functional Cognition Start: 09/13/20 16:40 Freq: Status: Active Protocol: Document 09/14/20 15:02 [facility] (Rec: 09/14/20 16:06 [facility] [id number]) Cognitive Factors Limiting Selfcare Function Cognitive Ability Level of Alertness Alert Attention Span Ability Capable of Focused Attention, Unable to Sustain Attention Ability to Follow Commands Able to Follow One Step Commands Cognitive Comments Cognitive Assessment Comments Pt able to follow commands to be able to do groomign needs after set-up. M7 OT- IP Mobility and Balance Start: 09/13/20 16:40 Freq: Status: Active Protocol: Document 09/13/20 16:40 CGR (Rec: 09/13/20 16:59 CGR [email or web address]) OT- Bed Mobility Assessment Supine to Sit Supine to Sit Assist Maximum Assistance Sit to Supine Sit to Supine Assist Maximum Assistance Scooting Scooting to Edge of Bed Maximum Assistance OT-Transfer Assessment Sit to and From Stand Sit to and from Stand Moderate Assistance,Maximum Assistance Transfers Transfer Ability Moderate Assistance,Maximum Assistance Technique Transfer Destination Bed,Bedside Commode Transfer Technique Stand Step Pivot Devices Transfer Assistive Devices Gait Belt,Front Wheeled Walker Comments Mobility Comments Pt needs VC for straighteing out his knees upon standing and lots of extra time for bed mobility. OT- Balance Assessment Sitting Balance and Reactions Static Sitting Balance Ability Fair Dynamic Sitting Balance Ability Poor M8 OT- IP Objective Assessments Start: 09/13/20 16:40 Freq: Status: Active Protocol: Document 09/13/20 16:40 CGR (Rec: 09/13/20 16:59 CGR [email or web address]) OT Gross Range of Motion Upper Extremity Range of Motion Assessment Within Functional Limits OT Strength Comments Strength Comments not assessed on this date but noted greater than 3+ OT- Coordination Assessment Comments Coordination Comments not tested on this date. OT-Muscle Tone Assessment Muscle Tone WNL Yes OT Sensation Assessment Edema Edema Absent M9 OT- IP Assessment and Plan Start: 09/13/20 16:40 Freq: Status: Active Protocol: Document 09/14/20 15:02 [facility] (Rec: 09/14/20 16:06 [facility] [id number]) OT Summary Assessment and Plan Potential Rehabilitation Potential Fair Analytic Complexity at Evaluation Moderate Summary OT Impairments Pain,Strength,Balance, Functional Cognition, Functional Mobility,Grooming, Dressing,Toileting,Bathing, Toilet Transfers,Shower Transfers,Activity Tolerance Progress Towards Goals Slow Progress due to Medical Issues,Slow Progress due to Activity Tolerance Assessment Summary Pt still unsteady on his feet, decreased overall activity tolerance and endurance. Pt will benefit from skilled rehab prior to going home. Goals Self-Feeding Goal Independent Grooming Goal Independent Dressing Goal Minimal Assistance Toileting Goal Standby Assistance Bathing Goal Minimal Assistance Toilet Transfer Goal Standby Assistance Shower Transfer Goal Standby Assistance Days to Meet Goals 20 Frequency of Treatment Frequency Of Treatment Once a Day Treatment Plan OT Treatment Plan ADL Training,Functional Cognition Training,Functional Mobility,Patient/Family Education,Discharge Planning Other Treatment Recommendations and Next Stand for groomin needs. Treatment Focus Discharge Recommendations OT Discharge Recommendations SNF Rehab Transportation Needs at Discharge Wheelchair/Cabulance
[2020-09-14] MEDS: FERROUS SULFATE 325 MG TABLET PO (16:43)
[2020-09-14] MEDS: GABAPENTIN 100 MG CAPSULE 200 MG PO ×2 (16:44→21:46)
[2020-09-14] MEDS: MEROPENEM 250 MG in SODIUM CHLORIDE 0.9% 100 ML 200 ML IV (16:54)
--- NOTE | 2020-09-14 19:52 | PM.PN.1 ---
Subjective Subjective Date Patient Seen: 09/14/20 Interval history: Graeme Forte is an 85-year-old male with a past medical history significant for CAD status post stent x 2, hypertension, hyperlipidemia, GERD, chronic back pain with opiate dependence and anemia of chronic disease who was sent to the ED via EMS by his caregiver for generalized weakness and instability. The patient is resting in bed comfortably after CT-guided lung biopsy. He is quite somnolent due to conscious sedation. His left lower extremity cellulitis has not improved vastly likely due to Serratia infection which vancomycin and doxycycline do not cover. Switch patient to meropenem due to medication allergies and resistance pattern of Serratia. He has no complaints and denies headache, shortness of breath, chest pain, back pain, abdominal pain, lower extremity pain, nausea, vomiting, fever, chills, dysuria, diarrhea or constipation. He is voiding and eliminating without difficulty. He is up ambulating minimally approximately 20 ft with 1 person maximum assistance. Continue PT and OT. Exam Vital Signs (past 8 hours): - 09/14/20 12:00 09/14/20 15:59 Temperature 98.0 F 97.6 F Pulse Rate 70 75 Respiratory Rate 14 14 Blood Pressure 135/65 116/55 L Pulse Oximetry 97 Oxygen Delivery Method Room Air Oxygen Flow Rate 0 Narrative Exam Narrative: General: Elderly thin and frail appearing male lying in bed and in no acute distress, pale, appropriately interactive. HEENT: Normocephalic, traumatic. Scalp abrasion on right side with dried heme. External ears without defect. Pupils equal, round, and reactive to light. Anicteric sclerae, moist conjunctivae, and no lid lag. Oropharynx free of erythema and cobble stoning with moist mucosa. Full body muscle wasting. Neck: Supple with full range of motion. No jugular venous distension. No lymphadenopathy or thyromegaly. Cardiovascular: Regular rate and rhythm without murmurs, rubs, or gallops appreciated. Pulmonary: Clear to auscultation bilaterally without crackles, wheezes, or rhonchi. Normal respiratory effort with no use of accessory muscles. Abdomen: Soft, scaphoid, bowel sounds present, nontender, nondistended. No hepatosplenomegaly or masses appreciated. Genitourinary: Extremities: No clubbing or cyanosis. Bilateral lower extremity erythema, mild edema, and slight warmth persistent. Large bulla on back of left heel with off-loading booties in place. Skin: Normal temperature, turgor, and texture; no rash or subcutaneous nodules appreciated. Stage II sacral decubitus ulcer 2 x 2 cm and thoracic decubitus ulcers 1x1 cm and 2 x 2 cm on bony prominance. Several other scattered abrasions over upper extremities. Neurological: Cranial nerves grossly intact. Generalized weakness with little endurance. Psychiatric: Normal mood and affect. Alert and oriented to person, place, and time. No confusion. Objective Labs Result Diagrams: 09/14/20 08:35 09/14/20 08:35 Labs: Laboratory Results - last 24 hr 09/12/20 09/14/20 09/14/20 05:15 08:35 08:35 WBC 3.4 L RBC 3.35 L Hgb 10.3 L Hct 30.7 L MCV 91.6 MCH 30.6 MCHC 33.4 RDW 18.5 H Plt Count 157 Neut % (Auto) 51.7 Lymph % (Auto) 35.7 [place] % (Auto) 10.1 Eos % (Auto) 1.9 L Baso % (Auto) 0.6 Neut # (Auto) 1700 Lymph # (Auto) 1200 [place] # (Auto) 300 Eos # (Auto) 100 Baso # (Auto) 0 PT 12.0 INR 1.0 APTT 29 Sodium Potassium Chloride Carbon Dioxide BUN Creatinine Estimated GFR BUN/Creatinine Ratio Glucose Calcium Magnesium Total Bilirubin AST ALT Alkaline Phosphatase Total Protein Albumin Globulin Albumin/Globulin Ratio Procalcitonin Hep Bs Antibody Reactive 09/14/20 09/14/20 08:35 08:35 WBC RBC Hgb Hct MCV MCH MCHC RDW Plt Count Neut % (Auto) Lymph % (Auto) [place] % (Auto) Eos % (Auto) Baso % (Auto) Neut # (Auto) Lymph # (Auto) [place] # (Auto) Eos # (Auto) Baso # (Auto) PT INR APTT Sodium 138 Potassium 4.1 Chloride 106 Carbon Dioxide 31 BUN 57 H Creatinine 2.05 H Estimated GFR 31.0 L BUN/Creatinine Ratio 27.8 H Glucose 99 Calcium 8.2 L Magnesium 2.0 Total Bilirubin 0.9 AST 30 ALT 51 H Alkaline Phosphatase 69 Total Protein 5.7 L Albumin 2.7 L Globulin 3.0 Albumin/Globulin Ratio 0.9 L Procalcitonin 0.12 Hep Bs Antibody Assessment & Plan Assessment & Plan narrative: Graeme Forte is an 85-year-old male with a past medical history significant for CAD status post stent x 2, hypertension, hyperlipidemia, GERD, chronic back pain with opiate dependence and anemia of chronic disease who was sent to the ED via EMS by his caregiver for generalized weakness and instability. 1. Acute bilateral lower extremity cellulitis, present on admission. Improving. -Patient presented with recurrent falls, left heel bullae, and erythema and and mild edema of bilateral lower extremities. -Initial WBC 5.2 and procalcitonin 0.30. Continue to monitor WBC and procalcitonin daily. -Blood cultures x2 pending. Wound culture of left lower extremity grew Serratia marcescens resistant to cephalosporins. -Received vancomycin and doxycycline which did not treat Serratia. Due to patient's cephalosporin and fluoroquinolone allergies switch patient to meropenem 250 mg IV every 12 hours for 7 days. Ordered PICC line to be placed tomorrow for IV antibiotics. 2. Right lung mass, chronic, present on admission. Active. -Chest x-ray demonstrated rounded mass-like structure at the right lower lobe. -CT chest without contrast demonstrated a 4.3 cm masslike structure that abuts the anterior pleural surface and has its epicenter within the right middle lobe, which on review of the comparison CT pulmonary angiogram 08/24/20 earlier same month likely was present intermixed with pneumonia present elsewhere within the right middle lobe and right lower lobe. This therefore raises concern for malignancy as the underlying cause. The likelihood of round pneumonia given significant resolution of the remaining pneumonia within the right mid and lower lung is considered low. -Discussed case with on-call oncologist Dr. Stevens who recommended CT-guided lung biopsy and MRI brain without contrast to assess for brain mets if the patient can tolerate it. -CT-guided lung biopsy performed by Interventional Radiology today with lung biopsies sent to pathology and pending. Repeat chest x-ray negative for pneumothorax and patient maintaining oxygen saturations on room air. Patient will need to follow-up with Dr. Stevens for lung biopsy results. 3. Failure to thrive with acute on chronic severe protein calorie malnutrition, generalized weakness, and stage II sacral and thoracic decubitus ulcers, present on admission. Active. -BMI 22. Patient has full body muscle and subcutaneous fat wasting. -Continue wound care per nursing. -Consulted dietitian and we appreciate her time and recommendations. -Continue physical and occupational therapy evaluation and treatment. -Ordered palliative care consultation to discuss goals of care and code status but currently unavailable inpatient and would recommend outpatient consultation. 4. 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 Stable. -Patient has intermittent confusion likely related to high doses of narcotic use. Also could consider potential brain mets but unable to assess with MRI due to patient's inability to tolerate lying flat. -Continue home MS Contin 15 mg 5 times daily and gabapentin decreased from 600 mg to 200 mg 3 times daily based on creatinine clearance. -Continue Seroquel 12.5 mg daily at bedtime for agitation. 5. Anemia of chronic disease, unknown nature, present on admission. Stable. -Initial hemoglobin 10.4. Baseline hemoglobin variable between 7-10. Patient likely has longstanding anemia of chronic kidney disease and possibly worsening anemia due to hemolytic process versus malignancy from right lung mass. -Patient was previously treated for hemolytic anemia and is completing a slow steroid taper with prednisone 1 mg every other day. -Continue B12 and iron supplementation. -Continue to monitor H&H daily. 6. Chronic kidney disease stage 4, present on admission. Active. -Initial creatinine 2.20 with calculated creatinine clearance of 23.4. Baseline creatinine variable but appears to be between 2-2.5. -Patient has a history of urinary retention and is on doxazosin 1 mg daily at bedtime. -Avoid nephrotoxic agents and renally dose medications. Decreased home gabapentin from 600 mg to 200 mg 3 times daily due to creatinine clearance. -Continue to monitor creatinine daily. 7. CAD, chronic, present on admission. Stable. -Continue home atorvastatin 80 mg daily at bedtime, isosorbide mononitrate 60 mg daily, and metoprolol succinate 25 mg daily. Held clopidogrel for lung biopsy. 8. Hypertension, chronic, present on admission. Stable. -Continue home amlodipine 10 mg daily, isosorbide mononitrate 60 mg daily, and metoprolol succinate 25 mg daily. 9. Hyperlipidemia, chronic, present on admission. Stable. -Continue home atorvastatin 80 mg daily at bedtime. 10. Insomnia, chronic, present admission. Stable. -Continue home nortriptyline of which he normally takes 25 mg daily at bedtime but will receive 20 mg daily at bedtime due to formulary. 11. GERD, chronic, present on admission. Stable. -Continue equivalent of home lansoprazole 30 mg twice daily. Code status: Full code, surrogate decision maker is designated as patient's caregiver Stanley Goddard VTE prophylaxis: Heparin Disposition: Patient likely to discharge in to assisted facility for continued rehabilitation and IV antibiotics possibly tomorrow.
[2020-09-14] MEDS: QUETIAPINE 25 MG TABLET 12.5 MG PO (21:46)
[2020-09-14] MEDS: ATORVASTATIN 20 MG TABLET 80 MG PO (21:46)
[2020-09-14] MEDS: DOXAZOSIN 2 MG TABLET 1 MG PO (21:47)
[2020-09-14] MEDS: NORTRIPTYLINE HCL 25 MG CAPSULE PO (21:48)
[2020-09-15] VITALS (8 sets, daily range): BP systolic 118–140; BP diastolic 59–88; PULSE 76–88; RESP 15–20; TEMP 36.4–37.3; O2SAT 95–99
[2020-09-15 05:17] LABS: Add Manual Diff / Slide Review NO; Basophils Absolute Auto 0 /uL (0-100); Basophils Percent Auto 0.5 % (0-2); Eosinophils Absolute Auto 0 /uL (0-450); Eosinophils Percent Auto 0.8 % (2-4); Hemoglobin 9.7 g/dL (13.5-17.5); Lymphocytes Absolute Auto 1400 /uL (1100-4500); Lymphocytes Percent Auto 33.4 % (25-40); Mean Corpuscular HGB Conc 33.3 % (30-36); Mean Corpuscular Hemoglobin 30.9 PG (26-34); Mean Corpuscular Volume 92.9 fL (80-100); Monocytes Absolute Auto 400 /uL (0-900); Monocytes Percent Auto 10.4 % (3-14); Neutrophils Absolute Auto 2400 /uL (1500-7000); Neutrophils Percent Auto 54.9 % (50-75); Platelet Count 148 X10^3/uL (150-400); Red Blood Cell Count 3.12 X10^6/uL (4.5-5.9); Red Cell Distribution Width 19.1 % (11.6-14.8); White Blood Cell Count 4.3 X10^3/uL (4.5-11.0)
[2020-09-15] MEDS: MEROPENEM 250 MG in SODIUM CHLORIDE 0.9% 100 ML 200 ML IV (05:50)
[2020-09-15] MEDS: MORPHINE ER 15 MG TABLET PO ×4 (05:57→21:34)
[2020-09-15] MEDS: PANTOPRAZOLE 40 MG TABLET PO ×2 (06:44→17:37)
[2020-09-15 07:59] LABS: Alanine Aminotransferase 43 IU/L (<50); Albumin 2.5 g/dL (3.5-5.0); Albumin Globulin Ratio 0.9 (1.0-2.8); Alkaline Phosphatase 70 U/L (38-126); Aspartate Aminotransferase 30 IU/L (17-59); BUN Creatinine Ratio 29.3 (6-22); Bilirubin Total 0.7 mg/dL (0.2-1.3); Blood Urea Nitrogen 61 mg/dL (9-20); Calcium 7.8 mg/dL (8.4-10.2); Carbon Dioxide 29 mmol/L (22-32); Chloride 104 mmol/L (98-107); Estimated Glomerular Filt Rate 30.5 mL/min (>60); Globulin 2.8 g/dL (1.7-4.1); Glucose 266 mg/dL (80-110); HEMOLYSIS < 15 (0-50); Potassium 4.6 mmol/L (3.4-5.1); Sodium 135 mmol/L (137-145); Total Protein 5.3 g/dL (6.3-8.2)
[2020-09-15] MEDS: CYANOCOBALAMIN (VITAMIN B-12) 500 MCG TABLET 1000 MCG PO ×2 (08:27→21:34)
[2020-09-15] MEDS: AMLODIPINE 5 MG TABLET 10 MG PO (08:27)
[2020-09-15] MEDS: HEPARIN 5,000 UNIT/ML VIAL 5000 UNIT SUBCUT ×2 (08:28→21:33)
[2020-09-15] MEDS: polyethylene glycoL 3350 17 GM POWD.PACK PO (08:28)
[2020-09-15] MEDS: ISOSORBIDE MONONITRATE ER 30 MG TABLET 60 MG PO (08:28)
[2020-09-15] MEDS: METOPROLOL ER 25 MG TABLET PO (08:28)
[2020-09-15] MEDS: SODIUM CHLORIDE 0.9% FLUSH 10 ML IV ×2 (08:29→21:35)
[2020-09-15] MEDS: predniSONE 1 MG TABLET PO (08:29)
[2020-09-15] MEDS: INSULIN ASPART 100 UNIT/ML INSULN PEN SUBCUT ×4 (08:41→21:32)
[2020-09-15] MEDS: ACETAMINOPHEN 325 MG TABLET 650 MG PO (08:49)
--- NOTE | 2020-09-15 11:01 | PT.IPTN ---
Current Diagnoses Cellulitis of left lower limb (09/12/20) Physical Therapy Treatment Note M2 PT-IP Current Condition Start: 09/12/20 12:19 Freq: NEEDED Status: Active Protocol: Document 09/12/20 10:54 AB (Rec: 09/12/20 12:37 AB [id number]) Physical Therapy Current Condition Current Condition Evaluation Date 09/12/20 Treatment Diagnosis AMS; anemia; R lung mass; difficulty in walking Onset Date 09/12/20 Precautions Other Precautions L heel ulcer M3 PT-IP Subjective Start: 09/12/20 12:19 Freq: NEEDED Status: Active Protocol: Document 09/15/20 11:01 AB (Rec: 09/15/20 13:03 AB [email or web address]) Subjective Physical Therapy Visit Type Type Treatment Note Visit Start Time 11:01 Visit Stop Time 11:29 Total Visit Minutes 28 Number of CHILLING HOOD OPERATOR Visits 0 Physical Therapy Visit Comments Patient Comments pt is agreeable to do PT M4 PT-IP Mobility and Gait Start: 09/12/20 12:19 Freq: NEEDED Status: Active Protocol: Document 09/15/20 11:01 AB (Rec: 09/15/20 13:03 AB [id number]) PT-Bed Mobility Assessment Supine to Sit Supine to Sit Standby Assistance,Head of Bed Elevated,Bedrails PT-Transfer Assessment Sit to and From Stand Sit to and from Stand Moderate Assistance,1 Person Assistance,Use of Upper Extremities Equipment Transfer Assistive Device Gait Belt,Front Wheeled Walker Orthotic/Prosthetic Devices or Brace: No Transfers Transfer Destination Chair Transfer Technique ambulated using FWW Transfer Ability Level of Assist Moderate Assistance,1 Person Assistance,Use of Upper Extremities Comments Mobility Comments pt completed supine to sit with HOB elevated SBA. pt completed sit to stand from EOB mod A and was able to maintain standing min A while assisted with brief management . completed ambulation in room ~ 40 ft mod A and cues. agreed to sit up on chair. positioned on chair. call light and table placed within reach. Gait Assessment Gait Gait Assistance Required: Moderate Assistance,1 Person Assist Distance (Feet) 40 Able to Maintain Weight Bearing Status Yes During Gait Assistive Devices Assistive Device Gait Belt,Front Wheeled Walker Orthotic/Prosthetic Devices or Brace: No Gait Deviations General Gait Pattern Antalgic,Decreased Stride Length,Decreased Feet Clearance,Flexed Trunk,Step-to Gait Factors Limiting Gait Function Factors Limiting Gait Function Decreased Activity Tolerance, Decreased Strength,Difficulty Following Directions,Limited Range of Motion,Pain,Poor Balance,Poor Safety Awareness M5 PT-IP Objective Assessments Start: 09/12/20 12:19 Freq: NEEDED Status: Active Protocol: Document 09/12/20 10:54 AB (Rec: 09/12/20 12:37 AB [id number]) Orientation Orientation/Cognition Level of Alertness Alert Orientation Name,Place,Situation Language Function Ability Hard of Hearing Safety Awareness Decreased Safety Awareness Memory Description Short Term Impaired Gross Range of Motion Lower Extremity ROM Assessment Within Functional Limits Strength Lower Extremity Strength Assessment Bilaterally Impaired Hip 4-/5 Knee 4-/5 Muscle Tone Muscle Tone WNL Yes M6 PT-IP Treatment Start: 09/12/20 12:19 Freq: NEEDED Status: Active Protocol: Document 09/15/20 11:01 AB (Rec: 09/15/20 13:03 AB [email or web address]) Physical Therapy Treatment Education Education Provided Safety M7 PT-IP Assessment and Plan Start: 09/12/20 12:19 Freq: NEEDED Status: Active Protocol: Document 09/15/20 11:01 AB (Rec: 09/15/20 13:03 AB [email or web address]) PT Summary Assessment and Plan Potential Rehabilitation Potential Good Summary Impairments Pain,ROM,Strength,Balance, Coordination,Sensation,Tone, Cognition,Bed Mobility, Transfers,Gait,Activity Tolerance Progress Towards Goals Slow Progress due to Medical Issues,Slow Progress due to Activity Tolerance Assessment Summary pt is progressing slowly with mobility and was able to ambulate farther today. pt continues to require mod A with mobility and will require SNF rehab to improve strength and functional independence. Goals Bed Mobility Goal Independent Transfer Goal Standby Assistance,Front Wheeled Walker Gait Goal Standby Assistance,Front Wheel Walker Gait Distance 75 Other Goals improve ambulation SBA using standard walker/4WW 100 ft Days to Meet Goals 10 Frequency of Treatment Frequency Of Treatment Once a Day Treatment Plan Physical Therapy Treatment Plan Bed Mobility Training,Transfer Training,Gait Training, Therapeutic Exercise,Balance Retraining,Discharge Planning, Hot or Cold Pack,Neuromuscular Re-ed,Coordination Retraining Other Recommendations and Next Treatment ambulation Focus Recommendations To Nursing Amount of Assist Needed 1 Person Assist Discharge Recommendations PT Discharge Recommendations SNF Rehab Transportation Needs at Discharge Wheelchair/Cabulance
[2020-09-15] MEDS: GABAPENTIN 100 MG CAPSULE 200 MG PO ×2 (12:16→21:33)
--- NOTE | 2020-09-15 14:33 | PM.PN.1 ---
Subjective Subjective Date Patient Seen: 09/15/20 Interval history: Graeme Forte is an 85-year-old male with a past medical history significant for CAD status post stent x 2, hypertension, hyperlipidemia, GERD, chronic back pain with opiate dependence and anemia of chronic disease who was sent to the ED via EMS by his caregiver for generalized weakness and instability. Patient is on meropenem for lower extremity cellulitis associated with left heel pressure ulcer. He was also found to have right lung mass and is status post CT-guided biopsy on 09/14. Exam Vital Signs (past 8 hours): - 09/15/20 08:00 09/15/20 12:00 Temperature 98.2 F 97.6 F Pulse Rate 78 76 Respiratory Rate 16 15 Blood Pressure 120/59 L 119/68 Pulse Oximetry 98 99 Oxygen Delivery Method Room Air Oxygen Flow Rate 0 Narrative Exam Narrative: General: Alert male in no acute distress Lungs: Clear to auscultation Heart: Regular rhythm Abdomen: Soft Extremities: Bilateral lower extremity erythema, mild edema, and slight warmth persistent. Large moist bulla on back of left heel with off-loading booties in place. Skin: Stage II sacral decubitus ulcer 2 x 2 cm and thoracic decubitus ulcers 1x1 cm and 2 x 2 cm on bony prominance. Several other scattered abrasions over upper extremities. Also a couple of small lesions on penis likely due to irritation from patient holding urinal against penis. Neurological: Fully oriented, affect normal, nonfocal Objective Labs Result Diagrams: 09/15/20 05:10 09/15/20 05:10 Labs: Laboratory Results - last 24 hr 09/15/20 09/15/20 05:10 05:10 WBC 4.3 L RBC 3.12 L Hgb 9.7 L Hct 29.0 L MCV 92.9 MCH 30.9 MCHC 33.3 RDW 19.1 H Plt Count 148 L Neut % (Auto) 54.9 Lymph % (Auto) 33.4 [place] % (Auto) 10.4 Eos % (Auto) 0.8 L Baso % (Auto) 0.5 Neut # (Auto) 2400 Lymph # (Auto) 1400 [place] # (Auto) 400 Eos # (Auto) 0 Baso # (Auto) 0 Sodium 135 L Potassium 4.6 Chloride 104 Carbon Dioxide 29 BUN 61 H Creatinine 2.08 H Estimated GFR 30.5 L BUN/Creatinine Ratio 29.3 H Glucose 266 H D Calcium 7.8 L Total Bilirubin 0.7 AST 30 ALT 43 Alkaline Phosphatase 70 Total Protein 5.3 L Albumin 2.5 L Globulin 2.8 Albumin/Globulin Ratio 0.9 L Assessment & Plan Assessment & Plan narrative: Graeme Forte is an 85-year-old male with a past medical history significant for CAD status post stent x 2, hypertension, hyperlipidemia, GERD, chronic back pain with opiate dependence and anemia of chronic disease who was sent to the ED via EMS by his caregiver for generalized weakness and instability. 1. Acute bilateral lower extremity cellulitis, present on admission. Improving. -Patient presented with recurrent falls, left heel bullae, and erythema and and mild edema of bilateral lower extremities. -Initial WBC 5.2 and procalcitonin 0.30. WBC stable and procalcitonin significantly improving. -Blood cultures x2 negative. Wound culture of left lower extremity grew Serratia marcescens with various resistances but sensitive to meropenem and Bactrim. Patient allergic to cephalosporin and ciprofloxacin. -continue meropenem at dose of 1 g IV q.12 hours via midline -patient can be changed over to oral Bactrim single strength 1 tablet b.i.d. on discharge, antibiotic is renal dosed for stage IV CKD, monitor serum potassium while on Bactrim 2. Right lung mass, chronic, present on admission. Active. -Chest x-ray demonstrated rounded mass-like structure at the right lower lobe. -CT chest without contrast demonstrated a 4.3 cm masslike structure that abuts the anterior pleural surface and has its epicenter within the right middle lobe, which on review of the comparison CT pulmonary angiogram 08/24/20 earlier same month likely was present intermixed with pneumonia present elsewhere within the right middle lobe and right lower lobe. This therefore raises concern for malignancy as the underlying cause. The likelihood of round pneumonia given significant resolution of the remaining pneumonia within the right mid and lower lung is considered low. -Discussed case with on-call oncologist Dr. Stevens who recommended CT-guided lung biopsy and MRI brain without contrast to assess for brain mets if the patient can tolerate it. -CT-guided lung biopsy performed by Interventional Radiology on 09/14 with lung biopsies sent to pathology and pending. Patient will need to follow-up with Dr. Stevens for lung biopsy results. 3. Failure to thrive with acute on chronic severe protein calorie malnutrition, generalized weakness, and stage II sacral and thoracic decubitus ulcers, present on admission. Active. -BMI 22. Patient has full body muscle and subcutaneous fat wasting. -Continue wound care per nursing. -Consulted dietitian and we appreciate her time and recommendations. -Continue physical and occupational therapy evaluation and treatment. -Ordered palliative care consultation to discuss goals of care and code status but currently unavailable inpatient and would recommend outpatient consultation. 4. 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 Stable. -Patient has intermittent confusion likely related to high doses of narcotic use. Also could consider potential brain mets but unable to assess with MRI due to patient's inability to tolerate lying flat. -Continue home MS Contin 15 mg 5 times daily and gabapentin decreased from 600 mg to 200 mg 3 times daily based on creatinine clearance. -Continue Seroquel 12.5 mg daily at bedtime for agitation. 5. Anemia of chronic disease, unknown nature, present on admission. Stable. -Initial hemoglobin 10.4. Baseline hemoglobin variable between 7-10. Patient likely has longstanding anemia of chronic kidney disease and possibly worsening anemia due to hemolytic process versus malignancy from right lung mass. -Patient was previously treated for hemolytic anemia and is completing a slow steroid taper with prednisone 1 mg every other day. -Continue B12 and iron supplementation. -anemia stable during this admission 6. Chronic kidney disease stage 4, present on admission. Active. -Initial creatinine 2.20 with calculated creatinine clearance of 23.4. Baseline creatinine variable but appears to be between 2-2.5. -Patient has a history of urinary retention and is on doxazosin 1 mg daily at bedtime. -Avoid nephrotoxic agents and renally dose medications. Decreased home gabapentin from 600 mg to 200 mg 3 times daily due to creatinine clearance. 7. CAD, chronic, present on admission. Stable. -Continue home atorvastatin 80 mg daily at bedtime, clopidogrel 75 mg q.d., isosorbide mononitrate 60 mg daily, atorvastatin 80 mg HS, and metoprolol succinate 25 mg daily. 8. Hypertension, chronic, present on admission. Stable. -Continue home amlodipine 10 mg daily, isosorbide mononitrate 60 mg daily, and metoprolol succinate 25 mg daily. 9. Insomnia, chronic, present admission. Stable. -Continue home nortriptyline of which he normally takes 25 mg daily at bedtime but will receive 20 mg daily at bedtime due to formulary. 10. GERD, chronic, present on admission. Stable. -Continue equivalent of home lansoprazole 30 mg twice daily. Code status: Full code, surrogate decision maker is designated as patient's caregiver Stanley Goddard VTE prophylaxis: Heparin Patient is stable and can discharge upon acceptance to senior living rehab versus home with caregiver.
[2020-09-15] MEDS: MEROPENEM 1,000 MG in SODIUM CHLORIDE 0.9% 100 ML 200 ML IV (14:40)
--- NOTE | 2020-09-15 15:51 | CM.DPNOTE ---
DCP Cont Update on SNF search: [facility]- No, too clinically complex [facility]- No, too clinically complex, No prison care plan [facility]- No, no beds available [facility]- faxed, need to f[facility]u [facility] Faxed and need to go through extensive review process that often takes days, call back [facility] - faxed, need to f/u [facility]- faxed, [facility]- [facility], need to f/u [facility] ? According to Dr Burnett, patient will receive IV abx while admitted but does not require upon DC to SNF. This ROD HANGER unable to contact/update friend/cg Stanley on efforts Following closely for SNF search, patient continues to need a lot of assist, although now can DC on oral abx JW
--- NOTE | 2020-09-15 15:55 | PC.NURSE ---
A&O X2, confused; sores X 2 to penis flushed with NS, vaseline applied, patient discouraged to touch; pt may need to be discouraged from using leaving urinal between legs for too long; Left heel flushed with NS; allevyn drsg applied; Midline for IV abx to LUE; pt tolerating diet; chronic back pain, PO pain meds and repositioning; bed alarm
--- NOTE | 2020-09-15 16:05 | OT.IP.TRT ---
Current Diagnoses Cellulitis of left lower limb (09/12/20) Occupational Therapy Treatment Note M2 OT-IP Current Condition Start: 09/13/20 16:40 Freq: Status: Active Protocol: Document 09/13/20 16:40 CGR (Rec: 09/13/20 16:59 CGR [email or web address]) Occupational Therapy Current Condition Current Condition Evaluation Date 09/13/20 Treatment Diagnosis BLE cellulitis, ams, anemia with R lung mass Diagnosis Onset Date 09/12/20 M3 OT- IP Subjective and Pain Start: 09/13/20 16:40 Freq: Status: Active Protocol: Document 09/15/20 16:04 CGR (Rec: 09/15/20 16:05 CGR [email or web address]) OT- Subjective Occupational Therapy Visit Type Type Administrative Note Notes Attempted to see pt for OT services. Pt declined all activity at this time perseverating on needing a tooth pick. Will continue to follow.
[2020-09-15] MEDS: FERROUS SULFATE 325 MG TABLET PO (17:35)
[2020-09-15] MEDS: QUETIAPINE 25 MG TABLET 12.5 MG PO (21:34)
[2020-09-15] MEDS: ATORVASTATIN 20 MG TABLET 80 MG PO (21:34)
[2020-09-15] MEDS: NORTRIPTYLINE HCL 25 MG CAPSULE PO (21:34)
[2020-09-15] MEDS: DOXAZOSIN 2 MG TABLET 1 MG PO (21:35)
[2020-09-16] VITALS (13 sets, daily range): BP systolic 120–136; BP diastolic 51–60; PULSE 56–78; RESP 14–20; TEMP 36.7–37.2; O2SAT 97–100
[2020-09-16] MEDS: MEROPENEM 1,000 MG in SODIUM CHLORIDE 0.9% 100 ML 200 ML IV (02:45)
[2020-09-16] MEDS: SODIUM CHLORIDE 0.9% FLUSH 10 ML IV ×3 (02:46→20:25)
[2020-09-16] MEDS: MORPHINE ER 15 MG TABLET PO ×5 (06:25→21:56)
[2020-09-16] MEDS: PANTOPRAZOLE 40 MG TABLET PO ×2 (06:25→16:06)
[2020-09-16] MEDS: HEPARIN 5,000 UNIT/ML VIAL 5000 UNIT SUBCUT ×2 (08:04→20:24)
[2020-09-16] MEDS: AMLODIPINE 5 MG TABLET 10 MG PO (08:05)
[2020-09-16] MEDS: CLOPIDOGREL 75 MG TABLET PO (08:06)
[2020-09-16] MEDS: CYANOCOBALAMIN (VITAMIN B-12) 500 MCG TABLET 1000 MCG PO ×2 (08:06→20:24)
[2020-09-16] MEDS: METOPROLOL ER 25 MG TABLET PO (08:06)
[2020-09-16] MEDS: ISOSORBIDE MONONITRATE ER 30 MG TABLET 60 MG PO (08:06)
[2020-09-16] MEDS: polyethylene glycoL 3350 17 GM POWD.PACK PO (08:07)
[2020-09-16] MEDS: INSULIN ASPART 100 UNIT/ML INSULN PEN SUBCUT ×4 (08:11→20:44)
--- NOTE | 2020-09-16 09:45 | PC.NURSE ---
Addendum entered by Randy Recinos R.N. 09/16/20 14:37: PT and OT attempted to get Pt up possibly for a shower. Pt only able to stand a short moment, then back to bed. Pt medicated for pain per schedule, has been awake and conversant. Pt eating well through out the day. Pain med of help though he is in chronic pain, especially with movement. Original Note: Pt arousable. Pt offers no complaint initially though c/o pain in head at 09:45 per BEND SORTER. Pt assessed. Discussed what he wanted. Pt resettled in bed. Discussed other techniques for comfort with BEND SORTER's as it's too early for meds presently. Pt restful at present. Will continue to monitor until able to give meds.
--- NOTE | 2020-09-16 10:36 | OT.IP.TRT ---
Current Diagnoses Cellulitis of left lower limb (09/12/20) Occupational Therapy Treatment Note M2 OT-IP Current Condition Start: 09/13/20 16:40 Freq: Status: Active Protocol: Document 09/13/20 16:40 CGR (Rec: 09/13/20 16:59 CGR [email or web address]) Occupational Therapy Current Condition Current Condition Evaluation Date 09/13/20 Treatment Diagnosis BLE cellulitis, ams, anemia with R lung mass Diagnosis Onset Date 09/12/20 M3 OT- IP Subjective and Pain Start: 09/13/20 16:40 Freq: Status: Active Protocol: Document 09/16/20 13:19 CGR (Rec: 09/16/20 13:24 CGR [email or web address]) OT- Subjective Occupational Therapy Visit Type Type Initial Evaluation Visit Start Time 10:16 Visit Stop Time 10:36 Total Visit Minutes 20 Notes co-treat with P.T. Occupational Therapy Visit Comments Patient Comments My back hurts OT Pain Assessment Pain When Pain Assessed At Rest Pain Present Pain Present Pain Reported Location left foot Scale Used did not rate Management Techniques Distraction,Modification of Treatment,Re-positioning back Scale Used did not rate Management Techniques Distraction,Modification of Treatment,Re-positioning M4 OT- IP ADL's Start: 09/13/20 16:40 Freq: Status: Active Protocol: Document 09/16/20 13:19 CGR (Rec: 09/16/20 13:24 CGR [email or web address]) OT [id number] Comments OT Self-Feeding Comments Not meal time but pt states that he is hungry. Notifed nursing of pt's request for more food. OT ADL-Grooming Comments OT Grooming Comments Not performed OT ADL-Oral Care Comments Oral Care Comments Not performed OT ADL-Dressing General Eval Lower Body Dressing Ability Total Assistance Areas Needing Assistance Socks OT ADL-Toileting Comments OT Toileting Comments Pt declined need for use of BSC while up. OT ADL-Bathing Comments OT Bathing Comments Not performed M5 OT- IP IADL's Start: 09/13/20 16:40 Freq: Status: Active Protocol: Document 09/13/20 16:40 CGR (Rec: 09/13/20 16:59 CGR [email or web address]) OT-Instrumental Activities of Daily Living Deficits IADL Deficits Identified Deficits Home Safety Awareness Awareness of Need for Assistance at Home Decreased Awareness Ability to Problem Solve Emergency Able to Problem Solve Situations Medication Management Medication Management Caregiver Administers Money Management Money Management Caregiver Provides Assistance Meal Preparation Meal Preparation Caregiver Provides Assist Hog Man Hog Man Caregiver Provides Assist Driving Driving Comments 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 M6 OT- IP Functional Cognition Start: 09/13/20 16:40 Freq: Status: Active Protocol: Document 09/14/20 15:02 [facility] (Rec: 09/14/20 16:06 [facility] [id number]) Cognitive Factors Limiting Selfcare Function Cognitive Ability Level of Alertness Alert Attention Span Ability Capable of Focused Attention, Unable to Sustain Attention Ability to Follow Commands Able to Follow One Step Commands Cognitive Comments Cognitive Assessment Comments Pt able to follow commands to be able to do groomign needs after set-up. M7 OT- IP Mobility and Balance Start: 09/13/20 16:40 Freq: Status: Active Protocol: Document 09/16/20 13:19 CGR (Rec: 09/16/20 13:24 CGR [email or web address]) OT- Bed Mobility Assessment Supine to Sit Supine to Sit Assist Minimal Assistance,Head of Bed Elevated Sit to Supine Sit to Supine Assist Moderate Assistance,2 Person Assistance,Head of Bed Elevated Scooting Scooting to Edge of Bed Minimal Assistance OT-Transfer Assessment Sit to and From Stand Sit to and from Stand Moderate Assistance,2 Person Assistance Transfers Transfer Ability Moderate Assistance,2 Person Assistance Technique Transfer Destination Bed Transfer Technique Stand Step Pivot Devices Transfer Assistive Devices Gait Belt,Front Wheeled Walker Comments Mobility Comments Pt peformed sit to automatic wheel line operator an effort to assist with back pain. Pt unable to maintain standing and declined transfer to chair. Pt took steps up to HOB and sat KIM prior to returning to bed. OT- Gait Assessment Comments Gait Ability Comments Pt unable at this time OT- Balance Assessment Sitting Balance and Reactions Static Sitting Balance Ability Fair Dynamic Sitting Balance Ability Poor M8 OT- IP Objective Assessments Start: 09/13/20 16:40 Freq: Status: Active Protocol: Document 09/13/20 16:40 CGR (Rec: 09/13/20 16:59 CGR [email or web address]) OT Gross Range of Motion Upper Extremity Range of Motion Assessment Within Functional Limits OT Strength Comments Strength Comments not assessed on this date but noted greater than 3+ OT- Coordination Assessment Comments Coordination Comments not tested on this date. OT-Muscle Tone Assessment Muscle Tone WNL Yes OT Sensation Assessment Edema Edema Absent M9 OT- IP Assessment and Plan Start: 09/13/20 16:40 Freq: Status: Active Protocol: Document 09/16/20 13:19 CGR (Rec: 09/16/20 13:24 CGR [email or web address]) OT Summary Assessment and Plan Potential Rehabilitation Potential Fair Analytic Complexity at Evaluation Moderate Summary OT Impairments Pain,Strength,Balance, Functional Cognition, Functional Mobility,Grooming, Dressing,Toileting,Bathing, Toilet Transfers,Shower Transfers,Activity Tolerance Progress Towards Goals Slow Progress due to Medical Issues,Slow Progress due to Activity Tolerance Assessment Summary Pt appears to have declined in his abilities as he walked 40 ft with P.T. yesterday. Pt is likely to need rehab prior to returning home with 09/06 care unless pt and caregiver are ok with pt being stand pivot transfers only. Goals Self-Feeding Goal Independent Grooming Goal Independent Dressing Goal Minimal Assistance Toileting Goal Standby Assistance Bathing Goal Minimal Assistance Toilet Transfer Goal Standby Assistance Shower Transfer Goal Standby Assistance Days to Meet Goals 20 Frequency of Treatment Frequency Of Treatment Once a Day Treatment Plan OT Treatment Plan ADL Training,Functional Cognition Training,Functional Mobility,Patient/Family Education,Discharge Planning Other Treatment Recommendations and Next Stand for groomin needs. Treatment Focus Discharge Recommendations OT Discharge Recommendations SNF Rehab Transportation Needs at Discharge Wheelchair/Cabulance
--- NOTE | 2020-09-16 10:36 | PT.IPTN ---
Current Diagnoses Cellulitis of left lower limb (09/12/20) Physical Therapy Treatment Note M2 PT-IP Current Condition Start: 09/12/20 12:19 Freq: NEEDED Status: Active Protocol: Document 09/12/20 10:54 AB (Rec: 09/12/20 12:37 AB [id number]) Physical Therapy Current Condition Current Condition Evaluation Date 09/12/20 Treatment Diagnosis AMS; anemia; R lung mass; difficulty in walking Onset Date 09/12/20 Precautions Other Precautions L heel ulcer M3 PT-IP Subjective Start: 09/12/20 12:19 Freq: NEEDED Status: Active Protocol: Document 09/16/20 10:16 KS (Rec: 09/16/20 12:35 KS [id number]) Subjective Physical Therapy Visit Type Type Treatment Note Visit Start Time 10:16 Visit Stop Time 10:36 Total Visit Minutes 20 Notes Co-treat w/ OT. Number of LADLE CAR OPERATOR Visits 1 Physical Therapy Visit Comments Patient Comments pt is agreeable to do PT Therapy Pain Assessment Pain When Pain Assessed During Mobility Pain Present Pain Present Pain Reported Location left foot Scale Used not quantified Pain Behaviors Calling Out,Facial Grimacing, Moaning,Wincing Pain Management Techniques Elevation,Modification of Treatment,Re-positioning M4 PT-IP Mobility and Gait Start: 09/12/20 12:19 Freq: NEEDED Status: Active Protocol: Document 09/16/20 10:16 KS (Rec: 09/16/20 12:35 KS [id number]) PT-Bed Mobility Assessment Supine to Sit Supine to Sit Minimal Assistance,1 Person Assistance,Head of Bed Elevated Sit to Supine Sit to Supine Moderate Assistance,2 Person Assistance Scooting Scooting to Edge of Bed Minimal Assistance PT-Transfer Assessment Sit to and From Stand Sit to and from Stand Moderate Assistance,2 Person Assistance,Use of Upper Extremities Equipment Transfer Assistive Device Gait Belt,Front Wheeled Walker Orthotic/Prosthetic Devices or Brace: No Transfers Transfer Destination Bed Transfer Technique ambulated using FWW Transfer Ability Level of Assist Moderate Assistance,2 Person Assistance,Use of Upper Extremities Comments Mobility Comments Pt in bed upon arrival from therapy. Pt reporting pain in L heel, but agrees to standing for new linens and repositioning in bed. Min A and cues for sup<>sit and scooting to EOB w/ HOB elevated. Pt sit<>stand w/ FWW , bed slightly raised Mod A x2 w/ cues for hand placement and upright posture. When instructed to look forward and stand up tall, pt reported increased neck pain and requested to sit back down. Pt able to tolerate 3 lateral steps towards head of bed w/ FWW and mod A x2 before sitting. Mod A x2 for sit<>sup for trunk and LE guidance and repositioning in bed. Pt left in bed w/ all needs in reach. Gait Assessment Gait Gait Assistance Required: Moderate Assistance,2 Person Assist Distance (Feet) 3 Able to Maintain Weight Bearing Status Yes During Gait Assistive Devices Assistive Device Gait Belt,Front Wheeled Walker Orthotic/Prosthetic Devices or Brace: No Gait Deviations General Gait Pattern Antalgic,Decreased Stride Length,Decreased Feet Clearance,Flexed Trunk,Step-to Gait Factors Limiting Gait Function Factors Limiting Gait Function Decreased Activity Tolerance, Decreased Strength,Difficulty Following Directions,Limited Range of Motion,Pain,Poor Balance,Poor Safety Awareness Comments Gait Comments Please refer to mobility section for details. Pt only able to tolerate 3 small lateral steps w/ FWW Mod A x2. M5 PT-IP Objective Assessments Start: 09/12/20 12:19 Freq: NEEDED Status: Active Protocol: Document 09/12/20 10:54 AB (Rec: 09/12/20 12:37 AB [id number]) Orientation Orientation/Cognition Level of Alertness Alert Orientation Name,Place,Situation Language Function Ability Hard of Hearing Safety Awareness Decreased Safety Awareness Memory Description Short Term Impaired Gross Range of Motion Lower Extremity ROM Assessment Within Functional Limits Strength Lower Extremity Strength Assessment Bilaterally Impaired Hip 4-/5 Knee 4-/5 Muscle Tone Muscle Tone WNL Yes M6 PT-IP Treatment Start: 09/12/20 12:19 Freq: NEEDED Status: Active Protocol: Document 09/16/20 10:16 KS (Rec: 09/16/20 12:35 KS [id number]) Physical Therapy Treatment Education Education Provided Safety M7 PT-IP Assessment and Plan Start: 09/12/20 12:19 Freq: NEEDED Status: Active Protocol: Document 09/16/20 10:16 KS (Rec: 09/16/20 12:35 KS [id number]) PT Summary Assessment and Plan Potential Rehabilitation Potential Fair Summary Impairments Pain,ROM,Strength,Balance, Coordination,Sensation,Tone, Cognition,Bed Mobility, Transfers,Gait,Activity Tolerance Progress Towards Goals Slow Progress due to Medical Issues,Slow Progress due to Activity Tolerance Assessment Summary Pt limited by high pain and low tolerance for activity Min to Mod A x2 for bed mobility, Mod A x2 for sit<>stand, and Mod A x2 for lateral steps w/ FWW. Pt c/o high pain in L heel throughout treatment and unable to tolerate further standing or ambulation d/t reported pain and fatigue. Pt will require SNF to improve strength and functional mobility. Goals Bed Mobility Goal Independent Transfer Goal Standby Assistance,Front Wheeled Walker Gait Goal Standby Assistance,Front Wheel Walker Gait Distance 75 Other Goals improve ambulation SBA using standard walker/4WW 100 ft Days to Meet Goals 10 Frequency of Treatment Frequency Of Treatment Once a Day Treatment Plan Physical Therapy Treatment Plan Bed Mobility Training,Transfer Training,Gait Training, Therapeutic Exercise,Balance Retraining,Discharge Planning, Hot or Cold Pack,Neuromuscular Re-ed,Coordination Retraining Other Recommendations and Next Treatment ambulation Focus Recommendations To Nursing Amount of Assist Needed 1 Person Assist Discharge Recommendations PT Discharge Recommendations SNF Rehab Transportation Needs at Discharge Wheelchair/Cabulance
--- NOTE | 2020-09-16 10:44 | CM.DPC ---
Addendum entered by JOHNY Anton 09/16/20 13:41: ADD: Update on SNF referrals: [facility]: would want more RN notes and would re-review but no openings until Friday [facility]: full this and waiting for [facility] to review [facility]: full this but likely openings Friday and they would review at that time. SW met bedside with pt and explained role and updated on difficulty in finding a SNF that is willing to accept or are full until likely Friday. Pt states his preference is to d/c to home with his roommate/CG/DPOA Stanley of 45 years. Pt states Stanley provides transport and getting in and out of the vehicle is easily doable. 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 Pt declines HH at this time. SW inquired that if pt goes home what else could be put in place to reduce his risk of readmit and keep him home safe for longer? Pt not really sure but again declines HH. SW inquired about the initial discussion of possible Hospice and pt confirms he would like to wait for his biopsy results and further discussion with his Oncologist and declines even a Hospice Info Visit call. Pt states Stanley will be bedside this afternoon and plans to discuss all of this with him and then will call you or the doctor in and tell you our plan for leaving the hospital. SW updated RN and MD and MD feels comfortable with plan of home and Oncology and Wound Care outpt follow up. Plan: SW to follow for Stanley to arrive bedside for further d/c discussion to determine if pt stable for d/c home with Stanley/DPOA today and if pt would reconsider HH RN at least for wound care. JOHNY Anton Original Note: DCP SNF vs Home planning: Per MD, pt is medically stable to d/c the hospital today on oral abx and ideally SNF at d/c for ongoing consistent care for wounds, therapy for strengthening, and meals for nutrition but if SNF not found pt ambulating well enough with walker that he could safely d/c home with HH. SW followed up on previous SNF referrals faxed yesterday: [facility]: full [facility]: left msg [facility]: left msg [facility]: left msg [facility] Bed: left msg but admissions only M-F and today is Friday Palliative Consult not completed as Pall Care [facility] Perfecto out of town for the next while and not available. Plan: SW to follow for return call from above SNF's towards determining if any can accept vs plan for home with HH. JOHNY Anton
[2020-09-16] MEDS: GABAPENTIN 100 MG CAPSULE 200 MG PO ×3 (13:56→20:48)
[2020-09-16] MEDS: MEROPENEM 1 GM in SODIUM CHLORIDE 0.9% 100 ML 200 ML IV (15:47)
--- NOTE | 2020-09-16 16:21 | PM.PN.1 ---
Subjective Subjective Date Patient Seen: 09/16/20 Interval history: Graeme Forte is an 85-year-old male with a past medical history significant for CAD status post stent x 2, hypertension, hyperlipidemia, GERD, chronic back pain with opiate dependence and anemia of chronic disease who was sent to the ED via EMS by his caregiver for generalized weakness and instability. Patient is on meropenem for lower extremity cellulitis associated with left heel pressure ulcer. He was also found to have right lung mass and is status post CT-guided biopsy on 09/14. Patient states the left heel ulcer pain is improving. He feels ready to discharge either home or detention rehab but we have not found accepting facility. Exam Vital Signs (past 8 hours): - 09/16/20 12:00 09/16/20 12:15 09/16/20 15:52 Temperature 98.9 F 98.9 F Pulse Rate 72 72 71 Respiratory Rate 14 20 Blood Pressure 120/56 L 120/56 L 125/58 L Pulse Oximetry 99 97 Oxygen Delivery Method Room Air Oxygen Flow Rate 0 Narrative Exam Narrative: General: Alert male in no acute distress Lungs: Clear to auscultation Heart: Regular rhythm Abdomen: Soft Extremities: Bilateral lower extremity macular erythema, mild edema, and slight warmth persistent. Large moist bulla on back of left heel with off-loading booties in place. Skin: Stage II sacral decubitus ulcer 2 x 2 cm and thoracic decubitus ulcers 1x1 cm and 2 x 2 cm on bony prominance. Several other scattered abrasions over upper extremities. Also a couple of small lesions on penis likely due to irritation from patient holding urinal against penis. Neurological: Fully oriented, affect normal, nonfocal Objective Labs Result Diagrams: 09/15/20 05:10 09/15/20 05:10 Assessment & Plan Assessment & Plan narrative: Graeme Forte is an 85-year-old male with a past medical history significant for CAD status post stent x 2, hypertension, hyperlipidemia, GERD, chronic back pain with opiate dependence and anemia of chronic disease who was sent to the ED via EMS by his caregiver for generalized weakness and instability. 1. Acute bilateral lower extremity cellulitis, present on admission. Improving. -Patient presented with recurrent falls, left heel bullae, and erythema and and mild edema of bilateral lower extremities. -Initial WBC 5.2 and procalcitonin 0.30. WBC stable and procalcitonin significantly improving. -Blood cultures x2 negative. Wound culture of left lower extremity grew Serratia marcescens with various resistances but sensitive to meropenem and Bactrim. Patient allergic to cephalosporin and ciprofloxacin. -continue meropenem at dose of 1 g IV q.12 hours via midline -patient can be changed over to oral Bactrim single strength 1 tablet b.i.d. on discharge, antibiotic is renal dosed for stage IV CKD, monitor serum potassium while on Bactrim 2. Right lung mass, chronic, present on admission. Active. -Chest x-ray demonstrated rounded mass-like structure at the right lower lobe. -CT chest without contrast demonstrated a 4.3 cm masslike structure that abuts the anterior pleural surface and has its epicenter within the right middle lobe, which on review of the comparison CT pulmonary angiogram 08/24/20 earlier same month likely was present intermixed with pneumonia present elsewhere within the right middle lobe and right lower lobe. This therefore raises concern for malignancy as the underlying cause. The likelihood of round pneumonia given significant resolution of the remaining pneumonia within the right mid and lower lung is considered low. -Discussed case with on-call oncologist Dr. Stevens who recommended CT-guided lung biopsy and MRI brain without contrast to assess for brain mets if the patient can tolerate it. -CT-guided lung biopsy performed by Interventional Radiology on 09/14 with lung biopsies sent to pathology and pending. Patient will need to follow-up with Dr. Stevens for lung biopsy results. 3. Failure to thrive with acute on chronic severe protein calorie malnutrition, generalized weakness, and stage II sacral and thoracic decubitus ulcers, present on admission. Active. -BMI 22. Patient has full body muscle and subcutaneous fat wasting. -Continue wound care per nursing. -Consulted dietitian and we appreciate her time and recommendations. -Continue physical and occupational therapy evaluation and treatment. -Ordered palliative care consultation to discuss goals of care and code status but currently unavailable inpatient and would recommend outpatient consultation. 4. 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 Stable. -Patient has intermittent confusion likely related to high doses of narcotic use. Also could consider potential brain mets but unable to assess with MRI due to patient's inability to tolerate lying flat. -Continue home MS Contin 15 mg 5 times daily and gabapentin decreased from 600 mg to 200 mg 3 times daily based on creatinine clearance. -Continue Seroquel 12.5 mg daily at bedtime for agitation. 5. Anemia of chronic disease, unknown nature, present on admission. Stable. -Initial hemoglobin 10.4. Baseline hemoglobin variable between 7-10. Patient likely has longstanding anemia of chronic kidney disease and possibly worsening anemia due to hemolytic process versus malignancy from right lung mass. -Patient was previously treated for hemolytic anemia and is completing a slow steroid taper with prednisone 1 mg every other day. -Continue B12 and iron supplementation. -anemia stable during this admission 6. Chronic kidney disease stage 4, present on admission. Active. -Initial creatinine 2.20 with calculated creatinine clearance of 23.4. Baseline creatinine variable but appears to be between 2-2.5. -Patient has a history of urinary retention and is on doxazosin 1 mg daily at bedtime. -Avoid nephrotoxic agents and renally dose medications. Decreased home gabapentin from 600 mg to 200 mg 3 times daily due to creatinine clearance. 7. CAD, chronic, present on admission. Stable. -Continue home atorvastatin 80 mg daily at bedtime, clopidogrel 75 mg q.d., isosorbide mononitrate 60 mg daily, atorvastatin 80 mg HS, and metoprolol succinate 25 mg daily. 8. Hypertension, chronic, present on admission. Stable. -Continue home amlodipine 10 mg daily, isosorbide mononitrate 60 mg daily, and metoprolol succinate 25 mg daily. 9. Insomnia, chronic, present admission. Stable. -Continue home nortriptyline of which he normally takes 25 mg daily at bedtime but will receive 20 mg daily at bedtime due to formulary. 10. GERD, chronic, present on admission. Stable. -Continue equivalent of home lansoprazole 30 mg twice daily. Code status: Full code, surrogate decision maker is designated as patient's caregiver Stanley Goddard VTE prophylaxis: Heparin Patient is stable but discharge delayed due to undetermined disposition. His caregiver Stanley is supposed to come by later this afternoon to assess patient's needs if he goes home. He has significant wound care needs. He was able to ambulate 40 ft with PT. We have not found an accepting detention rehab for him. Likely discharge tomorrow on oral antibiotic.
[2020-09-16] MEDS: FERROUS SULFATE 325 MG TABLET PO (17:03)
[2020-09-16] MEDS: ATORVASTATIN 20 MG TABLET 80 MG PO (20:23)
[2020-09-16] MEDS: QUETIAPINE 25 MG TABLET 12.5 MG PO (20:24)
[2020-09-16] MEDS: NORTRIPTYLINE HCL 25 MG CAPSULE PO (20:25)
[2020-09-16] MEDS: DOXAZOSIN 2 MG TABLET 1 MG PO (20:35)
--- NOTE | 2020-09-16 22:32 | PC.NURSE ---
Patient confused this shift, possible visual hallucinations. Patient's caregiver Stanley stated that he felt patient was more confused than usual. Pt ate a good dinner, took his medications but then ref his 2200 sked MS and was crying. He would not say what was wrong. He had refused repositioning x 2 this shift. Wounds on head are well scabbed over, bilat LE cellulitis and edema improved. Pt used urinal and was incontinent of bladder this shift. LS diminished. SR per telemetry.
[2020-09-17] VITALS (8 sets, daily range): BP systolic 119–134; BP diastolic 58–70; PULSE 64–73; RESP 14–20; TEMP 36.8–37.4; O2SAT 97–100
--- NOTE | 2020-09-17 00:13 | PC.NURSE ---
Addendum entered by Carmelita Douglas R.N. 09/17/20 06:02: Pt remained somnolent most of shift. Refused morning meds, shaking his head and saying 'No when asked if he was in pain and if he would take medication. Pt groaning occasionally, but tolerated turns well. Original Note: Pt appears very tired - occasionally groaning. When asked if he was in pain he did not respond. Only responds to other questions with, what are you doing to me? or What do you want from me. Will continue to monitor.
[2020-09-17] MEDS: MEROPENEM 1 GM in SODIUM CHLORIDE 0.9% 100 ML 200 ML IV (01:00)
[2020-09-17] MEDS: INSULIN ASPART 100 UNIT/ML INSULN PEN SUBCUT ×3 (09:21→17:12)
[2020-09-17] MEDS: predniSONE 1 MG TABLET PO (09:22)
[2020-09-17] MEDS: polyethylene glycoL 3350 17 GM POWD.PACK PO (09:25)
[2020-09-17] MEDS: CLOPIDOGREL 75 MG TABLET PO (09:26)
[2020-09-17] MEDS: MORPHINE ER 15 MG TABLET PO ×3 (09:26→21:23)
[2020-09-17] MEDS: CYANOCOBALAMIN (VITAMIN B-12) 500 MCG TABLET 1000 MCG PO ×2 (09:26→20:26)
[2020-09-17] MEDS: METOPROLOL ER 25 MG TABLET PO (09:26)
[2020-09-17] MEDS: ISOSORBIDE MONONITRATE ER 30 MG TABLET 60 MG PO (09:26)
[2020-09-17] MEDS: AMLODIPINE 5 MG TABLET 10 MG PO (09:26)
[2020-09-17] MEDS: HEPARIN 5,000 UNIT/ML VIAL 5000 UNIT SUBCUT ×2 (09:26→20:26)
[2020-09-17] MEDS: SODIUM CHLORIDE 0.9% FLUSH 10 ML IV (09:27)
--- NOTE | 2020-09-17 11:11 | PC.NURSE ---
Pt has d/c orders. Midline d/c'd per orders. Pt's roommate notified and will be here shortly.
[2020-09-17] MEDS: GABAPENTIN 100 MG CAPSULE 200 MG PO ×3 (12:21→20:25)
--- NOTE | 2020-09-17 14:04 | PC.NURSE ---
Day shift: Per Dr Burnett it is ok for Pt to not be on telemetry or have IV access at this time. Dr Burnett will also cancel the d/c order. MEDHAT Angel is aware.
--- NOTE | 2020-09-17 15:15 | PT.IPTN ---
Addendum entered and electronically signed by Mary Lou Lemus PTA 09/17/20 17:00: Documentation reviewed by Mary Lou Lemus PTA Original Note: Current Diagnoses Cellulitis of left lower limb (09/12/20) Physical Therapy Treatment Note M2 PT-IP Current Condition Start: 09/12/20 12:19 Freq: NEEDED Status: Active Protocol: Document 09/12/20 10:54 AB (Rec: 09/12/20 12:37 AB [id number]) Physical Therapy Current Condition Current Condition Evaluation Date 09/12/20 Treatment Diagnosis AMS; anemia; R lung mass; difficulty in walking Onset Date 09/12/20 Precautions Other Precautions L heel ulcer M3 PT-IP Subjective Start: 09/12/20 12:19 Freq: NEEDED Status: Active Protocol: Document 09/17/20 14:52 (Rec: 09/17/20 16:59 [email or web address]) Subjective Physical Therapy Visit Type Type Treatment Note Visit Start Time 14:52 Visit Stop Time 15:15 Total Visit Minutes 23 Notes Rachel Lemus PTA, supervised NURYS Hung for tx. Number of WARP TRUCKER Visits 1 Physical Therapy Visit Comments Patient Comments pt is agreeable to do PT Therapy Pain Assessment Location left foot Scale Used not quantified Pain Behaviors Moaning,Wincing Pain Management Techniques Modification of Treatment,Re- positioning M4 PT-IP Mobility and Gait Start: 09/12/20 12:19 Freq: NEEDED Status: Active Protocol: Document 09/17/20 14:52 (Rec: 09/17/20 16:59 [id number]) PT-Bed Mobility Assessment Sit to Supine Sit to Supine Moderate Assistance,2 Person Assistance PT-Transfer Assessment Sit to and From Stand Sit to and from Stand Moderate Assistance,2 Person Assistance,Use of Upper Extremities Equipment Transfer Assistive Device Gait Belt,Front Wheeled Walker Orthotic/Prosthetic Devices or Brace: No Transfers Transfer Destination Bed Transfer Technique ambulated using FWW Transfer Ability Level of Assist Moderate Assistance,2 Person Assistance,Use of Upper Extremities Comments Mobility Comments Pt in chair upon arrival. Pt has pain in L heel, but agreed to be repositioned to the bed . Pt attemtped to stand w/ MOD A x2 assist and could not stand fully. Tried again w/ WARP TRUCKER in front of FWW MOD A x2 assist and was successful. Pt performed stand step pivot w/ FWW requiring MIN A x2 as pt took side steps to R to reach bed. Sidelying L side UE CGA/ LE MIN A. Pt left in sidelying on L side, heel pads on, and pillows positioned for support . Left w/ call light, bed alarm, and all needs within reach. Gait Assessment Gait Gait Assistance Required: Minimum Assistance,2 Person Assist Distance (Feet) 5 Able to Maintain Weight Bearing Status Yes During Gait Assistive Devices Assistive Device Gait Belt,Front Wheeled Walker Orthotic/Prosthetic Devices or Brace: No Gait Deviations General Gait Pattern Antalgic,Decreased Stride Length,Decreased Feet Clearance,Flexed Trunk,Step-to Gait Factors Limiting Gait Function Factors Limiting Gait Function Decreased Activity Tolerance, Decreased Strength,Difficulty Following Directions,Limited Range of Motion,Pain,Poor Balance,Poor Safety Awareness Comments Gait Comments Pt took 3 side steps to R from chair to bed, 2 side steps to L to the HOB. M5 PT-IP Objective Assessments Start: 09/12/20 12:19 Freq: NEEDED Status: Active Protocol: Document 09/12/20 10:54 AB (Rec: 09/12/20 12:37 AB [id number]) Orientation Orientation/Cognition Level of Alertness Alert Orientation Name,Place,Situation Language Function Ability Hard of Hearing Safety Awareness Decreased Safety Awareness Memory Description Short Term Impaired Gross Range of Motion Lower Extremity ROM Assessment Within Functional Limits Strength Lower Extremity Strength Assessment Bilaterally Impaired Hip 4-/5 Knee 4-/5 Muscle Tone Muscle Tone WNL Yes M6 PT-IP Treatment Start: 09/12/20 12:19 Freq: NEEDED Status: Active Protocol: Document 09/16/20 10:16 KS (Rec: 09/16/20 12:35 KS [id number]) Physical Therapy Treatment Education Education Provided Safety M7 PT-IP Assessment and Plan Start: 09/12/20 12:19 Freq: NEEDED Status: Active Protocol: Document 09/17/20 14:52 (Rec: 09/17/20 16:59 [email or web address]) PT Summary Assessment and Plan Potential Rehabilitation Potential Fair Summary Impairments Pain,ROM,Strength,Balance, Coordination,Sensation,Tone, Cognition,Bed Mobility, Transfers,Gait,Activity Tolerance Progress Towards Goals Slow Progress due to Pain,Slow Progress due to Activity Tolerance Assessment Summary Pt requested to be repositioned from chair to the bed. Sit to stand MOD A x2 w/ FWW; stand step pivot transfer MIN x2, 3 lateral steps towards EOB; stand to sit at EOB bed MIN A x1. To strengthen and improve endurance recommending SNF rehab before pt is able to return home safely. Goals Bed Mobility Goal Independent Transfer Goal Standby Assistance,Front Wheeled Walker Gait Goal Standby Assistance,Front Wheel Walker Gait Distance 75 Other Goals improve ambulation SBA using standard walker/4WW 100 ft Days to Meet Goals 10 Frequency of Treatment Frequency Of Treatment Once a Day Treatment Plan Physical Therapy Treatment Plan Bed Mobility Training,Transfer Training,Gait Training, Therapeutic Exercise,Balance Retraining,Discharge Planning, Hot or Cold Pack,Neuromuscular Re-ed,Coordination Retraining Other Recommendations and Next Treatment ambulation Focus Recommendations To Nursing Amount of Assist Needed 1 Person Assist Discharge Recommendations PT Discharge Recommendations SNF Rehab Transportation Needs at Discharge Wheelchair/Cabulance
[2020-09-17] MEDS: FERROUS SULFATE 325 MG TABLET PO (17:12)
[2020-09-17] MEDS: PANTOPRAZOLE 40 MG TABLET PO (17:12)
[2020-09-17] MEDS: NORTRIPTYLINE HCL 25 MG CAPSULE PO (20:25)
[2020-09-17] MEDS: ATORVASTATIN 20 MG TABLET 80 MG PO (20:25)
[2020-09-17] MEDS: DOXAZOSIN 2 MG TABLET 1 MG PO (20:26)
[2020-09-17] MEDS: TRIMETH/SULFA 80/400 (SS) TABLET 1 TAB PO (20:27)
[2020-09-18] VITALS: BP 137/57; PULSE 69; RESP 16; TEMP 37.1; O2SAT 97
[2020-09-18 05:00] VITALS: BP 131/54; PULSE 71; RESP 16; TEMP 36.7; O2SAT 100
[2020-09-18] MEDS: MORPHINE ER 15 MG TABLET PO ×3 (05:52→13:00)
[2020-09-18] MEDS: PANTOPRAZOLE 40 MG TABLET PO (06:23)
[2020-09-18 08:00] VITALS: BP 129/56; PULSE 64; RESP 16; TEMP 36.7; O2SAT 100
[2020-09-18] MEDS: ACETAMINOPHEN 325 MG TABLET 650 MG PO (08:57)
[2020-09-18] MEDS: ISOSORBIDE MONONITRATE ER 30 MG TABLET 60 MG PO (09:37)
[2020-09-18] MEDS: polyethylene glycoL 3350 17 GM POWD.PACK PO (09:37)
[2020-09-18] MEDS: TRIMETH/SULFA 80/400 (SS) TABLET 1 TAB PO (09:37)
[2020-09-18] MEDS: AMLODIPINE 5 MG TABLET 10 MG PO (09:37)
[2020-09-18] MEDS: HEPARIN 5,000 UNIT/ML VIAL 5000 UNIT SUBCUT (09:38)
[2020-09-18] MEDS: CYANOCOBALAMIN (VITAMIN B-12) 500 MCG TABLET 1000 MCG PO (09:38)
[2020-09-18] MEDS: METOPROLOL ER 25 MG TABLET PO (09:38)
[2020-09-18] MEDS: CLOPIDOGREL 75 MG TABLET PO (09:38)
[2020-09-18] MEDS: INSULIN ASPART 100 UNIT/ML INSULN PEN SUBCUT ×2 (09:38→12:38)
[2020-09-18 09:49] VITALS: O2SAT 98
[2020-09-18 10:29] VITALS: PULSE 68
[2020-09-18 10:35] LABS: COVID19 -Nasal RAPID Negative (Negative)
[2020-09-18] MEDS: OXYCODONE IR 5 MG TABLET PO (12:04)
[2020-09-18] MEDS: GABAPENTIN 100 MG CAPSULE 200 MG PO (12:04)
--- NOTE | 2020-09-18 12:10 | PT.IPTN ---
Current Diagnoses Cellulitis of left lower limb (09/12/20) Physical Therapy Treatment Note M2 PT-IP Current Condition Start: 09/12/20 12:19 Freq: NEEDED Status: Active Protocol: Document 09/12/20 10:54 AB (Rec: 09/12/20 12:37 AB [id number]) Physical Therapy Current Condition Current Condition Evaluation Date 09/12/20 Treatment Diagnosis AMS; anemia; R lung mass; difficulty in walking Onset Date 09/12/20 Precautions Other Precautions L heel ulcer M3 PT-IP Subjective Start: 09/12/20 12:19 Freq: NEEDED Status: Active Protocol: Document 09/18/20 11:47 CLB (Rec: 09/18/20 16:20 CLB [id number]) Subjective Physical Therapy Visit Type Type Treatment Note Visit Start Time 11:47 Visit Stop Time 12:10 Total Visit Minutes 23 Number of DEICER INSPECTOR PNEUMATIC Visits 3 Physical Therapy Visit Comments Patient Comments pt is agreeable to do PT Therapy Pain Assessment Pain When Pain Assessed During Mobility Pain Present Pain Present Pain Reported Location Neck Scale Used did not state Pain Behaviors Facial Grimacing,Holding Area, Moaning Pain Management Techniques Modification of Treatment,Re- positioning M4 PT-IP Mobility and Gait Start: 09/12/20 12:19 Freq: NEEDED Status: Active Protocol: Document 09/18/20 11:47 CLB (Rec: 09/18/20 16:20 CLB [id number]) PT-Bed Mobility Assessment Supine to Sit Supine to Sit Minimal Assistance,1 Person Assistance,Head of Bed Elevated Scooting Scooting to Edge of Bed Contact Guard Assistance PT-Transfer Assessment Sit to and From Stand Sit to and from Stand Moderate Assistance,1 Person Assistance,Use of Upper Extremities Equipment Transfer Assistive Device Gait Belt,Front Wheeled Walker Orthotic/Prosthetic Devices or Brace: No Transfers Transfer Destination Chair Transfer Technique ambulated using FWW Transfer Ability Level of Assist Moderate Assistance,2 Person Assistance,Use of Upper Extremities Comments Mobility Comments Pt sleeping upon arrival and agreeable to transfer to chair for lunch. Pt required Min A to EOB with HOB elevated. Pt then stood Mod A x1 from high bed. Pt required Mod A x2 for stand step transfer to chair and Mod A to sit in chair to slow descent. Pt left in chair with alarm on and all needs within reach. M5 PT-IP Objective Assessments Start: 09/12/20 12:19 Freq: NEEDED Status: Active Protocol: Document 09/12/20 10:54 AB (Rec: 09/12/20 12:37 AB [id number]) Orientation Orientation/Cognition Level of Alertness Alert Orientation Name,Place,Situation Language Function Ability Hard of Hearing Safety Awareness Decreased Safety Awareness Memory Description Short Term Impaired Gross Range of Motion Lower Extremity ROM Assessment Within Functional Limits Strength Lower Extremity Strength Assessment Bilaterally Impaired Hip 4-/5 Knee 4-/5 Muscle Tone Muscle Tone WNL Yes M6 PT-IP Treatment Start: 09/12/20 12:19 Freq: NEEDED Status: Active Protocol: Document 09/16/20 10:16 KS (Rec: 09/16/20 12:35 KS [id number]) Physical Therapy Treatment Education Education Provided Safety M7 PT-IP Assessment and Plan Start: 09/12/20 12:19 Freq: NEEDED Status: Active Protocol: Document 09/18/20 11:47 CLB (Rec: 09/18/20 16:20 CLB [id number]) PT Summary Assessment and Plan Potential Rehabilitation Potential Fair Summary Impairments Pain,ROM,Strength,Balance, Coordination,Sensation,Tone, Cognition,Bed Mobility, Transfers,Gait,Activity Tolerance Progress Towards Goals Slow Progress due to Pain,Slow Progress due to Activity Tolerance Assessment Summary Pt continues to require Min- Mod A for all mobility for safety. Pt requires extra time to complete tasks and cues for hand placement for safety. Pt with increase in pain of neck and left foot during tx. Goals Bed Mobility Goal Independent Transfer Goal Standby Assistance,Front Wheeled Walker Gait Goal Standby Assistance,Front Wheel Walker Gait Distance 75 Other Goals improve ambulation SBA using standard walker/4WW 100 ft Days to Meet Goals 10 Frequency of Treatment Frequency Of Treatment Once a Day Treatment Plan Physical Therapy Treatment Plan Bed Mobility Training,Transfer Training,Gait Training, Therapeutic Exercise,Balance Retraining,Discharge Planning, Hot or Cold Pack,Neuromuscular Re-ed,Coordination Retraining Other Recommendations and Next Treatment ambulation, bed mobility and Focus transfers. Recommendations To Nursing Amount of Assist Needed 1 Person Assist,2 Person Assist Discharge Recommendations PT Discharge Recommendations SNF Rehab Transportation Needs at Discharge Wheelchair/Cabulance
--- NOTE | 2020-09-18 12:10 | PC.NURSE ---
Day shift: Pt OOB w/ PT. Sitting in chair now. C/o neck pain. Medicated per MAR w/ 5mg oxycodone at this time. Call light in reach.
--- NOTE | 2020-09-18 12:11 | PM.DS.1 ---
History of Present Illness History of Present Illness Chief complaint: Altered LOC Narrative: Graeme Forte is an 85-year-old male with a past medical history significant for CAD status post stent x 2, hypertension, hyperlipidemia, GERD, chronic back pain with opiate dependence and anemia of chronic disease who was sent to the ED via EMS by his caregiver for generalized weakness and instability. The patient reports that his caregiver and live-in roommate Stanleypaige Goddard decided to call EMS due to generalized weakness with instability. There was some report that he was also aggressive and confused when he arrived to ED. The patient is alert oriented x3 and does not appear confused. He is however irritable and at one point demanded to be transferred to another hospital due to poor quality of hospital food and care. The patient has lower extremity cellulitis and is admitted as an inpatient to receive IV antibiotics for cellulitis and physical and occupational therapy for generalized weakness. He was also found to have a large right lung mass. Discussed case with on-call oncologist, Dr. Stevens, who recommended CT-guided lung biopsy and consideration of a MRI brain without contrast if patient can tolerate lying flat due to chronic back pain. The patient currently denies headache, chest pain, shortness of breath, abdominal pain, nausea, vomiting, fever, chills, dysuria, diarrhea or constipation. He does have chronic back pain and right-sided chest pain that he you believes is related to his heart. He reports good appetite and eats too large meals a day. Despite adequate nutrition the patient continues to have full body muscle and fat wasting with severe protein calorie malnutrition and several decubitus ulcers on sacrum and thoracic spine. Discharge Providers Provider Date of admission: 09/12/20 06:47 Discharge Date: 09/17/20 Primary care physician: Kane Molina MD Consults: 09/12/20 Consult to ENTERPRISE SYSTEMS MANAGER - Licensed Clinical Psychologist Stat Comment: Patient with multiple ER visits and skin breakdown ENTERPRISE SYSTEMS MANAGER Consult: APS/CPS Crisis Referral 09/12/20 06:51 Consult to Discharge Planning Routine Comment: Consult to Occupational Therapy Evaluate & Treat Comment: AMS, Debilitated, falls Physician Instructions: Evaluate and treat Consult to Physical Therapy Evaluate & Treat Comment: AMS, Debilitated, falls Physician Instructions: Evaluate and Treat 09/12/20 10:30 Consult to Dietitian, Adult Routine Comment: Reason For Exam: malnourished 09/12/20 15:54 Consult to Palliative Care Stat Comment: Right lung mass, failure to thrive/PCM, GOC&Code Consulting Provider: Leigh Grove 09/12/20 23:56 Consult to Dietitian, Adult Routine Comment: Reason For Exam: failure to thrive,multiple wounds,refusing PO Discharge provider: Navarro Burnett MD Summary Hospital Course Discharge Diagnosis: 1. Acute bilateral lower extremity cellulitis 2. Right lung mass suspicious for Ca, pathology pending 3. Failure to thrive 4. Chronic severe protein calorie malnutrition 5. Left heel pressure ulcer unstageable 6. Stage II sacral and thoracic decubitus ulcers 7. Chronic anemia 8. Chronic kidney disease stage 4 9. Coronary artery disease 10. Chronic back pain with opioid dependency Hospital Course: Patient admitted primarily for cellulitis which is resolving. He had negative blood cultures. His left heel wound ulcer grew Serratia marcescens with various resistance is. He was treated with meropenem. He is being discharged on Bactrim single strength twice daily for 10 days. He is getting local dressing changes for his left heel pressure ulcer. He also has several superficial wounds on the shins in addition to pressure ulcers on the sacrum and thoracic back. He also has a couple of superficial ulcerations at the glans penis from the bedside urinal rubbing that area. Patient was noted to have a 4.3 cm right lung mass suspicious for CA. CT-guided lung biopsy on 09/06 was performed and pathology pending. He will follow-up with his oncologist Dr. Stevens for pathology review and recommendations. Patient has chronic anemia which is likely malignancy related. 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 Patient has general failure to thrive with severe protein calorie malnutrition. Physical therapy and occupational therapy evaluated him and recommending shelter rehab. We had considerable difficulty getting him into rehab and the plan today was to have him go home but his caregiver is unable to manage him at home. We are trying again to get him in to shelter hopefully today. He has been fully cooperative with care with no behavioral issues at this time. He was started on low-dose Seroquel 12.5 mg at bedtime initially on admission for agitation but can be discharged off of it since that has not been an issue the last few days. Status at Discharge Cognitive/behavioral status at discharge: oriented Overall status at discharge: patient is not back to baseline Time Spent with Patient Time spent: Greater than 30 minutes Exam Vital Signs (past 8 hours): - 09/17/20 05:00 09/17/20 09:00 09/17/20 09:53 Temperature 99 F 99.3 F Pulse Rate 73 70 Respiratory Rate 14 16 Blood Pressure 134/63 132/70 Pulse Oximetry 98 100 98 09/17/20 10:10 Temperature Pulse Rate 72 Respiratory Rate Blood Pressure Pulse Oximetry Oxygen Delivery Method Room Air Oxygen Flow Rate 0 Objective Labs Result Diagrams: 09/15/20 05:10 09/15/20 05:10 Discharge Plan Discharge Plan Patient Disposition: SNF Consult as needed: Dental, Hearing, Mental health, Podiatry and Vision Discharge orders & Medications Prescriptions: New sulfamethoxazole-trimethoprim [Bactrim] 400-80 mg tablet 1 tab PO BID Qty: 20 RF: 0 Continued clopidogrel [Plavix] 75 MG tablet 75 mg PO DAILY Qty: 0 RF: 0 lansoprazole [Prevacid] 30 MG capsule,delayed release(DR/EC) 30 mg PO BIDAC Qty: 0 RF: 0 atorvastatin 80 MG tablet 80 mg PO BEDTIME Qty: 0 RF: 0 nitroglycerin 0.4 mg tablet, sublingual 0.4 mg sublingual PRN PRN (Reason: Chest Pain) RF: 0 Co Q-10 300 mg Capsule 300 mg PO DAILY RF: 0 flaxseed oil 1 dose PO DIRECTED RF: 0 Ventricor 1 dose PO DIRECTED RF: 0 resveratrol 1 cap PO DIRECTED RF: 0 Vitapulse 1 dose PO QID RF: 0 doxazosin 1 mg tablet 1 mg PO BEDTIME RF: 0 Artificial Tears (cmc) 1 % Drops 1 drp OPHTHALMIC (EYE) TID PRN (Reason: Dry Eye(S)) RF: 0 nortriptyline 25 mg capsule 25 mg PO BEDTIME RF: 0 morphine 15 mg tablet extended release 1 tab PO 5XD RF: 0 polyethylene glycol 3350 17 gram/dose powder 1 dose PO DAILY RF: 0 cyanocobalamin (vitamin B-12) [Vitamin B-12] 1,000 mcg Tablet Extended Release 1,000 mcg PO BID RF: 0 ferrous sulfate 325 mg (65 mg iron) Tablet 325 mg PO QPM RF: 0 cranberry 400 mg Capsule 400 mg DAILY RF: 0 Centrum Silver 400-250 mcg Tablet,Chewable 1 tab PO DAILY RF: 0 isosorbide mononitrate 60 mg Tablet Extended Release 24 Hr 60 mg PO DAILY RF: 0 amlodipine 10 mg Tablet 10 mg PO DAILY RF: 0 metoprolol succinate 25 mg Tablet Extended Release 24 Hr 25 mg PO DAILY RF: 0 (DME) pen needle, diabetic [Pen Needle] 32 gauge x 5/32 needle See Rx Instructions .ROUTE .MEDSUPPLY Qty: 30 RF: 0 prednisone 1 mg Tablet 1 mg PO Q OTHER DAY RF: 0 gabapentin [Neurontin] 600 MG tablet 600 mg PO TID RF: 0 Follow up/Referrals: Kane Molina MD [Primary Care Provider] - Gustavo Stevens MD [Physician] - 1 Week Discharge Health Status Multidrug resistant organism: No MDRO Precautions: [place] Diet/Activity/Treatments Diet: Regular Liquid consistency: Normal/Thin Visit Report/Discharge Packet Instructions: How to Prevent Pressure Ulcers, Pressure Injuries, DI for Pressure Injuries, How to Prevent Falls, DI for Prescription Opioid Use, DI for Altered Mental Status, Sulfamethoxazole/Trimethoprim (By mouth) Visit Report Forms: Congestive Heart Failure, Patient Portal/API, Stroke Signs & Symptoms Discharge Data Primary Care Provider: Kane Molina
[2020-09-18 12:30] VITALS: BP 119/56; PULSE 66; RESP 16; TEMP 37.1; O2SAT 100
--- NOTE | 2020-09-18 13:12 | CM.DPC ---
DCP continued: Reviewed chart. Blessing from [facility] came to do bedside assessment today. After review Blessing reports that she will need to check with administration on whether or not they can accept. Received return phone call around 12:30pm, Blessing reports that they can accept. Transport scheduled for 3:30pm. Orders obtained and faxed. RN provided with number to call report. Placed call to patient's friend/caregiver Stanley to inform him of above. He plans to come and see patient prior to transfer. Patient aware and agreeable to plan. P: [facility] today. JOHNY Hoyos
--- NOTE | 2020-09-18 13:12 | PM.DS.1 ---
History of Present Illness History of Present Illness Date Patient Seen: 09/12/20 Chief complaint: Altered LOC Narrative: Written by myself Dr. Cunha: Graeme Forte is an 85-year-old male with a past medical history significant for CAD status post stent x 2, hypertension, hyperlipidemia, GERD, chronic back pain with opiate dependence and anemia of chronic disease who was sent to the ED via EMS by his caregiver for generalized weakness and instability. The patient reports that his caregiver and live-in roommate Stanleypaige Goddard decided to call EMS due to generalized weakness with instability. There was some report that he was also aggressive and confused when he arrived to ED. The patient is alert oriented x3 and does not appear confused. He is however irritable and at one point demanded to be transferred to another hospital due to poor quality of hospital food and care. The patient has lower extremity cellulitis and is admitted as an inpatient to receive IV antibiotics for cellulitis and physical and occupational therapy for generalized weakness. He was also found to have a large right lung mass. Discussed case with on-call oncologist, Dr. Stevens, who recommended CT-guided lung biopsy and consideration of a MRI brain without contrast if patient can tolerate lying flat due to chronic back pain. The patient currently denies headache, chest pain, shortness of breath, abdominal pain, nausea, vomiting, fever, chills, dysuria, diarrhea or constipation. He does have chronic back pain and right-sided chest pain that he you believes is related to his heart. He reports good appetite and eats too large meals a day. Despite adequate nutrition the patient continues to have full body muscle and fat wasting with severe protein calorie malnutrition and several decubitus ulcers on sacrum and thoracic spine. Discharge Providers Provider Date of admission: 09/12/20 06:47 Primary care physician: Kane Molina MD Consults: 09/12/20 Consult to INSTRUCTOR PHYSICAL - Salvage Engineering Technician Stat Comment: Patient with multiple ER visits and skin breakdown INSTRUCTOR PHYSICAL Consult: APS/CPS Crisis Referral 09/12/20 06:51 Consult to Discharge Planning Routine Comment: Consult to Occupational Therapy Evaluate & Treat Comment: AMS, Debilitated, falls Physician Instructions: Evaluate and treat Consult to Physical Therapy Evaluate & Treat Comment: AMS, Debilitated, falls Physician Instructions: Evaluate and Treat 09/12/20 10:30 Consult to Dietitian, Adult Routine Comment: Reason For Exam: malnourished 09/12/20 15:54 Consult to Palliative Care Stat Comment: Right lung mass, failure to thrive/PCM, GOC&Code Consulting Provider: Leigh Grove 09/12/20 23:56 Consult to Dietitian, Adult Routine Comment: Reason For Exam: failure to thrive,multiple wounds,refusing PO Discharge provider: Lissy Cunha DO Exam Vital Signs (past 8 hours): - 09/18/20 08:00 09/18/20 09:49 09/18/20 10:29 Temperature 98.0 F Pulse Rate 64 68 Respiratory Rate 16 Blood Pressure 129/56 L Pulse Oximetry 100 98 09/18/20 12:30 Temperature 98.7 F Pulse Rate 66 Respiratory Rate 16 Blood Pressure 119/56 L Pulse Oximetry 100 Oxygen Delivery Method Room Air Oxygen Flow Rate 0 Objective Labs Result Diagrams: 09/15/20 05:10 09/15/20 05:10 Labs: Laboratory Results - last 24 hr 09/18/20 10:12 COVID-19 PCR Negative Discharge Plan Discharge Plan Patient Disposition: SNF Transfer to: [facility] Consult as needed: Dental, Hearing, Mental health, Podiatry and Vision Provider Discharge Comment: Lab: BMP in 1 week to monitor serum K and renal function on Bactrim antibiotic Discharge orders & Medications Prescriptions: New sulfamethoxazole-trimethoprim [Bactrim] 400-80 mg tablet 1 tab PO BID Qty: 20 RF: 0 Continued clopidogrel [Plavix] 75 MG tablet 75 mg PO DAILY Qty: 0 RF: 0 lansoprazole [Prevacid] 30 MG capsule,delayed release(DR/EC) 30 mg PO BIDAC Qty: 0 RF: 0 atorvastatin 80 MG tablet 80 mg PO BEDTIME Qty: 0 RF: 0 nitroglycerin 0.4 mg tablet, sublingual 0.4 mg sublingual PRN PRN (Reason: Chest Pain) RF: 0 Co Q-10 300 mg Capsule 300 mg PO DAILY RF: 0 flaxseed oil 1 dose PO DIRECTED RF: 0 Ventricor 1 dose PO DIRECTED RF: 0 resveratrol 1 cap PO DIRECTED RF: 0 Vitapulse 1 dose PO QID RF: 0 doxazosin 1 mg tablet 1 mg PO BEDTIME RF: 0 Artificial Tears (cmc) 1 % Drops 1 drp OPHTHALMIC (EYE) TID PRN (Reason: Dry Eye(S)) RF: 0 nortriptyline 25 mg capsule 25 mg PO BEDTIME RF: 0 polyethylene glycol 3350 17 gram/dose powder 1 dose PO DAILY RF: 0 cyanocobalamin (vitamin B-12) [Vitamin B-12] 1,000 mcg Tablet Extended Release 1,000 mcg PO BID RF: 0 ferrous sulfate 325 mg (65 mg iron) Tablet 325 mg PO QPM RF: 0 cranberry 400 mg Capsule 400 mg DAILY RF: 0 Centrum Silver 400-250 mcg Tablet,Chewable 1 tab PO DAILY RF: 0 isosorbide mononitrate 60 mg Tablet Extended Release 24 Hr 60 mg PO DAILY RF: 0 amlodipine 10 mg Tablet 10 mg PO DAILY RF: 0 metoprolol succinate 25 mg Tablet Extended Release 24 Hr 25 mg PO DAILY RF: 0 (DME) pen needle, diabetic [Pen Needle] 32 gauge x 5/32 needle See Rx Instructions .ROUTE .MEDSUPPLY Qty: 30 RF: 0 prednisone 1 mg Tablet 1 mg PO Q OTHER DAY RF: 0 gabapentin [Neurontin] 600 MG tablet 600 mg PO TID RF: 0 morphine 15 mg tablet extended release 1 tab PO 5XD Qty: 10 RF: 0 Follow up/Referrals: Kane Molina MD [Primary Care Provider] - Gustavo Stevens MD [Physician] - 1 Week Discharge Health Status Multidrug resistant organism: No MDRO Precautions: [place] Diet/Activity/Treatments Diet: Regular Liquid consistency: Normal/Thin [facility] Rehab type: Physical therapy and Occupational therapy Visit Report/Discharge Packet Instructions: How to Prevent Pressure Ulcers, Pressure Injuries, DI for Pressure Injuries, How to Prevent Falls, DI for Prescription Opioid Use, DI for Altered Mental Status, Sulfamethoxazole/Trimethoprim (By mouth) Visit Report Forms: Congestive Heart Failure, Patient Portal/API, Stroke Signs & Symptoms Discharge Data Primary Care Provider: Kane Molina
--- NOTE | 2020-09-18 13:22 | PC.NURSE ---
Day shift: Report given to DEANA Amezcua of [facility] over the phone at approx 1320.
--- NOTE | 2020-09-18 14:48 | OT.IP.TRT ---
Current Diagnoses Cellulitis of left lower limb (09/12/20) Occupational Therapy Treatment Note M2 OT-IP Current Condition Start: 09/13/20 16:40 Freq: Status: Active Protocol: Document 09/13/20 16:40 [facility] (Rec: 09/13/20 16:59 [facility] [id number]) Occupational Therapy Current Condition Current Condition Evaluation Date 09/13/20 Treatment Diagnosis BLE cellulitis, ams, anemia with R lung mass Diagnosis Onset Date 09/12/20 M3 OT- IP Subjective and Pain Start: 09/13/20 16:40 Freq: Status: Active Protocol: Document 09/18/20 15:00 [facility] (Rec: 09/18/20 15:09 [facility] [id number]) OT- Subjective Occupational Therapy Visit Type Type Treatment Note Visit Start Time 14:18 Visit Stop Time 14:48 Total Visit Minutes 30 Occupational Therapy Visit Comments Patient Comments Pt's cousin trying to assist pt to get dressed when OT walked into the room. Patient/Caregiver Goals To go home. OT Pain Assessment Pain When Pain Assessed At Rest Pain Present Pain Present Pain Reported M4 OT- IP ADL's Start: 09/13/20 16:40 Freq: Status: Active Protocol: Document 09/18/20 15:00 [facility] (Rec: 09/18/20 15:09 [facility] [id number]) OT [id number] Comments OT Self-Feeding Comments Not meal time . OT ADL-Grooming Comments OT Grooming Comments Not performed OT ADL-Dressing General Eval Upper Body Dressing Ability Moderate Assistance Lower Body Dressing Ability Maximum Assistance Areas Needing Assistance Underpants/Brief,Pants/Shorts, Socks Comments OT Dressing Comments Pt needing assist to help pull down his shirt in the back. Pt able to assist a little to help pull up pants over his legs once having a MIN assist to get his feet in first . Pt needing MODA for balance while trying to pull up pants/ brief over his hips but still needing MODA for completeness. OT ADL-Toileting Comments OT Toileting Comments Pt did not have to go. OT ADL-Bathing Comments OT Bathing Comments Not performed M5 OT- IP IADL's Start: 09/13/20 16:40 Freq: Status: Active Protocol: Document 09/13/20 16:40 [facility] (Rec: 09/13/20 16:59 [facility] [id number]) OT-Instrumental Activities of Daily Living Deficits IADL Deficits Identified Deficits Home Safety Awareness Awareness of Need for Assistance at Home Decreased Awareness Ability to Problem Solve Emergency Able to Problem Solve Situations Medication Management Medication Management Caregiver Administers Money Management Money Management Caregiver Provides Assistance Meal Preparation Meal Preparation Caregiver Provides Assist Couture Alterations Dressmaker Couture Alterations Dressmaker Caregiver Provides Assist Driving Driving Comments 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 M6 OT- IP Functional Cognition Start: 09/13/20 16:40 Freq: Status: Active Protocol: Document 09/18/20 15:00 [facility] (Rec: 09/18/20 15:09 [facility] [id number]) Cognitive Factors Limiting Selfcare Function Cognitive Ability Level of Alertness Alert Attention Span Ability Capable of Focused Attention, Unable to Sustain Attention Ability to Follow Commands Able to Follow One Step Commands Safety Awareness Underestimates Need for Assistance Cognitive Comments Cognitive Assessment Comments Pt has decreased insight of his balance. However pt was able to figure out that the FWW had to be lower so able to use it better as pt has very long arms. M7 OT- IP Mobility and Balance Start: 09/13/20 16:40 Freq: Status: Active Protocol: Document 09/18/20 15:00 [facility] (Rec: 09/18/20 15:09 [facility] [id number]) OT-Transfer Assessment Sit to and From Stand Sit to and from Stand Moderate Assistance,1 Person Assistance Comments Mobility Comments Pt able to use his BUE in the armrest of the director financial systems and MODA x1 to stand to FWW. OT- Balance Assessment Sitting Balance and Reactions Static Sitting Balance Ability Fair Dynamic Sitting Balance Ability Poor Standing Balance and Reactions Static Standing Balance Ability Poor Comments Other Balance Tests/Deviations/Treatment Pt tends to lean into : posterior tilt when standing. Pt very unsteady on his feet. Pt also tends to lean to the right as having left heel ulcer on his left foot. M8 OT- IP Objective Assessments Start: 09/13/20 16:40 Freq: Status: Active Protocol: Document 09/13/20 16:40 [facility] (Rec: 09/13/20 16:59 [facility] [id number]) OT Gross Range of Motion Upper Extremity Range of Motion Assessment Within Functional Limits OT Strength Comments Strength Comments not assessed on this date but noted greater than 3+ OT- Coordination Assessment Comments Coordination Comments not tested on this date. OT-Muscle Tone Assessment Muscle Tone WNL Yes OT Sensation Assessment Edema Edema Absent M9 OT- IP Assessment and Plan Start: 09/13/20 16:40 Freq: Status: Active Protocol: Document 09/18/20 15:00 [facility] (Rec: 09/18/20 15:09 [facility] [id number]) OT Summary Assessment and Plan Potential Rehabilitation Potential Fair Analytic Complexity at Evaluation Moderate Summary OT Impairments Pain,Strength,Balance, Functional Cognition, Functional Mobility,Grooming, Dressing,Toileting,Bathing, Toilet Transfers,Shower Transfers,Activity Tolerance Progress Towards Goals Progressing Toward Goals Assessment Summary Pt looking to go to skilled rehab today. Goals Self-Feeding Goal Independent Grooming Goal Independent Dressing Goal Minimal Assistance Toileting Goal Standby Assistance Bathing Goal Minimal Assistance Toilet Transfer Goal Standby Assistance Shower Transfer Goal Standby Assistance Days to Meet Goals 19 Frequency of Treatment Frequency Of Treatment Once a Day Treatment Plan OT Treatment Plan ADL Training,Functional Cognition Training,Functional Mobility,Patient/Family Education,Discharge Planning Discharge Recommendations OT Discharge Recommendations SNF Rehab Home Equipment Needs Defer to SNF Transportation Needs at Discharge Wheelchair/Cabulance
--- NOTE | 2020-09-18 15:53 | CM.DANOTE ---
DCP/continued: Received notification from staff that patient now wants to d/c home. Caregiver/Stanley has arrived and is having difficulty telling patient that he cannot care for him at home. Patient asking to go home with HH. [facility] [employer] [facility] and provider notified patient that it is not in his best interests to d/c home. Stanley admits to not being able to provide adequate care. Patient informed by provider that he he chose to leave it will have to be AMA and provider will not be writing any prescriptions. Patient's caregiver left after requested by [facility] and patient continues to decline to go to SNF. Transport arrived and called facility to notify them of difficulty now facility refusing to accept (45 minutes later). Therefore, patient has chosen to leave AMA with no prescriptions. Caregiver/Stanley to be notified and previously agreed to take patient home if that is patient's ultimate wish. P: Patient refused SNF adamant about going home with caregiver. Patient will be requested to sign out AMA without prescriptions. A.P.S. referral to be placed in AM on 09-19-2020. JOHNY Hoyos
--- NOTE | 2020-09-18 18:13 | PC.NURSE ---
Evening shift: Report received from day shift RN. Per report, patient is dressed and ready for discharge to SNF. IV has been discontinued, discharge instructions given, paperwork printed for SNF. Though patient has been back and forth as to whether he is agreeable to SNF placement, per shift report he is agreeable at this time. He will be picked up for transport to [facility] approximately 1630. When transport arrived to for patient, he refused to go. He stated that [facility]'s contract had been revoked and that he would be going home. I reminded him that his options were to go to the SNF or discharge AMA; from a medical standpoint, he no longer required hospitalization but was not deemed safe to go home. He stated that he would go home with home health. His partner and POA, Stanley, did not feel comfortable with patient returning home and tried to convince him to go to SNF. Patient is oriented and able to make his own decisions, though Stanley feels he is being more stubborn than usual and may not be in his right mind. Dr. Cunha and discharge coordinators informed of development. financial coordinator asked Stanley to step out, feeling patient may be more agreeable when partner not present and available. Stanley went home. Discussed patient's options with him again. Still declined to go. Due to refusal, [facility] no longer willing to accept him. Patient to leave AMA, without Rx's, but refused to sign AMA form. Dr. Cunha informed. Partner Stanley informed. Pt. wheeled out by wheelchair at 1652, to private vehicle driven by Stanley. Stanley encouraged to contact APS if he feels patient is unsafe at home and incapable of making own decisions.
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
== END 2020-09-18 16:52 | disposition left against medical advice (07) | DRG 602 ==
LOC: ED 06:26 → AC 06:48 → ICU 08:30 → AC 15:53 → ICU 15:53 → AC 09-14 18:55
PROVIDERS: Internal Medicine; Admitting Provider Nurse Practitioner Adult Health; Emergency Provider Emergency Medicine; Family Provider Internal Medicine; PCP Internal Medicine; Visit Provider Nurse Practitioner Adult Health
DX: L03.116 Cellulitis of left lower limb (principal); E43 Unspecified severe protein-calorie malnutrition; G92 Toxic encephalopathy; N18.4 Chronic kidney disease, stage 4 (severe); Z16.19 Resistance to other specified beta lactam antibiotics; L03.115 Cellulitis of right lower limb; Z68.22 Body mass index [BMI] 22.0-22.9, adult; L89.152 Pressure ulcer of sacral region, stage 2; L89.102 Pressure ulcer of unspecified part of back, stage 2; L89.622 Pressure ulcer of left heel, stage 2; D63.8 Anemia in other chronic diseases classified elsewhere; D50.0 Iron deficiency anemia secondary to blood loss (chronic); I12.9 Hypertensive chronic kidney disease with stage 1 through stage 4 chronic kidney disease, or unspecified chronic kidney disease; Z79.891 Long term (current) use of opiate analgesic; R91.8 Other nonspecific abnormal finding of lung field; B96.89 Other specified bacterial agents as the cause of diseases classified elsewhere; I25.10 Atherosclerotic heart disease of native coronary artery without angina pectoris; Z95.818 Presence of other cardiac implants and grafts; E78.5 Hyperlipidemia, unspecified; K21.9 Gastro-esophageal reflux disease without esophagitis; G89.29 Other chronic pain; Z87.891 Personal history of nicotine dependence; G47.00 Insomnia, unspecified; R62.7 Adult failure to thrive; Z11.59 Encounter for screening for other viral diseases
CPT/HCPCS: 32405; 36415; 36592; 70450; 71045; 71250; 72125; 73630; 77012; 80048; 80053; 80305; 80320; 81001; 82962; 83036; 83605; 83735; 84145; 84439; 84443; 85025; 85610; 85730; 87040; 87070; 87077; 87186; 87205; 87635; 87797; 93005; 93010; 96374; 97116; 97162; 97166; 97530; 97535; 99284; J1644; J2185; J3370

== ENCOUNTER → 2020-09-20 15:08 | Outpatient (CLI) | payer MEDICARE, OTHER, SELFPAY ==
[2020-08-24 13:49] VITALS: BMI 25.8
[2020-09-12 08:00] VITALS: BMI 22.1
[2020-09-20 15:46] VITALS: BP 136/54; PULSE 73; RESP 15; TEMP 36.7; O2SAT 99
[2020-09-20] MEDS: DARBEPOETIN 200 MCG/0.4 ML SYRINGE SUBCUT (15:53)
== END ==
PROVIDERS: Family Provider Internal Medicine; PCP Internal Medicine; Referring Provider Internal Medicine; Visit Provider Internal Medicine
DX: E11.22 Type 2 diabetes mellitus with diabetic chronic kidney disease (principal); I12.9 Hypertensive chronic kidney disease with stage 1 through stage 4 chronic kidney disease, or unspecified chronic kidney disease; N18.9 Chronic kidney disease, unspecified; D63.1 Anemia in chronic kidney disease
CPT/HCPCS: 96372; J0881

== ENCOUNTER 2020-09-27 20:51 | Emergency (ER) | payer MEDICARE, OTHER, SELFPAY ==
[2020-09-12 08:00] VITALS: BMI 22.1
[2020-09-27] VITALS (8 sets, daily range): BP systolic 131–151; BP diastolic 63–70; PULSE 69–82; RESP 12; TEMP 36.2; O2SAT 96–100
[2020-09-28] VITALS: BP 147/67; PULSE 69; O2SAT 94
--- NOTE | 2020-09-28 00:25 | ED.NAVMDI ---
HPI - Nausea/Vomiting/Diarrhea General Chief complaint: Nausea/Vomiting/Diarrhea Stated complaint: constant diarrhea Time Seen by Provider: 09/28/20 00:25 Source: patient Mode of arrival: Ambulatory History of Present Illness HPI Narrative: 85-year-old gentleman with a history of hyperlipidemia coronary artery disease hypertension and chronic constipation presents with 2 days of loose stools and mild fecal incontinence. He states that he takes a cap full of MiraLax daily and has had severe problems in the past with painful constipation. Notes that his stools have been softer over the last number of days and over the last 2 days have been almost liquid and he is frustrated with the amount of fecal incontinence he is currently experiencing. He describes no fevers, cough, chills, abdominal pain, dyspnea, chest pain. He describes no recent antibiotic use and no black or bloody component to the looser stools he has had over the past 48 hours Related Data Home Medications Medication Instructions Recorded Confirmed clopidogrel [Plavix] 75 mg PO DAILY #0 12/02/16 09/12/20 atorvastatin 80 mg PO BEDTIME #0 11/25/17 09/12/20 lansoprazole [Prevacid] 30 mg PO BIDAC #0 11/25/17 09/12/20 nortriptyline 25 mg PO BEDTIME 08/26/18 09/12/20 polyethylene glycol 3350 1 dose PO DAILY 08/26/18 09/12/20 Centrum Silver 1 tab PO DAILY 09/08/19 09/12/20 cranberry 400 mg DAILY 09/08/19 09/12/20 cyanocobalamin (vitamin B-12) 1,000 mcg PO BID 09/08/19 09/12/20 [Vitamin B-12] ferrous sulfate 325 mg PO QPM 09/08/19 09/12/20 amlodipine 10 mg PO DAILY 11/03/19 09/12/20 isosorbide mononitrate 60 mg PO DAILY 11/03/19 09/12/20 metoprolol succinate 25 mg PO DAILY 11/03/19 09/12/20 Co Q-10 300 mg PO DAILY 12/24/19 09/12/20 Ventricor 1 dose PO DIRECTED 12/24/19 09/12/20 Vitapulse 1 dose PO QID 12/24/19 09/12/20 flaxseed oil 1 dose PO DIRECTED 12/24/19 09/12/20 nitroglycerin 0.4 mg SUBLINGUAL PRN PRN 12/24/19 09/12/20 resveratrol 1 cap PO DIRECTED 12/24/19 09/12/20 Artificial Tears (cmc) 1 drp OPHTHALMIC (EYE) TID PRN 08/09/20 09/12/20 doxazosin 1 mg PO BEDTIME 08/09/20 09/12/20 gabapentin [Neurontin] 600 mg PO TID 09/12/20 09/12/20 prednisone 1 mg PO Q OTHER DAY 09/12/20 09/12/20 Previous Rx's Medication Instructions Recorded pen needle, diabetic [Pen Needle] #30 each 09/08/20 sulfamethoxazole-trimethoprim 1 tab PO BID #20 tab 09/16/20 [Bactrim] morphine 1 tab PO 5XD #10 tab 09/18/20 Allergies Allergy/AdvReac Type Severity Reaction Status Date / Time cephalexin Allergy Severe RASH Verified 08/24/20 09:45 ciprofloxacin Allergy Severe RASH Verified 08/24/20 09:45 Fish Containing Products Allergy Severe Difficulty Verified 08/24/20 09:45 Breathing shellfish derived Allergy Severe Difficulty Verified 08/24/20 09:45 Breathing avocado AdvReac Intermediate Vomiting Verified 08/24/20 09:45 cucumber AdvReac Intermediate Vomiting Verified 08/24/20 09:45 Review of Systems Review of Systems Narrative: Remainder of review of systems including constitutional, ENT, cardiovascular, respiratory, GI, , musculoskeletal, skin, neurologic and psychiatric systems reviewed and are unremarkable except as noted in HPI. Patient History Medical History (HFpEF) heart failure with preserved ejection fraction (Acute) Anemia (Acute) Angina pectoris (Acute) Donald's esophagus (Acute) Chronic kidney disease, stage 4 (severe) (Acute) Chronic neck pain (Acute) Constipation (Inactive) Coronary artery disease (Acute) Decubitus skin ulcer (Inactive) Diabetes mellitus type 2, diet-controlled (Acute) HTN (hypertension) (Acute) Hyperlipidemia (Chronic) Opiate dependence (Acute) Surgical History H/O heart artery stent (Acute) History of esophagogastroduodenoscopy (EGD) (Acute) Family History Father Kidney failure TIA (transient ischemic attack) Mother Heart disease Arrhythmia TIA (transient ischemic attack) Social History household members: family Smoking Status: Former smoker alcohol intake: current Smoking Status: Former smoker alcohol intake frequency: holidays/special occasions only Substance Use Type: does not use Exam Narrative Exam Narrative: General: Frail appearing, in no acute distress. Able to give a complete and coherent history. HEENT: Moist mucous membranes, normal sclera with reactive pupils, Respiratory: Lungs are clear to auscultation, no wheezing no rales no rhonchi. Full and symmetrical air movement Cardiac: Regular rate and rhythm no murmurs no bruits Abdomen: Soft nontender good bowel tones, no flank pain Skin: Warm and dry, no rashes. Decubitus ulcers over bony prominence lower thoracic spine as well as sacrum. Dressings in place with no evidence of expanding cellulitis or drainage from the wounds appreciated Rectal exam: No obstipation, no masses no tumors no stool in the rectal vault this time. Neurologic: Grossly neurologically intact with no obvious asymmetries or abnormalities Psych: Cooperative, normal speech content and fluency Initial Vital Signs Initial Vital Signs: Vital Signs Temperature 97.2 F L 09/27/20 20:58 Pulse Rate 82 09/27/20 20:58 Respiratory Rate 12 09/27/20 20:58 Blood Pressure 140/65 09/27/20 20:58 Pulse Oximetry 97 09/27/20 20:58 Course Orders Ordered: Discontinued Medications Sodium Chloride (Normal Saline 0.9%) 1,000 mls @ 1,000 mls/hr IV BOLUS ONE Stop: 09/27/20 23:51 Last Admin: 09/27/20 22:54 Dose: Not Given Documented by: SORAIDA Ondansetron HCl (Zofran) 4 mg IV NOW ONE Stop: 09/27/20 22:53 Last Admin: 09/27/20 22:54 Dose: Not Given Documented by: SOARIDA Vital Signs Vital signs: Vital Signs - 8 hr 09/27/20 22:00 09/27/20 22:30 09/27/20 23:00 Pulse Rate 77 71 69 Blood Pressure 131/63 141/66 H 136/65 Pulse Oximetry 100 96 96 09/27/20 23:14 09/27/20 23:30 09/28/20 00:00 Pulse Rate 69 Blood Pressure 143/70 H 151/65 H 147/67 H Pulse Oximetry 99 94 09/28/20 00:30 Pulse Rate 72 Blood Pressure 143/70 H Pulse Oximetry 97 MDM - Nausea/Vomiting/Diarrhea Medical Records Attestation: I reviewed the patient's medical records. MDM Narrative Medical decision making narrative: 85-year-old gentleman concerned with fecal incontinence for the last 48 hours. No evidence of obstipation with liquid stool forcing its way around that. No suggestion of infectious diarrhea or recent antibiotic use to point to Clostridium difficile. He has no abdominal pain or fevers. Continues to take MiraLax daily despite loosening stools. Suspect this is functional diarrhea from an overuse of MiraLax this time. Reassurance is given and he is safe for home discharge Discharge Plan Departure Patient Disposition: Home Clinical Impression: Diarrhea Qualifiers: Diarrhea type: unspecified type Qualified Code(s): R19.7 - Diarrhea, unspecified Fecal incontinence Qualifiers: Fecal incontinence type: unspecified Qualified Code(s): R15.9 - Full incontinence of feces Discharge Date/Time: 09/28/20 01:15 Activity Restrictions/Additional Instructions: Thank you for coming in today Your exam suggests that your stool is simply loose enough that you are having some leaking. You do not have significant constipation with liquid stool leaking around it. I am going to suggest that you stop your polyethylene glycol for the next 2 days to allow your stool to be little less liquid. You may find that you need to decrease your polyethylene glycol slightly based on how firm your stool is. If it is liquid, do not take it that day if it is not liquid than do. I did review your most recent blood work. There are some moderate chronic abnormalities that do need follow-up on an outpatient basis but nothing that requires hospitalization at this time. I hope you feel better Prescriptions: No Action clopidogrel [Plavix] 75 MG tablet 75 mg PO DAILY Qty: 0 RF: 0 lansoprazole [Prevacid] 30 MG capsule,delayed release(DR/EC) 30 mg PO BIDAC Qty: 0 RF: 0 atorvastatin 80 MG tablet 80 mg PO BEDTIME Qty: 0 RF: 0 nitroglycerin 0.4 mg tablet, sublingual 0.4 mg sublingual PRN PRN (Reason: Chest Pain) RF: 0 Co Q-10 300 mg Capsule 300 mg PO DAILY RF: 0 flaxseed oil 1 dose PO DIRECTED RF: 0 Ventricor 1 dose PO DIRECTED RF: 0 resveratrol 1 cap PO DIRECTED RF: 0 Vitapulse 1 dose PO QID RF: 0 doxazosin 1 mg tablet 1 mg PO BEDTIME RF: 0 Artificial Tears (cmc) 1 % Drops 1 drp OPHTHALMIC (EYE) TID PRN (Reason: Dry Eye(S)) RF: 0 nortriptyline 25 mg capsule 25 mg PO BEDTIME RF: 0 polyethylene glycol 3350 17 gram/dose powder 1 dose PO DAILY RF: 0 cyanocobalamin (vitamin B-12) [Vitamin B-12] 1,000 mcg Tablet Extended Release 1,000 mcg PO BID RF: 0 ferrous sulfate 325 mg (65 mg iron) Tablet 325 mg PO QPM RF: 0 cranberry 400 mg Capsule 400 mg DAILY RF: 0 Centrum Silver 400-250 mcg Tablet,Chewable 1 tab PO DAILY RF: 0 isosorbide mononitrate 60 mg Tablet Extended Release 24 Hr 60 mg PO DAILY RF: 0 amlodipine 10 mg Tablet 10 mg PO DAILY RF: 0 metoprolol succinate 25 mg Tablet Extended Release 24 Hr 25 mg PO DAILY RF: 0 (DME) pen needle, diabetic [Pen Needle] 32 gauge x 5/32 needle See Rx Instructions .ROUTE .MEDSUPPLY Qty: 30 RF: 0 prednisone 1 mg Tablet 1 mg PO Q OTHER DAY RF: 0 gabapentin [Neurontin] 600 MG tablet 600 mg PO TID RF: 0 sulfamethoxazole-trimethoprim [Bactrim] 400-80 mg tablet 1 tab PO BID Qty: 20 RF: 0 morphine 15 mg tablet extended release 1 tab PO 5XD Qty: 10 RF: 0 Referrals: Kane Molina MD [Primary Care Provider] -
[2020-09-28 00:30] VITALS: BP 143/70; PULSE 72; O2SAT 97
== END 2020-09-28 01:15 | disposition home or self-care (01) ==
PROVIDERS: Emergency Provider Emergency Medicine; Family Provider Internal Medicine; PCP Internal Medicine; Referring Provider Internal Medicine
DX: R19.7 Diarrhea, unspecified (principal); R15.9 Full incontinence of feces
CPT/HCPCS: 99281

== ENCOUNTER → 2020-10-03 14:04 | Outpatient (CLI) | payer MEDICARE, OTHER, SELFPAY ==
[2020-08-24 13:49] VITALS: BMI 25.8
[2020-09-12 08:00] VITALS: BMI 22.1
[2020-10-03 14:32] VITALS: BP 140/60; PULSE 75; RESP 18
[2020-10-03] MEDS: DARBEPOETIN 200 MCG/0.4 ML SYRINGE SUBCUT (14:46)
== END ==
PROVIDERS: Family Provider Internal Medicine; PCP Internal Medicine; Referring Provider Internal Medicine; Visit Provider Internal Medicine
DX: D53.9 Nutritional anemia, unspecified (principal)
CPT/HCPCS: 36415; 80053; 85025; 96372; J0881

== ENCOUNTER → 2020-10-16 15:26 | Outpatient (CLI) | payer MEDICARE, OTHER, SELFPAY ==
[2020-09-12 08:00] VITALS: BMI 22.1
[2020-10-16 15:50] LABS: Add Manual Diff / Slide Review NO; Basophils Absolute Auto 0 /uL (0-100); Basophils Percent Auto 0.7 % (0-2); Eosinophils Absolute Auto 200 /uL (0-450); Eosinophils Percent Auto 3.3 % (2-4); Hematocrit 28.7 % (41-53); Hemoglobin 9.3 g/dL (13.5-17.5); Lymphocytes Absolute Auto 800 /uL (1100-4500); Lymphocytes Percent Auto 15.9 % (25-40); Mean Corpuscular HGB Conc 32.4 % (30-36); Mean Corpuscular Hemoglobin 31.4 PG (26-34); Mean Corpuscular Volume 96.9 fL (80-100); Monocytes Absolute Auto 400 /uL (0-900); Neutrophils Absolute Auto 3800 /uL (1500-7000); Neutrophils Percent Auto 72.1 % (50-75); Platelet Count 245 X10^3/uL (150-400); Red Blood Cell Count 2.97 X10^6/uL (4.5-5.9); Red Cell Distribution Width 19.3 % (11.6-14.8); White Blood Cell Count 5.2 X10^3/uL (4.5-11.0)
[2020-10-16 16:10] LABS: Alanine Aminotransferase 26 IU/L (<50); Albumin Globulin Ratio 0.9 (1.0-2.8); Alkaline Phosphatase 80 U/L (38-126); Aspartate Aminotransferase 42 IU/L (17-59); BUN Creatinine Ratio 24.9 (6-22); Bilirubin Total 0.5 mg/dL (0.2-1.3); Blood Urea Nitrogen 68 mg/dL (9-20); Calcium 8.1 mg/dL (8.4-10.2); Carbon Dioxide 24 mmol/L (22-32); Chloride 109 mmol/L (98-107); Estimated Glomerular Filt Rate 22.3 mL/min (>60); Globulin 3.5 g/dL (1.7-4.1); Glucose 188 mg/dL (80-110); HEMOLYSIS < 15 (0-50); Sodium 137 mmol/L (137-145); Total Protein 6.5 g/dL (6.3-8.2)
[2020-10-16 16:21] LABS: HEMOLYSIS < 15 (0-50); Iron 37 ug/dL (49-181)
[2020-10-16 16:31] LABS: Percent Iron Saturation 20 % (20-50); Total Iron Binding Capacity 188 ug/dL (261-462); Transferrin 119 mg/dL (206-381)
[2020-10-16 16:45] LABS: Ferritin 188 ng/mL (18-464)
== END ==
PROVIDERS: Family Provider Internal Medicine; PCP Internal Medicine; Referring Provider Internal Medicine; Visit Provider Internal Medicine
DX: D64.9 Anemia, unspecified (principal); D63.1 Anemia in chronic kidney disease; N18.9 Chronic kidney disease, unspecified
CPT/HCPCS: 36415; 80053; 82728; 83540; 83550; 85025

== ENCOUNTER → 2020-10-17 13:32 | Outpatient (CLI) | payer MEDICARE, OTHER, SELFPAY ==
[2020-08-24 13:49] VITALS: BMI 25.8
[2020-10-17] MEDS: DARBEPOETIN 200 MCG/0.4 ML SYRINGE SUBCUT (14:32)
== END ==
PROVIDERS: Family Provider Internal Medicine; PCP Internal Medicine; Referring Provider Internal Medicine; Visit Provider Internal Medicine
DX: E11.22 Type 2 diabetes mellitus with diabetic chronic kidney disease (principal); I12.9 Hypertensive chronic kidney disease with stage 1 through stage 4 chronic kidney disease, or unspecified chronic kidney disease; N18.9 Chronic kidney disease, unspecified; D63.1 Anemia in chronic kidney disease; L89.159 Pressure ulcer of sacral region, unspecified stage; L89.609 Pressure ulcer of unspecified heel, unspecified stage; E78.5 Hyperlipidemia, unspecified; I25.10 Atherosclerotic heart disease of native coronary artery without angina pectoris; Z95.5 Presence of coronary angioplasty implant and graft
CPT/HCPCS: 96372; 99214; J0881

== ENCOUNTER → 2020-10-26 14:15 | Outpatient (CLI) | payer MEDICARE, OTHER, SELFPAY ==
[2020-09-12 08:00] VITALS: BMI 22.1
== END ==
PROVIDERS: Family Provider Internal Medicine; PCP Internal Medicine; Referring Provider Internal Medicine; Visit Provider Family Medicine
DX: E11.621 Type 2 diabetes mellitus with foot ulcer (principal); L97.421 Non-pressure chronic ulcer of left heel and midfoot limited to breakdown of skin; L89.153 Pressure ulcer of sacral region, stage 3; L89.103 Pressure ulcer of unspecified part of back, stage 3; R60.0 Localized edema; E11.40 Type 2 diabetes mellitus with diabetic neuropathy, unspecified; E11.628 Type 2 diabetes mellitus with other skin complications
CPT/HCPCS: 11042; 97597; 99213

== ENCOUNTER → 2020-10-31 13:40 | Outpatient (CLI) | payer MEDICARE, OTHER, SELFPAY ==
[2020-09-12 08:00] VITALS: BMI 22.1
[2020-10-31 13:59] VITALS: BP 134/65; PULSE 77; RESP 16
--- NOTE | 2020-10-31 14:12 | PC.NURSE ---
Aranesp parameters; Per Kristel LEBLANC, Dr. Stevens instructions are to give Aranesp for hct < 11.
[2020-10-31] MEDS: DARBEPOETIN 200 MCG/0.4 ML SYRINGE SUBCUT (14:29)
== END ==
PROVIDERS: Family Provider Internal Medicine; PCP Internal Medicine; Referring Provider Internal Medicine; Visit Provider Internal Medicine
DX: E11.22 Type 2 diabetes mellitus with diabetic chronic kidney disease (principal); I12.9 Hypertensive chronic kidney disease with stage 1 through stage 4 chronic kidney disease, or unspecified chronic kidney disease; N18.9 Chronic kidney disease, unspecified; D63.1 Anemia in chronic kidney disease; Z79.4 Long term (current) use of insulin
CPT/HCPCS: 36415; 80053; 85025; 96372; J0881

== ENCOUNTER → 2020-11-02 13:15 | Outpatient (CLI) | payer MEDICARE, OTHER, SELFPAY ==
[2020-09-12 08:00] VITALS: BMI 22.1
== END ==
PROVIDERS: Family Provider Internal Medicine; PCP Internal Medicine; Referring Provider Internal Medicine; Visit Provider Family Medicine
DX: E11.628 Type 2 diabetes mellitus with other skin complications (principal); L89.103 Pressure ulcer of unspecified part of back, stage 3; L89.153 Pressure ulcer of sacral region, stage 3; L97.421 Non-pressure chronic ulcer of left heel and midfoot limited to breakdown of skin; E11.51 Type 2 diabetes mellitus with diabetic peripheral angiopathy without gangrene; E11.40 Type 2 diabetes mellitus with diabetic neuropathy, unspecified; R60.0 Localized edema
CPT/HCPCS: 11042; 99214

== ENCOUNTER → 2020-11-13 15:51 | Outpatient (CLI) | payer MEDICARE, OTHER, SELFPAY ==
[2020-09-12 08:00] VITALS: BMI 22.1
[2020-11-13 16:09] LABS: Add Manual Diff / Slide Review NO; Basophils Absolute Auto 0 /uL (0-100); Basophils Percent Auto 0.4 % (0-2); Eosinophils Absolute Auto 200 /uL (0-450); Eosinophils Percent Auto 2.3 % (2-4); Hematocrit 31.3 % (41-53); Hemoglobin 9.9 g/dL (13.5-17.5); Lymphocytes Absolute Auto 500 /uL (1100-4500); Lymphocytes Percent Auto 7.9 % (25-40); Mean Corpuscular HGB Conc 31.7 % (30-36); Mean Corpuscular Hemoglobin 30.9 PG (26-34); Mean Corpuscular Volume 97.4 fL (80-100); Monocytes Absolute Auto 500 /uL (0-900); Neutrophils Absolute Auto 5400 /uL (1500-7000); Neutrophils Percent Auto 81.4 % (50-75); Platelet Count 207 X10^3/uL (150-400); Red Blood Cell Count 3.22 X10^6/uL (4.5-5.9); Red Cell Distribution Width 17.6 % (11.6-14.8); White Blood Cell Count 6.6 X10^3/uL (4.5-11.0)
[2020-11-13 16:23] LABS: Alanine Aminotransferase 28 IU/L (<50); Albumin 3.2 g/dL (3.5-5.0); Albumin Globulin Ratio 0.9 (1.0-2.8); Alkaline Phosphatase 73 U/L (38-126); Aspartate Aminotransferase 40 IU/L (17-59); BUN Creatinine Ratio 19.4 (6-22); Bilirubin Total 0.4 mg/dL (0.2-1.3); Blood Urea Nitrogen 72 mg/dL (9-20); Calcium 8.3 mg/dL (8.4-10.2); Carbon Dioxide 27 mmol/L (22-32); Chloride 107 mmol/L (98-107); Estimated Glomerular Filt Rate 15.6 mL/min (>60); Globulin 3.6 g/dL (1.7-4.1); Glucose 147 mg/dL (80-110); HEMOLYSIS < 15 (0-50); Potassium 5.1 mmol/L (3.4-5.1); Sodium 138 mmol/L (137-145); Total Protein 6.8 g/dL (6.3-8.2)
== END ==
PROVIDERS: Family Provider Internal Medicine; PCP Internal Medicine; Referring Provider Internal Medicine; Visit Provider Internal Medicine
DX: N18.9 Chronic kidney disease, unspecified (principal); D63.1 Anemia in chronic kidney disease
CPT/HCPCS: 36415; 80053; 85025

== ENCOUNTER → 2020-11-14 12:59 | Outpatient (CLI) | payer MEDICARE, OTHER, SELFPAY ==
[2020-09-12 08:00] VITALS: BMI 22.1
[2020-11-14] MEDS: DARBEPOETIN 300 MCG SUBCUT (14:09)
== END ==
PROVIDERS: Family Provider Internal Medicine; PCP Internal Medicine; Referring Provider Internal Medicine; Visit Provider Internal Medicine
DX: E11.22 Type 2 diabetes mellitus with diabetic chronic kidney disease (principal); I12.9 Hypertensive chronic kidney disease with stage 1 through stage 4 chronic kidney disease, or unspecified chronic kidney disease; N18.9 Chronic kidney disease, unspecified; D63.1 Anemia in chronic kidney disease; E78.5 Hyperlipidemia, unspecified; I25.10 Atherosclerotic heart disease of native coronary artery without angina pectoris; Z95.5 Presence of coronary angioplasty implant and graft; Z79.4 Long term (current) use of insulin
CPT/HCPCS: 96372; 99213; J0881

== ENCOUNTER → 2020-11-14 13:00 | Oncology outpatient (ONC) | payer MEDICARE, OTHER, SELFPAY ==
[2019-09-08 14:53] VITALS: BP 136/62; PULSE 56; RESP 20; TEMP 37; O2SAT 99
--- NOTE | 2019-09-08 16:27 | ONC.CONS ---
History of Present Illness - Data of Consult Consult date: 09/08/19 Primary Care Provider: Kane Molina MD - Consult Narrative Narrative: Diagnosis: Macrocytic anemia History of present illness: Graeme Forte is a 84 year old male who is referred for further evaluation of mild to moderate anemia. He has a history of ankylosing spondylitis. On routine CBC he was noted to have hemoglobin of 11.1 and hematocrit of 32. His MCV was 101. White cell count was normal at 5.1 and platelets were 199,000. Further evaluation showed that his reticulocyte was 1.3%. B12 and folate were normal. Iron was 79 with a TIBC of 185 and a ferritin of 123. The patient was noted to have a hemoglobin of 12.5 and hematocrit of 36 in November 2017. He denies any unusual bleeding or bruising. He has never required a transfusion. He denies any shortness of breath cough chest pain dizziness or lightheadedness. His strength and energy level have been normal and he has been able to do all of his normal activities. He is not having any symptoms related to his anemia. His past medical history is notable for ankylosing spondylitis. He has a history of diabetes. He has a history of coronary artery disease and has had prior stent placed. Social history: He lives with a friend. He does not smoke or use alcohol. 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 Family history is negative for any anemia or blood dyscrasias. His mother had breast cancer. He thinks his grand mother may have had colon cancer. CC: Ladarius Metzger MD Home Medications and Allergies Home Medications Medication Instructions Recorded Confirmed Type gabapentin [Neurontin] 600 mg PO TID #0 03/27/12 09/08/19 History clopidogrel [Plavix] 75 mg PO QDAY #0 12/02/16 09/08/19 History atorvastatin 80 mg PO HS #0 11/25/17 09/08/19 History fluticasone propionate [Flonase 2 spray INTRANASAL QDAY #0 11/25/17 09/08/19 History Allergy Relief] lansoprazole [Prevacid] 30 mg PO BIDAC #0 11/25/17 09/08/19 History atenolol 25 mg PO QDAY #30 tab 11/26/17 09/08/19 Rx losartan 50 mg PO QDAY #30 tab 11/26/17 09/08/19 Rx latanoprost 1 drp OPHTHALMIC (EYE) BEDTIME 08/26/18 09/08/19 History morphine 1 tab PO 5XD 08/26/18 09/08/19 History nortriptyline 25 mg PO BEDTIME 08/26/18 09/08/19 History polyethylene glycol 3350 1 dose PO BID 08/26/18 09/08/19 History nckhhskzwi-jdvzkxn-lzjstrim 2 cap PO Q4H PRN 09/08/19 09/08/19 History [Fiorinal] calcium carbonate [Calcium 500] 500 mg DAILY 09/08/19 09/08/19 History coenzyme Q10 [CoQ-10] 100 mg PO DAILY 09/08/19 09/08/19 History cranberry 400 mg DAILY 09/08/19 09/08/19 History cyanocobalamin (vitamin B-12) 1,000 mcg PO DAILY 09/08/19 09/08/19 History [Vitamin B-12] ferrous sulfate 325 mg PO DAILY 09/08/19 09/08/19 History gv-fwl-opekr acid-lutein [Centrum 1 tab PO DAILY 09/08/19 09/08/19 History Silver] olopatadine [Pataday] 0.2 % OPHTHALMIC (EYE) DAILY 09/08/19 09/08/19 History vit C,D-Jh-gohks-lutein-zeaxan 1 tab DAILY 09/08/19 09/08/19 History [PreserVision AREDS-2] Allergies Allergy/AdvReac Type Severity Reaction Status Date / Time cephalexin Allergy Severe RASH Verified 05/11/19 18:58 ciprofloxacin Allergy Severe RASH Verified 05/11/19 18:58 Medical History - Medical, Surgical, Family History Medical History: Medical History (Last Updated 08/26/18 @ 16:08 by Rosario Maher PA-C) HTN (hypertension) - Social History Smoking Status: Never smoker Review of Systems - Patient Self-Reported Symptoms SR Constitution: Weight loss/gain SR ears, nose, mouth, throat issues: Ears ringing SR Skin issues: Dry skin SR Genitourinary issues: Frequent urination SR Musculoskeletal issues: Joint pain or swelling, Muscle weakness, Back or neck pain SR Neuro issues: Head injury, Difficulty balancing SR Hematologic issues: Bleeding/bruising Constitutional: weight loss, normal activity level Cardiovascular: no chest pain, no palpitations, no dyspnea on exertion Respiratory: no shortness of breath Gastrointestinal: no change in appetite Musculoskeletal: pain, limited ROM Hematologic/Lymphatic: anemia, no enlarged lymph nodes Exam Vital signs: Vital Signs Temp Pulse Resp BP Pulse Ox 09/08/19 14:53 98.6 F 56 L 20 136/62 99 Intake and Output 09/08/19 09/08/19 09/08/19 07:59 15:59 23:59 Other: Weight 65.7 kg Patient Weight 09/08/19 23:59 Weight 65.7 kg - Constitutional positive no acute distress, positive thin - Routine HEENT Exam Head: Present: normocephalic, atraumatic Eye: Present: EOMI, PERRL. Absent: conjunctival icterus, scleral injection ENT: Present: mucous membranes moist, oropharynx clear - Routine Neck Exam Present: supple. Absent: lymphadenopathy, thyromegaly - Routine Chest/Breast/Axilla Exam Axillae: Absent: lymphadenopathy - Routine Respiratory Exam Present: Clear to auscultation bilaterally. Absent: rales, wheezes - Routine Cardiovascular Exam Present: RRR, S1, S2. Absent: murmur - Routine Abdominal Exam Present: soft, normoactive bowel sounds. Absent: tenderness, organomegaly, mass - Routine Extremities Exam Absent: cyanosis, clubbing, edema Comments: He does have some spooning of the fingernails. - Routine Back/Spine Exam Back/Spine: Present: vertebral tenderness Comments: His spine is kyphotic. - Routine Skin Exam Present: intact. Absent: erythema, rash - Routine Neurological Exam Present: alert, oriented X3 - Routine Psychiatric Exam Present: normal affect, normal thought process Results - Imaging Additional studies: Procedures Injection of steroid (03/27/12) Injection or infusion of other therapeutic or prophylactic substance (03/27/12) Assessment and Plan (1) Anemia Current visit: Yes Status: Acute 84-year-old man with mild to moderate anemia with a mild macrocytosis. He does not have any elevation in his reticulocyte count. B12 and folate are normal. There is no sign of hemolysis. He has no history of liver kidney disease. He is not on any medications likely to cause a macrocytic anemia. This may represent a myelodysplastic syndrome. He is not at all symptomatic. He does wish to go ahead with a bone marrow biopsy to try and make a firm diagnosis. However, if MDS is found, it is likely that no treatment would be needed initially. Will trying get him scheduled for marrow sometime within the next month. He will return to clinic here after that for follow-up.
[2019-10-13 11:46] LABS: Add Manual Diff / Slide Review NO; Basophils Absolute Auto 0 /uL (0-100); Basophils Percent Auto 0.5 % (0-2); Eosinophils Absolute Auto 400 /uL (0-450); Eosinophils Percent Auto 7.6 % (2-4); Hematocrit 32.3 % (41-53); Hemoglobin 11.4 g/dL (13.5-17.5); Lymphocytes Absolute Auto 1000 /uL (1100-4500); Lymphocytes Percent Auto 18.9 % (25-40); Mean Corpuscular HGB Conc 35.4 % (30-36); Mean Corpuscular Hemoglobin 34.4 PG (26-34); Mean Corpuscular Volume 97.2 fL (80-100); Monocytes Absolute Auto 600 /uL (0-900); Neutrophils Absolute Auto 3300 /uL (1500-7000); Platelet Count 185 X10^3/uL (150-400); Red Blood Cell Count 3.32 X10^6/uL (4.5-5.9); Red Cell Distribution Width 13.2 % (11.6-14.8); White Blood Cell Count 5.3 X10^3/uL (4.5-11.0)
--- NOTE | 2019-10-13 12:41 | ONC.SCHED ---
Patient does not want to fill out an Authorization to Discuss at this time.
--- NOTE | 2019-10-13 13:38 | ONC.PROCEDUR ---
Date of procedure: 10/13/19 Onc Bone Marrow: bone marrow biopsy and aspiration Procedure: The patient is an 84-year-old man with a mild to moderate macrocytic anemia without obvious underlying etiology. He returns today for bone marrow biopsy. He gave informed consent. His left posterior iliac crest was prepped with Betadine and anesthetized with approximately 3 cc of 2% lidocaine. Small skin incision was made with a scalpel blade. A Jamshidi needle was used to obtain a bone marrow aspirate and core biopsy. The patient tolerated the procedure well without any complications. Samples were sent for routine histology as well as flow cytometry and cytogenetics. He will return to clinic in 1-2 weeks for follow-up.
[2019-11-03 15:18] VITALS: BP 145/66; PULSE 80; RESP 18; TEMP 36.6; O2SAT 98
--- NOTE | 2019-11-03 15:30 | P.PNONC_ITS ---
PN -Subjective Interval history: Diagnosis: Macrocytic anemia History of present illness: Graeme Forte is a 84 year old male who is referred for further evaluation of mild to moderate anemia. He has a history of ankylosing spondylitis. On routine CBC he was noted to have hemoglobin of 11.1 and hematocrit of 32. His MCV was 101. White cell count was normal at 5.1 and platelets were 199,000. Further evaluation showed that his reticulocyte was 1.3%. B12 and folate were normal. Iron was 79 with a TIBC of 185 and a ferritin of 123. The patient was noted to have a hemoglobin of 12.5 and hematocrit of 36 in November 2017. He denies any unusual bleeding or bruising. He has never required a transfusion. He denies any shortness of breath cough chest pain dizziness or lightheadedness. His strength and energy level have been normal and he has been able to do all of his normal activities. He is not having any symptoms related to his anemia. He did have a bone marrow biopsy performed at his last visit here. He tolerated the procedure well. A few days later, he developed an episode of angina. He took some nitroglycerin but his symptoms did not resolve. He was subsequently hospitalized in [place]. He tells me that the applied psychology teacher changed several of his medications but did not perform any invasive procedures. He has not had any further episodes of chest pain. He denies any unusual bleeding or bruising. His strength and energy level have been stable. He is not having any shortness of breath. He denies any other changes in his health. - Patient Self-Reported Symptoms SR Constitution: Weight loss/gain SR ears, nose, mouth, throat issues: Congestion, Cough SR Skin issues: Dry skin SR Genitourinary issues: Frequent urination SR Musculoskeletal issues: Joint pain or swelling, Back or neck pain SR Neuro issues: Headache SR Hematologic issues: Bleeding/bruising Home Medications and Allergies Home Medications Medication Instructions Recorded Confirmed Type gabapentin [Neurontin] 600 mg PO TID #0 03/27/12 11/03/19 History clopidogrel [Plavix] 75 mg PO QDAY #0 12/02/16 11/03/19 History atorvastatin 80 mg PO HS #0 11/25/17 11/03/19 History fluticasone propionate [Flonase 2 spray INTRANASAL QDAY #0 11/25/17 11/03/19 History Allergy Relief] lansoprazole [Prevacid] 30 mg PO BIDAC #0 11/25/17 11/03/19 History losartan 50 mg PO QDAY #30 tab 11/26/17 11/03/19 Rx latanoprost 1 drp OPHTHALMIC (EYE) BEDTIME 08/26/18 11/03/19 History morphine 1 tab PO 5XD 08/26/18 11/03/19 History nortriptyline 25 mg PO BEDTIME 08/26/18 11/03/19 History polyethylene glycol 3350 1 dose PO BID 08/26/18 11/03/19 History calcium carbonate [Calcium 500] 500 mg DAILY 09/08/19 11/03/19 History coenzyme Q10 [CoQ-10] 100 mg PO DAILY 09/08/19 11/03/19 History cranberry 400 mg DAILY 09/08/19 11/03/19 History cyanocobalamin (vitamin B-12) 1,000 mcg PO DAILY 09/08/19 11/03/19 History [Vitamin B-12] ferrous sulfate 325 mg PO DAILY 09/08/19 11/03/19 History xf-tks-vztxc acid-lutein [Centrum 1 tab PO DAILY 09/08/19 11/03/19 History Silver] olopatadine [Pataday] 0.2 % OPHTHALMIC (EYE) DAILY 09/08/19 11/03/19 History vit C,O-Ye-eilsj-lutein-zeaxan 1 tab DAILY 09/08/19 11/03/19 History [PreserVision AREDS-2] amlodipine 10 mg PO DAILY 11/03/19 11/03/19 History isosorbide mononitrate 60 mg PO DAILY 11/03/19 11/03/19 History metoprolol succinate 25 mg PO DAILY 11/03/19 11/03/19 History Allergies Allergy/AdvReac Type Severity Reaction Status Date / Time cephalexin Allergy Severe RASH Verified 05/11/19 18:58 ciprofloxacin Allergy Severe RASH Verified 05/11/19 18:58 Exam Vital signs: Vital Signs Temp Pulse Resp BP Pulse Ox 11/03/19 15:18 98 F 80 18 145/66 H 98 Intake and Output 11/02/19 11/03/19 11/03/19 23:59 07:59 15:59 Other: Weight 62.1 kg Patient Weight 11/03/19 23:59 Weight 62.1 kg - Constitutional positive no acute distress, positive average body habitus Comments: He is not further examined. Results - Labs Laboratory Last Values WBC 5.3 X10^3/uL (4.5-11.0) 10/13/19 11:37 RBC 3.32 X10^6/uL (4.5-5.9) L 10/13/19 11:37 Hgb 11.4 g/dL (13.5-17.5) L 10/13/19 11:37 Hct 32.3 % (41-53) L 10/13/19 11:37 MCV 97.2 fL (80-100) 10/13/19 11:37 MCH 34.4 PG (26-34) H 10/13/19 11:37 MCHC 35.4 % (30-36) 10/13/19 11:37 RDW 13.2 % (11.6-14.8) 10/13/19 11:37 Plt Count 185 X10^3/uL (150-400) 10/13/19 11:37 Neut % (Auto) 62.0 % (50-75) 10/13/19 11:37 Lymph % (Auto) 18.9 % (25-40) L 10/13/19 11:37 Bertie % (Auto) 11.0 % (3-14) 10/13/19 11:37 Eos % (Auto) 7.6 % (2-4) H 10/13/19 11:37 Baso % (Auto) 0.5 % (0-2) 10/13/19 11:37 Neut # (Auto) 3300 /uL (2751-0687) 10/13/19 11:37 Lymph # (Auto) 1000 /uL (8328-3246) L 10/13/19 11:37 Bertie # (Auto) 600 /uL (0-900) 10/13/19 11:37 Eos # (Auto) 400 /uL (0-450) 10/13/19 11:37 Baso # (Auto) 0 /uL (0-100) 10/13/19 11:37 - Imaging Additional studies: Procedures Injection of steroid (03/27/12) Injection or infusion of other therapeutic or prophylactic substance (03/27/12) Assessment and Plan (1) Anemia Current visit: Yes Status: Acute 84-year-old man with mild to moderate anemia with a mild macrocytosis. He does not have any elevation in his reticulocyte count. B12 and folate are normal. There is no sign of hemolysis. He has no history of liver kidney disease. He is not on any medications likely to cause a macrocytic anemia. He is not at all symptomatic. His bone marrow biopsy showed a normal cellular marrow with no evidence of myelodysplasia. 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 No obvious etiology for his anemia is seen. However no obvious underlying marrow pathology is seen either. At this point, I don't think any further evaluation is likely to be helpful. I recommended that he continue to follow with his primary physician with a CBC every 6-12 months. If his anemia significantly worsens, or if he develops abnormalities in his other counts, it may be worth re-evaluating. I'd be happy to see him again in the future should any new questions arise.
[2020-08-29 15:06] VITALS: BP 139/64; PULSE 92; RESP 18; O2SAT 95
[2020-08-29 17:28] LABS: Add Manual Diff / Slide Review NO; Basophils Absolute Auto 0 /uL (0-100); Basophils Percent Auto 0.2 % (0-2); Eosinophils Absolute Auto 0 /uL (0-450); Hematocrit 27.9 % (41-53); Hemoglobin 9.6 g/dL (13.5-17.5); Lymphocytes Absolute Auto 200 /uL (1100-4500); Mean Corpuscular HGB Conc 34.5 % (30-36); Mean Corpuscular Hemoglobin 33.2 PG (26-34); Mean Corpuscular Volume 96.3 fL (80-100); Monocytes Absolute Auto 100 /uL (0-900); Monocytes Percent Auto 1.2 % (3-14); Neutrophils Absolute Auto 5800 /uL (1500-7000); Neutrophils Percent Auto 95.6 % (50-75); Platelet Count 135 X10^3/uL (150-400); Red Cell Distribution Width 16.2 % (11.6-14.8); White Blood Cell Count 6.1 X10^3/uL (4.5-11.0)
[2020-08-29 17:43] LABS: Ferritin 464 ng/mL (18-464)
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
[2020-08-30 16:12] LABS: Erythropoietin 2.1 mIU/mL (2.6-18.5)
[2020-08-31 14:07] LABS: Immunoglobulin A, Serum 356 mg/dL (61-437); Immunoglobulin G,Serum 859 mg/dL (603-1613); Immunoglobulin M, Serum 59 mg/dL (15-143)
[2020-09-01 00:42] LABS: Free Lambda Lt Chain,UR 44.82 mg/L (0.47-11.77)
[2020-09-05 15:47] VITALS: BP 124/45; PULSE 79; RESP 18; O2SAT 95
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
[2020-09-05 15:54] LABS: Add Manual Diff / Slide Review NO; Basophils Absolute Auto 0 /uL (0-100); Basophils Percent Auto 0.2 % (0-2); Eosinophils Absolute Auto 0 /uL (0-450); Eosinophils Percent Auto 0.3 % (2-4); Hematocrit 23.2 % (41-53); Hemoglobin 8.2 g/dL (13.5-17.5); Lymphocytes Absolute Auto 400 /uL (1100-4500); Mean Corpuscular HGB Conc 35.3 % (30-36); Mean Corpuscular Hemoglobin 35.3 PG (26-34); Mean Corpuscular Volume 99.8 fL (80-100); Monocytes Absolute Auto 200 /uL (0-900); Monocytes Percent Auto 2.6 % (3-14); Neutrophils Absolute Auto 7300 /uL (1500-7000); Neutrophils Percent Auto 91.9 % (50-75); Platelet Count 181 X10^3/uL (150-400); Red Blood Cell Count 2.33 X10^6/uL (4.5-5.9); White Blood Cell Count 7.9 X10^3/uL (4.5-11.0)
--- NOTE | 2020-09-06 14:03 | ONC.SCHED ---
Left msg. for patient to call to schedule next treatment and fup.
[2020-10-03 14:14] LABS: Add Manual Diff / Slide Review NO; Basophils Absolute Auto 0 /uL (0-100); Basophils Percent Auto 0.2 % (0-2); Eosinophils Absolute Auto 0 /uL (0-450); Eosinophils Percent Auto 0.6 % (2-4); Hematocrit 27.7 % (41-53); Hemoglobin 8.9 g/dL (13.5-17.5); Lymphocytes Absolute Auto 600 /uL (1100-4500); Lymphocytes Percent Auto 12.1 % (25-40); Mean Corpuscular HGB Conc 32.1 % (30-36); Mean Corpuscular Hemoglobin 30.5 PG (26-34); Mean Corpuscular Volume 95.1 fL (80-100); Monocytes Absolute Auto 200 /uL (0-900); Monocytes Percent Auto 4.8 % (3-14); Neutrophils Absolute Auto 4300 /uL (1500-7000); Neutrophils Percent Auto 82.3 % (50-75); Platelet Count 259 X10^3/uL (150-400); Red Blood Cell Count 2.91 X10^6/uL (4.5-5.9); Red Cell Distribution Width 19.1 % (11.6-14.8); White Blood Cell Count 5.2 X10^3/uL (4.5-11.0)
[2020-10-03 14:28] LABS: Alanine Aminotransferase 31 IU/L (<50); Albumin 3.1 g/dL (3.5-5.0); Alkaline Phosphatase 98 U/L (38-126); Aspartate Aminotransferase 39 IU/L (17-59); BUN Creatinine Ratio 21.7 (6-22); Bilirubin Total 0.4 mg/dL (0.2-1.3); Blood Urea Nitrogen 54 mg/dL (9-20); Calcium 8.1 mg/dL (8.4-10.2); Carbon Dioxide 24 mmol/L (22-32); Chloride 106 mmol/L (98-107); Estimated Glomerular Filt Rate 24.8 mL/min (>60); Globulin 3.2 g/dL (1.7-4.1); Glucose 278 mg/dL (80-110); HEMOLYSIS < 15 (0-50); Potassium 5.4 mmol/L (3.4-5.1); Sodium 134 mmol/L (137-145); Total Protein 6.3 g/dL (6.3-8.2)
--- NOTE | 2020-10-16 13:15 | ONC.SCHED ---
Patient has apt. with Dr. Gilliam 10/18/20 at 2:45 check in time.
[2020-10-17 14:10] VITALS: BP 133/76; PULSE 84; RESP 16; O2SAT 98
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
[2020-10-31 13:41] LABS: Add Manual Diff / Slide Review NO; Basophils Absolute Auto 0 /uL (0-100); Basophils Percent Auto 0.3 % (0-2); Eosinophils Absolute Auto 300 /uL (0-450); Eosinophils Percent Auto 4.2 % (2-4); Hematocrit 31.2 % (41-53); Lymphocytes Absolute Auto 800 /uL (1100-4500); Lymphocytes Percent Auto 13.7 % (25-40); Mean Corpuscular HGB Conc 32.1 % (30-36); Mean Corpuscular Hemoglobin 30.8 PG (26-34); Monocytes Absolute Auto 600 /uL (0-900); Monocytes Percent Auto 9.1 % (3-14); Neutrophils Absolute Auto 4400 /uL (1500-7000); Neutrophils Percent Auto 72.7 % (50-75); Platelet Count 235 X10^3/uL (150-400); Red Blood Cell Count 3.25 X10^6/uL (4.5-5.9); Red Cell Distribution Width 18.4 % (11.6-14.8); White Blood Cell Count 6.1 X10^3/uL (4.5-11.0)
[2020-10-31 14:02] LABS: Alanine Aminotransferase 28 IU/L (<50); Albumin 3.3 g/dL (3.5-5.0); Albumin Globulin Ratio 0.9 (1.0-2.8); Alkaline Phosphatase 81 U/L (38-126); Aspartate Aminotransferase 44 IU/L (17-59); BUN Creatinine Ratio 21.3 (6-22); Bilirubin Total 0.6 mg/dL (0.2-1.3); Blood Urea Nitrogen 74 mg/dL (9-20); Calcium 8.1 mg/dL (8.4-10.2); Carbon Dioxide 24 mmol/L (22-32); Chloride 108 mmol/L (98-107); Estimated Glomerular Filt Rate 16.8 mL/min (>60); Globulin 3.6 g/dL (1.7-4.1); Glucose 147 mg/dL (80-110); HEMOLYSIS < 15 (0-50); Potassium 5.2 mmol/L (3.4-5.1); Sodium 138 mmol/L (137-145); Total Protein 6.9 g/dL (6.3-8.2)
[2020-11-14 13:18] VITALS: BP 141/72; PULSE 65; RESP 16; TEMP 37.2; O2SAT 100
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
--- NOTE | 2020-11-14 13:52 | ONC.SCHED ---
Left msg. for patient to schedule patient for fup and injections.
--- NOTE | 2020-12-26 14:25 | CM.DPNOTE ---
*Sent bereavement card.
== END ==
PROVIDERS: Family Provider Internal Medicine; PCP Internal Medicine; Visit Provider Internal Medicine
DX: E11.22 Type 2 diabetes mellitus with diabetic chronic kidney disease (principal); I12.9 Hypertensive chronic kidney disease with stage 1 through stage 4 chronic kidney disease, or unspecified chronic kidney disease; N18.9 Chronic kidney disease, unspecified; D63.1 Anemia in chronic kidney disease; E78.5 Hyperlipidemia, unspecified; I25.10 Atherosclerotic heart disease of native coronary artery without angina pectoris; Z95.5 Presence of coronary angioplasty implant and graft
CPT/HCPCS: 36415; 38222; 80053; 82668; 82728; 82784; 83883; 84155; 85025; 86334; 99000; 99204; 99213; 99214; 99215

== ENCOUNTER → 2020-11-16 13:47 | Outpatient (CLI) | payer MEDICARE, OTHER, SELFPAY ==
[2020-09-12 08:00] VITALS: BMI 22.1
== END ==
PROVIDERS: Family Provider Internal Medicine; PCP Internal Medicine; Referring Provider Internal Medicine; Visit Provider Family Medicine
DX: E11.628 Type 2 diabetes mellitus with other skin complications (principal); E11.621 Type 2 diabetes mellitus with foot ulcer; L89.103 Pressure ulcer of unspecified part of back, stage 3; L89.153 Pressure ulcer of sacral region, stage 3; E11.51 Type 2 diabetes mellitus with diabetic peripheral angiopathy without gangrene; E11.40 Type 2 diabetes mellitus with diabetic neuropathy, unspecified; L97.421 Non-pressure chronic ulcer of left heel and midfoot limited to breakdown of skin; R60.0 Localized edema
CPT/HCPCS: 11042

== ENCOUNTER → 2020-11-22 13:41 | Outpatient (CLI) | payer MEDICARE, OTHER, SELFPAY ==
[2020-09-12 08:00] VITALS: BMI 22.1
== END ==
PROVIDERS: Family Provider Internal Medicine; PCP Internal Medicine; Referring Provider Internal Medicine; Visit Provider Specialist
DX: D64.9 Anemia, unspecified (principal); Z53.20 Procedure and treatment not carried out because of patient's decision for unspecified reasons

== ENCOUNTER → 2020-11-23 15:12 | Outpatient (CLI) | payer MEDICARE, OTHER, SELFPAY ==
[2020-09-12 08:00] VITALS: BMI 22.1
--- NOTE | 2020-12-04 13:52 | PC.NURSE ---
Addendum entered by Kailyn Avalos R.N. 12/05/20 16:18: POA SKINNY WAS INFORMED THAT PER DR VINCENT IT IS OK BUT NOT ESSENTIAL FOR PATIENT TO RECEIVE HIS INJECTION. SKINNY STATED THAT PATIENT TOLD HIM THAT HE DID GET THE SHOT TODAY. Original Note: Pt MEDHAT called today to notify the clinic that Graeme has been admitted to [facility] in [place]. He wanted to know if it was appropriate for Graeme to get his shot while admitted in the hospital. Pt is undergoing dialysis for kidney failure and was intubated over the weekend. Pt has been taken off the ventilator. Making the provider aware with this note.
== END ==
PROVIDERS: Family Provider Internal Medicine; PCP Internal Medicine; Referring Provider Internal Medicine; Visit Provider Family Medicine
DX: E11.628 Type 2 diabetes mellitus with other skin complications (principal); L89.103 Pressure ulcer of unspecified part of back, stage 3; L89.153 Pressure ulcer of sacral region, stage 3; L97.421 Non-pressure chronic ulcer of left heel and midfoot limited to breakdown of skin; E11.40 Type 2 diabetes mellitus with diabetic neuropathy, unspecified; E11.51 Type 2 diabetes mellitus with diabetic peripheral angiopathy without gangrene
CPT/HCPCS: 11042

== ENCOUNTER 2020-11-30 10:59 | Emergency (ER) | payer MEDICARE, OTHER, SELFPAY ==
[2020-09-12 08:00] VITALS: BMI 22.1
[2020-11-30] VITALS (41 sets, daily range): BP systolic 81–176; BP diastolic 52–79; PULSE 76–158; RESP 0–59; TEMP 36.7; O2SAT 89–99
--- NOTE | 2020-11-30 11:03 | DI.RAD.S_ITS ---
PROCEDURE: XR CHEST 1V INDICATIONS: cough TECHNIQUE: One view of the chest was acquired. COMPARISON: [facility], CR, XR CHEST 1V, 09/14/2020, 13:54. FINDINGS: Surgical changes and devices: None. Lungs and pleura: Overall appearance of increased pulmonary vascularity is present. Bibasilar/retrocardiac opacities are present, new compared to prior exam. Mediastinum: Mediastinal contours appear normal. Heart size is normal. Bones and chest wall: No suspicious bony lesions. Overlying soft tissues appear unremarkable. IMPRESSION: Bibasilar and retrocardiac opacities, new compared to prior exam. While this could represent dependent edema, developing superimposed pneumonia should be considered. Dictated by: Alice Buitrago M.D. on 11/30/2020 at 12:43 Approved by: Alice Buitrago M.D. on 11/30/2020 at 12:55
--- NOTE | 2020-11-30 11:03 | DI.CT.S_ITS ---
PROCEDURE: CT HEAD/BRAIN WO CON INDICATIONS: decreased mental status TECHNIQUE: Noncontrast 4.5 mm thick angled axial sections acquired from the foramen magnum to the vertex, with coronal and sagittal reformats. For radiation dose reduction, the following was used: automated exposure control, adjustment of mA and/or kV according to patient size. COMPARISON: [facility], CT, CT HEAD/BRAIN WO CON, 07/27/2020, 3:20. [facility], CT, CT HEAD/BRAIN WO CON, 09/10/2020, 0:45. FINDINGS: Image quality: This examination is limited by involuntary motion artifact. Images are repeated, with some improvement. CSF spaces: Basal cisterns are patent. No extra-axial fluid collections. The ventricles are symmetric in size and shape. Brain: No intracranial bleeds or masses. There is cerebral volume loss for age, with resultant ventricular and sulcal prominence. There are periventricular and deep white matter chronic small vessel ischemic changes. There is intracranial internal carotid artery atherosclerosis. Skull and face: Calvarium and visualized facial bones appear intact, without suspicious lesions. Sinuses: Visualized sinuses and mastoids are clear. IMPRESSION: Limited intracranial study demonstrating brain parenchymal volume loss and chronic small vessel ischemic change. Dictated by: Dawson Flores M.D. on 11/30/2020 at 11:06 Approved by: Dawson Flores M.D. on 11/30/2020 at 11:07
--- NOTE | 2020-11-30 11:10 | ED_ITS ---
HPI - Altered Mental Status General Chief Complaint: Neuro Symptoms/Deficit Stated Complaint: Unresponsive/lethargy Time Seen by Provider: 11/30/20 11:02 Source: family and old records reviewed Mode of arrival: EMS Limitations: altered mental status History of Present Illness HPI narrative: Patient is a 85-year-old male with history of CAD, chronic kidney disease, diabetes, hypertension, hyperlipidemia anemia, ankylosing spondylitis, presenting today with decreasing mental status. He actually had a ground level fall last night he has a skin tear on his right arm. This morning family tried to wake him up and he was unarousable. He actually vomited in his lung sounds are quite coarse audible a. He was satting 86% on room air immediately placed on 4 L. He is responsive only to sternal rub. He is is AFib on the monitor. His partner who is his durable power of mergers and acquisitions attorney states that he was doing well yesterday he was getting up walking around even made himself a sandwich. He says over the past few months he has also been doing well. Related Data Home Medications Medication Instructions Recorded Confirmed clopidogrel [Plavix] 75 mg PO DAILY #0 12/02/16 10/18/20 atorvastatin 80 mg PO BEDTIME #0 11/25/17 10/18/20 lansoprazole [Prevacid] 30 mg PO BIDAC #0 11/25/17 10/18/20 nortriptyline 25 mg PO BEDTIME 08/26/18 10/18/20 polyethylene glycol 3350 1 dose PO DAILY 08/26/18 10/18/20 Centrum Silver 1 tab PO DAILY 09/08/19 10/18/20 cranberry 400 mg DAILY 09/08/19 10/18/20 cyanocobalamin (vitamin B-12) 1,000 mcg PO BID 09/08/19 10/18/20 [Vitamin B-12] ferrous sulfate 325 mg PO QPM 09/08/19 10/18/20 amlodipine 10 mg PO DAILY 11/03/19 10/18/20 isosorbide mononitrate 60 mg PO DAILY 11/03/19 10/18/20 metoprolol succinate 25 mg PO DAILY 11/03/19 10/18/20 Co Q-10 300 mg PO DAILY 12/24/19 10/18/20 Ventricor 1 dose PO DIRECTED 12/24/19 10/18/20 Vitapulse 1 dose PO QID 12/24/19 10/18/20 flaxseed oil 1 dose PO DIRECTED 12/24/19 10/18/20 nitroglycerin 0.4 mg SUBLINGUAL PRN PRN 12/24/19 10/18/20 resveratrol 1 cap PO DIRECTED 12/24/19 10/18/20 Artificial Tears (cmc) 1 drp OPHTHALMIC (EYE) TID PRN 08/09/20 10/18/20 doxazosin 1 mg PO BEDTIME 08/09/20 10/18/20 gabapentin [Neurontin] 600 mg PO TID 09/12/20 10/18/20 prednisone 1 mg PO Q OTHER DAY 09/12/20 10/18/20 Previous Rx's Medication Instructions Recorded pen needle, diabetic [Pen Needle] #30 each 09/08/20 sulfamethoxazole-trimethoprim 1 tab PO BID #20 tab 09/16/20 [Bactrim] morphine 1 tab PO 5XD #10 tab 09/18/20 cologuard #1 ea NS 10/18/20 Allergies Allergy/AdvReac Type Severity Reaction Status Date / Time cephalexin Allergy Severe RASH Verified 11/30/20 11:06 ciprofloxacin Allergy Severe RASH Verified 11/30/20 11:06 Fish Containing Products Allergy Severe Difficulty Verified 11/30/20 11:06 Breathing shellfish derived Allergy Severe Difficulty Verified 11/30/20 11:06 Breathing avocado AdvReac Intermediate Vomiting Verified 11/30/20 11:06 cucumber AdvReac Intermediate Vomiting Verified 11/30/20 11:06 Review of Systems Review of Systems ROS Unobtainable: Unobtainable due to medical condition Patient History Medical History (Updated 11/30/20 @ 14:05 by Sabrina King DO) (HFpEF) heart failure with preserved ejection fraction Angina pectoris Donald's esophagus Chronic kidney disease, stage 4 (severe) Chronic neck pain Constipation Coronary artery disease Decubitus skin ulcer Diabetes mellitus type 2, diet-controlled HTN (hypertension) Hyperlipidemia Opiate dependence Surgical History H/O heart artery stent History of esophagogastroduodenoscopy (EGD) Family History Father Kidney failure TIA (transient ischemic attack) Hypertension Heart disease Mother Heart disease Arrhythmia TIA (transient ischemic attack) Gallstones Breast cancer Ovarian cancer Social History marital status: unknown household members: family occupational status: previously employed Smoking Status: Former smoker alcohol intake: never Smoking Status: Former smoker alcohol intake frequency: holidays/special occasions only Substance Use Type: does not use Exam Initial Vital Signs Initial Vital Signs: Vital Signs Pulse Rate 106 H 11/30/20 11:00 Pulse Oximetry 93 11/30/20 11:00 Gen.: Thin frail elderly male, responsive only to pain HEENT: Head is atraumatic Lungs: Audible coarse breath sounds bilaterally Cardiac: Irregularly irregular no murmur Abdomen: Nontender no guarding Extremities: No bony a deformities peripheral pulses intact Neurologic: Alert to sternal rub Procedures Intubation Time out performed: Yes sedative: Etomidate Mg Given: 10 paralytic: Rocuronium Mg Given: 80 Laryngoscope: fiber optic video scope ET Tube Size: 7.5 ET Tube Uncuffed: No Tube Secured Depth (cm): 26 Tube Secured Location: lips Tube Placement Confirmation: Visualized tube passing through cords, Equal breath sounds bilaterally, No breath sounds over epigastrium, Confirmation by capnometry and Chest Xray Patient Tolerated Procedure: Well Intubation Complications: none Course Orders Ordered: ED Orders 11/30/20 11:03 CT head/brain wo con Stat XR chest 1V Stat 11/30/20 11:05 COVID19 Stat 11/30/20 11:18 Blood Culture Stat Complete Blood Count AUTO DIFF Stat Comprehensive Metabolic Panel Stat Lactate (Lactic Acid) Stat NT-proBNP (BNP-Adult 18+) Stat Partial Thromboplastin Time Stat Procalcitonin Stat Prothrombin Time INR Stat Thyroid Stimulating Hormone Stat Troponin & CK Cardiac Panel Stat 11/30/20 11:26 EKG-12 Lead Stat 11/30/20 11:33 Sputum Culture Stat 11/30/20 12:50 Urinalysis and Microscopic Stat 11/30/20 13:50 Chest [XR chest 1V] Stat 11/30/20 14:04 ABG [Arterial Blood Gas] Stat Discontinued Medications Etomidate (Etomidate 2 Mg/Ml 10 Ml Vial) 10 mg IV NOW ONE Stop: 11/30/20 13:21 Last Admin: 11/30/20 13:23 Dose: 10 mg Documented by: SMITA Furosemide (Furosemide 40 Mg/4 Ml Vial) 40 mg IV NOW ONE Stop: 11/30/20 12:04 Last Admin: 11/30/20 12:22 Dose: 40 mg Documented by: SMITA Sodium Chloride (Normal Saline 0.9%) 1,000 mls @ 150 mls/hr IV CONT STEVE Last Infusion: 11/30/20 15:49 Dose: 0 mls/hr Documented by: Infusion: 11/30/20 15:18 Dose: 25 mls/hr Documented by: Infusion: 11/30/20 15:00 Dose: 75 mls/hr Documented by: Admin: 11/30/20 11:33 Dose: 150 mls/hr Documented by: SMITA Piperacillin/Tazobactam/Dextrose (Zosyn) 3.375 gm in 50 mls @ 100 mls/hr IV NOW ONE Stop: 11/30/20 12:33 Last Infusion: 11/30/20 12:54 Dose: 0 mls/hr Documented by: Admin: 11/30/20 12:22 Dose: 100 mls/hr Documented by: SMITA Vancomycin HCl (Vancomycin) 1,000 mg in 200 mls @ 200 mls/hr IV NOW ONE Stop: 11/30/20 13:03 Last Infusion: 11/30/20 14:13 Dose: 0 mls/hr Documented by: Admin: 11/30/20 12:54 Dose: 200 mls/hr Documented by: SMITA Propofol (Propofol) 1,000 mg in 100 mls @ 1.96 mls/hr IV TITRATE STEVE; Protocol Last Titration: 11/30/20 15:50 Dose: 0 mcg/kg/min, 0 mls/hr Documented by: Titration: 11/30/20 15:12 Dose: 25.52 mcg/kg/min, 10 mls/hr Documented by: Titration: 11/30/20 14:59 Dose: 20.41 mcg/kg/min, 8 mls/hr Documented by: Titration: 11/30/20 14:46 Dose: 15.31 mcg/kg/min, 6 mls/hr Documented by: Titration: 11/30/20 13:45 Dose: 10.21 mcg/kg/min, 4 mls/hr Documented by: Admin: 11/30/20 13:30 Dose: 5.1 mcg/kg/min, 1.999 mls/hr Documented by: SMITA Naloxone HCl (Naloxone 0.4 Mg/Ml Vial) 0.2 mg IV NOW ONE Stop: 11/30/20 11:16 Last Admin: 11/30/20 11:26 Dose: 0.2 mg Documented by: SMITA Rocuronium [place] (Rocuronium 100 Mg/10 Ml Vial) 80 mg IV NOW ONE Stop: 11/30/20 13:23 Last Admin: 11/30/20 13:23 Dose: 80 mg Documented by: SMITA Vital Signs Vital signs: Vital Signs - 8 hr 11/30/20 11:49 11/30/20 12:00 11/30/20 12:30 Pulse Rate 101 H 95 H 95 H Respiratory Rate 24 22 21 Blood Pressure 134/63 143/65 H 140/75 Blood Pressure [Left Arm] Pulse Oximetry 90 L 90 L 91 11/30/20 13:00 11/30/20 13:14 11/30/20 13:15 Pulse Rate 79 79 79 Respiratory Rate 17 24 27 H Blood Pressure 133/60 134/67 138/64 Blood Pressure [Left Arm] Pulse Oximetry 92 93 94 11/30/20 13:17 11/30/20 13:20 11/30/20 13:25 Pulse Rate 76 81 88 Respiratory Rate 34 H 21 Blood Pressure 136/71 121/58 L Blood Pressure [Left Arm] 138/64 Pulse Oximetry 93 93 91 11/30/20 13:28 11/30/20 13:30 11/30/20 13:35 Pulse Rate 87 84 83 Respiratory Rate 16 Blood Pressure 117/58 L 115/58 L Blood Pressure [Left Arm] 121/58 L Pulse Oximetry 99 99 94 11/30/20 13:40 11/30/20 13:45 11/30/20 13:50 Pulse Rate 92 H 146 H 109 H Respiratory Rate Blood Pressure 119/58 L 128/59 L 127/58 L Blood Pressure [Left Arm] Pulse Oximetry 93 92 94 11/30/20 13:55 11/30/20 14:00 11/30/20 14:05 Pulse Rate 96 H 112 H 99 H Respiratory Rate Blood Pressure 123/61 124/62 123/58 L Blood Pressure [Left Arm] Pulse Oximetry 95 94 92 11/30/20 14:10 11/30/20 14:15 11/30/20 14:20 Pulse Rate 97 H 87 96 H Respiratory Rate Blood Pressure 126/61 123/59 L 130/59 L Blood Pressure [Left Arm] Pulse Oximetry 91 94 95 11/30/20 14:25 11/30/20 14:30 11/30/20 14:34 Pulse Rate 93 H 99 H 93 H Respiratory Rate Blood Pressure 141/65 H 176/79 H 142/65 H Blood Pressure [Left Arm] Pulse Oximetry 95 96 96 11/30/20 14:35 11/30/20 14:40 11/30/20 14:45 Pulse Rate 94 H 98 H 98 H Respiratory Rate Blood Pressure 136/65 131/60 132/63 Blood Pressure [Left Arm] Pulse Oximetry 95 94 94 11/30/20 14:50 11/30/20 14:55 11/30/20 15:00 Pulse Rate 92 H 94 H 87 Respiratory Rate 19 19 Blood Pressure 119/58 L 123/58 L 124/57 L Blood Pressure [Left Arm] Pulse Oximetry 93 97 90 L 11/30/20 15:05 11/30/20 15:10 11/30/20 15:15 Pulse Rate 92 H 98 H 158 H Respiratory Rate 18 20 30 H Blood Pressure 129/60 122/61 120/57 L Blood Pressure [Left Arm] Pulse Oximetry 96 97 97 11/30/20 15:20 11/30/20 15:25 11/30/20 15:30 Pulse Rate 108 H 144 H 91 H Respiratory Rate 59 H 17 14 Blood Pressure 129/56 L 118/56 L 120/60 Blood Pressure [Left Arm] Pulse Oximetry 97 97 97 11/30/20 15:35 Pulse Rate 89 Respiratory Rate 21 Blood Pressure 126/59 L Blood Pressure [Left Arm] Pulse Oximetry 97 MDM - Altered Mental Status Lab Data Attestation: I reviewed the patient's lab results. Result diagrams: 11/30/20 11:18 11/30/20 11:18 Labs: Lab Results 01/14/21 01/14/21 01/14/21 Range/Units 11:05 11:18 11:18 WBC (4.5-11.0) X10^3/uL RBC (4.5-5.9) X10^6/uL Hgb (13.5-17.5) g/dL Hct (41-53) % MCV (80-100) fL MCH (26-34) PG MCHC (30-36) % RDW (11.6-14.8) % Plt Count (150-400) X10^3/uL Neut % (Auto) (50-75) % Lymph % (Auto) (25-40) % Beckham % (Auto) (3-14) % Eos % (Auto) (2-4) % Baso % (Auto) (0-2) % Neut # (Auto) (2820-6955) /uL Lymph # (Auto) (9867-7316) /uL Beckham # (Auto) (0-900) /uL Eos # (Auto) (0-450) /uL Baso # (Auto) (0-100) /uL PT (10.1-12.7) SECONDS INR (0.9-1.3) APTT (26.4-36.2) SECONDS Sodium (137-145) mmol/L Potassium (3.4-5.1) mmol/L Chloride (98-107) mmol/L Carbon Dioxide (22-32) mmol/L BUN (9-20) mg/dL Creatinine (0.66-1.25) mg/dL Estimated GFR (>60) mL/min BUN/Creatinine Ratio (6-22) Glucose (80-110) mg/dL Lactate (0.7-2.1) mmol/L Calcium (8.4-10.2) mg/dL Total Bilirubin (0.2-1.3) mg/dL AST (17-59) IU/L ALT (<50) IU/L Alkaline Phosphatase (38-126) U/L Total Creatine Kinase 259 H (55-170) U/L CK-MB (CK-2) 22.90 H (<2.37) ng/mL CK-MB (CK-2) Rel Index 8.8 H* (1.5-5.0) % Troponin I 0.117 H (0.01-0.034) ng/mL NT-Pro-B Natriuret Pep 95903 H (<450) pg/mL Total Protein (6.3-8.2) g/dL Albumin (3.5-5.0) g/dL Globulin (1.7-4.1) g/dL Albumin/Globulin Ratio (1.0-2.8) Procalcitonin 12.61 H (<0.5) ng/mL TSH (0.47-4.68) uIU/mL Urine Color Urine Appearance Urine pH (4.5-8.0) Ur Specific Emerson (1.000-1.035) Urine Protein (Negative) Urine Glucose (UA) (Negative) g/dL Urine Ketones (NEGATIVE) Urine Occult Blood (Negative) Urine Nitrate (Negative) Urine Bilirubin (NEGATIVE) Urine Urobilinogen (0.2) E.U./dL Ur Leukocyte Esterase (NEGATIVE) Urine RBC (0-5/HPF) Urine WBC (0-5/HPF) Urine Bacteria (None) Ur Culture Indicated? SARS-CoV-2 (PCR) Negative (Negative) 11/30/20 11/30/20 11/30/20 Range/Units 11:18 11:18 11:18 WBC 2.2 L (4.5-11.0) X10^3/uL RBC 3.77 L (4.5-5.9) X10^6/uL Hgb 11.6 L (13.5-17.5) g/dL Hct 36.7 L (41-53) % MCV 97.4 (80-100) fL MCH 30.9 (26-34) PG MCHC 31.7 (30-36) % RDW 17.1 H (11.6-14.8) % Plt Count 201 (150-400) X10^3/uL Neut % (Auto) 87.4 H (50-75) % Lymph % (Auto) 2.9 L (25-40) % Beckham % (Auto) 9.5 (3-14) % Eos % (Auto) 0.1 L (2-4) % Baso % (Auto) 0.1 (0-2) % Neut # (Auto) 1900 (2070-7688) /uL Lymph # (Auto) 100 L (9735-6526) /uL Beckham # (Auto) 200 (0-900) /uL Eos # (Auto) 0 (0-450) /uL Baso # (Auto) 0 (0-100) /uL PT 12.6 (10.1-12.7) SECONDS INR 1.1 (0.9-1.3) APTT (26.4-36.2) SECONDS Sodium 138 (137-145) mmol/L Potassium 5.8 H (3.4-5.1) mmol/L Chloride 109 H (98-107) mmol/L Carbon Dioxide 18 L (22-32) mmol/L BUN 107 H* (9-20) mg/dL Creatinine 7.48 H* (0.66-1.25) mg/dL Estimated GFR 7.0 L (>60) mL/min BUN/Creatinine Ratio 14.3 (6-22) Glucose 121 H (80-110) mg/dL Lactate (0.7-2.1) mmol/L Calcium 8.1 L (8.4-10.2) mg/dL Total Bilirubin 0.3 (0.2-1.3) mg/dL AST 44 (17-59) IU/L ALT 36 (<50) IU/L Alkaline Phosphatase 73 (38-126) U/L Total Creatine Kinase (55-170) U/L CK-MB (CK-2) (<2.37) ng/mL CK-MB (CK-2) Rel Index (1.5-5.0) % Troponin I (0.01-0.034) ng/mL NT-Pro-B Natriuret Pep (<450) pg/mL Total Protein 5.9 L (6.3-8.2) g/dL Albumin 2.9 L (3.5-5.0) g/dL Globulin 3.0 (1.7-4.1) g/dL Albumin/Globulin Ratio 1.0 (1.0-2.8) Procalcitonin (<0.5) ng/mL TSH (0.47-4.68) uIU/mL Urine Color Urine Appearance Urine pH (4.5-8.0) Ur Specific Emerson (1.000-1.035) Urine Protein (Negative) Urine Glucose (UA) (Negative) g/dL Urine Ketones (NEGATIVE) Urine Occult Blood (Negative) Urine Nitrate (Negative) Urine Bilirubin (NEGATIVE) Urine Urobilinogen (0.2) E.U./dL Ur Leukocyte Esterase (NEGATIVE) Urine RBC (0-5/HPF) Urine WBC (0-5/HPF) Urine Bacteria (None) Ur Culture Indicated? SARS-CoV-2 (PCR) (Negative) 11/30/20 11/30/20 11/30/20 Range/Units 11:18 11:18 11:18 WBC (4.5-11.0) X10^3/uL RBC (4.5-5.9) X10^6/uL Hgb (13.5-17.5) g/dL Hct (41-53) % MCV (80-100) fL MCH (26-34) PG MCHC (30-36) % RDW (11.6-14.8) % Plt Count (150-400) X10^3/uL Neut % (Auto) (50-75) % Lymph % (Auto) (25-40) % Beckham % (Auto) (3-14) % Eos % (Auto) (2-4) % Baso % (Auto) (0-2) % Neut # (Auto) (8394-9308) /uL Lymph # (Auto) (0405-7586) /uL Beckham # (Auto) (0-900) /uL Eos # (Auto) (0-450) /uL Baso # (Auto) (0-100) /uL PT (10.1-12.7) SECONDS INR (0.9-1.3) APTT 34 D (26.4-36.2) SECONDS Sodium (137-145) mmol/L Potassium (3.4-5.1) mmol/L Chloride (98-107) mmol/L Carbon Dioxide (22-32) mmol/L BUN (9-20) mg/dL Creatinine (0.66-1.25) mg/dL Estimated GFR (>60) mL/min BUN/Creatinine Ratio (6-22) Glucose (80-110) mg/dL Lactate 1.3 (0.7-2.1) mmol/L Calcium (8.4-10.2) mg/dL Total Bilirubin (0.2-1.3) mg/dL AST (17-59) IU/L ALT (<50) IU/L Alkaline Phosphatase (38-126) U/L Total Creatine Kinase (55-170) U/L CK-MB (CK-2) (<2.37) ng/mL CK-MB (CK-2) Rel Index (1.5-5.0) % Troponin I (0.01-0.034) ng/mL NT-Pro-B Natriuret Pep (<450) pg/mL Total Protein (6.3-8.2) g/dL Albumin (3.5-5.0) g/dL Globulin (1.7-4.1) g/dL Albumin/Globulin Ratio (1.0-2.8) Procalcitonin (<0.5) ng/mL TSH 9.00 H (0.47-4.68) uIU/mL Urine Color Urine Appearance Urine pH (4.5-8.0) Ur Specific Emerson (1.000-1.035) Urine Protein (Negative) Urine Glucose (UA) (Negative) g/dL Urine Ketones (NEGATIVE) Urine Occult Blood (Negative) Urine Nitrate (Negative) Urine Bilirubin (NEGATIVE) Urine Urobilinogen (0.2) E.U./dL Ur Leukocyte Esterase (NEGATIVE) Urine RBC (0-5/HPF) Urine WBC (0-5/HPF) Urine Bacteria (None) Ur Culture Indicated? SARS-CoV-2 (PCR) (Negative) 11/30/20 Range/Units 12:50 WBC (4.5-11.0) X10^3/uL RBC (4.5-5.9) X10^6/uL Hgb (13.5-17.5) g/dL Hct (41-53) % MCV (80-100) fL MCH (26-34) PG MCHC (30-36) % RDW (11.6-14.8) % Plt Count (150-400) X10^3/uL Neut % (Auto) (50-75) % Lymph % (Auto) (25-40) % Beckham % (Auto) (3-14) % Eos % (Auto) (2-4) % Baso % (Auto) (0-2) % Neut # (Auto) (3481-9646) /uL Lymph # (Auto) (1140-7597) /uL Beckham # (Auto) (0-900) /uL Eos # (Auto) (0-450) /uL Baso # (Auto) (0-100) /uL PT (10.1-12.7) SECONDS INR (0.9-1.3) APTT (26.4-36.2) SECONDS Sodium (137-145) mmol/L Potassium (3.4-5.1) mmol/L Chloride (98-107) mmol/L Carbon Dioxide (22-32) mmol/L BUN (9-20) mg/dL Creatinine (0.66-1.25) mg/dL Estimated GFR (>60) mL/min BUN/Creatinine Ratio (6-22) Glucose (80-110) mg/dL Lactate (0.7-2.1) mmol/L Calcium (8.4-10.2) mg/dL Total Bilirubin (0.2-1.3) mg/dL AST (17-59) IU/L ALT (<50) IU/L Alkaline Phosphatase (38-126) U/L Total Creatine Kinase (55-170) U/L CK-MB (CK-2) (<2.37) ng/mL CK-MB (CK-2) Rel Index (1.5-5.0) % Troponin I (0.01-0.034) ng/mL NT-Pro-B Natriuret Pep (<450) pg/mL Total Protein (6.3-8.2) g/dL Albumin (3.5-5.0) g/dL Globulin (1.7-4.1) g/dL Albumin/Globulin Ratio (1.0-2.8) Procalcitonin (<0.5) ng/mL TSH (0.47-4.68) uIU/mL Urine Color Yellow Urine Appearance Slightly cloudy Urine pH 5.0 (4.5-8.0) Ur Specific Emerson 1.015 (1.000-1.035) Urine Protein 1+ H (Negative) Urine Glucose (UA) Negative (Negative) g/dL Urine Ketones Negative (NEGATIVE) Urine Occult Blood 3+ H (Negative) Urine Nitrate Negative (Negative) Urine Bilirubin Negative (NEGATIVE) Urine Urobilinogen 0.2 (0.2) E.U./dL Ur Leukocyte Esterase Negative (NEGATIVE) Urine RBC 30-100/hpf H (0-5/HPF) Urine WBC None seen (0-5/HPF) Urine Bacteria Occasional (0-1) (None) Ur Culture Indicated? Cult not indicated SARS-CoV-2 (PCR) (Negative) Imaging Data Chest x-ray: Radiologist's Impression: PROCEDURE: XR CHEST 1V INDICATIONS: cough TECHNIQUE: One view of the chest was acquired. COMPARISON: [facility], CR, XR CHEST 1V, 09/14/2020, 13:54. FINDINGS: Surgical changes and devices: None. Lungs and pleura: Overall appearance of increased pulmonary vascularity is present. Bibasilar/retrocardiac opacities are present, new compared to prior exam. Mediastinum: Mediastinal contours appear normal. Heart size is normal. Bones and chest wall: No suspicious bony lesions. Overlying soft tissues appear unremarkable. IMPRESSION: Bibasilar and retrocardiac opacities, new compared to prior exam. While this could represent dependent edema, developing superimposed pneumonia should be considered. Dictated by: Alice Buitrago M.D. on 11/30/2020 at 12:43 CT scan - head: Radiologist's Impression: PROCEDURE: CT HEAD/BRAIN WO CON INDICATIONS: decreased mental status TECHNIQUE: Noncontrast 4.5 mm thick angled axial sections acquired from the foramen magnum to the vertex, with coronal and sagittal reformats. For radiation dose reduction, the following was used: automated exposure control, adjustment of mA and/or kV according to patient size. COMPARISON: [facility], CT, CT HEAD/BRAIN WO CON, 07/27/2020, 3:20. [facility], CT, CT HEAD/BRAIN WO CON, 09/10/2020, 0:45. FINDINGS: Image quality: This examination is limited by involuntary motion artifact. Images are repeated, with some improvement. CSF spaces: Basal cisterns are patent. No extra-axial fluid collections. The ventricles are symmetric in size and shape. Brain: No intracranial bleeds or masses. There is cerebral volume loss for age, with resultant ventricular and sulcal prominence. There are periventricular and deep white matter chronic small vessel ischemic changes. There is intracranial internal carotid artery atherosclerosis. Skull and face: Calvarium and visualized facial bones appear intact, without suspicious lesions. Sinuses: Visualized sinuses and mastoids are clear. IMPRESSION: Limited intracranial study demonstrating brain parenchymal volume loss and chronic small vessel ischemic change. Dictated by: Dawson Flores M.D. on 11/30/2020 at 11:06 Approved by: Dawson Flores M.D. on 11/30/2020 at 11:07 CXR #2: Radiologist's Impression: PROCEDURE: XR CHEST 1V INDICATIONS: ETT/OG placement TECHNIQUE: One view of the chest was acquired. COMPARISON: [facility], , XR CHEST 1V, 11/30/2020, 11:38. FINDINGS: Surgical changes and devices: ET tube 2.6 centimeters superior to the khai. NG tube crosses the GE junction with tip and side port in the proximal stomach. Lungs and pleura: Patchy opacities noted in the lung bases bilaterally right greater left most compatible multilobar pneumonia. Trace bilateral pleural effusions. Mediastinum: Mediastinal contours appear normal. Heart size is normal. Bones and chest wall: No suspicious bony lesions. Overlying soft tissues appear unremarkable. IMPRESSION: Bilateral multilobar pneumonia. ET tube 2.6 centimeters superior to the khai. Dictated by: Clau Caruso MD, PhD on 11/30/2020 at 14:30 ECG Data Attestation: I personally reviewed and interpreted this ECG as follows: Prior ECG tracings: available for review Interpretation: Normal sinus rhythm rate 89 p.r. interval 191 QRS 136 QTC 478, no ST changes no T-wave inversions similar to previous right bundle branch block present in both EKGs MDM Narrative Medical decision making narrative: Patient is responsive only to pain he has coarse breath sounds requiring 4-5 L of O2 nasal cannula. Narcan was tried he has a history of chronic opiate use he had minimal response. He vomited, antib iotics are started empirically for possible aspiration. Blood work returns he is noted to be in acute on chronic renal failure is 3, today it is 7.5 with a BUN of 107, BNP he is also found to be 14,000. Troponin indeterminate at 0.11 7 May be related to renal failure versus IA. Patient is really not able to follow commands only responsive to pain. Multiple conversations the DPOA in his life partner in regards to goals of care and quality of life. At this time the patient will likely need dialysis along with intubation. He would like everything done and patient remains a full code. 2:00 p.m. spoke with [facility] chair at [facility] who has been at a.m. patient's symptoms test results and happy to accept patient for transfer Critical Care Time Critical Care Time Critical Care Time: Yes Total Critical Care Time: 45 Attestation: The high probability of a clinically significant, sudden or life threatening deterioration of the [cardiovascular] system(s) required my full and direct attention, intervention and personal management. The aggregate critical care time was [45] minutes. This time is in addition to time spent performing reported procedures but includes the following: [x] Data Review and interpretation [x] Patient assessment and monitoring of vital signs [x] Documentation [x] Medication orders and management Discharge Plan Departure Patient Disposition: [facility] Clinical Impression: Acute renal failure, Acute respiratory failure with hypoxia, Congestive heart failure Prescriptions: No Action clopidogrel [Plavix] 75 MG tablet 75 mg PO DAILY Qty: 0 RF: 0 lansoprazole [Prevacid] 30 MG capsule,delayed release(DR/EC) 30 mg PO BIDAC Qty: 0 RF: 0 atorvastatin 80 MG tablet 80 mg PO BEDTIME Qty: 0 RF: 0 (DME) cologuard See Rx Instructions .Route .MEDSUPPLY Qty: 1 RF: 0 nitroglycerin 0.4 mg tablet, sublingual 0.4 mg sublingual PRN PRN (Reason: Chest Pain) RF: 0 Co Q-10 300 mg Capsule 300 mg PO DAILY RF: 0 flaxseed oil 1 dose PO DIRECTED RF: 0 Ventricor 1 dose PO DIRECTED RF: 0 resveratrol 1 cap PO DIRECTED RF: 0 Vitapulse 1 dose PO QID RF: 0 doxazosin 1 mg tablet 1 mg PO BEDTIME RF: 0 Artificial Tears (cmc) 1 % Drops 1 drp OPHTHALMIC (EYE) TID PRN (Reason: Dry Eye(S)) RF: 0 nortriptyline 25 mg capsule 25 mg PO BEDTIME RF: 0 polyethylene glycol 3350 17 gram/dose powder 1 dose PO DAILY RF: 0 cyanocobalamin (vitamin B-12) [Vitamin B-12] 1,000 mcg Tablet Extended Release 1,000 mcg PO BID RF: 0 ferrous sulfate 325 mg (65 mg iron) Tablet 325 mg PO QPM RF: 0 cranberry 400 mg Capsule 400 mg DAILY RF: 0 Centrum Silver 400-250 mcg Tablet,Chewable 1 tab PO DAILY RF: 0 isosorbide mononitrate 60 mg Tablet Extended Release 24 Hr 60 mg PO DAILY RF: 0 amlodipine 10 mg Tablet 10 mg PO DAILY RF: 0 metoprolol succinate 25 mg Tablet Extended Release 24 Hr 25 mg PO DAILY RF: 0 (DME) pen needle, diabetic [Pen Needle] 32 gauge x 5/32 needle See Rx Instructions .ROUTE .MEDSUPPLY Qty: 30 RF: 0 prednisone 1 mg Tablet 1 mg PO Q OTHER DAY RF: 0 gabapentin [Neurontin] 600 MG tablet 600 mg PO TID RF: 0 sulfamethoxazole-trimethoprim [Bactrim] 400-80 mg tablet 1 tab PO BID Qty: 20 RF: 0 morphine 15 mg tablet extended release 1 tab PO 5XD Qty: 10 RF: 0 Referrals: Kane Molina MD [Primary Care Provider] -
[2020-11-30] MEDS: NALOXONE 0.4 MG/ML VIAL 0.2 MG IV (11:26)
[2020-11-30] MEDS: SODIUM CHLORIDE 0.9% 1,000 ML 150 ML IV (11:33)
[2020-11-30 11:40] LABS: Add Manual Diff / Slide Review NO; Basophils Absolute Auto 0 /uL (0-100); Basophils Percent Auto 0.1 % (0-2); Eosinophils Absolute Auto 0 /uL (0-450); Eosinophils Percent Auto 0.1 % (2-4); Hematocrit 36.7 % (41-53); Hemoglobin 11.6 g/dL (13.5-17.5); Lymphocytes Absolute Auto 100 /uL (1100-4500); Lymphocytes Percent Auto 2.9 % (25-40); Mean Corpuscular HGB Conc 31.7 % (30-36); Mean Corpuscular Hemoglobin 30.9 PG (26-34); Mean Corpuscular Volume 97.4 fL (80-100); Monocytes Absolute Auto 200 /uL (0-900); Monocytes Percent Auto 9.5 % (3-14); Neutrophils Absolute Auto 1900 /uL (1500-7000); Neutrophils Percent Auto 87.4 % (50-75); Platelet Count 201 X10^3/uL (150-400); Red Blood Cell Count 3.77 X10^6/uL (4.5-5.9); Red Cell Distribution Width 17.1 % (11.6-14.8); White Blood Cell Count 2.2 X10^3/uL (4.5-11.0)
[2020-11-30 11:42] LABS: INR 1.1 (0.9-1.3); Prothrombin Time 12.6 SECONDS (10.1-12.7)
[2020-11-30 11:42] LABS: COVID19 -Nasal RAPID Negative (Negative)
[2020-11-30 11:45] LABS: PTT Partial Thromboplastin Tim 34 SECONDS (26.4-36.2)
[2020-11-30 11:47] LABS: Creatine Kinase 259 U/L (55-170)
[2020-11-30 11:50] LABS: Alanine Aminotransferase 36 IU/L (<50); Albumin 2.9 g/dL (3.5-5.0); Alkaline Phosphatase 73 U/L (38-126); Aspartate Aminotransferase 44 IU/L (17-59); BUN Creatinine Ratio 14.3 (6-22); Bilirubin Total 0.3 mg/dL (0.2-1.3); Calcium 8.1 mg/dL (8.4-10.2); Carbon Dioxide 18 mmol/L (22-32); Chloride 109 mmol/L (98-107); Glucose 121 mg/dL (80-110); HEMOLYSIS < 15 (0-50); Lactate (Lactic Acid) 1.3 mmol/L (0.7-2.1); Sodium 138 mmol/L (137-145); Total Protein 5.9 g/dL (6.3-8.2)
[2020-11-30 12:00] LABS: NT-proBNP (BNP-Adult 18+) 14300 pg/mL (<450); Troponin I 0.117 ng/mL (0.01-0.034)
[2020-11-30 12:03] LABS: Procalcitonin 12.61 ng/mL (<0.5)
[2020-11-30 12:13] LABS: Blood Urea Nitrogen 107 mg/dL (9-20)
[2020-11-30 12:14] LABS: Potassium 5.8 mmol/L (3.4-5.1)
[2020-11-30 12:15] LABS: CKMB % Relative Index 8.8 % (1.5-5.0)
[2020-11-30] MEDS: FUROSEMIDE 40 MG/4 ML VIAL IV (12:22)
[2020-11-30] MEDS: PIPERACILLIN-TAZO 3.375 GM/50 ML FROZ.PIGGY IV (12:22)
[2020-11-30] MEDS: VANCOMYCIN 1,000 MG/200 ML PIGGYBACK 200 MG IV (12:54)
[2020-11-30 13:05] LABS: WBC Urine None Seen (0-5/HPF)
[2020-11-30 13:12] LABS: Bilirubin Urine UA NEGATIVE (NEGATIVE); Color Urine UA YELLOW; Glucose Urine UA NEGATIVE (Negative); Ketones Urine UA NEGATIVE (NEGATIVE); Leukocyte Esterase Urine UA NEGATIVE (NEGATIVE); Nitrite Urine UA NEGATIVE (Negative); Occult Blood Urine UA 3+ (Negative); Protein Urine UA 1+ (Negative); Specific Gravity Urine UA 1.015 (1.000-1.035); Urobilinogen Urine UA 0.2 E.U./dL (0.2)
[2020-11-30 13:13] LABS: Appearance Urine UA Slightly Cloudy
[2020-11-30 13:16] LABS: Bacteria Urine Occasional (0-1); Culture Indicated Urine Cult Not Indicated; RBC Urine 30-100/HPF (0-5/HPF)
[2020-11-30] MEDS: ROCURONIUM 100 MG/10 ML VIAL 80 MG IV (13:23)
[2020-11-30] MEDS: ETOMIDATE 2 MG/ML 10 ML VIAL 10 MG IV (13:23)
[2020-11-30] MEDS: propofoL 1,000 MG/100 ML VIAL 1.999 MG IV (13:30)
--- NOTE | 2020-11-30 13:50 | DI.RAD.S_ITS ---
PROCEDURE: XR CHEST 1V INDICATIONS: ETT/OG placement TECHNIQUE: One view of the chest was acquired. COMPARISON: Merged With [facility], CR, XR CHEST 1V, 11/30/2020, 11:38. FINDINGS: Surgical changes and devices: ET tube 2.6 centimeters superior to the khai. NG tube crosses the GE junction with tip and side port in the proximal stomach. Lungs and pleura: Patchy opacities noted in the lung bases bilaterally right greater left most compatible multilobar pneumonia. Trace bilateral pleural effusions. Mediastinum: Mediastinal contours appear normal. Heart size is normal. Bones and chest wall: No suspicious bony lesions. Overlying soft tissues appear unremarkable. IMPRESSION: Bilateral multilobar pneumonia. ET tube 2.6 centimeters superior to the khai. Dictated by: Clau Caruso MD, PhD on 11/30/2020 at 14:30 Approved by: Clau Caruso MD, PhD on 11/30/2020 at 14:31
--- NOTE | 2020-11-30 13:52 | PC.NURSE ---
Addendum entered by Perico Omer 11/30/20 15:01: Urine output as of 1501 is 700mls. Original amount was an estimate. Original Note: patient was intubated at 1324 using Rocuronium and Etomidate with a 7.5 mm ET tube. He tolerated the procedure well. An OG tube was placed both of which were verified by xray @ 1356. The ET tube is 27 cm at the teeth. His head of bed is at 30 degrees. He appears to be appropriately sedated with propofol running at 10mcg/kg/min. His breathe sounds were equal in all lung wagner bilaterally with chest rise and fall noted. The vent is set at 16RR tidal volume of 450ml with an Fio2 of 60%. His o2 saturation is 92% with an end tidal Co2 of 35. His heart rate is 104 with a sustained BP of 123/58. An ABG was done at 1406. A urinary cath was placed and light brownish, ros urine was observed with an amount of about 800mls output so far. His skin is warm, dry.
--- NOTE | 2020-11-30 15:50 | PC.NURSE ---
IV fluids paused for transport in the MAR but were actually running.
--- NOTE | 2020-11-30 15:59 | PC.NURSE ---
appears to be stage 2 pressure ulcer over his coccyx open to air. Two other pressure ulcers covered by bandages of unknown stages.
[2020-12-01 16:11] LABS: HCO3 ABG 18 mmol/L (22-26); Oxygen Saturation ABG 94 % (95-100); PCO2 ABG 52.3 mmHg (35-45); PO2 ABG 92 mmHg (80-100); TCO2 ABG 19 mmol/L (21-31); pH ABG 7.14 (7.35-7.45)
[2020-12-01 16:12] LABS: Fractionated Inspired Oxygen 60
== END 2020-11-30 16:03 | disposition short-term general hospital (02) ==
PROVIDERS: Emergency Provider Emergency Medicine; Family Provider Internal Medicine; PCP Internal Medicine
DX: N17.9 Acute kidney failure, unspecified (principal); J96.01 Acute respiratory failure with hypoxia; I50.9 Heart failure, unspecified; S41.111A Laceration without foreign body of right upper arm, initial encounter; W19.XXXA Unspecified fall, initial encounter; R05 Cough; Z20.822 Contact with and (suspected) exposure to COVID-19; I25.10 Atherosclerotic heart disease of native coronary artery without angina pectoris; N18.4 Chronic kidney disease, stage 4 (severe); E11.9 Type 2 diabetes mellitus without complications; I10 Essential (primary) hypertension; E78.5 Hyperlipidemia, unspecified; D64.9 Anemia, unspecified
CPT/HCPCS: 31500; 36415; 36600; 51701; 70450; 71045; 80053; 81001; 82550; 82553; 82805; 83605; 83880; 84145; 84443; 84484; 85025; 85610; 85730; 87040; 87070; 87205; 87635; 93005; 93010; 94002; 94770; 94799; 96361; 96365; 96367; 96375; 99284; 99291; 99292; C9803; J1940; J2310; J2543; J2704